=== PATIENT | female | born 1940 | race Caucasian/White ===

== ENCOUNTER 2016-11-02 11:21 | Inpatient (IN) | payer MEDICARE, OTHER ==
[~2016-11-02] VITALS: Ht 152.4 cm; Wt 103.4 kg
[~2016-11-02 11:21] MED LIST: AMLO10TA2 PO; ASPI-482 PO; BENZ0.5T PO; BENZ100C2 PO; BENZ200C39 PO; BIOT1CAP3 PO; BIOT25005 PO; BIOT300T PO; BUDE9TAB PO; BUSP15TA PO; BUTA1CAP57 PO; CA C1TAB42 PO; CA C1TAB58 PO; CALC-67 PO; CARV12.52 PO; CIPR250T30 PO; CODEINE PHOSPHATE PO; COLC0.6T34 PO; COLE1TAB2 PO; CYAN10002 IJ; CYAN10002 IM; CYCL5TAB PO; DIPH1TAB PO; DIPH1TAB5 PO; DOCO2CRE TP; DULO60CA6 PO; ESTR42.53 VG; FERR-26 PO; FLUT16SP NS; FURO20TA3 PO; GABA300C2 PO; GABA600T2 PO; GEMF600T3 PO; GUAIFENESIN PO; HYDR-2762 PO; KETO15CR TP; KRIL1CAP4 PO; KRIL1CAP5 PO; LACT1CAP21 PO; LEVO500T38 PO; LEVO50TA5 PO; MELA5TAB PO; MELO-156 PO; MELO7.5O PO; MESA800T2 PO; METF-620 PO; MIRT30TA3 PO; MULT1TAB52 PO; OMEP20TA PO; ONDA4TAB10 SL; OXYB10TA PO; OXYB10TA7 PO; POTA15TA9 PO; POTA20TA4 PO; POTASSIUM CHLO10 MEQ PO; PRED-220 PO; PREG75CA PO; PSYL1PAC PO; QUET100T PO; SALI44.3 MM; SUVO5TAB PO; TEMA15CA PO; TIZA4TAB PO; VIT1CAPS17 PO; VIT1TABL34 PO; VITA100T5 PO; VITA200C5 PO
--- NOTE | 2016-11-02 12:04 | RAD ---
Indication: Shortness of breath. Time of exam 11:57 AM Comparison is made with prior chest from 04/15/2016. The heart is enlarged but stable. The lungs are clear. No infiltrate or failure is detected. No effusion or pneumothorax is seen. Impression: No acute cardiopulmonary process is detected.
[2016-11-02] MEDS ORDERED: IPRATRPIUM/ALBUTEROL 0.5/2.5MG 3 ML NEBU. NEB ONE ×2 (12:30→14:00)
--- NOTE | 2016-11-02 12:35 | EKG ---
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
[2016-11-02 12:40] LABS: HEMATOCRIT 32.7 % (36.0-47.0); HEMOGLOBIN 10.7 g/dL (12.0-15.5); MEAN CORPUSCULAR VOLUME 92 fL (79-100); RED BLOOD COUNT 3.53 x10^6/uL (3.50-5.40); WHITE BLOOD COUNT 8.4 x10^3/uL (4.0-11.0)
[2016-11-02 12:41] LABS: BASO % 0 % (0-3); EOS % 4 % (0-3); LYMPH # 1.2 x10^3/uL (1.0-4.8); LYMPH % 14 % (24-48); MEAN CORPUSCULAR HEMOGLOBIN 30 pg (25-35); MEAN CORPUSCULAR HGB CONC 33 g/dL (31-37); MONO % 8 % (0-9); NEUT % 74 % (31-73); PLATELET COUNT 208 x10^3/uL (140-400); RED CELL DISTRIBUTION WIDTH 14.6 % (11.5-14.5)
[2016-11-02 12:51] LABS: CALCIUM 8.7 mg/dL (8.5-10.1); CREATININE 1.1 mg/dL (0.6-1.0); GFR 48.7; POTASSIUM 4.5 mmol/L (3.5-5.1)
[2016-11-02 12:57] LABS: ALBUMIN 3.1 g/dL (3.4-5.0); TOTAL BILIRUBIN 0.3 mg/dL (0.2-1.0); TOTAL PROTEIN 6.1 g/dL (6.4-8.2)
[2016-11-02] MEDS ORDERED: BENZONATATE 100 MG CAPSULE. PO ONE (13:15)
[2016-11-02] MEDS ORDERED: MORPHINE SULFATE 2 MG/ML DISP.SYRIN. IV PRN (13:30)
[2016-11-02] MEDS ORDERED: AZITHROMYCIN 500 MG in IV NORMAL SALINE 250ML 250 ML IV ONE (13:30)
[2016-11-02] MEDS ORDERED: ONDANSETRON PF 4 MG/2 ML VIAL. IV PRN (13:30)
[2016-11-02] MEDS ORDERED: AZITHRMYCN 500MG IVPB FOR OMNI 250 ML IV ONE (13:45)
--- NOTE | 2016-11-02 14:02 | RAD ---
Exam performed:3 views right shoulder Indication:Right shoulder pain after pulling on her walker a few days ago Date of service:11/02/16. Comparison:None available Findings : AP radiographs of the shoulder in internal and external rotation as well as a Y-view reveal the osseous structures to be intact and well aligned. Small ossific fragment is seen of the lateral aspect of the humeral head in one view only. Joint space narrowing involving the acromioclavicular joint. The glenohumeral joint space is well-preserved. The articular margins are smooth. Impression: 1. Degenerative arthrosis involving the acromioclavicular joint. 2. Small ossific density along the lateral aspect of the humeral head on one view only. This could be related to calcific tendinosis. Small avulsion not excluded although the donor site is not clear. If symptoms persists, consider evaluation with CT right shoulder.
[2016-11-02 14:30] VITALS: BP 162/58
[2016-11-02 15:00] VITALS: BP 162/58
[2016-11-02] MEDS ORDERED: FERR-26 PO (15:01)
[2016-11-02] MEDS ORDERED: DULO60CA6 PO (15:01)
[2016-11-02] MEDS ORDERED: FURO20TA3 PO (15:02)
--- NOTE | 2016-11-02 15:02 | PHYS DOC ---
Past Medical History Past Medical History: Anemia, Anxiety, Cancer, CHF, Depression, Diabetes-Type II, Hypertension, Hypothyroid, Other Additional Past Medical Histor: cervical ca , sleep apnea Past Surgical History: Cholecystectomy, Hysterectomy Additional Past Surgical Histo: carpal tunnel, back sx, EGD, Colonscopy, bypass that changed to lap band Alcohol Use: None Drug Use: None Adult General Chief Complaint Chief Complaint: SHORTNESS OF BREATH HPI HPI Patient is a 75 year old female who presents with shortness of breath. THe patient reports 5 day history of frequent dry cough associated with shortness of breath at rest. She denies fevers/chills, chest pain, lower extremity pain/ swelling. She was recently admitted to the hospital & treated for pneumonia, no oral antibiotics at time of hospital discharge. She denies asthma, COPD, smoking history. She is wearing a sling on her right upper extremity, states she experienced mechanical fall 4 days ago, had XR at that time negative for fracture, has ongoing right shoulder pain. Reports DM, HTN, CHF, DORA. PCP is Dr. Asif. Review of Systems Review of Systems Constitutional: Denies fever or chills Eyes: Denies change in visual acuity HENT: Denies nasal congestion or sore throat Respiratory: Reports cough & shortness of breath Cardiovascular: Denies chest pain or edema GI: Denies abdominal pain, nausea, vomiting Musculoskeletal: Denies back pain, reports shoulder pain Integument: Denies rash or skin lesions Neurologic: Denies headache, focal weakness or sensory changes Current Medications Current Medications Current Medications Medications (Trade) Dose Ordered Sig/Ulices Start Time Stop Time Status Last Admin Dose Admin Albuterol/ Ipratropium (Duoneb) 3 ml 1X ONCE 11/02/16 12:30 11/02/16 12:31 DC 11/02/16 11:54 3 ML Allergies Allergies Allergies Coded Allergies Type Severity Reaction Last Updated Verified ciprofloxacin Allergy Intermediate 10/18/16 Yes egg Allergy Intermediate Nausea and Vomiting 10/18/16 Yes I S O L A T I O N *CONTACT* Allergy Unknown 10/18/16 Yes cephalexin Adverse Reaction Intermediate Itching 10/18/16 Yes Physical Exam Physical Exam Constitutional: obese, no acute distress, non-toxic appearance. HENT: Normocephalic, atraumatic, bilateral external ears normal, oropharynx moist, no tonsillar enlargement/exudaate, nose normal. Eyes: conjunctiva normal, no discharge. Neck: supple, no stridor. Cardiovascular: RRR, no murmurs, no edema. Lungs & Thorax: diminished, left sided expiratory wheezes, breath sounds present in all lung fonseca, speaking in short sentences, no use of accessory muscles, no distress. frequent coughing. Abdomen: soft, nontender, nondistended. Skin: Warm, dry, no erythema, no rash. Back: No tenderness. Extremities: no calf tenderness or swelling. RUE sling present, generalized tenderness to shoulder without swelling/deformity, no elbow tenderness, limited ROM secondary to pain, axillary nerve sensation intact, radial pulse 2+, radial/ median/ulnar nerve sensory & motor function intact Neurologic: Alert and oriented X 3, no focal deficits noted. Psychologic: Affect normal, judgement normal, mood normal. Current Patient Data Vital Signs Vital Signs Date Time Temp Pulse Resp B/P (MAP) Pulse Ox O2 Delivery O2 Flow Rate FiO2 11/02/16 12:51 60 18 152/67 (95) 94 Room Air 11/02/16 11:38 98.3 98.3 Lab Values Laboratory Tests Test 11/02/16 12:20 White Blood Count 8.4 x10^3/uL (4.0-11.0) Red Blood Count 3.53 x10^6/uL (3.50-5.40) Hemoglobin 10.7 g/dL (12.0-15.5) L Hematocrit 32.7 % (36.0-47.0) L Mean Corpuscular Volume 92 fL (79-100) Mean Corpuscular Hemoglobin 30 pg (25-35) Mean Corpuscular Hemoglobin Concent 33 g/dL (31-37) Red Cell Distribution Width 14.6 % (11.5-14.5) H Platelet Count 208 x10^3/uL (140-400) Neutrophils (%) (Auto) 74 % (31-73) H Lymphocytes (%) (Auto) 14 % (24-48) L Monocytes (%) (Auto) 8 % (0-9) Eosinophils (%) (Auto) 4 % (0-3) H Basophils (%) (Auto) 0 % (0-3) Neutrophils # (Auto) 6.2 x10^3uL (1.8-7.7) Lymphocytes # (Auto) 1.2 x10^3/uL (1.0-4.8) Monocytes # (Auto) 0.6 x10^3/uL (0.0-1.1) Eosinophils # (Auto) 0.3 x10^3/uL (0.0-0.7) Basophils # (Auto) 0.0 x10^3/uL (0.0-0.2) Sodium Level 142 mmol/L (136-145) Potassium Level 4.5 mmol/L (3.5-5.1) Chloride Level 103 mmol/L (98-107) Carbon Dioxide Level 29 mmol/L (21-32) Anion Gap 10 (6-14) Blood Urea Nitrogen 28 mg/dL (7-20) H Creatinine 1.1 mg/dL (0.6-1.0) H Estimated GFR (Cockcroft-Gault) 48.7 BUN/Creatinine Ratio 25 (6-20) H Glucose Level 94 mg/dL (70-99) Calcium Level 8.7 mg/dL (8.5-10.1) Total Bilirubin 0.3 mg/dL (0.2-1.0) Aspartate Amino Transferase (AST) 13 U/L (15-37) L Alanine Aminotransferase (ALT) 19 U/L (14-59) Alkaline Phosphatase 95 U/L (46-116) Troponin I Quantitative < 0.017 ng/mL (0.000-0.055) VB-Sip-A-Type Natriuretic Peptide 358 pg/mL (0-124) H Total Protein 6.1 g/dL (6.4-8.2) L Albumin 3.1 g/dL (3.4-5.0) L Albumin/Globulin Ratio 1.0 (1.0-1.7) Laboratory Tests 11/02/16 12:20 Laboratory Tests 11/02/16 12:20 EKG EKG interpreted by me: NSR rate 63, no acute ST/T wave changes, normal intervals, PACs, low voltage.[] Radiology/Procedures Radiology/Procedures PROCEDURE: CHEST AP ONLY Indication: Shortness of breath. Time of exam 11:57 AM Comparison is made with prior chest from 04/15/2016. The heart is enlarged but stable. The lungs are clear. No infiltrate or failure is detected. No effusion or pneumothorax is seen. Impression: No acute cardiopulmonary process is detected. DICTATED and SIGNED BY: SANDRA GONZALEZ MD DATE: 11/02/16 1201 PROCEDURE: SHOULDER 2+V RIGHT Exam performed:3 views right shoulder Indication:Right shoulder pain after pulling on her walker a few days ago Date of service:11/02/16. Comparison:None available Findings : AP radiographs of the shoulder in internal and external rotation as well as a Y-view reveal the osseous structures to be intact and well aligned. Small ossific fragment is seen of the lateral aspect of the humeral head in one view only. Joint space narrowing involving the acromioclavicular joint. The glenohumeral joint space is well-preserved. The articular margins are smooth. Impression: 1. Degenerative arthrosis involving the acromioclavicular joint. 2. Small ossific density along the lateral aspect of the humeral head on one view only. This could be related to calcific tendinosis. Small avulsion not excluded although the donor site is not clear. If symptoms persists, consider evaluation with CT right shoulder. DICTATED and SIGNED BY: SHERRI GUNN MD DATE: 11/02/16 9092[] Course & Med Decision Making Course & Med Decision Making Pertinent Labs and Imaging studies reviewed. (See chart for details) The patient presents with cough & dyspnea. O2 sats as low as 88-90% on room air while at rest. Frequent paroxysmal coughing fits. Gave tessalon perles & duoneb x2. CXR negative for acute process, labs show mild elevation of BNP. She did not feel better with treatments given here. At this time symptoms appear infectious with cough as predominant feature. Gave azithromycin here. She did have recent car trip to [place], at this time no symptoms or signs of DVT, not tachycardic, no history of DVT/PE, & had recent chest CTA during her previous admission. For now will not pursue further workup for PE but if cough improves & still dyspneic may benefit from further consideration. Discussed with DR. Mcintyre who agrees to admit to inpatient status. Pulmonary consult to Dr. Aguilar as well as Dr. Trevizo for shoulder pain. The patient was admitted in stable condition. [] Dragon Disclaimer Dragon Disclaimer This electronic medical record was generated, in whole or in part, using a voice recognition dictation system. Departure Departure Impression: Primary Impression: Dyspnea Additional Impressions: Bronchitis Hypoxia Shoulder pain Disposition: 09 ADMITTED INPATIENT Admitting Physician: Christina Mcintyre Condition: STABLE Problem Qualifiers SHARAD POZO MD November 02, 2016 15:02
[2016-11-02] MEDS ORDERED: BUDE9TAB PO (15:03)
[2016-11-02] MEDS: ACETAMINOPHEN 325 MG TABLET. PO PRN ×2 (16:30→23:42)
[2016-11-02] MEDS: IPRATRPIUM/ALBUTEROL 0.5/2.5MG 3 ML NEBU. NEB SCH ×2 (16:52→19:57)
[2016-11-02] MEDS: PROMETH/CODEINE 6.25/10MG 5 ML SYRUP. PO PRN ×2 (18:14→21:48)
--- NOTE | 2016-11-02 18:34 | ACF ---
Admission Forms Criteria GENERAL ADMISSION CRITERIA (Place 'X' for any and all applicable criteria): Admission is indicated for ANY ONE of the following: [ ]I. Hemodynamic instability as indicated by ANY ONE of the following(1)(2) (3)(4)(5): [ ]a) Vital sign abnormality not readily corrected by appropriate treatment within 12 to 24 hours indicated by ANY ONE of the following: [ ]i) Hypotension [ ]ii) Symptomatic Tachycardia unresponsive to treatment (eg , analgesia, fluids, sedation as indicated) [ ]iii) Orthostatic vital sign changes unresponsive to treatment (eg, fluids) [ ]b) Vital sign abnormality that is severe indicated by ANY ONE of the following: [ ]i) Inadequate perfusion indicated by ANY ONE of the following: [ ]1) Lactic acidosis (greater than 2 mmol/L) [ ]2) New abnormal capillary refill (greater than 3 seconds) [ ]3) Other metabolic acidosis (arterial pH less than 7.35) not otherwise explained [ ]4) Reduced urine output [ ]5) Altered mental status [ ]6) Myocardial Ischemia [ ]v) Mean arterial pressure[A] less than 60 mm Hg [ ]vi) Mean arterial pressure[A] less than 70 mm Hg after 30 minutes of appropriate treatment (eg, fluid resuscitation) [ ]vii) IV inotropic or vasopressor medication required to maintain adequate blood pressure or perfusion [ ]viii) Sustained heart rate greater than 120 beats per minute in adult or child 6 years or older[B]] [ ]II. Hypertension requiring inpatient treatment as indicated by ANY ONE of the following(6)(7)(8): [ ]a) SBP greater than 220 mm Hg or DBP greater than 120 mm Hg despite treatment [ ]b) SBP greater than 140 mm Hg or DBP greater than 100 mm Hg with evidence of acute end organ damage as indicated by ANY ONE of the following: [ ]i) Encephalopathy [ ]ii) Acute renal failure as indicated by new onset of ANY ONE of the following(9)(10)(11)(12)(13): [ ]1) A 3-fold rise in serum creatinine from baseline [ ]2) Serum creatinine greater than 4 mg/dL ( 354 micromoles/L) with acute rise greater than 0.5 mg/dL (44.2 micromoles/L) [ ]3) Reduction of more than 75% in estimated glomerular filtration rate from baseline [ ]4) Estimated glomerular filtration rate less than 35 mL/min/1.73m2 (0.59 mL/sec/1.73m2) in child up to 18 years of age [ ]5) Cessation of urine output indicated by ALL of the following: [ ]A. Adequate volume status [ ]B. Inadequate urine output as indicated by ANY ONE of the following: [ ]a. Urine output less than 0.3 mL/kg/hr for 24 hours [ ]b. Anuria (urine output less than 0.1 mL/kg/hr) for 12 hours [ ]iii) Aortic dissection [ ]iv) Myocardial ischemia [ ]v) Left ventricular heart failure [ ]vi) Retinal hemorrhage [ ]vii) Other significant finding [ ]c) Hypertension in child requiring inpatient treatment as indicated by ALL of the following(14)(15)(16): [ ]i) Outpatient treatment not effective, not available, or not appropriate [ ]ii) SBP or DBP greater than 95th percentile for age [ ]iii) Evidence of acute end organ damage as indicated by ANY ONE of the following: [ ]1) Altered mental status [ ]2) Acute renal failure as indicated by new onset of ANY ONE of the following(9)(10)(11)(12)(13): [ ]A. A 3-fold rise in serum creatinine from baseline [ ]B. Serum creatinine greater than 4 mg/dL (354 micromoles/L) with acute rise greater than 0.5 mg/dL (44.2 micromoles/L) [ ]C. Reduction of more than 75% in estimated glomerular filtration rate from baseline [ ]D. Estimated glomerular filtration rate less than 35 mL/min/1.73m2 (0.59 mL/sec/1.73m2)in child up to 18 years of age [ ]E. Cessation of urine output indicated by ALL of the following: [ ]a. Adequate volume status [ ]b. Inadequate urine output as indicated by ANY ONE of the following: [ ]1) Urine output less than 0.3 mL/kg/hr for 24 hours [ ]2) Anuria (urine output less than 0.1 mL/kg/hr) for 12 hours [ ]3) Severe headache [ ]4) Visual disturbance [ ]5) Retinal hemorrhage [ ]6) Other significant finding [ ]III. Acute cardiac or peripheral ischemia as indicated by ANY ONE of the following: [ ]a) Acute coronary syndrome(17)(18) [ ]b) Acute peripheral ischemia (eg, pulseless, cool, mottled, or cyanotic extremity)(19) [ ]IV. Cardiac arrhythmias or findings of immediate concern indicated by ANY ONE of the following(20)(21): [ ]a) Heart rhythms that are inherently dangerous or unstable indicated by ANY ONE of the following(22)(23)(24): [ ]i) Resuscitated ventricular fibrillation or cardiac arrest [ ]ii) Ventricular escape rhythm [ ]iii) Sustained ventricular tachycardia (30 seconds or more of ventricular rhythm at greater than 100 beats per minute) [ ]iv) Nonsustained ventricular tachycardia and ANY ONE of the following: [ ]1) Suspected cardiac ischemia as cause or consequence of ventricular tachycardia [ ]2) In setting of acute myocarditis [ ]b) Unstable cardiac conduction defects indicated by ANY ONE of the following(24)(25)(26): [ ]i) Type II second-degree atrioventricular block [ ]ii) Third-degree atrioventricular block [ ]iii) New-onset left bundle branch block with suspected myocardial ischemia [ ]c) Any heart rhythm and ANY ONE of the following(22)(23)(27)(28)( 29): [ ] i) Continuous long-term ECG monitoring needed (eg, initiation of drug requiring monitoring for more than 24 hours) [ ] ii) Patient has automatic implanted cardioverter defibrillator that is repeatedly firing, malfunctioning, or in need of immediate adjustment of settings beyond the scope of ambulatory or observation care. [ ]d) Heart rhythms of concern due to ANY ONE of the following: [ ]i) Hypotension [ ]ii) Respiratory distress [ ]iii) Association with other significant symptoms (eg, bradycardia with syncope or ongoing dizziness, supraventricular tachycardia with chest pain) (27)(28) (30) [ ] V. Severe heart failure as indicated by ANY ONE of the following ( 31)(32): [ ]a) Respiratory distress [ ]b) Hypotension [ ]c) Anasarca (refractory to outpatient therapy) [ ]d) Cardiac arrhythmias of immediate concern [ ]e) Myocardial ischemia [X]. Respiratory abnormalities, including ANY ONE of the following(33)(34) (35)(36): [ ]a) Respiratory rate greater than 30 breaths per minute unresponsive to treatment [A] [ ]b) New saturation of arterial oxygen less than 90% [ ]c) New partial pressure of carbon dioxide greater than 44 mm Hg ( 5.9 kPa) [X]d) Supplemental oxygen or respiratory treatments needed that are new or not performable at other levels of care [ ]e) New-onset cyanosis [ ]f) Inability to protect airway [ ]g) Chronic lung disease with severe deterioration (not responsive to emergency and observation care treatment as appropriate) as indicated by ANY ONE of the following(34)(36 ): [ ]i) SaO2 5% below baseline in patient with chronic hypoxemia [ ]ii) New requirement for supplemental oxygen to keep SaO2 at baseline or acceptable level [ ]iii) Required supplemental oxygen performable only in acute inpatient setting [ ]iv) Severe airflow or ventilation abnormalities [ ]v) Previously mobile patient unable to walk between rooms [ ]vi Inability to eat or sleep due to dyspnea [ ]vii) Rapid rate of exacerbation onset [ ]viii) Altered mental status ]VII. Severe airflow or ventilation abnormalities (not responsive to emergency and observation care treatment as appropriate) as indicated by ANY ONE of the following(33)(34)(35)(37): [ ]a) PCO2 greater than 42 mm Hg (5.6 kPa) and pH less than 7.35 (new ) [ ]b) Documented PCO2 increased more than 5 mm Hg (0.7 kPa) from disease baseline [ ]c) Airflow measurements [B] less than 60% of previous best or predicted (eg, peak expiratory flow rate less than 300 L/minute) despite intensive emergent treatment [C] [ ]d) Required respiratory treatments that are performable only in acute inpatient setting [ ]VIII. Impending or actual respiratory arrest ( Also use Respiratory Failure GRG for severe respiratory disease and long-term mechanical ventilation patients) [ ]IX. Neurologic abnormalities, including ANY ONE of the following: [ ]a) New findings that suggest ANY ONE of the following: [ ]i) DEXTRINE MIXER infection(38) [ ]ii) Cerebral bleeding, ischemia, or vasospasm(39)(40) [ ]iii) Increased intracranial pressure, hydrocephalus, or cerebral edema(41)(42)(43) [ ]iv) Spinal cord injury(44) [ ]b) Uncontrolled seizures(45) [ ]c) New-onset coma (eg, [place] coma scale score less than 9) or unexplained abnormal mental status (eg, [place] coma scale score less than 14) [D](41)(46)(47) [ ]X. New-onset severe neurologic findings requiring inpatient care; examples include(42)(48)(49): [ ]a) Papilledema [ ]b) Cerebral edema [ ]c) Mass effect on CT scan [ ]XI. Suspected acute intra-abdominal process with peritoneal signs, abdominal mass, or similar findings (50)(51)(52) [ ]XII. Severe physiologic disorder remaining after emergency or observation level care (as appropriate) as indicated by ANY ONE of the following (53): [ ]a) Significant dehydration [ ]b) Diabetic ketoacidosis [ ]c) Hyperglycemic hyperosmolar state (eg, osmolality greater than 320 mOsm/kg (mmol/kg) [ ]d) Hypoglycemia [ ]e) Other (new) acid-base disorder with pH less than 7.35 or greater than 7.5(54) [ ]f) Thyroid storm (55) [ ]g) Myxedema coma (55) [ ]XIII. Abdominal abnormalities with ANY ONE of the following(56)(57): [ ]a) Absent bowel sounds with complete ileus [ ]b) Signs of intestinal obstruction or peritonitis [E] [ ]c) Nausea and vomiting that cannot be controlled with outpatient or observation care [ ]XIV. Acute renal failure as indicated by new onset of ANY ONE of the following(9)(10)(11)(12)(13): [ ]a) A 3-fold rise in serum creatinine from baseline [ ]b) Serum creatinine greater than 4 mg/dL (354 micromoles/L) with acute rise greater than 0.5 mg/dL (44.2 micromoles/L) [ ]c) Reduction of more than 75% in estimated glomerular filtration rate from baseline [ ]d) Estimated glomerular filtration rate less than 35 mL/min/ 1.73m2 (0.59 mL/sec/1.73m2) in child up to 18 years of age [ ]e) Cessation of urine output indicated by ALL of the following: [ ]i) Adequate volume status [ ]ii) Inadequate urine output as indicated by ANY ONE of the following: [ ]1) Urine output less than 0.3 mL/kg/hr for 24 hours [ ]2) Anuria (urine output less than 0.1 mL/kg/hr) for 12 hours [ ]XV. Significant uremic complications as indicated by ANY ONE of the following(58)(59)(60): [ ]a) Outpatient therapy is ineffective or not feasible for ANY ONE of the following: [ ]i) Severe heart failure [ ]ii) Severehypertension [ ]iii) Pleural effusion [ ]iv) Pericarditis or pericardial effusion [ ]b) Cardiac arrhythmias of immediate concern [ ]c) Intractable nausea or vomiting [ ]d) Recurrent seizures [ ]e) Encephalopathy [ ]f) Bleeding abnormalities (eg, platelet dysfunction) with active (eg, gastrointestinal) bleeding [ ]g) Dialysis indicated before long-term access or ambulatory arrangements can be made [ ]h) Significant metabolic or electrolyte abnormalities (eg, severe acidosis or hyperkalemia) [ ]XVI. High fever or other high-risk infection situation as indicated by ANY ONE of the following(61)(62)(63)(64): [ ]a) Outpatient and observation care antimicrobial treatment unavailable, not effective, or not appropriate [ ]b) Documented bacteremia [ ]c) Temperature greater than 40.5 degrees C (104.9 degrees F) ( oral) [ ]d) Temperature greater than 39.5 degrees C (103.1 degrees F) ( oral) or less than 36 degrees C (96.8 degrees F) (rectal) that does not respond to e treatment and observation care [ ] XVII. Temperature less than 95 degrees F (35 degrees C)(rectal)(65) [ ] XVIII. Severe nutritional abnormalities as indicated by ALL of the following (66)(67): [ ]a) Inability to tolerate or establish sufficient oral or other enteral nutrition in outpatient setting [ ]b) Parenteral nutrition regimen need that must be implemented on inpatient basis [ ] XIX. Severe electrolyte abnormalities indicated by ALL of the following(68) (69)(70): [ ]a) Electrolytes and associated findings are not as expected for patient baseline or acceptable treatment effects. [ ]b) Severe abnormalities indicated by ANY ONE of the following: [ ]i) Sodium less than 130 mEq/L (mmol/L) (new) [ ]ii)Sodium less than 135 mEq/L (mmol/L) with ANY ONE of the following: [ ]1) Uncorrectable (to near normal or chronic baseline) after trial of outpatient and emergency treatment [ ]2) Altered mental status [ ]3) Seizures [ ]4) Severe medical etiology requiring inpatient management (eg, heart failure, hypovolemia) [ ]iii) Sodium greater than 155 mEq/L (mmol/L) [ ]iv) Sodium greater than 150 mEq/L (mmol/L) with ANY ONE of the following: [ ]1) Uncorrectable (to near normal or chronic baseline) with outpatient and emergency treatment [ ]2) Altered mental status [ ]3) Seizures [ ]4) Severe medical etiology (eg, hypovolemia, diabetes insipidus) [ ]v) Potassium less than 2.5 mEq/L (mmol/L) despite outpatient and emergency treatment [ ]vi) Potassium less than 3 mEq/L (mmol/L) with ANY ONE of the following: [ ]1) Weakness [ ]2) Cardiac abnormality (eg, arrhythmia, conduction disturbance) [ ]3) Cardiac ischemia [ ]4) Ileus [ ]5) Ongoing medical cause requiring inpatient management (eg, acute renal wasting or SIADH) [ ]6) Other severe symptoms [ ]vii) Potassium greater than 6.5 mEq/L (mmol/L) [ ]viii) Potassium greater than 5 mEq/L (mmol/L) with ANY ONE of the following: [ ]1) Uncorrectable (to near normal or chronic baseline) with outpatient and emergency treatment [ ]2) Severe ECG findings [F] [ ]3) Acute worsening of renal failure (creatinine greater than 2.5 mg/dL (221 micromoles/L) or significant elevation for age and size) [ ]4) Severe weakness [ ]5) Severe medical etiology (eg, hemolysis, infection, drug overdose) [ ]ix) Calcium less than 7 mg/dL (1.75 mmol/L) despite outpatient and emergency treatment (72) [ ]x) Calcium less than 8 mg/dL (2 mmol/L) with significant symptoms or findings; examples include(72): [ ]1) Altered mental status [ ]2) Muscle spasms [ ]3) Seizures [ ]4) Breathing difficulty [ ]5) Cardiac abnormality (eg, arrhythmia or conduction disturbance) [ ]xi) Calcium greater than 14 mg/dL (3.5 mmol/L)(72) [ ]xii) Calcium greater than 12 mg/dL (3 mmol/L) with ANY ONE of the following(72): [ ]1) Uncorrectable (to near normal or chronic baseline) with outpatient and emergency treatment [ ]2) Significant dehydration or hypovolemia as indicated by ALL of the following(70)(73)(74): [ ]A. Not resolved with initial treatments [ ]B. Clinically significant dehydration as indicated by ANY ONE of the following: [ ]a. Vomiting refractory to outpatient treatment (ie, precluding oral rehydration) [ ]b. Inability to drink [ ]c. Hypernatremia or other electrolyte abnormality unable to be corrected with outpatient and emergency treatment [ ]d. Failure to remain hydrated with outpatient therapy [ ]e. Reduced urine output [ ]f. Hypotension [ ]g. Serious cause for dehydration requiring acute hospitalization (eg, bowel obstruction, increased intracranial pressure, infectious cause) [ ]h. Child with ANY ONE of the following(75): [ ]1) Severe abdominal tenderness [ ]2) Adequate care not available at home [ ]3) Severe dehydration ( greater than 9% loss of body weight) [ ]4) Significant symptoms or findings; examples include: [ ]A. Altered mental status [ ]B. Cardiac abnormality (eg, arrhythmia, conduction disturbance) [ ]C. Malignant etiology requiring inpatient treatment [ ]xiii) Phosphorus less than 1 mg/dL (0.32 mmol/L) [ ]xiv) Phosphorus less than 1.5 mg/dL (0.48 mmol/L) with ANY ONE of the following: [ ]1) Patient unresponsive to outpatient and emergency treatment [ ]2) Significant symptoms or findings; examples include: [ ]A. Weakness [ ]B. Altered mental status [ ]C. Breathing difficulty [ ]D. Seizures [ ]E. Rhabdomyolysis [ ]xv) Phosphorus greater than 10 mg/dL (3.2 mmol/L) [ ]xvi) Phosphorus greater than 4.5 mg/dL (1.45 mmol/L) (new) with ANY ONE of the following: [ ]1) Severe medical etiology (eg, crush injury, acute renal failure) [ ]2) Associated hypocalcemia with significant findings; examples include: [ ]A. Neurologic symptoms [ ]B. Altered mental status [ ]C. Muscle spasms [ ]D. Seizures [ ]E. Breathing difficulty [ ]F. Cardiac abnormality (eg, arrhythmia, conduction disturbance) [ ]xvii) Magnesium less than 1 mg/dL (0.41 mmol/L) [ ]xviii) Magnesium less than 1.5 mg/dL (0.62 mmol/L) with ANY ONE of the following: [ ]1) Patient unresponsive to outpatient and emergency treatment [ ]2) Associated hypocalcemia with significant findings; examples include: [ ]A. Altered mental status [ ]B. Muscle spasms [ ]C. Seizures [ ]D. Breathing difficulty [ ]E. Cardiac abnormality (eg, arrhythmia , conduction disturbance) [ ]3) Associated hypokalemia (potassium less than 3 mEq/L (mmol/L)) with risk of arrhythmia [ ]xix) Magnesium greater than 4 mEq/L (2 mmol/L) [ ]xx) Magnesium greater than 2.5 mEq/L (1.25 mmol/L) with significant symptoms or findings; examples include: [ ]1) Weakness [ ]2) Altered mental status [ ]3) Cardiac abnormality (eg, arrhythmia, conduction disturbance) [ ]4) Breathing difficulty [ ]5) Severe medical etiology (eg, renal failure, hypovolemia) [ ]xxi) Uric acid greater than 20 mg/dL (1190 micromoles/L)(76) [ ]xxii) Uric acid greater than 8 mg/dL (476 micromoles/L) with significant symptoms or findings of tumor lysis syndrome; examples include(76): [ ]1) Creatinine greater than 1.5 times upper limit of normal [ ]2) Cardiac abnormality (eg, arrhythmia, conduction disturbance) [ ]3) Seizure [ ]XX. Acute blood loss causing significant abnormality as indicated by ANY ONE of the following(77)(78): [ ]a) Hemoglobin less than 10 g/dL (100 g/L) (not baseline) [ ]b) Hematocrit less than 30% (0.30) (not baseline) [ ]c) Repeat hematocrit decreased more than 2% (0.02) [ ]d) Uncontrolled bleeding [ ]XXI. Severe anemia indicated by ANY ONE of the following(78)(79): [ ]a) Altered mental status [ ]b) Chest pain [ ]c) Exertional dyspnea [ ]d) Syncope [ ]e) Other findings suggesting inadequate perfusion [ ]f) Treatment with transfusion or volume replacement is ineffective at resolving ANY ONE of the following [G]: [ ]i) Tachycardia for age [ ]ii) Orthostatic vital sign changes as indicated by ANY ONE of the following(80): [ ]1) Fall in SBP of 20 mm Hg or more 1 to 3 minutes after patient sits or stands from recumbent position [ ]2) Fall in DBP of 10 mm Hg or more 1 to 3 minutes after patient sits or stands from recumbent position [ ]XXII. High-risk low platelet count as indicated by ANY ONE of the following( 81)(82): [ ]a) Severe or life-threatening bleeding (eg, intracranial, major gastrointestinal, or extensive mucosal bleeding), with any reduced platelet count [ ]b) Platelet count less than 20,000/mm3 (20 x109/L) with any active bleeding [ ]c) Platelet count less than 10,000/mm3 (10 x109/L) with minor purpura or petechiae [ ]d) Platelet count less than 5000/mm3 (5 x109/L) [ ]e) Low platelet count with hemolytic anemia [ ]XXIII. Disseminated intravascular coagulation(77)(83) [ ]XXIV. Severe adverse drug or systemic toxin reaction requiring inpatient treatment; examples include(84)(85): [ ]a) Serotonin syndrome(86) [ ]b) Neuroleptic malignant syndrome(86) [ ]c) Cholinergic syndrome with severe symptoms (eg, bronchorrhea, weakness, mental status changes, seizures) [ ]d) Sympathetic syndrome with severe symptoms (eg, seizures, mental status changes, cardiac dysrhythmias) [ ]e) Anticholinergic syndrome [ ]XXV. Severe pain requiring acute inpatient management as indicated by ALL of the following (87)(88)(89): [ ]a) Continuous or frequent (eg, every 2 to 4 hours) parenteral analgesics required [H] [ ]b) Rapid improvement expected from treatment or acute intervention (eg, surgery, anesthesia procedure) [ ]XXVI.Severe behavioral health issues judged unmanageable at a lower level of care (eg, residential) in a patient who is ANY ONE of the following(91) [ ]a) Acutely suicidal [ ]b) A danger to self (eg, self-mutilating or suicidal behavior) [ ]c) A danger to others (eg, assaultive or homicidal behavior) [ ]d) Incapacitated because of grave disability (eg, inability to provide for self at lower level of care) (92) [ ]XXVII. Inpatient monitoring needed; examples include(1)(3)(87)(93)(94)(95)(96 ): [ ]a) Vital signs, neurologic signs, or vascular checks more frequently than every 4 hours [ ]b) Cardiac or respiratory monitoring beyond the scope (eg, over 24 hours) of observation care [ ]c) Pulmonary artery catheter monitoring [ ]d) Suspected compartment syndrome(97) (98) [ ]e) Cerebral bleeding, hydrocephalus, or vasospasm monitoring [ ]f) Increased intracranial pressure or cerebral edema monitoring [ ]g) monitoring [ ]XXVIII. Treatment requiring inpatient care; examples include: [ ]a) IV fluid to replace significant ongoing losses (greater than 3 L/m2 per day)(53) [ ]b) High concentration oxygen (greater than 40%)(33)(99)(100) [ ]c) Frequent respiratory therapy (more frequently than every 4 hours) to maintain airflow rates greater than 60% of baseline(33)(99)(100) [ ]d) Epidural analgesia(87) [ ]e) IV anticoagulation, vasoactive, or antiarrhythmic medication(19 )(23) [ ]f) Acute thrombolytics (generally require 24 hours of observation )(101)(102) [ ]XXIX. Emergency procedures needed; examples include: [ ]a) Emergency inpatient surgery [ ]b) Temporary pacemaker placement(103) [ ]c) Chest tube placement with active evacuation (eg, suction, drainage)(104) [ ]d) Emergent cardioversion(105) [ ]e) Emergent cardiac or vascular procedures (eg, cardiac catheterization, angioplasty) (17)(18) [ ]f) Emergent dialysis access placement and institution(10)(106) [ ]g) Emergent pericardiocentesis(107) [ ]h) Emergent plasmapheresis or leukapheresis(83) [ ]i) Emergent tracheostomy The original [employer] content created by [employer] has been revised. The portions of the content which have been revised are identified through the use of italic text or in bold, and [facility] [employer] has neither reviewed nor approved the modified material. All other unmodified content is copyright [employer]. 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
[2016-11-02 19:00] VITALS: BP 169/78
[2016-11-02 23:50] VITALS: BP 126/59
--- NOTE | 2016-11-03 00:10 | HP ---
ADMIT DATE: 11/02/2016 CHIEF COMPLAINT: Shortness of breath, cough and shoulder pain. HISTORY OF PRESENT ILLNESS: The patient is a pleasant, elderly female well known to our service. She had recent pneumonia, was treated with IV antibiotics and nebulizer treatments, went home on some p.o. antibiotics. Now her symptoms are returning. She does have hypoxia in the ER, although the chest x-ray ____ obvious infiltrates. Clinically, she certainly seems to have pneumonia. I discussed the case with the ER physician. We are going to admit the patient and consult Pulmonary Medicine and Orthopedics, because she has also had a recent shoulder injury. PAST MEDICAL HISTORY: Reviewed, please refer to the computerized H and P. ALLERGIES: None. FAMILY HISTORY: Coronary artery disease. SOCIAL HISTORY: She does not drink, smoke or take drugs. MEDICATIONS: Reviewed, please refer the MRAD. REVIEW OF SYSTEMS: GENERAL: No history of weight change, weakness or fevers. SKIN: No bruising, hair changes or rashes. EYES: No blurred, double or loss of vision. NOSE AND THROAT: No history of nosebleeds, hoarseness or sore throat. HEART: No history of palpitations, chest pain or shortness of breath on exertion. LUNGS: She complains of shortness of breath. GASTROINTESTINAL: Denies changes in appetite, nausea, vomiting, diarrhea or constipation. GENITOURINARY: No history of frequency, urgency, hesitancy or nocturia. NEUROLOGIC: Denies history of numbness, tingling, tremor or weakness. PSYCHIATRIC: No history of panic, anxiety or depression. ENDOCRINE: No history of heat or cold intolerance, polyuria or polydipsia. EXTREMITIES: Denies muscle weakness, joint pain, pain on walking or stiffness. MUSCULOSKELETAL: She complains of shoulder pain. PHYSICAL EXAMINATION: VITAL SIGNS: Temperature afebrile, pulse 67, respirations 18, blood pressure 132/67. GENERAL: She is alert, cooperative. HEART: Normal S1, S2. LUNGS: Slight crackles. ABDOMEN: Soft, positive bowel sounds, a little distended. EXTREMITIES: 1+ edema. SKIN: No rashes. PSYCHIATRIC: She is anxious. VASCULAR: Good capillary refill. ENDOCRINE: No thyromegaly. LYMPHATICS: No cervical nodes. HEMATOPOIETIC: No bruising. ASSESSMENT AND PLAN: Clinical pneumonia. The patient has been admitted. We will treat with IV antibiotics, DuoNeb q. 4 hours, O2 per nasal cannula. Consult Pulmonary Medicine, consult Orthopedics. Resume home medicines. TONYA LEACH DO DR: RAY/hadley JOB#: [id number] / [id number]
[2016-11-03] MEDS: PROMETH/CODEINE 6.25/10MG 5 ML SYRUP. PO PRN ×5 (01:43→23:44)
[2016-11-03 07:00] VITALS: BP 156/97
[2016-11-03] MEDS: IPRATRPIUM/ALBUTEROL 0.5/2.5MG 3 ML NEBU. NEB SCH ×3 (07:15→19:57)
[2016-11-03] MEDS: ACETAMINOPHEN 325 MG TABLET. PO PRN ×3 (08:49→23:44)
--- NOTE | 2016-11-03 09:22 | PDOC ---
Provider Note Provider Note dictated LOIDA NARAYANAN MD November 03, 2016 09:22
--- NOTE | 2016-11-03 10:02 | CONS ---
DATE OF CONSULTATION: ATTENDING PHYSICIAN: Dr. Mcintyre. REASON FOR CONSULTATION: Persistent cough. HISTORY OF PRESENT ILLNESS: The patient is a pleasant 75-year-old female who has never smoked cigarettes. She was in the hospital at [facility] and was treated for pneumonia in the month of September. She said she did well at discharge. However, she drove to her daughter in [place]. She said, 5 days later, she started to have a cough and cough became nonresolving. She was not producing any sputum. No fever, no chills. She started wheezing as well. The patient was seen at the ER and was noted to have hypoxia as well with reportedly low oxygen saturations. She has actually 93% sat, since has been recorded in the [facility]. She states that there is no history of smoking. There is no history of deep vein thrombosis or pulmonary embolism. She has mild chest pain with coughing only. Chest x-ray was reviewed. It does not show any infiltrate. She had a previous CT chest in September. At that time, she had pneumonia involving the left upper lobe. I have been asked to see her for further evaluation. PAST MEDICAL HISTORY: History of anemia, anxiety, history of CHF, depression, type 2 diabetes, hypertension, hypothyroidism, was stable with good compliance to CPAP. PAST SURGICAL HISTORY: Cholecystectomy, hysterectomy, carpal tunnel, back surgery, EGDs, colonoscopy and gastric bypass. REVIEW OF SYSTEMS: Twelve-point system obtained. Pertinent positives discussed in history of present illness, otherwise noncontributory. All systems that were negative were reviewed as well. ALLERGIES: Reviewed. MEDICATIONS: Also reviewed including DuoNeb. SOCIAL HISTORY: Nonsmoker. VITAL SIGNS: Blood pressure 131/61, pulse ox is 96% on room air, afebrile. HEENT: Sclerae nonicteric. NECK: Supple. LUNGS: With bilateral expiratory wheezes. CARDIOVASCULAR: With regular rate and rhythm. ABDOMEN: Soft, obese. EXTREMITIES: With no pitting edema. LABORATORY DATA: Reviewed. White cell count 8.4, hemoglobin 10.7 and platelets 208, BUN 28, creatinine 1.19. IMPRESSION: 1. Highly suspected acute viral bronchitis. 2. Possible underlying reactive airway disease. She has developed bronchospasm , which could also be related to recent lower respiratory tract infection. 3. No significant history of tobacco use. 4. History of obstructive sleep apnea with good compliance to CPAP. 5. History of recent pneumonia involving the left upper lobe. We will obtain followup noncontrast CT chest to make sure there is resolution. RECOMMENDATIONS: 1. We will continue with empiric antibiotic. 2. Continue with DuoNeb. 3. Add steroid nebulizer. 4. Add low dose Solu-Medrol. 5. Cough suppressant. 6. Followup noncontrast CT chest to make sure previously seen pneumonia has resolved. 7. Continue CPAP at bedtime. LOIDA NARAYANAN MD DR: MARINA/hadley JOB#: [id number] / [id number] LAKESHIA
[2016-11-03 10:30] VITALS: BP 132/59
[2016-11-03] MEDS: methylPREDNISolone SOD SUCC PF 40 MG/ML VIAL. IV SCH ×3 (10:51→21:25)
[2016-11-03] MEDS: BUDESONIDE 0.5 MG/2 ML NEBU. NEB SCH ×2 (11:09→19:57)
--- NOTE | 2016-11-03 12:00 | PDOC ---
PROGRESS NOTES Chief Complaint Chief Complaint cc: sob A/P Reactive airway disease Possible Viral bronchitis Acute right shoulder pain. Her exam is consistent with a large rotator cuff tear hx of Sleep apnea Plan periodic nebulizations IV solumedrol pain control CT chest labs reviewed, supportive care. Vitals Vitals Vital Signs Date Time Temp Pulse Resp B/P (MAP) Pulse Ox O2 Delivery O2 Flow Rate FiO2 11/03/16 11:10 Room Air 11/03/16 10:30 98.2 70 18 132/59 (83) 93 98.2 Physical Exam General: Alert, Oriented X3 Heart: Normal S1 Lungs: Clear, Wheezing Labs LABS Laboratory Tests Test 11/02/16 12:20 11/02/16 19:20 11/03/16 01:25 White Blood Count 8.4 x10^3/uL (4.0-11.0) Red Blood Count 3.53 x10^6/uL (3.50-5.40) Hemoglobin 10.7 g/dL (12.0-15.5) Hematocrit 32.7 % (36.0-47.0) Mean Corpuscular Volume 92 fL (79-100) Mean Corpuscular Hemoglobin 30 pg (25-35) Mean Corpuscular Hemoglobin Concent 33 g/dL (31-37) Red Cell Distribution Width 14.6 % (11.5-14.5) Platelet Count 208 x10^3/uL (140-400) Neutrophils (%) (Auto) 74 % (31-73) Lymphocytes (%) (Auto) 14 % (24-48) Monocytes (%) (Auto) 8 % (0-9) Eosinophils (%) (Auto) 4 % (0-3) Basophils (%) (Auto) 0 % (0-3) Neutrophils # (Auto) 6.2 x10^3uL (1.8-7.7) Lymphocytes # (Auto) 1.2 x10^3/uL (1.0-4.8) Monocytes # (Auto) 0.6 x10^3/uL (0.0-1.1) Eosinophils # (Auto) 0.3 x10^3/uL (0.0-0.7) Basophils # (Auto) 0.0 x10^3/uL (0.0-0.2) Sodium Level 142 mmol/L (136-145) Potassium Level 4.5 mmol/L (3.5-5.1) Chloride Level 103 mmol/L (98-107) Carbon Dioxide Level 29 mmol/L (21-32) Anion Gap 10 (6-14) Blood Urea Nitrogen 28 mg/dL (7-20) Creatinine 1.1 mg/dL (0.6-1.0) Estimated GFR (Cockcroft-Gault) 48.7 BUN/Creatinine Ratio 25 (6-20) Glucose Level 94 mg/dL (70-99) Calcium Level 8.7 mg/dL (8.5-10.1) Total Bilirubin 0.3 mg/dL (0.2-1.0) Aspartate Amino Transf (AST/SGOT) 13 U/L (15-37) Alanine Aminotransferase (ALT/SGPT) 19 U/L (14-59) Alkaline Phosphatase 95 U/L (46-116) Troponin I Quantitative < 0.017 ng/mL (0.000-0.055) < 0.017 ng/mL (0.000-0.055) < 0.017 ng/mL (0.000-0.055) BL-Qph-J-Type Natriuretic Peptide 358 pg/mL (0-124) Total Protein 6.1 g/dL (6.4-8.2) Albumin 3.1 g/dL (3.4-5.0) Albumin/Globulin Ratio 1.0 (1.0-1.7) Assessment and Plan Assessmemt and Plan Problems Medical Problems: (1) Bronchitis Status: Acute (2) Dyspnea Status: Acute (3) Hypoxia Status: Acute (4) Shoulder pain Status: Acute Problems: Comment Review of Relevant I have reviewed the following items jassi (where applicable) has been applied. Labs Laboratory Tests Test 11/02/16 12:20 11/02/16 19:20 11/03/16 01:25 White Blood Count 8.4 x10^3/uL (4.0-11.0) Red Blood Count 3.53 x10^6/uL (3.50-5.40) Hemoglobin 10.7 g/dL (12.0-15.5) Hematocrit 32.7 % (36.0-47.0) Mean Corpuscular Volume 92 fL (79-100) Mean Corpuscular Hemoglobin 30 pg (25-35) Mean Corpuscular Hemoglobin Concent 33 g/dL (31-37) Red Cell Distribution Width 14.6 % (11.5-14.5) Platelet Count 208 x10^3/uL (140-400) Neutrophils (%) (Auto) 74 % (31-73) Lymphocytes (%) (Auto) 14 % (24-48) Monocytes (%) (Auto) 8 % (0-9) Eosinophils (%) (Auto) 4 % (0-3) Basophils (%) (Auto) 0 % (0-3) Neutrophils # (Auto) 6.2 x10^3uL (1.8-7.7) Lymphocytes # (Auto) 1.2 x10^3/uL (1.0-4.8) Monocytes # (Auto) 0.6 x10^3/uL (0.0-1.1) Eosinophils # (Auto) 0.3 x10^3/uL (0.0-0.7) Basophils # (Auto) 0.0 x10^3/uL (0.0-0.2) Sodium Level 142 mmol/L (136-145) Potassium Level 4.5 mmol/L (3.5-5.1) Chloride Level 103 mmol/L (98-107) Carbon Dioxide Level 29 mmol/L (21-32) Anion Gap 10 (6-14) Blood Urea Nitrogen 28 mg/dL (7-20) Creatinine 1.1 mg/dL (0.6-1.0) Estimated GFR (Cockcroft-Gault) 48.7 BUN/Creatinine Ratio 25 (6-20) Glucose Level 94 mg/dL (70-99) Calcium Level 8.7 mg/dL (8.5-10.1) Total Bilirubin 0.3 mg/dL (0.2-1.0) Aspartate Amino Transf (AST/SGOT) 13 U/L (15-37) Alanine Aminotransferase (ALT/SGPT) 19 U/L (14-59) Alkaline Phosphatase 95 U/L (46-116) Troponin I Quantitative < 0.017 ng/mL (0.000-0.055) < 0.017 ng/mL (0.000-0.055) < 0.017 ng/mL (0.000-0.055) AB-Ypa-U-Type Natriuretic Peptide 358 pg/mL (0-124) Total Protein 6.1 g/dL (6.4-8.2) Albumin 3.1 g/dL (3.4-5.0) Albumin/Globulin Ratio 1.0 (1.0-1.7) Laboratory Tests Test 11/02/16 12:20 11/02/16 19:20 11/03/16 01:25 White Blood Count 8.4 x10^3/uL (4.0-11.0) Red Blood Count 3.53 x10^6/uL (3.50-5.40) Hemoglobin 10.7 g/dL (12.0-15.5) Hematocrit 32.7 % (36.0-47.0) Mean Corpuscular Volume 92 fL (79-100) Mean Corpuscular Hemoglobin 30 pg (25-35) Mean Corpuscular Hemoglobin Concent 33 g/dL (31-37) Red Cell Distribution Width 14.6 % (11.5-14.5) Platelet Count 208 x10^3/uL (140-400) Neutrophils (%) (Auto) 74 % (31-73) Lymphocytes (%) (Auto) 14 % (24-48) Monocytes (%) (Auto) 8 % (0-9) Eosinophils (%) (Auto) 4 % (0-3) Basophils (%) (Auto) 0 % (0-3) Neutrophils # (Auto) 6.2 x10^3uL (1.8-7.7) Lymphocytes # (Auto) 1.2 x10^3/uL (1.0-4.8) Monocytes # (Auto) 0.6 x10^3/uL (0.0-1.1) Eosinophils # (Auto) 0.3 x10^3/uL (0.0-0.7) Basophils # (Auto) 0.0 x10^3/uL (0.0-0.2) Sodium Level 142 mmol/L (136-145) Potassium Level 4.5 mmol/L (3.5-5.1) Chloride Level 103 mmol/L (98-107) Carbon Dioxide Level 29 mmol/L (21-32) Anion Gap 10 (6-14) Blood Urea Nitrogen 28 mg/dL (7-20) Creatinine 1.1 mg/dL (0.6-1.0) Estimated GFR (Cockcroft-Gault) 48.7 BUN/Creatinine Ratio 25 (6-20) Glucose Level 94 mg/dL (70-99) Calcium Level 8.7 mg/dL (8.5-10.1) Total Bilirubin 0.3 mg/dL (0.2-1.0) Aspartate Amino Transf (AST/SGOT) 13 U/L (15-37) Alanine Aminotransferase (ALT/SGPT) 19 U/L (14-59) Alkaline Phosphatase 95 U/L (46-116) Troponin I Quantitative < 0.017 ng/mL (0.000-0.055) < 0.017 ng/mL (0.000-0.055) < 0.017 ng/mL (0.000-0.055) FA-Ewq-F-Type Natriuretic Peptide 358 pg/mL (0-124) Total Protein 6.1 g/dL (6.4-8.2) Albumin 3.1 g/dL (3.4-5.0) Albumin/Globulin Ratio 1.0 (1.0-1.7) Medications Current Medications Albuterol/ Ipratropium (Duoneb) 3 ml 1X ONCE NEB Last administered on 11:54; Start 11/02/16 at 12:30; Stop 11/02/16 at 12:31; Status DC Benzonatate (Tessalon Perle) 100 mg 1X ONCE PO Last administered on 11/02/16 13:19; Start 11/02/16 at 13:15; Stop 11/02/16 at 13:16; Status DC Azithromycin 500 mg/Sodium Chloride 250 ml @ 250 mls/hr 1X ONCE IV ; Start 11/02/16 at 13:30; Stop 11/02/16 at 14:29; Status UNV Azithromycin 250 ml @ 250 mls/hr 1X ONCE IV Last administered on 11/02/16 14: 05; Start 11/02/16 at 13:45; Stop 11/02/16 at 14:44; Status DC Ondansetron HCl (Zofran) 4 mg PRN Q8HRS PRN IV NAUSEA/VOMITING; Start 11/02/16 at 13:30; Stop 11/03/16 at 13:29 Morphine Sulfate 2 mg PRN Q2HR PRN IV PAIN; Start 11/02/16 at 13:30; Stop at 13:29 Acetaminophen (Tylenol) 650 mg PRN Q4HRS PRN PO FEVER Last administered on 08:49; Start 11/02/16 at 13:30; Stop 11/03/16 at 13:29 Albuterol/ Ipratropium (Duoneb) 3 ml RTQID NEB Last administered on 11/03/16 11 :06; Start 11/02/16 at 16:00; Stop 11/03/16 at 15:59 Albuterol/ Ipratropium (Duoneb) 3 ml 1X ONCE NEB Last administered on 13:54; Start 11/02/16 at 14:00; Stop 11/02/16 at 14:01; Status DC Promethazine HCl/ Codeine (Phenergan With Codeine) 5 ml PRN Q4HRS PRN PO COUGH Last administered on 11/03/16 08:49; Start 11/02/16 at 18:15 Azithromycin 250 mg/Sodium Chloride 250 ml @ 250 mls/hr Q24H IV ; Start at 14:00 Budesonide (Pulmicort) 0.5 mg RTBID NEB Last administered on 11/03/16 11:09; Start 11/03/16 at 10:00 Methylprednisolone Sodium Succinate (Solu-Medrol 40mg Vial) 40 mg Q8HRS IV Last administered on 11/03/16 10:51; Start 11/03/16 at 10:00 Active Scripts Active [Codeine Phosphate/Guaifenesin] 5 ML Liquid 5 Ml PO PRN Q4HRS PRN Benzonatate 100 Mg Capsule 100 Mg PO TID Reported Uceris (Budesonide) 9 Mg Tabdr...er 9 Mg PO QTUTHSA Furosemide 20 Mg Tablet 1 Tab PO DAILY Ferrous Sulfate 325 Mg Tablet 1 Tab PO BID Cymbalta (Duloxetine Hcl) 60 Mg Capsule.dr 1 Cap PO BID Meloxicam 7.5 Mg Tablet 1 Tab PO BID Vitamin E (Vitamin E Acid Succinate) 100 Unit Tablet 100 Unit PO Krill Oil 1,000 Mg Softgel (Krill/Om3/Dha/Epa/Om6/Lip/Astx) 1 Each Capsule 1 Each PO Biotin 1 Mg Capsule 10,000 Mg PO DAILY Aspir 81 (Aspirin) 81 Mg Tablet.dr 1 Tab PO DAILY Potassium Chloride 10 Meq Capsule.er 10 Meq PO DAILY Cyanocobalamin Injection (Cyanocobalamin (Vitamin B-12)) 1,000 Mcg/1 Ml Vial 1 Ml IM QOMONTH Tizanidine Hcl 4 Mg Tablet 4 Mg PO TID PRN Hydrocodone-Apap 7.5-325 (Hydrocodone Bit/Acetaminophen) 1 Each Tablet 1 Tab PO PRN Q6HRS PRN Ditropan Xl (Oxybutynin Chloride) 10 Mg Tab.er.24 1 Tab PO DAILY Melatonin 5 Mg Tablet 5 Mg PO QHS Neurontin (Gabapentin) 300 Mg Capsule 600 Mg PO TID Levothyroxine Sodium 50 Mcg Tablet 1 Tab PO DAILY Preservision Lutein Softgel (Vit C/Narda Ac/Lut/Copper/Znox) 1 Each Capsule 1 Each PO DAILY Metformin Hcl 1,000 Mg Tablet 1 Tab PO DAILY Omeprazole 20 Mg Tablet.dr 1 Tab PO BID Mirtazapine 30 Mg Tablet 1 Tab PO QHS Gemfibrozil 600 Mg Tablet 600 Mg PO BID Carvedilol 12.5 Mg Tablet 12.5 Mg PO BID Buspirone Hcl 15 Mg Tablet 15 Mg PO BID Amlodipine Besylate 10 Mg Tablet 10 Mg PO DAILY Vitals/I & O Vital Sign - Last 24 Hours 11/02/16 11/02/16 11/02/16 11/02/16 12:51 13:30 13:54 14:30 Temp 98.3 98.3 Pulse 60 64 73 Resp 18 30 20 B/P (MAP) 152/67 (95) 131/61 (84) 162/58 (92) Pulse Ox 94 94 96 95 O2 Delivery Room Air Room Air Room Air Room Air 11/02/16 11/02/16 11/02/16 11/02/16 14:35 15:00 15:12 16:52 Temp 98.3 98.3 Pulse 60 73 Resp 30 20 B/P (MAP) 132/60 (84) 162/58 (92) Pulse Ox 96 95 95 O2 Delivery Room Air Room Air Room Air Room Air 11/02/16 11/02/16 11/02/16 11/02/16 19:00 19:58 20:00 23:50 Temp 96.3 98.1 96.3 98.1 Pulse 76 68 Resp 18 18 B/P (MAP) 169/78 (108) 126/59 (81) Pulse Ox 96 95 93 O2 Delivery Room Air Room Air Room Air Room Air 11/03/16 11/03/16 11/03/16 11/03/16 03:00 07:00 07:16 10:30 Temp 97.5 98.2 97.5 98.2 Pulse 84 70 Resp 18 18 B/P (MAP) 156/97 (116) 132/59 (83) Pulse Ox 94 94 93 O2 Delivery BiPAP/CPAP Room Air Room Air Room Air 11/03/16 11:10 O2 Delivery Room Air Intake and Output 11/02/16 11/02/16 11/03/16 15:00 23:00 07:00 Intake Total 50 ml 400 ml Balance 50 ml 400 ml BRENNON NOVA MD November 03, 2016 11:59
--- NOTE | 2016-11-03 12:11 | RAD ---
Indication: Cough and left upper lobe pneumonia. Axial imaging through the chest was performed without contrast. Comparison is made with prior CT chest from 10/18/2016. No definite axillary, hilar or mediastinal lymphadenopathy is detected. No pericardial or pleural fluid is identified. Parenchymal evaluation demonstrates significant improvement in the infiltrate in the left upper lobe when compared with prior exam. Only minimal infiltrate remains. There has been improved aeration to the lingula as well. Minimal residual infiltrate or atelectasis remains. The lower lobes are fairly clear with stable calcified nodules consistent with granulomas in the right lower lobe. The upper abdomen is unremarkable. Impression: Improved aeration and partial clearing of left upper lobe and lingular infiltrates when compared with examination from 10/18/2016. PQRS Compliance Statement: One or more of the following individualized dose reduction techniques were utilized for this examination: 1. Automated exposure control 2. Adjustment of the mA and/or kV according to patient size 3. Use of iterative reconstruction technique
[2016-11-03] MEDS: AZITHROMYCIN 250 MG in IV NORMAL SALINE 250ML 250 ML IV SCH (13:25)
[2016-11-03 14:40] VITALS: BP 143/73
--- NOTE | 2016-11-03 17:31 | PDOC2 ---
CONSULT Date of Consult Date of Consult DATE: 11/03/16 TIME: 17:21 Reason for Consult Reason for Consult: right shoulder pain Identification/Chief Complaint Chief Complaint right shoulder pain Source Source: Chart review, Patient History of Present Illness Reason for Visit: The patient is a 75 year old rhd female who states that prior to last week she did not have any pain or shoulder dysfunction. She was pulling on her walker when she heard a loud pop and had severe pain in her right shoulder. She was unable to lift her arm overhead. She went to the ER in [place] where the injury occured. She reports they took xrays which she says were "negative". They also gave her a sling. She presented to the ED here yesterday for dyspnea and was found to have pneumonia. She is undergoing steroid treatments and antibiotics for this. She says her shoulder is feeling better, but the muscles around it feel worse. She is using her walker as a platform on the right side due to the pain. Past Medical History Cardiovascular: CHF, HTN, Hyperlipidemia Pulmonary: Other GI: GERD, Other Heme/Onc: Cancer Psych: Anxiety, Depression Musculoskeletal: Osteoarthritis Endocrine: Diabetes, Hypothyroidism Past Surgical History Past Surgical History: Cholecystectomy, Cataract Removal, Tonsillectomy, Hysterectomy, Other Family History Family History: Cancer Social History ALCOHOL: none Drugs: None Lives: Alone Current Problem List Problem List Problems Medical Problems: (1) Bronchitis Status: Acute (2) Dyspnea Status: Acute (3) Hypoxia Status: Acute (4) Shoulder pain Status: Acute Current Medications Current Medications Current Medications Albuterol/ Ipratropium (Duoneb) 3 ml 1X ONCE NEB Last administered on 11:54; Start 11/02/16 at 12:30; Stop 11/02/16 at 12:31; Status DC Benzonatate (Tessalon Perle) 100 mg 1X ONCE PO Last administered on 11/02/16 13:19; Start 11/02/16 at 13:15; Stop 11/02/16 at 13:16; Status DC Azithromycin 500 mg/Sodium Chloride 250 ml @ 250 mls/hr 1X ONCE IV ; Start 11/02/16 at 13:30; Stop 11/02/16 at 14:29; Status UNV Azithromycin 250 ml @ 250 mls/hr 1X ONCE IV Last administered on 11/02/16 14: 05; Start 11/02/16 at 13:45; Stop 11/02/16 at 14:44; Status DC Ondansetron HCl (Zofran) 4 mg PRN Q8HRS PRN IV NAUSEA/VOMITING; Start 11/02/16 at 13:30; Stop 11/03/16 at 13:29; Status DC Morphine Sulfate 2 mg PRN Q2HR PRN IV PAIN; Start 11/02/16 at 13:30; Stop at 13:29; Status DC Acetaminophen (Tylenol) 650 mg PRN Q4HRS PRN PO FEVER Last administered on 13:25; Start 11/02/16 at 13:30; Stop 11/03/16 at 13:29; Status DC Albuterol/ Ipratropium (Duoneb) 3 ml RTQID NEB Last administered on 11/03/16 11 :06; Start 11/02/16 at 16:00; Stop 11/03/16 at 15:59; Status DC Albuterol/ Ipratropium (Duoneb) 3 ml 1X ONCE NEB Last administered on 13:54; Start 11/02/16 at 14:00; Stop 11/02/16 at 14:01; Status DC Promethazine HCl/ Codeine (Phenergan With Codeine) 5 ml PRN Q4HRS PRN PO COUGH Last administered on 11/03/16 13:25; Start 11/02/16 at 18:15 Azithromycin 250 mg/Sodium Chloride 250 ml @ 250 mls/hr Q24H IV Last administered on 11/03/16 13:25; Start 11/03/16 at 14:00 Budesonide (Pulmicort) 0.5 mg RTBID NEB Last administered on 11/03/16 11:09; Start 11/03/16 at 10:00 Methylprednisolone Sodium Succinate (Solu-Medrol 40mg Vial) 40 mg Q8HRS IV Last administered on 11/03/16 15:16; Start 11/03/16 at 10:00 Albuterol/ Ipratropium (Duoneb) 3 ml RTQID NEB ; Start 11/03/16 at 20:00 Active Scripts Active [Codeine Phosphate/Guaifenesin] 5 ML Liquid 5 Ml PO PRN Q4HRS PRN Benzonatate 100 Mg Capsule 100 Mg PO TID Reported Uceris (Budesonide) 9 Mg Tabdr...er 9 Mg PO QTUTHSA Furosemide 20 Mg Tablet 1 Tab PO DAILY Ferrous Sulfate 325 Mg Tablet 1 Tab PO BID Cymbalta (Duloxetine Hcl) 60 Mg Capsule. 1 Cap PO BID Meloxicam 7.5 Mg Tablet 1 Tab PO BID Vitamin E (Vitamin E Acid Succinate) 100 Unit Tablet 100 Unit PO Krill Oil 1,000 Mg Softgel (Krill/Om3/Dha/Epa/Om6/Lip/Astx) 1 Each Capsule 1 Each PO Biotin 1 Mg Capsule 10,000 Mg PO DAILY Aspir 81 (Aspirin) 81 Mg Tablet.dr 1 Tab PO DAILY Potassium Chloride 10 Meq Capsule.er 10 Meq PO DAILY Cyanocobalamin Injection (Cyanocobalamin (Vitamin B-12)) 1,000 Mcg/1 Ml Vial 1 Ml IM QOMONTH Tizanidine Hcl 4 Mg Tablet 4 Mg PO TID PRN Hydrocodone-Apap 7.5-325 (Hydrocodone Bit/Acetaminophen) 1 Each Tablet 1 Tab PO PRN Q6HRS PRN Ditropan Xl (Oxybutynin Chloride) 10 Mg Tab.er.24 1 Tab PO DAILY Melatonin 5 Mg Tablet 5 Mg PO QHS Neurontin (Gabapentin) 300 Mg Capsule 600 Mg PO TID Levothyroxine Sodium 50 Mcg Tablet 1 Tab PO DAILY Preservision Lutein Softgel (Vit C/Narda Ac/Lut/Copper/Znox) 1 Each Capsule 1 Each PO DAILY Metformin Hcl 1,000 Mg Tablet 1 Tab PO DAILY Omeprazole 20 Mg Tablet.dr 1 Tab PO BID Mirtazapine 30 Mg Tablet 1 Tab PO QHS Gemfibrozil 600 Mg Tablet 600 Mg PO BID Carvedilol 12.5 Mg Tablet 12.5 Mg PO BID Buspirone Hcl 15 Mg Tablet 15 Mg PO BID Amlodipine Besylate 10 Mg Tablet 10 Mg PO DAILY Allergies Allergies: Coded Allergies: cephalexin (Verified Allergy, Intermediate, Itching, 11/03/16) ciprofloxacin (Verified Allergy, Intermediate, 10/18/16) egg (Verified Allergy, Intermediate, Nausea and Vomiting, 10/18/16) I S O L A T I O N *CONTACT* (Verified Allergy, Unknown, 10/18/16) mrsa screen + ROS Respiratory: YES: Cough, Shortness of breath Musculoskeletal: Yes Joint Pain, Yes Joint Stiffness, Yes Muscle Pain, Yes Muscular Weakness Physical Exam General: Alert, Oriented X3, Cooperative, No acute distress Lungs: Other (coughing frequently has to stop speaking to catch her breath.) MUSCULOSKELETAL: Other (R shoulder no ttp over the bicipital groove. swelling and ttp over the biceps with ecchymosis distally. difficulty raising arm, but FE is preserved to 150, same as the other side. nvi distally. ) Vitals VITALS Vital Signs Date Time Temp Pulse Resp B/P (MAP) Pulse Ox O2 Delivery O2 Flow Rate FiO2 11/03/16 16:08 96 Room Air 11/03/16 14:40 98.8 73 18 143/73 (96) 98.8 Labs Labs Laboratory Tests Test 11/02/16 12:20 11/02/16 19:20 11/03/16 01:25 White Blood Count 8.4 x10^3/uL (4.0-11.0) Red Blood Count 3.53 x10^6/uL (3.50-5.40) Hemoglobin 10.7 g/dL (12.0-15.5) Hematocrit 32.7 % (36.0-47.0) Mean Corpuscular Volume 92 fL (79-100) Mean Corpuscular Hemoglobin 30 pg (25-35) Mean Corpuscular Hemoglobin Concent 33 g/dL (31-37) Red Cell Distribution Width 14.6 % (11.5-14.5) Platelet Count 208 x10^3/uL (140-400) Neutrophils (%) (Auto) 74 % (31-73) Lymphocytes (%) (Auto) 14 % (24-48) Monocytes (%) (Auto) 8 % (0-9) Eosinophils (%) (Auto) 4 % (0-3) Basophils (%) (Auto) 0 % (0-3) Neutrophils # (Auto) 6.2 x10^3uL (1.8-7.7) Lymphocytes # (Auto) 1.2 x10^3/uL (1.0-4.8) Monocytes # (Auto) 0.6 x10^3/uL (0.0-1.1) Eosinophils # (Auto) 0.3 x10^3/uL (0.0-0.7) Basophils # (Auto) 0.0 x10^3/uL (0.0-0.2) Sodium Level 142 mmol/L (136-145) Potassium Level 4.5 mmol/L (3.5-5.1) Chloride Level 103 mmol/L (98-107) Carbon Dioxide Level 29 mmol/L (21-32) Anion Gap 10 (6-14) Blood Urea Nitrogen 28 mg/dL (7-20) Creatinine 1.1 mg/dL (0.6-1.0) Estimated GFR (Cockcroft-Gault) 48.7 BUN/Creatinine Ratio 25 (6-20) Glucose Level 94 mg/dL (70-99) Calcium Level 8.7 mg/dL (8.5-10.1) Total Bilirubin 0.3 mg/dL (0.2-1.0) Aspartate Amino Transf (AST/SGOT) 13 U/L (15-37) Alanine Aminotransferase (ALT/SGPT) 19 U/L (14-59) Alkaline Phosphatase 95 U/L (46-116) Troponin I Quantitative < 0.017 ng/mL (0.000-0.055) < 0.017 ng/mL (0.000-0.055) < 0.017 ng/mL (0.000-0.055) UW-Fiz-C-Type Natriuretic Peptide 358 pg/mL (0-124) Total Protein 6.1 g/dL (6.4-8.2) Albumin 3.1 g/dL (3.4-5.0) Albumin/Globulin Ratio 1.0 (1.0-1.7) Laboratory Tests Test 11/02/16 19:20 11/03/16 01:25 Troponin I Quantitative < 0.017 ng/mL (0.000-0.055) < 0.017 ng/mL (0.000-0.055) Images Images Xrays of the right shoulder reveals osteoarthritis, possibly calcific tendonitis. no acute bony injuries or dislocations. Assessment/Plan Assessment/Plan The patient is a 75 year old rhd female who has acute right shoulder pain. Her exam is consistent with a large rotator cuff tear, and possible biceps tear as well. I told here there was no need to get an MRI unless we were discussing surgery. She says it is starting to feel better already. She is not having active shoulder pain at this time. I am discouraging her from using a sling because I do not want her to develop stiffness. She can follow up in my office after discharge for continued care, likely conservative treatment with injections and physical therapy. The patient is agreeable to this. Thank you for letting me participate in the care of this patient. Please call my office with any questions or concerns: [phone] QUYNH DEE MD November 03, 2016 17:31
[2016-11-03 21:09] VITALS: BP 158/81
[2016-11-03 23:14] VITALS: BP 146/77
[2016-11-04] MEDS: methylPREDNISolone SOD SUCC PF 40 MG/ML VIAL. IV SCH ×3 (06:21→20:34)
[2016-11-04] MEDS: OXYBUTYNIN CHLORIDE 5 MG TABLET PO SCH (06:21)
[2016-11-04] MEDS: PROMETH/CODEINE 6.25/10MG 5 ML SYRUP. PO PRN ×5 (06:22→23:00)
[2016-11-04 07:00] VITALS: BP 145/90
[2016-11-04] MEDS: BUDESONIDE 0.5 MG/2 ML NEBU. NEB SCH ×2 (07:28→20:13)
[2016-11-04] MEDS: IPRATRPIUM/ALBUTEROL 0.5/2.5MG 3 ML NEBU. NEB SCH ×4 (07:28→20:13)
[2016-11-04] MEDS ORDERED: OXYBUTYNIN CHLORIDE 5 MG TABLET PO SCH (09:00)
[2016-11-04] MEDS: ACETAMINOPHEN 325 MG TABLET. PO PRN ×4 (09:58→23:02)
[2016-11-04 11:00] VITALS: BP 152/71
--- NOTE | 2016-11-04 11:17 | PDOC ---
PROGRESS NOTES Chief Complaint Chief Complaint cc: sob History of Present Illness History of Present Illness Pt was lying in bed No acute complaints Vitals Vitals Vital Signs Date Time Temp Pulse Resp B/P (MAP) Pulse Ox O2 Delivery O2 Flow Rate FiO2 11/04/16 07:25 94 Room Air 11/04/16 07:00 97.5 84 18 145/90 (108) 97.5 Physical Exam General: Alert, Oriented X3 Heart: Regular rate, Normal S1, No murmurs Lungs: Clear, Wheezing Abdomen: Normal bowel sounds, Soft, No tenderness Extremities: No clubbing, No cyanosis Skin: No rashes, No significant lesion Labs LABS Check labs in am Review of Systems Review of Systems Denies Chest pain Denies N/V/D Assessment and Plan Assessmemt and Plan Problems Medical Problems: (1) Bronchitis Status: Acute (2) Dyspnea Status: Acute (3) Hypoxia Status: Acute (4) Shoulder pain Status: Acute Assessment: Reactive airway disease Possible Viral bronchitis vs PNA Acute right shoulder pain - Her exam is consistent with a large rotator cuff tear per CXR and CT Hx of Sleep apnea Plan Continue breathing tx per pulm Continue antibiotics Continue CPAP Pain control with promethazine Check labs in am Consult PT/OT Appreciate subspecialist input Problems: Comment Review of Relevant I have reviewed the following items jassi (where applicable) has been applied. Labs Laboratory Tests Test 11/02/16 12:20 11/02/16 19:20 11/03/16 01:25 White Blood Count 8.4 x10^3/uL (4.0-11.0) Red Blood Count 3.53 x10^6/uL (3.50-5.40) Hemoglobin 10.7 g/dL (12.0-15.5) Hematocrit 32.7 % (36.0-47.0) Mean Corpuscular Volume 92 fL (79-100) Mean Corpuscular Hemoglobin 30 pg (25-35) Mean Corpuscular Hemoglobin Concent 33 g/dL (31-37) Red Cell Distribution Width 14.6 % (11.5-14.5) Platelet Count 208 x10^3/uL (140-400) Neutrophils (%) (Auto) 74 % (31-73) Lymphocytes (%) (Auto) 14 % (24-48) Monocytes (%) (Auto) 8 % (0-9) Eosinophils (%) (Auto) 4 % (0-3) Basophils (%) (Auto) 0 % (0-3) Neutrophils # (Auto) 6.2 x10^3uL (1.8-7.7) Lymphocytes # (Auto) 1.2 x10^3/uL (1.0-4.8) Monocytes # (Auto) 0.6 x10^3/uL (0.0-1.1) Eosinophils # (Auto) 0.3 x10^3/uL (0.0-0.7) Basophils # (Auto) 0.0 x10^3/uL (0.0-0.2) Sodium Level 142 mmol/L (136-145) Potassium Level 4.5 mmol/L (3.5-5.1) Chloride Level 103 mmol/L (98-107) Carbon Dioxide Level 29 mmol/L (21-32) Anion Gap 10 (6-14) Blood Urea Nitrogen 28 mg/dL (7-20) Creatinine 1.1 mg/dL (0.6-1.0) Estimated GFR (Cockcroft-Gault) 48.7 BUN/Creatinine Ratio 25 (6-20) Glucose Level 94 mg/dL (70-99) Calcium Level 8.7 mg/dL (8.5-10.1) Total Bilirubin 0.3 mg/dL (0.2-1.0) Aspartate Amino Transf (AST/SGOT) 13 U/L (15-37) Alanine Aminotransferase (ALT/SGPT) 19 U/L (14-59) Alkaline Phosphatase 95 U/L (46-116) Troponin I Quantitative < 0.017 ng/mL (0.000-0.055) < 0.017 ng/mL (0.000-0.055) < 0.017 ng/mL (0.000-0.055) NR-Hgv-K-Type Natriuretic Peptide 358 pg/mL (0-124) Total Protein 6.1 g/dL (6.4-8.2) Albumin 3.1 g/dL (3.4-5.0) Albumin/Globulin Ratio 1.0 (1.0-1.7) Medications Current Medications Albuterol/ Ipratropium (Duoneb) 3 ml 1X ONCE NEB Last administered on t 11:54; Start 11/02/16 at 12:30; Stop 11/02/16 at 12:31; Status DC Benzonatate (Tessalon Perle) 100 mg 1X ONCE PO Last administered on 11/02/16 13:19; Start 11/02/16 at 13:15; Stop 11/02/16 at 13:16; Status DC Azithromycin 500 mg/Sodium Chloride 250 ml @ 250 mls/hr 1X ONCE IV ; Start 11/02/16 at 13:30; Stop 11/02/16 at 14:29; Status UNV Azithromycin 250 ml @ 250 mls/hr 1X ONCE IV Last administered on 11/02/16 14: 05; Start 11/02/16 at 13:45; Stop 11/02/16 at 14:44; Status DC Ondansetron HCl (Zofran) 4 mg PRN Q8HRS PRN IV NAUSEA/VOMITING; Start 11/02/16 at 13:30; Stop 11/03/16 at 13:29; Status DC Morphine Sulfate 2 mg PRN Q2HR PRN IV PAIN; Start 11/02/16 at 13:30; Stop at 13:29; Status DC Acetaminophen (Tylenol) 650 mg PRN Q4HRS PRN PO FEVER Last administered on 13:25; Start 11/02/16 at 13:30; Stop 11/03/16 at 13:29; Status DC Albuterol/ Ipratropium (Duoneb) 3 ml RTQID NEB Last administered on 11/03/16 11 :06; Start 11/02/16 at 16:00; Stop 11/03/16 at 15:59; Status DC Albuterol/ Ipratropium (Duoneb) 3 ml 1X ONCE NEB Last administered on 13:54; Start 11/02/16 at 14:00; Stop 11/02/16 at 14:01; Status DC Promethazine HCl/ Codeine (Phenergan With Codeine) 5 ml PRN Q4HRS PRN PO COUGH Last administered on 11/04/16 09:58; Start 11/02/16 at 18:15 Azithromycin 250 mg/Sodium Chloride 250 ml @ 250 mls/hr Q24H IV Last administered on 11/03/16 13:25; Start 11/03/16 at 14:00 Budesonide (Pulmicort) 0.5 mg RTBID NEB Last administered on 11/04/16 07:28; Start 11/03/16 at 10:00 Methylprednisolone Sodium Succinate (Solu-Medrol 40mg Vial) 40 mg Q8HRS IV Last administered on 11/04/16 06:21; Start 11/03/16 at 10:00 Albuterol/ Ipratropium (Duoneb) 3 ml RTQID NEB Last administered on 11/04/16 07:28; Start 11/03/16 at 20:00 Oxybutynin Chloride (Ditropan) 5 mg [id number] PO ; Start 11/04/16 at 09:00; Stop at 09:00; Status DC Acetaminophen (Tylenol) 650 mg PRN Q4HRS PRN PO PAIN, TEMP Last administered on 11/04/16 09:58; Start 11/03/16 at 23:45 Oxybutynin Chloride (Ditropan) 10 mg [id number] PO Last administered on 11/04/16 06:21; Start 11/04/16 at 06:00 Active Scripts Active [Codeine Phosphate/Guaifenesin] 5 ML Liquid 5 Ml PO PRN Q4HRS PRN Benzonatate 100 Mg Capsule 100 Mg PO TID Reported Uceris (Budesonide) 9 Mg Tabdr...er 9 Mg PO QTUTHSA Furosemide 20 Mg Tablet 1 Tab PO DAILY Ferrous Sulfate 325 Mg Tablet 1 Tab PO BID Cymbalta (Duloxetine Hcl) 60 Mg Capsule.dr 1 Cap PO BID Meloxicam 7.5 Mg Tablet 1 Tab PO BID Vitamin E (Vitamin E Acid Succinate) 100 Unit Tablet 100 Unit PO Krill Oil 1,000 Mg Softgel (Krill/Om3/Dha/Epa/Om6/Lip/Astx) 1 Each Capsule 1 Each PO Biotin 1 Mg Capsule 10,000 Mg PO DAILY Aspir 81 (Aspirin) 81 Mg Tablet.dr 1 Tab PO DAILY Potassium Chloride 10 Meq Capsule.er 10 Meq PO DAILY Cyanocobalamin Injection (Cyanocobalamin (Vitamin B-12)) 1,000 Mcg/1 Ml Vial 1 Ml IM QOMONTH Tizanidine Hcl 4 Mg Tablet 4 Mg PO TID PRN Hydrocodone-Apap 7.5-325 (Hydrocodone Bit/Acetaminophen) 1 Each Tablet 1 Tab PO PRN Q6HRS PRN Ditropan Xl (Oxybutynin Chloride) 10 Mg Tab.er.24 1 Tab PO DAILY Melatonin 5 Mg Tablet 5 Mg PO QHS Neurontin (Gabapentin) 300 Mg Capsule 600 Mg PO TID Levothyroxine Sodium 50 Mcg Tablet 1 Tab PO DAILY Preservision Lutein Softgel (Vit C/Narda Ac/Lut/Copper/Znox) 1 Each Capsule 1 Each PO DAILY Metformin Hcl 1,000 Mg Tablet 1 Tab PO DAILY Omeprazole 20 Mg Tablet.dr 1 Tab PO BID Mirtazapine 30 Mg Tablet 1 Tab PO QHS Gemfibrozil 600 Mg Tablet 600 Mg PO BID Carvedilol 12.5 Mg Tablet 12.5 Mg PO BID Buspirone Hcl 15 Mg Tablet 15 Mg PO BID Amlodipine Besylate 10 Mg Tablet 10 Mg PO DAILY Vitals/I & O Vital Sign - Last 24 Hours 11/03/16 11/03/16 11/03/16 11/03/16 14:40 16:08 19:00 20:00 Temp 98.8 98.8 Pulse 73 Resp 18 B/P (MAP) 143/73 (96) Pulse Ox 92 96 O2 Delivery Room Air Room Air Room Air Room Air 11/03/16 11/03/16 11/03/16 11/03/16 20:01 20:04 21:09 23:14 Temp 98.6 98.1 98.6 98.1 Pulse 77 81 Resp 18 18 B/P (MAP) 158/81 (106) 146/77 (100) Pulse Ox 93 93 93 93 O2 Delivery Room Air Room Air Room Air Room Air 11/04/16 11/04/16 11/04/16 03:13 07:00 07:25 Temp 97.5 97.5 Pulse 84 Resp 18 B/P (MAP) 145/90 (108) Pulse Ox 94 94 O2 Delivery Room Air Room Air Room Air Intake and Output 11/03/16 11/03/16 11/04/16 14:59 22:59 06:59 Intake Total 790 ml 180 ml Output Total 500 ml Balance 790 ml 180 ml -500 ml TONYA LEACH III DO November 04, 2016 11:17
--- NOTE | 2016-11-04 12:37 | PDOC ---
PULMONARY PROGRESS NOTES Subjective still has cough Vitals Vital Signs Date Time Temp Pulse Resp B/P (MAP) Pulse Ox O2 Delivery O2 Flow Rate FiO2 11/04/16 11:00 98.8 74 20 152/71 (98) 90 98.8 11/04/16 08:15 Room Air General: Alert, No acute distress Lungs: Clear, Wheezing (resolved) Cardiovascular: S1, S2 Abdomen: Soft, Non-tender Extremities: No Edema Labs Laboratory Tests Test 11/02/16 19:20 11/03/16 01:25 Troponin I Quantitative < 0.017 ng/mL (0.000-0.055) < 0.017 ng/mL (0.000-0.055) Medications Active Scripts Medications Dose Route/Sig Max Daily Dose Days Date Category Uceris (Budesonide) 9 Mg Tabdr...er 9 Mg PO QTUTHSA 11/02/16 Reported Furosemide 20 Mg Tablet 1 Tab PO DAILY 11/02/16 Reported Ferrous Sulfate 325 Mg Tablet 1 Tab PO BID 11/02/16 Reported Cymbalta (Duloxetine Hcl) 60 Mg Capsule.dr 1 Cap PO BID 11/02/16 Reported [Codeine Phosphate/Guaifenesin] 5 ML Liquid 5 Ml PO PRN Q4HRS PRN 10/23/16 Rx Benzonatate 100 Mg Capsule 100 Mg PO TID 10/23/16 Rx Meloxicam 7.5 Mg Tablet 1 Tab PO BID 10/18/16 Reported Vitamin E (Vitamin E Acid Succinate) 100 Unit Tablet 100 Unit PO 02/04/16 Reported Krill Oil 1,000 Mg Softgel (Krill/Om3/Dha/Epa/Om6/Lip/Astx) 1 Each Capsule 1 Each PO 02/04/16 Reported Biotin 1 Mg Capsule 10,000 Mg PO DAILY 02/04/16 Reported Aspir 81 (Aspirin) 81 Mg Tablet.dr 1 Tab PO DAILY 02/04/16 Reported Potassium Chloride 10 Meq Capsule.er 10 Meq PO DAILY 02/04/16 Reported Cyanocobalamin Injection (Cyanocobalamin (Vitamin B-12)) 1,000 Mcg/1 Ml Vial 1 Ml IM QOMONTH 02/03/16 Reported Tizanidine Hcl 4 Mg Tablet 4 Mg PO TID PRN 02/03/16 Reported Hydrocodone-Apap 7.5-325 (Hydrocodone Bit/Acetaminophen) 1 Each Tablet 1 Tab PO PRN Q6HRS PRN 02/03/16 Reported Ditropan Xl (Oxybutynin Chloride) 10 Mg Tab.er.24 1 Tab PO DAILY 02/03/16 Reported Melatonin 5 Mg Tablet 5 Mg PO QHS 02/03/16 Reported Neurontin (Gabapentin) 300 Mg Capsule 600 Mg PO TID 02/03/16 Reported Levothyroxine Sodium 50 Mcg Tablet 1 Tab PO DAILY 02/03/16 Reported Preservision Lutein Softgel (Vit C/Narda Ac/Lut/Copper/Znox) 1 Each Capsule 1 Each PO DAILY 12/26/15 Reported Metformin Hcl 1,000 Mg Tablet 1 Tab PO DAILY 12/26/15 Reported Omeprazole 20 Mg Tablet.dr 1 Tab PO BID 07/25/14 Reported Mirtazapine 30 Mg Tablet 1 Tab PO QHS 07/25/14 Reported Gemfibrozil 600 Mg Tablet 600 Mg PO BID 08/29/13 Reported Carvedilol 12.5 Mg Tablet 12.5 Mg PO BID 08/29/13 Reported Buspirone Hcl 15 Mg Tablet 15 Mg PO BID 08/29/13 Reported Amlodipine Besylate 10 Mg Tablet 10 Mg PO DAILY 08/29/13 Reported Impression . 1. Highly suspected acute viral bronchitis. 2. Possible underlying reactive airway disease. She has developed bronchospasm , which could also be related to recent lower respiratory tract infection. 3. No significant history of tobacco use. 4. History of obstructive sleep apnea with good compliance to CPAP. 5. History of recent pneumonia involving the left upper lobe. followup noncontrast CT chest with improving pneumonia Plan . 1. We will continue with empiric antibiotic. 2. Continue with DuoNeb. 3. steroid nebulizer. 4. low dose Solu-Medrol. 5. Cough suppressant. 6. Followup noncontrast CT chest reviewed. previously seen pneumonia has improved 7. Continue CPAP at bedtime. LOIDA NARAYANAN MD November 04, 2016 12:37
[2016-11-04 15:00] VITALS: BP 169/84
[2016-11-04 19:00] VITALS: BP 124/86
[2016-11-04] MEDS: AZITHROMYCIN 250 MG in IV NORMAL SALINE 250ML 250 ML IV SCH (19:06)
[2016-11-04 23:05] VITALS: BP 148/91
[2016-11-05 02:50] VITALS: BP 144/76
[2016-11-05] MEDS: PROMETH/CODEINE 6.25/10MG 5 ML SYRUP. PO PRN ×4 (02:59→20:46)
[2016-11-05] MEDS: ACETAMINOPHEN 325 MG TABLET. PO PRN ×3 (02:59→21:36)
[2016-11-05] MEDS: methylPREDNISolone SOD SUCC PF 40 MG/ML VIAL. IV SCH ×3 (06:00→20:47)
[2016-11-05] MEDS: OXYBUTYNIN CHLORIDE 5 MG TABLET PO SCH (06:01)
[2016-11-05 06:34] LABS: BASO % 0 % (0-3); CREATININE 0.9 mg/dL (0.6-1.0); EOS % 0 % (0-3); GFR 61.4; HEMATOCRIT 32.4 % (36.0-47.0); HEMOGLOBIN 10.8 g/dL (12.0-15.5); LYMPH # 1.1 x10^3/uL (1.0-4.8); LYMPH % 12 % (24-48); MEAN CORPUSCULAR HEMOGLOBIN 31 pg (25-35); MEAN CORPUSCULAR HGB CONC 33 g/dL (31-37); MEAN CORPUSCULAR VOLUME 92 fL (79-100); MONO % 5 % (0-9); NEUT % 83 % (31-73); PLATELET COUNT 198 x10^3/uL (140-400); POTASSIUM 3.9 mmol/L (3.5-5.1); RED BLOOD COUNT 3.53 x10^6/uL (3.50-5.40); RED CELL DISTRIBUTION WIDTH 14.7 % (11.5-14.5); WHITE BLOOD COUNT 8.8 x10^3/uL (4.0-11.0)
[2016-11-05 07:00] VITALS: BP 177/82
[2016-11-05] MEDS: IPRATRPIUM/ALBUTEROL 0.5/2.5MG 3 ML NEBU. NEB SCH ×4 (07:28→20:17)
[2016-11-05] MEDS: BUDESONIDE 0.5 MG/2 ML NEBU. NEB SCH ×2 (07:29→20:17)
--- NOTE | 2016-11-05 09:57 | PDOC ---
PULMONARY PROGRESS NOTES Subjective mild improvement in cough Vitals Vital Signs Date Time Temp Pulse Resp B/P (MAP) Pulse Ox O2 Delivery O2 Flow Rate FiO2 11/05/16 08:34 Room Air 11/05/16 07:33 98 11/05/16 07:00 98.1 60 17 177/82 (113) 98.1 General: Alert, No acute distress Lungs: Clear, Wheezing (resolved) Cardiovascular: S1, S2 Abdomen: Soft, Non-tender Extremities: No Edema Labs Laboratory Tests Test 11/05/16 05:35 White Blood Count 8.8 x10^3/uL (4.0-11.0) Red Blood Count 3.53 x10^6/uL (3.50-5.40) Hemoglobin 10.8 g/dL (12.0-15.5) Hematocrit 32.4 % (36.0-47.0) Mean Corpuscular Volume 92 fL (79-100) Mean Corpuscular Hemoglobin 31 pg (25-35) Mean Corpuscular Hemoglobin Concent 33 g/dL (31-37) Red Cell Distribution Width 14.7 % (11.5-14.5) Platelet Count 198 x10^3/uL (140-400) Neutrophils (%) (Auto) 83 % (31-73) Lymphocytes (%) (Auto) 12 % (24-48) Monocytes (%) (Auto) 5 % (0-9) Eosinophils (%) (Auto) 0 % (0-3) Basophils (%) (Auto) 0 % (0-3) Neutrophils # (Auto) 7.3 x10^3uL (1.8-7.7) Lymphocytes # (Auto) 1.1 x10^3/uL (1.0-4.8) Monocytes # (Auto) 0.4 x10^3/uL (0.0-1.1) Eosinophils # (Auto) 0.0 x10^3/uL (0.0-0.7) Basophils # (Auto) 0.0 x10^3/uL (0.0-0.2) Sodium Level 140 mmol/L (136-145) Potassium Level 3.9 mmol/L (3.5-5.1) Chloride Level 103 mmol/L (98-107) Carbon Dioxide Level 29 mmol/L (21-32) Anion Gap 8 (6-14) Blood Urea Nitrogen 21 mg/dL (7-20) Creatinine 0.9 mg/dL (0.6-1.0) Estimated GFR (Cockcroft-Gault) 61.4 Glucose Level 132 mg/dL (70-99) Calcium Level 9.0 mg/dL (8.5-10.1) Laboratory Tests Test 11/05/16 05:35 White Blood Count 8.8 x10^3/uL (4.0-11.0) Red Blood Count 3.53 x10^6/uL (3.50-5.40) Hemoglobin 10.8 g/dL (12.0-15.5) Hematocrit 32.4 % (36.0-47.0) Mean Corpuscular Volume 92 fL (79-100) Mean Corpuscular Hemoglobin 31 pg (25-35) Mean Corpuscular Hemoglobin Concent 33 g/dL (31-37) Red Cell Distribution Width 14.7 % (11.5-14.5) Platelet Count 198 x10^3/uL (140-400) Neutrophils (%) (Auto) 83 % (31-73) Lymphocytes (%) (Auto) 12 % (24-48) Monocytes (%) (Auto) 5 % (0-9) Eosinophils (%) (Auto) 0 % (0-3) Basophils (%) (Auto) 0 % (0-3) Neutrophils # (Auto) 7.3 x10^3uL (1.8-7.7) Lymphocytes # (Auto) 1.1 x10^3/uL (1.0-4.8) Monocytes # (Auto) 0.4 x10^3/uL (0.0-1.1) Eosinophils # (Auto) 0.0 x10^3/uL (0.0-0.7) Basophils # (Auto) 0.0 x10^3/uL (0.0-0.2) Sodium Level 140 mmol/L (136-145) Potassium Level 3.9 mmol/L (3.5-5.1) Chloride Level 103 mmol/L (98-107) Carbon Dioxide Level 29 mmol/L (21-32) Anion Gap 8 (6-14) Blood Urea Nitrogen 21 mg/dL (7-20) Creatinine 0.9 mg/dL (0.6-1.0) Estimated GFR (Cockcroft-Gault) 61.4 Glucose Level 132 mg/dL (70-99) Calcium Level 9.0 mg/dL (8.5-10.1) Medications Active Scripts Medications Dose Route/Sig Max Daily Dose Days Date Category Uceris (Budesonide) 9 Mg Tabdr...er 9 Mg PO QTUTHSA 11/02/16 Reported Furosemide 20 Mg Tablet 1 Tab PO DAILY 11/02/16 Reported Ferrous Sulfate 325 Mg Tablet 1 Tab PO BID 11/02/16 Reported Cymbalta (Duloxetine Hcl) 60 Mg Capsule. 1 Cap PO BID 11/02/16 Reported [Codeine Phosphate/Guaifenesin] 5 ML Liquid 5 Ml PO PRN Q4HRS PRN 10/23/16 Rx Benzonatate 100 Mg Capsule 100 Mg PO TID 10/23/16 Rx Meloxicam 7.5 Mg Tablet 1 Tab PO BID 10/18/16 Reported Vitamin E (Vitamin E Acid Succinate) 100 Unit Tablet 100 Unit PO 02/04/16 Reported Krill Oil 1,000 Mg Softgel (Krill/Om3/Dha/Epa/Om6/Lip/Astx) 1 Each Capsule 1 Each PO 02/04/16 Reported Biotin 1 Mg Capsule 10,000 Mg PO DAILY 02/04/16 Reported Aspir 81 (Aspirin) 81 Mg Tablet.dr Garcia Tab PO DAILY 02/04/16 Reported Potassium Chloride 10 Meq Capsule.er 10 Meq PO DAILY 02/04/16 Reported Cyanocobalamin Injection (Cyanocobalamin (Vitamin B-12)) 1,000 Mcg/1 Ml Vial 1 Ml IM QOMONTH 02/03/16 Reported Tizanidine Hcl 4 Mg Tablet 4 Mg PO TID PRN 02/03/16 Reported Hydrocodone-Apap 7.5-325 (Hydrocodone Bit/Acetaminophen) 1 Each Tablet 1 Tab PO PRN Q6HRS PRN 02/03/16 Reported Ditropan Xl (Oxybutynin Chloride) 10 Mg Tab.er.24 1 Tab PO DAILY 02/03/16 Reported Melatonin 5 Mg Tablet 5 Mg PO QHS 02/03/16 Reported Neurontin (Gabapentin) 300 Mg Capsule 600 Mg PO TID 02/03/16 Reported Levothyroxine Sodium 50 Mcg Tablet 1 Tab PO DAILY 02/03/16 Reported Preservision Lutein Softgel (Vit C/Narda Ac/Lut/Copper/Znox) 1 Each Capsule 1 Each PO DAILY 12/26/15 Reported Metformin Hcl 1,000 Mg Tablet 1 Tab PO DAILY 12/26/15 Reported Omeprazole 20 Mg Tablet.dr 1 Tab PO BID 07/25/14 Reported Mirtazapine 30 Mg Tablet 1 Tab PO QHS 07/25/14 Reported Gemfibrozil 600 Mg Tablet 600 Mg PO BID 08/29/13 Reported Carvedilol 12.5 Mg Tablet 12.5 Mg PO BID 08/29/13 Reported Buspirone Hcl 15 Mg Tablet 15 Mg PO BID 08/29/13 Reported Amlodipine Besylate 10 Mg Tablet 10 Mg PO DAILY 08/29/13 Reported Impression . 1. Highly suspected acute viral bronchitis. 2. Possible underlying reactive airway disease. She has developed bronchospasm , which could also be related to recent lower respiratory tract infection. 3. No significant history of tobacco use. 4. History of obstructive sleep apnea with good compliance to CPAP. 5. History of recent pneumonia involving the left upper lobe. followup noncontrast CT chest with improving pneumonia Plan . 1. We will continue with empiric antibiotic. 2. Continue with DuoNeb. 3. steroid nebulizer. 4. low dose Solu-Medrol. 5. Cough suppressant. 6. Followup noncontrast CT chest reviewed. previously seen pneumonia has improved 7. Continue CPAP at bedtime. 8. speech eval to r/o silent aspiration LOIDA NARAYANAN MD November 05, 2016 09:57
[2016-11-05 10:52] VITALS: BP 178/78
--- NOTE | 2016-11-05 11:36 | PDOC ---
PROGRESS NOTES Chief Complaint Chief Complaint cc: sob History of Present Illness History of Present Illness Pt was lying in bed, still coughing No acute complaints Vitals Vitals Vital Signs Date Time Temp Pulse Resp B/P (MAP) Pulse Ox O2 Delivery O2 Flow Rate FiO2 11/05/16 11:25 Room Air 11/05/16 10:52 98.3 75 18 178/78 (111) 93 98.3 Physical Exam General: Alert, Oriented X3 Heart: Regular rate, Normal S1, No murmurs Lungs: Clear, Wheezing (resolved) Abdomen: Normal bowel sounds, Soft, No tenderness Extremities: No clubbing, No cyanosis Skin: No rashes, No significant lesion Labs LABS Laboratory Tests Test 11/05/16 05:35 White Blood Count 8.8 x10^3/uL (4.0-11.0) Red Blood Count 3.53 x10^6/uL (3.50-5.40) Hemoglobin 10.8 g/dL (12.0-15.5) Hematocrit 32.4 % (36.0-47.0) Mean Corpuscular Volume 92 fL (79-100) Mean Corpuscular Hemoglobin 31 pg (25-35) Mean Corpuscular Hemoglobin Concent 33 g/dL (31-37) Red Cell Distribution Width 14.7 % (11.5-14.5) Platelet Count 198 x10^3/uL (140-400) Neutrophils (%) (Auto) 83 % (31-73) Lymphocytes (%) (Auto) 12 % (24-48) Monocytes (%) (Auto) 5 % (0-9) Eosinophils (%) (Auto) 0 % (0-3) Basophils (%) (Auto) 0 % (0-3) Neutrophils # (Auto) 7.3 x10^3uL (1.8-7.7) Lymphocytes # (Auto) 1.1 x10^3/uL (1.0-4.8) Monocytes # (Auto) 0.4 x10^3/uL (0.0-1.1) Eosinophils # (Auto) 0.0 x10^3/uL (0.0-0.7) Basophils # (Auto) 0.0 x10^3/uL (0.0-0.2) Sodium Level 140 mmol/L (136-145) Potassium Level 3.9 mmol/L (3.5-5.1) Chloride Level 103 mmol/L (98-107) Carbon Dioxide Level 29 mmol/L (21-32) Anion Gap 8 (6-14) Blood Urea Nitrogen 21 mg/dL (7-20) Creatinine 0.9 mg/dL (0.6-1.0) Estimated GFR (Cockcroft-Gault) 61.4 Glucose Level 132 mg/dL (70-99) Calcium Level 9.0 mg/dL (8.5-10.1) Review of Systems Review of Systems Denies chest pain Denies SOA Assessment and Plan Assessmemt and Plan Problems Medical Problems: (1) Bronchitis Status: Acute (2) Dyspnea Status: Acute (3) Hypoxia Status: Acute (4) Shoulder pain Status: Acute Assessment: Reactive airway disease Possible Viral bronchitis vs PNA - CT shows resolution Acute right shoulder pain - Her exam is consistent with a large rotator cuff tear per CXR and CT Hx of Sleep apnea Plan Continue pulm recommendations- breathing tx and speech eval to r/o aspiration Continue antibiotics Continue CPAP Pain and cough control with promethazine/codeine Check labs in am Consult PT/OT Appreciate subspecialist input Disp: possible d/c tomorrow if stable and ok with pulm Problems: Comment Review of Relevant I have reviewed the following items jassi (where applicable) has been applied. Labs Laboratory Tests Test 11/05/16 05:35 White Blood Count 8.8 x10^3/uL (4.0-11.0) Red Blood Count 3.53 x10^6/uL (3.50-5.40) Hemoglobin 10.8 g/dL (12.0-15.5) Hematocrit 32.4 % (36.0-47.0) Mean Corpuscular Volume 92 fL (79-100) Mean Corpuscular Hemoglobin 31 pg (25-35) Mean Corpuscular Hemoglobin Concent 33 g/dL (31-37) Red Cell Distribution Width 14.7 % (11.5-14.5) Platelet Count 198 x10^3/uL (140-400) Neutrophils (%) (Auto) 83 % (31-73) Lymphocytes (%) (Auto) 12 % (24-48) Monocytes (%) (Auto) 5 % (0-9) Eosinophils (%) (Auto) 0 % (0-3) Basophils (%) (Auto) 0 % (0-3) Neutrophils # (Auto) 7.3 x10^3uL (1.8-7.7) Lymphocytes # (Auto) 1.1 x10^3/uL (1.0-4.8) Monocytes # (Auto) 0.4 x10^3/uL (0.0-1.1) Eosinophils # (Auto) 0.0 x10^3/uL (0.0-0.7) Basophils # (Auto) 0.0 x10^3/uL (0.0-0.2) Sodium Level 140 mmol/L (136-145) Potassium Level 3.9 mmol/L (3.5-5.1) Chloride Level 103 mmol/L (98-107) Carbon Dioxide Level 29 mmol/L (21-32) Anion Gap 8 (6-14) Blood Urea Nitrogen 21 mg/dL (7-20) Creatinine 0.9 mg/dL (0.6-1.0) Estimated GFR (Cockcroft-Gault) 61.4 Glucose Level 132 mg/dL (70-99) Calcium Level 9.0 mg/dL (8.5-10.1) Laboratory Tests Test 11/05/16 05:35 White Blood Count 8.8 x10^3/uL (4.0-11.0) Red Blood Count 3.53 x10^6/uL (3.50-5.40) Hemoglobin 10.8 g/dL (12.0-15.5) Hematocrit 32.4 % (36.0-47.0) Mean Corpuscular Volume 92 fL (79-100) Mean Corpuscular Hemoglobin 31 pg (25-35) Mean Corpuscular Hemoglobin Concent 33 g/dL (31-37) Red Cell Distribution Width 14.7 % (11.5-14.5) Platelet Count 198 x10^3/uL (140-400) Neutrophils (%) (Auto) 83 % (31-73) Lymphocytes (%) (Auto) 12 % (24-48) Monocytes (%) (Auto) 5 % (0-9) Eosinophils (%) (Auto) 0 % (0-3) Basophils (%) (Auto) 0 % (0-3) Neutrophils # (Auto) 7.3 x10^3uL (1.8-7.7) Lymphocytes # (Auto) 1.1 x10^3/uL (1.0-4.8) Monocytes # (Auto) 0.4 x10^3/uL (0.0-1.1) Eosinophils # (Auto) 0.0 x10^3/uL (0.0-0.7) Basophils # (Auto) 0.0 x10^3/uL (0.0-0.2) Sodium Level 140 mmol/L (136-145) Potassium Level 3.9 mmol/L (3.5-5.1) Chloride Level 103 mmol/L (98-107) Carbon Dioxide Level 29 mmol/L (21-32) Anion Gap 8 (6-14) Blood Urea Nitrogen 21 mg/dL (7-20) Creatinine 0.9 mg/dL (0.6-1.0) Estimated GFR (Cockcroft-Gault) 61.4 Glucose Level 132 mg/dL (70-99) Calcium Level 9.0 mg/dL (8.5-10.1) Medications Current Medications Albuterol/ Ipratropium (Duoneb) 3 ml 1X ONCE NEB Last administered on 11:54; Start 11/02/16 at 12:30; Stop 11/02/16 at 12:31; Status DC Benzonatate (Tessalon Perle) 100 mg 1X ONCE PO Last administered on 11/02/16 13:19; Start 11/02/16 at 13:15; Stop 11/02/16 at 13:16; Status DC Azithromycin 500 mg/Sodium Chloride 250 ml @ 250 mls/hr 1X ONCE IV ; Start 11/02/16 at 13:30; Stop 11/02/16 at 14:29; Status UNV Azithromycin 250 ml @ 250 mls/hr 1X ONCE IV Last administered on 11/02/16 14: 05; Start 11/02/16 at 13:45; Stop 11/02/16 at 14:44; Status DC Ondansetron HCl (Zofran) 4 mg PRN Q8HRS PRN IV NAUSEA/VOMITING; Start 11/02/16 at 13:30; Stop 11/03/16 at 13:29; Status DC Morphine Sulfate 2 mg PRN Q2HR PRN IV PAIN; Start 11/02/16 at 13:30; Stop at 13:29; Status DC Acetaminophen (Tylenol) 650 mg PRN Q4HRS PRN PO FEVER Last administered on 13:25; Start 11/02/16 at 13:30; Stop 11/03/16 at 13:29; Status DC Albuterol/ Ipratropium (Duoneb) 3 ml RTQID NEB Last administered on 11/03/16 11 :06; Start 11/02/16 at 16:00; Stop 11/03/16 at 15:59; Status DC Albuterol/ Ipratropium (Duoneb) 3 ml 1X ONCE NEB Last administered on 13:54; Start 11/02/16 at 14:00; Stop 11/02/16 at 14:01; Status DC Promethazine HCl/ Codeine (Phenergan With Codeine) 5 ml PRN Q4HRS PRN PO COUGH Last administered on 11/05/16 10:31; Start 11/02/16 at 18:15 Azithromycin 250 mg/Sodium Chloride 250 ml @ 250 mls/hr Q24H IV Last administered on 11/04/16 19:06; Start 11/03/16 at 14:00 Budesonide (Pulmicort) 0.5 mg RTBID NEB Last administered on 11/05/16 07:29; Start 11/03/16 at 10:00 Methylprednisolone Sodium Succinate (Solu-Medrol 40mg Vial) 40 mg Q8HRS IV Last administered on 11/05/16 10:33; Start 11/03/16 at 10:00 Albuterol/ Ipratropium (Duoneb) 3 ml RTQID NEB Last administered on 11/05/16 11:24; Start 11/03/16 at 20:00 Oxybutynin Chloride (Ditropan) 5 mg [id number] PO ; Start 11/04/16 at 09:00; Stop at 09:00; Status DC Acetaminophen (Tylenol) 650 mg PRN Q4HRS PRN PO PAIN, TEMP Last administered on 11/05/16 02:59; Start 11/03/16 at 23:45 Oxybutynin Chloride (Ditropan) 10 mg [id number] PO Last administered on 11/05/16t 06:01; Start 11/04/16 at 06:00 Active Scripts Active [Codeine Phosphate/Guaifenesin] 5 ML Liquid 5 Ml PO PRN Q4HRS PRN Benzonatate 100 Mg Capsule 100 Mg PO TID Reported Uceris (Budesonide) 9 Mg Tabdr...er 9 Mg PO QTUTHSA Furosemide 20 Mg Tablet 1 Tab PO DAILY Ferrous Sulfate 325 Mg Tablet 1 Tab PO BID Cymbalta (Duloxetine Hcl) 60 Mg Capsule. 1 Cap PO BID Meloxicam 7.5 Mg Tablet 1 Tab PO BID Vitamin E (Vitamin E Acid Succinate) 100 Unit Tablet 100 Unit PO Krill Oil 1,000 Mg Softgel (Krill/Om3/Dha/Epa/Om6/Lip/Astx) 1 Each Capsule 1 Each PO Biotin 1 Mg Capsule 10,000 Mg PO DAILY Aspir 81 (Aspirin) 81 Mg Tablet.dr 1 Tab PO DAILY Potassium Chloride 10 Meq Capsule.er 10 Meq PO DAILY Cyanocobalamin Injection (Cyanocobalamin (Vitamin B-12)) 1,000 Mcg/1 Ml Vial 1 Ml IM QOMONTH Tizanidine Hcl 4 Mg Tablet 4 Mg PO TID PRN Hydrocodone-Apap 7.5-325 (Hydrocodone Bit/Acetaminophen) 1 Each Tablet 1 Tab PO PRN Q6HRS PRN Ditropan Xl (Oxybutynin Chloride) 10 Mg Tab.er.24 1 Tab PO DAILY Melatonin 5 Mg Tablet 5 Mg PO QHS Neurontin (Gabapentin) 300 Mg Capsule 600 Mg PO TID Levothyroxine Sodium 50 Mcg Tablet 1 Tab PO DAILY Preservision Lutein Softgel (Vit C/Narda Ac/Lut/Copper/Znox) 1 Each Capsule 1 Each PO DAILY Metformin Hcl 1,000 Mg Tablet 1 Tab PO DAILY Omeprazole 20 Mg Tablet. 1 Tab PO BID Mirtazapine 30 Mg Tablet 1 Tab PO QHS Gemfibrozil 600 Mg Tablet 600 Mg PO BID Carvedilol 12.5 Mg Tablet 12.5 Mg PO BID Buspirone Hcl 15 Mg Tablet 15 Mg PO BID Amlodipine Besylate 10 Mg Tablet 10 Mg PO DAILY Vitals/I & O Vital Sign - Last 24 Hours 11/04/16 11/04/16 11/04/16 11/04/16 13:21 15:00 16:27 19:00 Temp 99.7 98.0 99.7 98.0 Pulse 79 80 Resp 18 19 B/P (MAP) 169/84 (112) 124/86 (99) Pulse Ox 94 91 93 92 O2 Delivery Room Air Room Air Room Air Room Air 11/04/16 11/04/16 11/04/16 11/04/16 20:00 20:15 20:15 23:05 Temp 98.9 98.9 Pulse 81 Resp 20 B/P (MAP) 148/91 (110) Pulse Ox 94 94 93 O2 Delivery Room Air Room Air Room Air Room Air 11/05/16 11/05/16 11/05/16 11/05/16 02:50 07:00 07:33 07:33 Temp 98.1 98.1 98.1 98.1 Pulse 66 60 Resp 17 17 B/P (MAP) 144/76 (98) 177/82 (113) Pulse Ox 95 95 98 98 O2 Delivery Room Air BiPAP/CPAP Room Air Room Air 11/05/16 11/05/16 11/05/16 08:34 10:52 11:25 Temp 98.3 98.3 Pulse 75 Resp 18 B/P (MAP) 178/78 (111) Pulse Ox 93 O2 Delivery Room Air BiPAP/CPAP Room Air Intake and Output 11/04/16 11/04/16 11/05/16 15:00 23:00 07:00 Intake Total 320 ml Output Total 400 ml Balance -80 ml TONYA LEACH III DO November 05, 2016 11:36
[2016-11-05] MEDS ORDERED: BARIUM SULFATE 40% (APPLE) 148 GM PWD. PO ONE (12:30)
--- NOTE | 2016-11-05 14:02 | RAD ---
Exam performed: Video dysphasia exam. Clinical Indication: Difficulty swallowing Date of Exam: 11/05/2016 11:57 AM .Comparison: None available Discussion: The study was performed in conjunction with the speech pathologist. Barium of varying consistencies including thin, pudding and solid consistency barium were administered to the patient and swallowing was recorded on video and reviewed. There is normal anteroposterior transfer of the bolus. Normal pharyngeal contractions and epiglottic inversion is noted. Flash laryngeal penetration seen with thin consistency barium with deep penetration using straw. No evidence of aspiration is present. The total fluoroscopy time of 2.0 minutes was utilized. Impression: 1. [Laryngeal penetration seen with thin consistency barium. No aspiration. For a complete evaluation, please refer to the speech pathologists report
[2016-11-05] MEDS: AZITHROMYCIN 250 MG in IV NORMAL SALINE 250ML 250 ML IV SCH (14:48)
[2016-11-05 15:00] VITALS: BP 162/87
[2016-11-05 19:00] VITALS: BP 154/87
[2016-11-05 23:00] VITALS: BP 154/82
[2016-11-06 03:00] VITALS: BP 170/90
[2016-11-06] MEDS: methylPREDNISolone SOD SUCC PF 40 MG/ML VIAL. IV SCH ×2 (06:02→21:16)
[2016-11-06] MEDS: OXYBUTYNIN CHLORIDE 5 MG TABLET PO SCH (06:02)
[2016-11-06 06:18] LABS: BASO % 0 % (0-3); EOS % 0 % (0-3); HEMATOCRIT 33.2 % (36.0-47.0); HEMOGLOBIN 10.9 g/dL (12.0-15.5); LYMPH # 1.4 x10^3/uL (1.0-4.8); LYMPH % 12 % (24-48); MEAN CORPUSCULAR HEMOGLOBIN 30 pg (25-35); MEAN CORPUSCULAR HGB CONC 33 g/dL (31-37); MEAN CORPUSCULAR VOLUME 92 fL (79-100); MONO % 6 % (0-9); NEUT % 82 % (31-73); PLATELET COUNT 216 x10^3/uL (140-400); RED BLOOD COUNT 3.61 x10^6/uL (3.50-5.40); RED CELL DISTRIBUTION WIDTH 14.7 % (11.5-14.5); WHITE BLOOD COUNT 11.3 x10^3/uL (4.0-11.0)
[2016-11-06 06:30] LABS: CREATININE 0.8 mg/dL (0.6-1.0); GFR 70.3; POTASSIUM 4.2 mmol/L (3.5-5.1)
[2016-11-06 07:00] VITALS: BP 172/84
[2016-11-06] MEDS: IPRATRPIUM/ALBUTEROL 0.5/2.5MG 3 ML NEBU. NEB SCH ×4 (07:33→19:57)
[2016-11-06] MEDS: BUDESONIDE 0.5 MG/2 ML NEBU. NEB SCH ×2 (07:34→19:57)
[2016-11-06 11:00] VITALS: BP 139/68
--- NOTE | 2016-11-06 11:40 | PDOC ---
PROGRESS NOTES Chief Complaint Chief Complaint cc: sob History of Present Illness History of Present Illness Pt was lying in bed and reports continued improvement w/ breathing On CPAP which she states she only uses when sleeping No acute complaints Vitals Vitals Vital Signs Date Time Temp Pulse Resp B/P (MAP) Pulse Ox O2 Delivery O2 Flow Rate FiO2 11/06/16 11:00 98.0 80 16 139/68 (91) 96 Room Air 98.0 Physical Exam General: Alert, Oriented X3 Heart: Regular rate, Normal S1, No murmurs Lungs: Clear, Wheezing (resolved) Abdomen: Normal bowel sounds, Soft, No tenderness Extremities: No clubbing, No cyanosis Skin: No rashes, No significant lesion Labs LABS Laboratory Tests Test 11/06/16 05:50 White Blood Count 11.3 x10^3/uL (4.0-11.0) Red Blood Count 3.61 x10^6/uL (3.50-5.40) Hemoglobin 10.9 g/dL (12.0-15.5) Hematocrit 33.2 % (36.0-47.0) Mean Corpuscular Volume 92 fL (79-100) Mean Corpuscular Hemoglobin 30 pg (25-35) Mean Corpuscular Hemoglobin Concent 33 g/dL (31-37) Red Cell Distribution Width 14.7 % (11.5-14.5) Platelet Count 216 x10^3/uL (140-400) Neutrophils (%) (Auto) 82 % (31-73) Lymphocytes (%) (Auto) 12 % (24-48) Monocytes (%) (Auto) 6 % (0-9) Eosinophils (%) (Auto) 0 % (0-3) Basophils (%) (Auto) 0 % (0-3) Neutrophils # (Auto) 9.3 x10^3uL (1.8-7.7) Lymphocytes # (Auto) 1.4 x10^3/uL (1.0-4.8) Monocytes # (Auto) 0.7 x10^3/uL (0.0-1.1) Eosinophils # (Auto) 0.0 x10^3/uL (0.0-0.7) Basophils # (Auto) 0.0 x10^3/uL (0.0-0.2) Sodium Level 143 mmol/L (136-145) Potassium Level 4.2 mmol/L (3.5-5.1) Chloride Level 105 mmol/L (98-107) Carbon Dioxide Level 29 mmol/L (21-32) Anion Gap 9 (6-14) Blood Urea Nitrogen 23 mg/dL (7-20) Creatinine 0.8 mg/dL (0.6-1.0) Estimated GFR (Cockcroft-Gault) 70.3 Glucose Level 132 mg/dL (70-99) Calcium Level 9.0 mg/dL (8.5-10.1) Review of Systems Review of Systems Denies chest pain Denies N/V/D Assessment and Plan Assessmemt and Plan Problems Medical Problems: (1) Bronchitis Status: Acute (2) Dyspnea Status: Acute (3) Hypoxia Status: Acute (4) Shoulder pain Status: Acute Assessment: HTN Reactive airway disease Possible Viral bronchitis vs PNA - f/u CT showed resolution; Video swallow study r/o aspiration Acute right shoulder pain - Her exam is consistent with a large rotator cuff tear per CXR and CT Hx of Sleep apnea Plan Start Norvasc 10 mg PO daily Continue pulm recommendations Continue antibiotics Continue CPAP Pain and cough control with promethazine/codeine Check labs in am Consult PT/OT Appreciate subspecialist input Disp: possible d/c today if ok w/ pulm Problems: Comment Review of Relevant I have reviewed the following items jassi (where applicable) has been applied. Labs Laboratory Tests Test 11/05/16 05:35 11/06/16 05:50 White Blood Count 8.8 x10^3/uL (4.0-11.0) 11.3 x10^3/uL (4.0-11.0) Red Blood Count 3.53 x10^6/uL (3.50-5.40) 3.61 x10^6/uL (3.50-5.40) Hemoglobin 10.8 g/dL (12.0-15.5) 10.9 g/dL (12.0-15.5) Hematocrit 32.4 % (36.0-47.0) 33.2 % (36.0-47.0) Mean Corpuscular Volume 92 fL (79-100) 92 fL (79-100) Mean Corpuscular Hemoglobin 31 pg (25-35) 30 pg (25-35) Mean Corpuscular Hemoglobin Concent 33 g/dL (31-37) 33 g/dL (31-37) Red Cell Distribution Width 14.7 % (11.5-14.5) 14.7 % (11.5-14.5) Platelet Count 198 x10^3/uL (140-400) 216 x10^3/uL (140-400) Neutrophils (%) (Auto) 83 % (31-73) 82 % (31-73) Lymphocytes (%) (Auto) 12 % (24-48) 12 % (24-48) Monocytes (%) (Auto) 5 % (0-9) 6 % (0-9) Eosinophils (%) (Auto) 0 % (0-3) 0 % (0-3) Basophils (%) (Auto) 0 % (0-3) 0 % (0-3) Neutrophils # (Auto) 7.3 x10^3uL (1.8-7.7) 9.3 x10^3uL (1.8-7.7) Lymphocytes # (Auto) 1.1 x10^3/uL (1.0-4.8) 1.4 x10^3/uL (1.0-4.8) Monocytes # (Auto) 0.4 x10^3/uL (0.0-1.1) 0.7 x10^3/uL (0.0-1.1) Eosinophils # (Auto) 0.0 x10^3/uL (0.0-0.7) 0.0 x10^3/uL (0.0-0.7) Basophils # (Auto) 0.0 x10^3/uL (0.0-0.2) 0.0 x10^3/uL (0.0-0.2) Sodium Level 140 mmol/L (136-145) 143 mmol/L (136-145) Potassium Level 3.9 mmol/L (3.5-5.1) 4.2 mmol/L (3.5-5.1) Chloride Level 103 mmol/L (98-107) 105 mmol/L (98-107) Carbon Dioxide Level 29 mmol/L (21-32) 29 mmol/L (21-32) Anion Gap 8 (6-14) 9 (6-14) Blood Urea Nitrogen 21 mg/dL (7-20) 23 mg/dL (7-20) Creatinine 0.9 mg/dL (0.6-1.0) 0.8 mg/dL (0.6-1.0) Estimated GFR (Cockcroft-Gault) 61.4 70.3 Glucose Level 132 mg/dL (70-99) 132 mg/dL (70-99) Calcium Level 9.0 mg/dL (8.5-10.1) 9.0 mg/dL (8.5-10.1) Laboratory Tests Test 11/06/16 05:50 White Blood Count 11.3 x10^3/uL (4.0-11.0) Red Blood Count 3.61 x10^6/uL (3.50-5.40) Hemoglobin 10.9 g/dL (12.0-15.5) Hematocrit 33.2 % (36.0-47.0) Mean Corpuscular Volume 92 fL (79-100) Mean Corpuscular Hemoglobin 30 pg (25-35) Mean Corpuscular Hemoglobin Concent 33 g/dL (31-37) Red Cell Distribution Width 14.7 % (11.5-14.5) Platelet Count 216 x10^3/uL (140-400) Neutrophils (%) (Auto) 82 % (31-73) Lymphocytes (%) (Auto) 12 % (24-48) Monocytes (%) (Auto) 6 % (0-9) Eosinophils (%) (Auto) 0 % (0-3) Basophils (%) (Auto) 0 % (0-3) Neutrophils # (Auto) 9.3 x10^3uL (1.8-7.7) Lymphocytes # (Auto) 1.4 x10^3/uL (1.0-4.8) Monocytes # (Auto) 0.7 x10^3/uL (0.0-1.1) Eosinophils # (Auto) 0.0 x10^3/uL (0.0-0.7) Basophils # (Auto) 0.0 x10^3/uL (0.0-0.2) Sodium Level 143 mmol/L (136-145) Potassium Level 4.2 mmol/L (3.5-5.1) Chloride Level 105 mmol/L (98-107) Carbon Dioxide Level 29 mmol/L (21-32) Anion Gap 9 (6-14) Blood Urea Nitrogen 23 mg/dL (7-20) Creatinine 0.8 mg/dL (0.6-1.0) Estimated GFR (Cockcroft-Gault) 70.3 Glucose Level 132 mg/dL (70-99) Calcium Level 9.0 mg/dL (8.5-10.1) Medications Current Medications Albuterol/ Ipratropium (Duoneb) 3 ml 1X ONCE NEB Last administered on 11:54; Start 11/02/16 at 12:30; Stop 11/02/16 at 12:31; Status DC Benzonatate (Tessalon Perle) 100 mg 1X ONCE PO Last administered on 11/02/16 13:19; Start 11/02/16 at 13:15; Stop 11/02/16 at 13:16; Status DC Azithromycin 500 mg/Sodium Chloride 250 ml @ 250 mls/hr 1X ONCE IV ; Start 11/02/16 at 13:30; Stop 11/02/16 at 14:29; Status UNV Azithromycin 250 ml @ 250 mls/hr 1X ONCE IV Last administered on 11/02/16 14: 05; Start 11/02/16 at 13:45; Stop 11/02/16 at 14:44; Status DC Ondansetron HCl (Zofran) 4 mg PRN Q8HRS PRN IV NAUSEA/VOMITING; Start 11/02/16 at 13:30; Stop 11/03/16 at 13:29; Status DC Morphine Sulfate 2 mg PRN Q2HR PRN IV PAIN; Start 11/02/16 at 13:30; Stop at 13:29; Status DC Acetaminophen (Tylenol) 650 mg PRN Q4HRS PRN PO FEVER Last administered on 13:25; Start 11/02/16 at 13:30; Stop 11/03/16 at 13:29; Status DC Albuterol/ Ipratropium (Duoneb) 3 ml RTQID NEB Last administered on 11/03/16 11 :06; Start 11/02/16 at 16:00; Stop 11/03/16 at 15:59; Status DC Albuterol/ Ipratropium (Duoneb) 3 ml 1X ONCE NEB Last administered on 13:54; Start 11/02/16 at 14:00; Stop 11/02/16 at 14:01; Status DC Promethazine HCl/ Codeine (Phenergan With Codeine) 5 ml PRN Q4HRS PRN PO COUGH Last administered on 11/05/16 20:46; Start 11/02/16 at 18:15 Azithromycin 250 mg/Sodium Chloride 250 ml @ 250 mls/hr Q24H IV Last administered on 11/05/16 14:48; Start 11/03/16 at 14:00 Budesonide (Pulmicort) 0.5 mg RTBID NEB Last administered on 11/06/16 07:34; Start 11/03/16 at 10:00 Methylprednisolone Sodium Succinate (Solu-Medrol 40mg Vial) 40 mg Q8HRS IV Last administered on 11/06/16 06:02; Start 11/03/16 at 10:00 Albuterol/ Ipratropium (Duoneb) 3 ml RTQID NEB Last administered on 11/06/16 10:48; Start 11/03/16 at 20:00 Oxybutynin Chloride (Ditropan) 5 mg [id number] PO ; Start 11/04/16 at 09:00; Stop at 09:00; Status DC Acetaminophen (Tylenol) 650 mg PRN Q4HRS PRN PO PAIN, TEMP Last administered on 11/05/16 21:36; Start 11/03/16 at 23:45 Oxybutynin Chloride (Ditropan) 10 mg [id number] PO Last administered on 11/06/16 06:02; Start 11/04/16 at 06:00 Barium Sulfate (Varibar Thin Liquid Apple) 148 gm 1X ONCE PO Last administered on 11/05/16 13:36; Start 11/05/16 at 12:30; Stop 11/05/16 at 12:31 ; Status DC Active Scripts Active [Codeine Phosphate/Guaifenesin] 5 ML Liquid 5 Ml PO PRN Q4HRS PRN Benzonatate 100 Mg Capsule 100 Mg PO TID Reported Uceris (Budesonide) 9 Mg Tabdr...er 9 Mg PO QTUTHSA Furosemide 20 Mg Tablet 1 Tab PO DAILY Ferrous Sulfate 325 Mg Tablet 1 Tab PO BID Cymbalta (Duloxetine Hcl) 60 Mg Capsule. 1 Cap PO BID Meloxicam 7.5 Mg Tablet 1 Tab PO BID Vitamin E (Vitamin E Acid Succinate) 100 Unit Tablet 100 Unit PO Krill Oil 1,000 Mg Softgel (Krill/Om3/Dha/Epa/Om6/Lip/Astx) 1 Each Capsule 1 Each PO Biotin 1 Mg Capsule 10,000 Mg PO DAILY Aspir 81 (Aspirin) 81 Mg Tablet.dr 1 Tab PO DAILY Potassium Chloride 10 Meq Capsule.er 10 Meq PO DAILY Cyanocobalamin Injection (Cyanocobalamin (Vitamin B-12)) 1,000 Mcg/1 Ml Vial 1 Ml IM QOMONTH Tizanidine Hcl 4 Mg Tablet 4 Mg PO TID PRN Hydrocodone-Apap 7.5-325 (Hydrocodone Bit/Acetaminophen) 1 Each Tablet 1 Tab PO PRN Q6HRS PRN Ditropan Xl (Oxybutynin Chloride) 10 Mg Tab.er.24 1 Tab PO DAILY Melatonin 5 Mg Tablet 5 Mg PO QHS Neurontin (Gabapentin) 300 Mg Capsule 600 Mg PO TID Levothyroxine Sodium 50 Mcg Tablet 1 Tab PO DAILY Preservision Lutein Softgel (Vit C/Narda Ac/Lut/Copper/Znox) 1 Each Capsule 1 Each PO DAILY Metformin Hcl 1,000 Mg Tablet 1 Tab PO DAILY Omeprazole 20 Mg Tablet. 1 Tab PO BID Mirtazapine 30 Mg Tablet 1 Tab PO QHS Gemfibrozil 600 Mg Tablet 600 Mg PO BID Carvedilol 12.5 Mg Tablet 12.5 Mg PO BID Buspirone Hcl 15 Mg Tablet 15 Mg PO BID Amlodipine Besylate 10 Mg Tablet 10 Mg PO DAILY Vitals/I & O Vital Sign - Last 24 Hours 11/05/16 11/05/16 11/05/16 11/05/16 15:00 15:16 19:00 20:00 Temp 98.6 98.4 98.6 98.4 Pulse 67 79 Resp 17 15 B/P (MAP) 162/87 (112) 154/87 (109) Pulse Ox 96 91 O2 Delivery Room Air Room Air Room Air Room Air 11/05/16 11/05/16 11/05/16 11/06/16 20:19 20:19 23:00 03:00 Temp 97.7 98.0 97.7 98.0 Pulse 86 69 Resp 18 18 B/P (MAP) 154/82 (106) 170/90 (116) Pulse Ox 97 97 92 93 O2 Delivery Room Air Room Air Room Air Room Air 11/06/16 11/06/16 11/06/16 11/06/16 07:00 07:37 07:37 08:00 Temp 98.0 98.0 Pulse 67 Resp 16 B/P (MAP) 172/84 (113) Pulse Ox 93 96 96 O2 Delivery Room Air Room Air Room Air Room Air 11/06/16 11/06/16 10:49 11:00 Temp 98.0 98.0 Pulse 80 Resp 16 B/P (MAP) 139/68 (91) Pulse Ox 96 O2 Delivery Room Air Room Air Intake and Output 11/05/16 11/05/16 11/06/16 15:00 23:00 07:00 Intake Total 360 ml Balance 360 ml TONYA LEACH III DO November 06, 2016 11:40
[2016-11-06] MEDS: amLODIPine BESYLATE 10 MG TABLET PO SCH (12:49)
--- NOTE | 2016-11-06 13:51 | PDOC ---
PULMONARY PROGRESS NOTES Subjective sob is better. has cough, post nasal drip, no pain Vitals Vital Signs Date Time Temp Pulse Resp B/P (MAP) Pulse Ox O2 Delivery O2 Flow Rate FiO2 11/06/16 12:49 80 139/68 11/06/16 11:00 98.0 16 96 Room Air 98.0 ROS: No Nausea, No Chest Pain General: Alert, No acute distress HEENT: Other (nc at perrl. shallow oropharynx) Lungs: Wheezing Cardiovascular: S1, S2 Abdomen: Soft, Non-tender Extremities: No Edema Skin: Warm Labs Laboratory Tests Test 11/05/16 05:35 11/06/16 05:50 White Blood Count 8.8 x10^3/uL (4.0-11.0) 11.3 x10^3/uL (4.0-11.0) Red Blood Count 3.53 x10^6/uL (3.50-5.40) 3.61 x10^6/uL (3.50-5.40) Hemoglobin 10.8 g/dL (12.0-15.5) 10.9 g/dL (12.0-15.5) Hematocrit 32.4 % (36.0-47.0) 33.2 % (36.0-47.0) Mean Corpuscular Volume 92 fL (79-100) 92 fL (79-100) Mean Corpuscular Hemoglobin 31 pg (25-35) 30 pg (25-35) Mean Corpuscular Hemoglobin Concent 33 g/dL (31-37) 33 g/dL (31-37) Red Cell Distribution Width 14.7 % (11.5-14.5) 14.7 % (11.5-14.5) Platelet Count 198 x10^3/uL (140-400) 216 x10^3/uL (140-400) Neutrophils (%) (Auto) 83 % (31-73) 82 % (31-73) Lymphocytes (%) (Auto) 12 % (24-48) 12 % (24-48) Monocytes (%) (Auto) 5 % (0-9) 6 % (0-9) Eosinophils (%) (Auto) 0 % (0-3) 0 % (0-3) Basophils (%) (Auto) 0 % (0-3) 0 % (0-3) Neutrophils # (Auto) 7.3 x10^3uL (1.8-7.7) 9.3 x10^3uL (1.8-7.7) Lymphocytes # (Auto) 1.1 x10^3/uL (1.0-4.8) 1.4 x10^3/uL (1.0-4.8) Monocytes # (Auto) 0.4 x10^3/uL (0.0-1.1) 0.7 x10^3/uL (0.0-1.1) Eosinophils # (Auto) 0.0 x10^3/uL (0.0-0.7) 0.0 x10^3/uL (0.0-0.7) Basophils # (Auto) 0.0 x10^3/uL (0.0-0.2) 0.0 x10^3/uL (0.0-0.2) Sodium Level 140 mmol/L (136-145) 143 mmol/L (136-145) Potassium Level 3.9 mmol/L (3.5-5.1) 4.2 mmol/L (3.5-5.1) Chloride Level 103 mmol/L (98-107) 105 mmol/L (98-107) Carbon Dioxide Level 29 mmol/L (21-32) 29 mmol/L (21-32) Anion Gap 8 (6-14) 9 (6-14) Blood Urea Nitrogen 21 mg/dL (7-20) 23 mg/dL (7-20) Creatinine 0.9 mg/dL (0.6-1.0) 0.8 mg/dL (0.6-1.0) Estimated GFR (Cockcroft-Gault) 61.4 70.3 Glucose Level 132 mg/dL (70-99) 132 mg/dL (70-99) Calcium Level 9.0 mg/dL (8.5-10.1) 9.0 mg/dL (8.5-10.1) Laboratory Tests Test 11/06/16 05:50 White Blood Count 11.3 x10^3/uL (4.0-11.0) Red Blood Count 3.61 x10^6/uL (3.50-5.40) Hemoglobin 10.9 g/dL (12.0-15.5) Hematocrit 33.2 % (36.0-47.0) Mean Corpuscular Volume 92 fL (79-100) Mean Corpuscular Hemoglobin 30 pg (25-35) Mean Corpuscular Hemoglobin Concent 33 g/dL (31-37) Red Cell Distribution Width 14.7 % (11.5-14.5) Platelet Count 216 x10^3/uL (140-400) Neutrophils (%) (Auto) 82 % (31-73) Lymphocytes (%) (Auto) 12 % (24-48) Monocytes (%) (Auto) 6 % (0-9) Eosinophils (%) (Auto) 0 % (0-3) Basophils (%) (Auto) 0 % (0-3) Neutrophils # (Auto) 9.3 x10^3uL (1.8-7.7) Lymphocytes # (Auto) 1.4 x10^3/uL (1.0-4.8) Monocytes # (Auto) 0.7 x10^3/uL (0.0-1.1) Eosinophils # (Auto) 0.0 x10^3/uL (0.0-0.7) Basophils # (Auto) 0.0 x10^3/uL (0.0-0.2) Sodium Level 143 mmol/L (136-145) Potassium Level 4.2 mmol/L (3.5-5.1) Chloride Level 105 mmol/L (98-107) Carbon Dioxide Level 29 mmol/L (21-32) Anion Gap 9 (6-14) Blood Urea Nitrogen 23 mg/dL (7-20) Creatinine 0.8 mg/dL (0.6-1.0) Estimated GFR (Cockcroft-Gault) 70.3 Glucose Level 132 mg/dL (70-99) Calcium Level 9.0 mg/dL (8.5-10.1) Medications Active Scripts Medications Dose Route/Sig Max Daily Dose Days Date Category Uceris (Budesonide) 9 Mg Tabdr...er 9 Mg PO QTUTHSA 11/02/16 Reported Furosemide 20 Mg Tablet 1 Tab PO DAILY 11/02/16 Reported Ferrous Sulfate 325 Mg Tablet 1 Tab PO BID 11/02/16 Reported Cymbalta (Duloxetine Hcl) 60 Mg Capsule.dr 1 Cap PO BID 11/02/16 Reported [Codeine Phosphate/Guaifenesin] 5 ML Liquid 5 Ml PO PRN Q4HRS PRN 10/23/16 Rx Benzonatate 100 Mg Capsule 100 Mg PO TID 10/23/16 Rx Meloxicam 7.5 Mg Tablet 1 Tab PO BID 10/18/16 Reported Vitamin E (Vitamin E Acid Succinate) 100 Unit Tablet 100 Unit PO 02/04/16 Reported Krill Oil 1,000 Mg Softgel (Krill/Om3/Dha/Epa/Om6/Lip/Astx) 1 Each Capsule 1 Each PO 02/04/16 Reported Biotin 1 Mg Capsule 10,000 Mg PO DAILY 02/04/16 Reported Aspir 81 (Aspirin) 81 Mg Tablet.dr 1 Tab PO DAILY 02/04/16 Reported Potassium Chloride 10 Meq Capsule.er 10 Meq PO DAILY 02/04/16 Reported Cyanocobalamin Injection (Cyanocobalamin (Vitamin B-12)) 1,000 Mcg/1 Ml Vial 1 Ml IM QOMONTH 02/03/16 Reported Tizanidine Hcl 4 Mg Tablet 4 Mg PO TID PRN 02/03/16 Reported Hydrocodone-Apap 7.5-325 (Hydrocodone Bit/Acetaminophen) 1 Each Tablet 1 Tab PO PRN Q6HRS PRN 02/03/16 Reported Ditropan Xl (Oxybutynin Chloride) 10 Mg Tab.er.24 1 Tab PO DAILY 02/03/16 Reported Melatonin 5 Mg Tablet 5 Mg PO QHS 02/03/16 Reported Neurontin (Gabapentin) 300 Mg Capsule 600 Mg PO TID 02/03/16 Reported Levothyroxine Sodium 50 Mcg Tablet 1 Tab PO DAILY 02/03/16 Reported Preservision Lutein Softgel (Vit C/Narda Ac/Lut/Copper/Znox) 1 Each Capsule 1 Each PO DAILY 12/26/15 Reported Metformin Hcl 1,000 Mg Tablet 1 Tab PO DAILY 12/26/15 Reported Omeprazole 20 Mg Tablet.dr 1 Tab PO BID 07/25/14 Reported Mirtazapine 30 Mg Tablet 1 Tab PO QHS 07/25/14 Reported Gemfibrozil 600 Mg Tablet 600 Mg PO BID 08/29/13 Reported Carvedilol 12.5 Mg Tablet 12.5 Mg PO BID 08/29/13 Reported Buspirone Hcl 15 Mg Tablet 15 Mg PO BID 3/4/14 Reported Amlodipine Besylate 10 Mg Tablet 10 Mg PO DAILY 08/29/13 Reported Impression . 1. acute viral bronchitis. 2. Possible underlying reactive airway disease. She has developed bronchospasm , which could also be related to recent lower respiratory tract infection. 3. No significant history of tobacco use. 4. History of obstructive sleep apnea with good compliance to CPAP. 5. History of recent pneumonia involving the left upper lobe. followup noncontrast CT chest with improving pneumonia 6. allergic rhinitis Plan . 1. antibiotic for total of 7 days 2. Continue with DuoNeb. 3. steroid nebulizer. 4. change Solu-Medrol to bid 5. add singulair 6. Followup noncontrast CT chest reviewed. previously seen pneumonia has improved 7. Continue CPAP at bedtime. 8. speech eval to r/o silent aspiration 9. lose wt discussed w pt LESLIE LLANOS MD November 06, 2016 13:51
[2016-11-06] MEDS: AZITHROMYCIN 250 MG in IV NORMAL SALINE 250ML 250 ML IV SCH (14:51)
[2016-11-06 15:00] VITALS: BP 133/88
[2016-11-06] MEDS: ACETAMINOPHEN 325 MG TABLET. PO PRN ×2 (15:58→22:11)
[2016-11-06] MEDS: PROMETH/CODEINE 6.25/10MG 5 ML SYRUP. PO PRN ×2 (16:04→22:10)
[2016-11-06 19:52] VITALS: BP 177/70
[2016-11-06] MEDS ORDERED: MONTELUKAST SODIUM 10 MG TABLET. PO SCH (21:00)
[2016-11-06 23:05] VITALS: BP 143/61
[2016-11-07] MEDS: PROMETH/CODEINE 6.25/10MG 5 ML SYRUP. PO PRN ×2 (04:58→09:15)
[2016-11-07] MEDS: OXYBUTYNIN CHLORIDE 5 MG TABLET PO SCH (04:58)
[2016-11-07 06:08] LABS: BASO % 0 % (0-3); EOS % 0 % (0-3); HEMATOCRIT 35.1 % (36.0-47.0); HEMOGLOBIN 11.7 g/dL (12.0-15.5); LYMPH % 9 % (24-48); MEAN CORPUSCULAR HEMOGLOBIN 31 pg (25-35); MEAN CORPUSCULAR HGB CONC 33 g/dL (31-37); MEAN CORPUSCULAR VOLUME 92 fL (79-100); MONO % 5 % (0-9); NEUT % 86 % (31-73); PLATELET COUNT 227 x10^3/uL (140-400); RED BLOOD COUNT 3.84 x10^6/uL (3.50-5.40); WHITE BLOOD COUNT 10.8 x10^3/uL (4.0-11.0)
[2016-11-07 06:24] LABS: CALCIUM 9.2 mg/dL (8.5-10.1); CREATININE 0.8 mg/dL (0.6-1.0); GFR 70.3
[2016-11-07 07:00] VITALS: BP 131/73
[2016-11-07] MEDS: BUDESONIDE 0.5 MG/2 ML NEBU. NEB SCH (07:13)
[2016-11-07] MEDS: IPRATRPIUM/ALBUTEROL 0.5/2.5MG 3 ML NEBU. NEB SCH ×2 (07:14→11:17)
[2016-11-07 09:14] LABS: PLT ESTIMATE ADEQUATE (ADEQUATE)
[2016-11-07] MEDS: methylPREDNISolone SOD SUCC PF 40 MG/ML VIAL. IV SCH (09:15)
[2016-11-07] MEDS: amLODIPine BESYLATE 10 MG TABLET PO SCH (09:16)
--- NOTE | 2016-11-07 10:35 | PDOC ---
PULMONARY PROGRESS NOTES Subjective tolerating cpap, no sob, has cough, post nasal drip, no pain Vitals Vital Signs Date Time Temp Pulse Resp B/P (MAP) Pulse Ox O2 Delivery O2 Flow Rate FiO2 11/07/16 09:16 80 131/73 11/07/16 08:00 Room Air 11/07/16 07:16 96 11/07/16 07:00 98.8 20 98.8 ROS: No Nausea, No Chest Pain General: Alert, No acute distress HEENT: Other (nc at perrl. shallow oropharynx) Lungs: Clear Cardiovascular: S1, S2 Abdomen: Soft, Non-tender Neuro Exam: Alert, Oriented Extremities: No Edema Skin: Warm Labs Laboratory Tests Test 11/06/16 05:50 11/07/16 05:40 White Blood Count 11.3 x10^3/uL (4.0-11.0) 10.8 x10^3/uL (4.0-11.0) Red Blood Count 3.61 x10^6/uL (3.50-5.40) 3.84 x10^6/uL (3.50-5.40) Hemoglobin 10.9 g/dL (12.0-15.5) 11.7 g/dL (12.0-15.5) Hematocrit 33.2 % (36.0-47.0) 35.1 % (36.0-47.0) Mean Corpuscular Volume 92 fL (79-100) 92 fL (79-100) Mean Corpuscular Hemoglobin 30 pg (25-35) 31 pg (25-35) Mean Corpuscular Hemoglobin Concent 33 g/dL (31-37) 33 g/dL (31-37) Red Cell Distribution Width 14.7 % (11.5-14.5) 15.0 % (11.5-14.5) Platelet Count 216 x10^3/uL (140-400) 227 x10^3/uL (140-400) Neutrophils (%) (Auto) 82 % (31-73) 86 % (31-73) Lymphocytes (%) (Auto) 12 % (24-48) 9 % (24-48) Monocytes (%) (Auto) 6 % (0-9) 5 % (0-9) Eosinophils (%) (Auto) 0 % (0-3) 0 % (0-3) Basophils (%) (Auto) 0 % (0-3) 0 % (0-3) Neutrophils # (Auto) 9.3 x10^3uL (1.8-7.7) 9.3 x10^3uL (1.8-7.7) Lymphocytes # (Auto) 1.4 x10^3/uL (1.0-4.8) 1.0 x10^3/uL (1.0-4.8) Monocytes # (Auto) 0.7 x10^3/uL (0.0-1.1) 0.5 x10^3/uL (0.0-1.1) Eosinophils # (Auto) 0.0 x10^3/uL (0.0-0.7) 0.0 x10^3/uL (0.0-0.7) Basophils # (Auto) 0.0 x10^3/uL (0.0-0.2) 0.0 x10^3/uL (0.0-0.2) Sodium Level 143 mmol/L (136-145) 142 mmol/L (136-145) Potassium Level 4.2 mmol/L (3.5-5.1) 4.0 mmol/L (3.5-5.1) Chloride Level 105 mmol/L (98-107) 104 mmol/L (98-107) Carbon Dioxide Level 29 mmol/L (21-32) 28 mmol/L (21-32) Anion Gap 9 (6-14) 10 (6-14) Blood Urea Nitrogen 23 mg/dL (7-20) 22 mg/dL (7-20) Creatinine 0.8 mg/dL (0.6-1.0) 0.8 mg/dL (0.6-1.0) Estimated GFR (Cockcroft-Gault) 70.3 70.3 Glucose Level 132 mg/dL (70-99) 158 mg/dL (70-99) Calcium Level 9.0 mg/dL (8.5-10.1) 9.2 mg/dL (8.5-10.1) Segmented Neutrophils % 88 % (35-66) Band Neutrophils % 2 % (0-9) Lymphocytes % 6 % (24-48) Monocytes % 4 % (0-10) Platelet Estimate Adequate (ADEQUATE) Laboratory Tests Test 11/07/16 05:40 White Blood Count 10.8 x10^3/uL (4.0-11.0) Red Blood Count 3.84 x10^6/uL (3.50-5.40) Hemoglobin 11.7 g/dL (12.0-15.5) Hematocrit 35.1 % (36.0-47.0) Mean Corpuscular Volume 92 fL (79-100) Mean Corpuscular Hemoglobin 31 pg (25-35) Mean Corpuscular Hemoglobin Concent 33 g/dL (31-37) Red Cell Distribution Width 15.0 % (11.5-14.5) Platelet Count 227 x10^3/uL (140-400) Neutrophils (%) (Auto) 86 % (31-73) Lymphocytes (%) (Auto) 9 % (24-48) Monocytes (%) (Auto) 5 % (0-9) Eosinophils (%) (Auto) 0 % (0-3) Basophils (%) (Auto) 0 % (0-3) Neutrophils # (Auto) 9.3 x10^3uL (1.8-7.7) Lymphocytes # (Auto) 1.0 x10^3/uL (1.0-4.8) Monocytes # (Auto) 0.5 x10^3/uL (0.0-1.1) Eosinophils # (Auto) 0.0 x10^3/uL (0.0-0.7) Basophils # (Auto) 0.0 x10^3/uL (0.0-0.2) Segmented Neutrophils % 88 % (35-66) Band Neutrophils % 2 % (0-9) Lymphocytes % 6 % (24-48) Monocytes % 4 % (0-10) Platelet Estimate Adequate (ADEQUATE) Sodium Level 142 mmol/L (136-145) Potassium Level 4.0 mmol/L (3.5-5.1) Chloride Level 104 mmol/L (98-107) Carbon Dioxide Level 28 mmol/L (21-32) Anion Gap 10 (6-14) Blood Urea Nitrogen 22 mg/dL (7-20) Creatinine 0.8 mg/dL (0.6-1.0) Estimated GFR (Cockcroft-Gault) 70.3 Glucose Level 158 mg/dL (70-99) Calcium Level 9.2 mg/dL (8.5-10.1) Medications Active Scripts Medications Dose Route/Sig Max Daily Dose Days Date Category Uceris (Budesonide) 9 Mg Tabdr...er 9 Mg PO QTUTHSA 11/02/16 Reported Furosemide 20 Mg Tablet 1 Tab PO DAILY 11/02/16 Reported Ferrous Sulfate 325 Mg Tablet 1 Tab PO BID 11/02/16 Reported Cymbalta (Duloxetine Hcl) 60 Mg Capsule.dr 1 Cap PO BID 11/02/16 Reported [Codeine Phosphate/Guaifenesin] 5 ML Liquid 5 Ml PO PRN Q4HRS PRN 10/23/16 Rx Benzonatate 100 Mg Capsule 100 Mg PO TID 10/23/16 Rx Meloxicam 7.5 Mg Tablet 1 Tab PO BID 10/18/16 Reported Vitamin E (Vitamin E Acid Succinate) 100 Unit Tablet 100 Unit PO 02/04/16 Reported Krill Oil 1,000 Mg Softgel (Krill/Om3/Dha/Epa/Om6/Lip/Astx) 1 Each Capsule 1 Each PO 02/04/16 Reported Biotin 1 Mg Capsule 10,000 Mg PO DAILY 02/04/16 Reported Aspir 81 (Aspirin) 81 Mg Tablet.dr 1 Tab PO DAILY 02/04/16 Reported Potassium Chloride 10 Meq Capsule.er 10 Meq PO DAILY 02/04/16 Reported Cyanocobalamin Injection (Cyanocobalamin (Vitamin B-12)) 1,000 Mcg/1 Ml Vial 1 Ml IM QOMONTH 02/03/16 Reported Tizanidine Hcl 4 Mg Tablet 4 Mg PO TID PRN 02/03/16 Reported Hydrocodone-Apap 7.5-325 (Hydrocodone Bit/Acetaminophen) 1 Each Tablet 1 Tab PO PRN Q6HRS PRN 02/03/16 Reported Ditropan Xl (Oxybutynin Chloride) 10 Mg Tab.er.24 1 Tab PO DAILY 02/03/16 Reported Melatonin 5 Mg Tablet 5 Mg PO QHS 02/03/16 Reported Neurontin (Gabapentin) 300 Mg Capsule 600 Mg PO TID 02/03/16 Reported Levothyroxine Sodium 50 Mcg Tablet 1 Tab PO DAILY 02/03/16 Reported Preservision Lutein Softgel (Vit C/Narda Ac/Lut/Copper/Znox) 1 Each Capsule 1 Each PO DAILY 12/26/15 Reported Metformin Hcl 1,000 Mg Tablet 1 Tab PO DAILY 12/26/15 Reported Omeprazole 20 Mg Tablet.dr 1 Tab PO BID 07/25/14 Reported Mirtazapine 30 Mg Tablet 1 Tab PO QHS 07/25/14 Reported Gemfibrozil 600 Mg Tablet 600 Mg PO BID 08/29/13 Reported Carvedilol 12.5 Mg Tablet 12.5 Mg PO BID 08/29/13 Reported Buspirone Hcl 15 Mg Tablet 15 Mg PO BID 08/29/13 Reported Amlodipine Besylate 10 Mg Tablet 10 Mg PO DAILY 08/29/13 Reported Impression . 1. acute viral bronchitis. 2. Possible underlying reactive airway disease. She has developed bronchospasm , which could also be related to recent lower respiratory tract infection. 3. No significant history of tobacco use. 4. History of obstructive sleep apnea with good compliance to CPAP. 5. History of recent pneumonia involving the left upper lobe. followup noncontrast CT chest with improving pneumonia 6. allergic rhinitis Plan . 1. antibiotic for total of 7 days 2. Continue with DuoNeb. 3. steroid nebulizer. 4. change Solu-Medrol to prednisone 40 mg w taper by 10 mg q 3d 5. singulair 6. Followup noncontrast CT chest reviewed. previously seen pneumonia has improved 7. Continue CPAP at bedtime. 8. lose wt discussed w pt. ok to go home from pul stand point LESLIE LLANOS MD November 07, 2016 10:35
[2016-11-07 10:51] VITALS: BP 156/71
--- NOTE | 2016-11-07 11:25 | PDOC ---
PROGRESS NOTES Chief Complaint Chief Complaint cc: sob History of Present Illness History of Present Illness Pt was lying in bed NAD Would like to go home today Vitals Vitals Vital Signs Date Time Temp Pulse Resp B/P (MAP) Pulse Ox O2 Delivery O2 Flow Rate FiO2 11/07/16 10:51 97.5 76 20 156/71 (99) 93 BiPAP/CPAP 97.5 Physical Exam General: Alert, Oriented X3 Heart: Regular rate, Normal S1, No murmurs Lungs: Clear, Other (no wheezing) Abdomen: Normal bowel sounds, Soft, No tenderness Extremities: No clubbing, No cyanosis Skin: No rashes, No significant lesion Labs LABS Laboratory Tests Test 11/07/16 05:40 White Blood Count 10.8 x10^3/uL (4.0-11.0) Red Blood Count 3.84 x10^6/uL (3.50-5.40) Hemoglobin 11.7 g/dL (12.0-15.5) Hematocrit 35.1 % (36.0-47.0) Mean Corpuscular Volume 92 fL (79-100) Mean Corpuscular Hemoglobin 31 pg (25-35) Mean Corpuscular Hemoglobin Concent 33 g/dL (31-37) Red Cell Distribution Width 15.0 % (11.5-14.5) Platelet Count 227 x10^3/uL (140-400) Neutrophils (%) (Auto) 86 % (31-73) Lymphocytes (%) (Auto) 9 % (24-48) Monocytes (%) (Auto) 5 % (0-9) Eosinophils (%) (Auto) 0 % (0-3) Basophils (%) (Auto) 0 % (0-3) Neutrophils # (Auto) 9.3 x10^3uL (1.8-7.7) Lymphocytes # (Auto) 1.0 x10^3/uL (1.0-4.8) Monocytes # (Auto) 0.5 x10^3/uL (0.0-1.1) Eosinophils # (Auto) 0.0 x10^3/uL (0.0-0.7) Basophils # (Auto) 0.0 x10^3/uL (0.0-0.2) Segmented Neutrophils % 88 % (35-66) Band Neutrophils % 2 % (0-9) Lymphocytes % 6 % (24-48) Monocytes % 4 % (0-10) Platelet Estimate Adequate (ADEQUATE) Sodium Level 142 mmol/L (136-145) Potassium Level 4.0 mmol/L (3.5-5.1) Chloride Level 104 mmol/L (98-107) Carbon Dioxide Level 28 mmol/L (21-32) Anion Gap 10 (6-14) Blood Urea Nitrogen 22 mg/dL (7-20) Creatinine 0.8 mg/dL (0.6-1.0) Estimated GFR (Cockcroft-Gault) 70.3 Glucose Level 158 mg/dL (70-99) Calcium Level 9.2 mg/dL (8.5-10.1) Review of Systems Review of Systems Denies Chest pain Denies N/V/D Assessment and Plan Assessmemt and Plan Problems Medical Problems: (1) Bronchitis Status: Acute (2) Dyspnea Status: Acute (3) Hypoxia Status: Acute (4) Shoulder pain Status: Acute Assessment: HTN Reactive airway disease Possible Viral bronchitis vs PNA - f/u CT showed resolution; Video swallow study r/o aspiration - negative Acute right shoulder pain - Her exam is consistent with a large rotator cuff tear per CXR and CT Hx of Sleep apnea Plan D/C today to home Continue azithromycin - provided script to nurse Continue Singulair - provided script to nurse Continue home meds Appreciate subspecialist input Activity as tolerated F/U with PCP 1 week Problems: Comment Review of Relevant I have reviewed the following items jassi (where applicable) has been applied. Labs Laboratory Tests Test 11/06/16 05:50 11/07/16 05:40 White Blood Count 11.3 x10^3/uL (4.0-11.0) 10.8 x10^3/uL (4.0-11.0) Red Blood Count 3.61 x10^6/uL (3.50-5.40) 3.84 x10^6/uL (3.50-5.40) Hemoglobin 10.9 g/dL (12.0-15.5) 11.7 g/dL (12.0-15.5) Hematocrit 33.2 % (36.0-47.0) 35.1 % (36.0-47.0) Mean Corpuscular Volume 92 fL (79-100) 92 fL (79-100) Mean Corpuscular Hemoglobin 30 pg (25-35) 31 pg (25-35) Mean Corpuscular Hemoglobin Concent 33 g/dL (31-37) 33 g/dL (31-37) Red Cell Distribution Width 14.7 % (11.5-14.5) 15.0 % (11.5-14.5) Platelet Count 216 x10^3/uL (140-400) 227 x10^3/uL (140-400) Neutrophils (%) (Auto) 82 % (31-73) 86 % (31-73) Lymphocytes (%) (Auto) 12 % (24-48) 9 % (24-48) Monocytes (%) (Auto) 6 % (0-9) 5 % (0-9) Eosinophils (%) (Auto) 0 % (0-3) 0 % (0-3) Basophils (%) (Auto) 0 % (0-3) 0 % (0-3) Neutrophils # (Auto) 9.3 x10^3uL (1.8-7.7) 9.3 x10^3uL (1.8-7.7) Lymphocytes # (Auto) 1.4 x10^3/uL (1.0-4.8) 1.0 x10^3/uL (1.0-4.8) Monocytes # (Auto) 0.7 x10^3/uL (0.0-1.1) 0.5 x10^3/uL (0.0-1.1) Eosinophils # (Auto) 0.0 x10^3/uL (0.0-0.7) 0.0 x10^3/uL (0.0-0.7) Basophils # (Auto) 0.0 x10^3/uL (0.0-0.2) 0.0 x10^3/uL (0.0-0.2) Sodium Level 143 mmol/L (136-145) 142 mmol/L (136-145) Potassium Level 4.2 mmol/L (3.5-5.1) 4.0 mmol/L (3.5-5.1) Chloride Level 105 mmol/L (98-107) 104 mmol/L (98-107) Carbon Dioxide Level 29 mmol/L (21-32) 28 mmol/L (21-32) Anion Gap 9 (6-14) 10 (6-14) Blood Urea Nitrogen 23 mg/dL (7-20) 22 mg/dL (7-20) Creatinine 0.8 mg/dL (0.6-1.0) 0.8 mg/dL (0.6-1.0) Estimated GFR (Cockcroft-Gault) 70.3 70.3 Glucose Level 132 mg/dL (70-99) 158 mg/dL (70-99) Calcium Level 9.0 mg/dL (8.5-10.1) 9.2 mg/dL (8.5-10.1) Segmented Neutrophils % 88 % (35-66) Band Neutrophils % 2 % (0-9) Lymphocytes % 6 % (24-48) Monocytes % 4 % (0-10) Platelet Estimate Adequate (ADEQUATE) Laboratory Tests Test 11/07/16 05:40 White Blood Count 10.8 x10^3/uL (4.0-11.0) Red Blood Count 3.84 x10^6/uL (3.50-5.40) Hemoglobin 11.7 g/dL (12.0-15.5) Hematocrit 35.1 % (36.0-47.0) Mean Corpuscular Volume 92 fL (79-100) Mean Corpuscular Hemoglobin 31 pg (25-35) Mean Corpuscular Hemoglobin Concent 33 g/dL (31-37) Red Cell Distribution Width 15.0 % (11.5-14.5) Platelet Count 227 x10^3/uL (140-400) Neutrophils (%) (Auto) 86 % (31-73) Lymphocytes (%) (Auto) 9 % (24-48) Monocytes (%) (Auto) 5 % (0-9) Eosinophils (%) (Auto) 0 % (0-3) Basophils (%) (Auto) 0 % (0-3) Neutrophils # (Auto) 9.3 x10^3uL (1.8-7.7) Lymphocytes # (Auto) 1.0 x10^3/uL (1.0-4.8) Monocytes # (Auto) 0.5 x10^3/uL (0.0-1.1) Eosinophils # (Auto) 0.0 x10^3/uL (0.0-0.7) Basophils # (Auto) 0.0 x10^3/uL (0.0-0.2) Segmented Neutrophils % 88 % (35-66) Band Neutrophils % 2 % (0-9) Lymphocytes % 6 % (24-48) Monocytes % 4 % (0-10) Platelet Estimate Adequate (ADEQUATE) Sodium Level 142 mmol/L (136-145) Potassium Level 4.0 mmol/L (3.5-5.1) Chloride Level 104 mmol/L (98-107) Carbon Dioxide Level 28 mmol/L (21-32) Anion Gap 10 (6-14) Blood Urea Nitrogen 22 mg/dL (7-20) Creatinine 0.8 mg/dL (0.6-1.0) Estimated GFR (Cockcroft-Gault) 70.3 Glucose Level 158 mg/dL (70-99) Calcium Level 9.2 mg/dL (8.5-10.1) Medications Current Medications Albuterol/ Ipratropium (Duoneb) 3 ml 1X ONCE NEB Last administered on 11:54; Start 11/02/16 at 12:30; Stop 11/02/16 at 12:31; Status DC Benzonatate (Tessalon Perle) 100 mg 1X ONCE PO Last administered on 11/02/16 13:19; Start 11/02/16 at 13:15; Stop 11/02/16 at 13:16; Status DC Azithromycin 500 mg/Sodium Chloride 250 ml @ 250 mls/hr 1X ONCE IV ; Start 11/02/16 at 13:30; Stop 11/02/16 at 14:29; Status UNV Azithromycin 250 ml @ 250 mls/hr 1X ONCE IV Last administered on 11/02/16 14: 05; Start 11/02/16 at 13:45; Stop 11/02/16 at 14:44; Status DC Ondansetron HCl (Zofran) 4 mg PRN Q8HRS PRN IV NAUSEA/VOMITING; Start 11/02/16 at 13:30; Stop 11/03/16 at 13:29; Status DC Morphine Sulfate 2 mg PRN Q2HR PRN IV PAIN; Start 11/02/16 at 13:30; Stop at 13:29; Status DC Acetaminophen (Tylenol) 650 mg PRN Q4HRS PRN PO FEVER Last administered on 13:25; Start 11/02/16 at 13:30; Stop 11/03/16 at 13:29; Status DC Albuterol/ Ipratropium (Duoneb) 3 ml RTQID NEB Last administered on 11/03/16 11 :06; Start 11/02/16 at 16:00; Stop 11/03/16 at 15:59; Status DC Albuterol/ Ipratropium (Duoneb) 3 ml 1X ONCE NEB Last administered on 13:54; Start 11/02/16 at 14:00; Stop 11/02/16 at 14:01; Status DC Promethazine HCl/ Codeine (Phenergan With Codeine) 5 ml PRN Q4HRS PRN PO COUGH Last administered on 11/07/16 09:15; Start 11/02/16 at 18:15 Azithromycin 250 mg/Sodium Chloride 250 ml @ 250 mls/hr Q24H IV Last administered on 11/06/16 14:51; Start 11/03/16 at 14:00 Budesonide (Pulmicort) 0.5 mg RTBID NEB Last administered on 11/07/16 07:13; Start 11/03/16 at 10:00 Methylprednisolone Sodium Succinate (SOLU-Medrol 40MG VIAL) 40 mg Q8HRS IV Last administered on 11/06/16 06:02; Start 11/03/16 at 10:00; Stop 11/06/16 at 13:52; Status DC Albuterol/ Ipratropium (Duoneb) 3 ml RTQID NEB Last administered on 11/07/16 07:14; Start 11/03/16 at 20:00 Oxybutynin Chloride (Ditropan) 5 mg [id number] PO ; Start 11/04/16 at 09:00; Stop at 09:00; Status DC Acetaminophen (Tylenol) 650 mg PRN Q4HRS PRN PO PAIN, TEMP Last administered on 11/06/16 22:11; Start 11/03/16 at 23:45 Oxybutynin Chloride (Ditropan) 10 mg [id number] PO Last administered on 11/07/16 04:58; Start 11/04/16 at 06:00 Barium Sulfate (Varibar Thin Liquid Apple) 148 gm 1X ONCE PO Last administered on 11/05/16 13:36; Start 11/05/16 at 12:30; Stop 11/05/16 at 12:31 ; Status DC Amlodipine Besylate (Norvasc) 10 mg DAILY PO Last administered on 11/07/16 09: 16; Start 11/06/16 at 12:00 Methylprednisolone Sodium Succinate (SOLU-Medrol 40MG VIAL) 40 mg Q12HR IV Last administered on 11/07/16 09:15; Start 11/06/16 at 21:00; Stop 11/07/16 at 10:36; Status DC Montelukast Sodium (Singulair) 10 mg QHS PO Last administered on 11/06/16 21: 15; Start 11/06/16 at 21:00 Prednisone (Prednisone) 40 mg DAILY PO ; Start 11/08/16 at 09:00 Active Scripts Active [Codeine Phosphate/Guaifenesin] 5 ML Liquid 5 Ml PO PRN Q4HRS PRN Benzonatate 100 Mg Capsule 100 Mg PO TID Reported Uceris (Budesonide) 9 Mg Tabdr...er 9 Mg PO QTUTHSA Furosemide 20 Mg Tablet 1 Tab PO DAILY Ferrous Sulfate 325 Mg Tablet 1 Tab PO BID Cymbalta (Duloxetine Hcl) 60 Mg Capsule.dr 1 Cap PO BID Meloxicam 7.5 Mg Tablet 1 Tab PO BID Vitamin E (Vitamin E Acid Succinate) 100 Unit Tablet 100 Unit PO Krill Oil 1,000 Mg Softgel (Krill/Om3/Dha/Epa/Om6/Lip/Astx) 1 Each Capsule 1 Each PO Biotin 1 Mg Capsule 10,000 Mg PO DAILY Aspir 81 (Aspirin) 81 Mg Tablet.dr 1 Tab PO DAILY Potassium Chloride 10 Meq Capsule.er 10 Meq PO DAILY Cyanocobalamin Injection (Cyanocobalamin (Vitamin B-12)) 1,000 Mcg/1 Ml Vial 1 Ml IM QOMONTH Tizanidine Hcl 4 Mg Tablet 4 Mg PO TID PRN Hydrocodone-Apap 7.5-325 (Hydrocodone Bit/Acetaminophen) 1 Each Tablet 1 Tab PO PRN Q6HRS PRN Ditropan Xl (Oxybutynin Chloride) 10 Mg Tab.er.24 1 Tab PO DAILY Melatonin 5 Mg Tablet 5 Mg PO QHS Neurontin (Gabapentin) 300 Mg Capsule 600 Mg PO TID Levothyroxine Sodium 50 Mcg Tablet 1 Tab PO DAILY Preservision Lutein Softgel (Vit C/Narda Ac/Lut/Copper/Znox) 1 Each Capsule 1 Each PO DAILY Metformin Hcl 1,000 Mg Tablet 1 Tab PO DAILY Omeprazole 20 Mg Tablet.dr 1 Tab PO BID Mirtazapine 30 Mg Tablet 1 Tab PO QHS Gemfibrozil 600 Mg Tablet 600 Mg PO BID Carvedilol 12.5 Mg Tablet 12.5 Mg PO BID Buspirone Hcl 15 Mg Tablet 15 Mg PO BID Amlodipine Besylate 10 Mg Tablet 10 Mg PO DAILY Vitals/I & O Vital Sign - Last 24 Hours 11/06/16 11/06/16 11/06/16 11/06/16 12:49 15:00 15:41 19:52 Temp 97.9 97.9 97.9 97.9 Pulse 80 77 87 Resp 18 18 B/P (MAP) 139/68 133/88 (103) 177/70 (105) Pulse Ox 96 91 O2 Delivery Room Air Room Air Room Air 11/06/16 11/06/16 11/06/16 11/07/16 19:59 20:00 23:05 07:00 Temp 98.4 98.8 98.4 98.8 Pulse 80 80 Resp 18 20 B/P (MAP) 143/61 (88) 131/73 (92) Pulse Ox 95 93 93 O2 Delivery Room Air Room Air BiPAP/CPAP BiPAP/CPAP 11/07/16 11/07/16 11/07/16 11/07/16 07:16 08:00 09:16 10:51 Temp 97.5 97.5 Pulse 80 76 Resp 20 B/P (MAP) 131/73 156/71 (99) Pulse Ox 96 93 O2 Delivery Room Air Room Air BiPAP/CPAP Intake and Output 11/06/16 11/06/16 11/07/16 14:59 22:59 06:59 Intake Total 400 ml 200 ml Output Total 350 ml 1 ml Balance 50 ml 199 ml CASTLE,NIAL K III DO November 07, 2016 11:25
[2016-11-08] MEDS ORDERED: predniSONE 20 MG TABLET PO SCH (09:00)
--- NOTE | 2016-11-13 22:19 | DS ---
DATE OF DISCHARGE: 11/07/2016 ADMISSION DIAGNOSES: Shortness of breath, pneumonia. DISCHARGE DIAGNOSIS: Resolving pneumonia. HOSPITAL COURSE: The patient is a pleasant elderly female presented with [id number] pneumonia. Basically, she has been treated as an outpatient, but failed. We started on IV antibiotics. We gave her breathing treatments, oxygen. Consult the Pulmonary Medicine, and Infectious Disease. She is on CPAP at night. She did well with that. Basically, she returned her baseline. We discharged home. DISPOSITION: Home. ACTIVITY: As tolerated. DIET: Low sodium. MEDICATIONS: Please see the MRAD. TOTAL TIME: 34 minutes. TONYA LEACH DO DR: RAY/hadley JOB#: [id number] / [id number]
== END 2016-11-07 14:54 | disposition home or self-care (01) | DRG 194 ==
LOC: ER 11:21 → 5 SOUTH 13:09
PROVIDERS: ADMIT Internal Medicine; ATTEND Internal Medicine
PROC: 5A09357 Assistance with Respiratory Ventilation, Less than 24 Consecutive Hours, Continuous Positive Airway Pressure (ICD-10-PCS; principal; 2016-11-03)
DX: J18.9 Pneumonia, unspecified organism (principal); E44.0 Moderate protein-calorie malnutrition; Z68.41 Body mass index [BMI] 40.0-44.9, adult; J20.8 Acute bronchitis due to other specified organisms; M75.100 Unspecified rotator cuff tear or rupture of unspecified shoulder, not specified as traumatic; M25.511 Pain in right shoulder; R09.02 Hypoxemia; E03.9 Hypothyroidism, unspecified; E11.9 Type 2 diabetes mellitus without complications; E78.5 Hyperlipidemia, unspecified; G47.33 Obstructive sleep apnea (adult) (pediatric); I50.9 Heart failure, unspecified; I11.0 Hypertensive heart disease with heart failure; K21.9 Gastro-esophageal reflux disease without esophagitis; M19.90 Unspecified osteoarthritis, unspecified site; Z82.49 Family history of ischemic heart disease and other diseases of the circulatory system; Z85.41 Personal history of malignant neoplasm of cervix uteri; Z87.01 Personal history of pneumonia (recurrent); Z98.84 Bariatric surgery status; Z90.49 Acquired absence of other specified parts of digestive tract; Z90.710 Acquired absence of both cervix and uterus
CPT/HCPCS: 36415; 71010; 71250; 73030; 74230; 80048; 80053; 83880; 84484; 85007; 85027; 93005; 94250; 94640; 94760; 96374; J0456; J2920; J7050; J7620; 92526; 92611; 97110; 97116; 99285-25; J7030

== ENCOUNTER 2016-11-15 18:41 | Inpatient (IN) | payer MEDICARE, OTHER ==
[~2016-11-15] VITALS: Ht 152.4 cm; Wt 99.9 kg
[2016-11-15] MEDS ORDERED: IV NORMAL SALINE 1000ML BAG 1,000 ML IV SCH (18:50)
--- NOTE | 2016-11-15 18:55 | PHYS DOC ---
Past Medical History Past Medical History: Anemia, Anxiety, Cancer, CHF, Depression, Diabetes-Type II, Hypertension, Hypothyroid, Other Additional Past Medical Histor: cervical ca , sleep apnea Past Surgical History: Cholecystectomy, Hysterectomy Additional Past Surgical Histo: carpal tunnel, back sx, EGD, Colonscopy, bypass that changed to lap band Alcohol Use: None Drug Use: None Adult General Chief Complaint Chief Complaint: COUGH HPI HPI Patient is a 75 year old female who presents with shortness of breath. THe patient reports 5 day history of frequent dry cough associated with shortness of breath at rest. She denies fevers/chills, chest pain, lower extremity pain/ swelling. She was recently admitted to the hospital & treated for pneumonia, no oral antibiotics at time of hospital discharge. She denies asthma, COPD, smoking history. He admits to her last evaluation that there is possible microaspiration occurring with her drinking through a straw and she is being encouraged not to do so. Reports DM, HTN, CHF, DORA. PCP is Dr. Asif. Patient has had no change in medications and is complaining now of chest pain and back pain with cough as got progressively worse. Chest pain and back pain are achy in nature 5-10 worse with deep breaths and movements as well as call. Improved with holding chest wall still. Review of Systems Review of Systems Constitutional: Denies fever or chills [] Eyes: Denies change in visual acuity, redness, or eye pain [] HENT: Denies nasal congestion or sore throat [] Respiratory: Patient does have shortness of breath and productive cough. Cardiovascular: No additional information not addressed in HPI [] GI: Denies abdominal pain, nausea, vomiting, bloody stools or diarrhea [] : Denies dysuria or hematuria [] Musculoskeletal: Denies back pain or joint pain [] Integument: Denies rash or skin lesions [] Neurologic: Denies headache, focal weakness or sensory changes [] Endocrine: Denies polyuria or polydipsia [] Current Medications Current Medications Current Medications Medications (Trade) Dose Ordered Sig/Ulices Start Time Stop Time Status Last Admin Dose Admin Acetaminophen (Tylenol) 650 mg PRN Q4HRS PRN 11/15/16 21:15 11/16/16 21:14 Albuterol Sulfate (Ventolin Neb Soln) 10 mg 1X ONCE 11/15/16 21:15 11/15/16 21:16 DC Albuterol/ Ipratropium (Duoneb) 3 ml RTQID 11/16/16 08:00 11/17/16 07:59 Fentanyl Citrate (Fentanyl 2ml Vial) 50 mcg PRN Q2HR PRN 11/15/16 21:15 11/16/16 21:14 Guaifenesin/ Codeine Phosphate (Robitussin Ac) 10 ml PRN Q6HRS PRN 11/15/16 21:30 UNV Hydromorphone HCl (Dilaudid) 0.5 mg 1X ONCE 11/15/16 21:15 11/15/16 21:16 DC Methylprednisolone Sodium Succinate (SOLU-Medrol 125MG VIAL) 125 mg 1X ONCE 11/15/16 19:00 11/15/16 19:01 DC 11/15/16 19:27 125 MG Ondansetron HCl (Zofran) 4 mg PRN Q8HRS PRN 11/15/16 21:15 11/16/16 21:14 Sodium Chloride 1,000 ml @ 100 mls/hr Q10H 11/15/16 21:15 11/16/16 21:14 Sodium Chloride (Normal Saline Flush) 10 ml 1X ONCE 11/15/16 19:00 11/15/16 19:01 DC Allergies Allergies Allergies Coded Allergies Type Severity Reaction Last Updated Verified cephalexin Allergy Intermediate Itching 11/03/16 Yes ciprofloxacin Allergy Intermediate 10/18/16 Yes egg Allergy Intermediate Nausea and Vomiting 10/18/16 Yes I S O L A T I O N *CONTACT* Allergy Unknown 10/18/16 Yes Physical Exam Physical Exam Noted mild hypoxia respiratory rate 24 saturation on room air is 92%. Constitutional: Well developed, obese female with increased respiratory rate no obvious hypoxia no cyanosis or change in skin color. Patient speaking in 3-5 word sentences no obvious retractions. HENT: Normocephalic, atraumatic, bilateral external ears normal, dry mucous membranes, mild erythema. Eyes: PERRLA, EOMI, conjunctiva normal, no discharge. [] Neck: Normal range of motion, no tenderness, supple, no stridor. [] Cardiovascular:Heart rate regular rhythm, no murmur [] Lungs & Thorax: Patient with wheezes throughout all lung fonseca Abdomen: Bowel sounds normal, soft, no tenderness, no masses, no pulsatile masses. [] Skin: Warm, dry, no erythema, no rash. [] Back: No tenderness, no CVA tenderness. [] Extremities: No tenderness, no cyanosis, no clubbing, ROM intact, no edema. [] Neurologic: Alert and oriented X 3, normal motor function, normal sensory function, no focal deficits noted. [] Psychologic: Affect normal, judgement normal, mood normal. [] Current Patient Data Vital Signs Vital Signs Date Time Temp Pulse Resp B/P (MAP) Pulse Ox O2 Delivery O2 Flow Rate FiO2 11/15/16 19:31 24 97 Nasal Cannula 2.0 11/15/16 18:47 98.7 83 144/66 (92) 98.7 Lab Values Laboratory Tests Test 11/15/16 19:10 11/15/16 19:21 Influenza Type A Antigen Negative (NEGATIVE) Influenza Type B Antigen Negative (NEGATIVE) White Blood Count 8.6 x10^3/uL (4.0-11.0) Red Blood Count 3.74 x10^6/uL (3.50-5.40) Hemoglobin 11.2 g/dL (12.0-15.5) L Hematocrit 35.0 % (36.0-47.0) L Mean Corpuscular Volume 94 fL (79-100) Mean Corpuscular Hemoglobin 30 pg (25-35) Mean Corpuscular Hemoglobin Concent 32 g/dL (31-37) Red Cell Distribution Width 15.7 % (11.5-14.5) H Platelet Count 224 x10^3/uL (140-400) Neutrophils (%) (Auto) 76 % (31-73) H Lymphocytes (%) (Auto) 13 % (24-48) L Monocytes (%) (Auto) 6 % (0-9) Eosinophils (%) (Auto) 5 % (0-3) H Basophils (%) (Auto) 1 % (0-3) Neutrophils # (Auto) 6.5 x10^3uL (1.8-7.7) Lymphocytes # (Auto) 1.1 x10^3/uL (1.0-4.8) Monocytes # (Auto) 0.5 x10^3/uL (0.0-1.1) Eosinophils # (Auto) 0.4 x10^3/uL (0.0-0.7) Basophils # (Auto) 0.0 x10^3/uL (0.0-0.2) Sodium Level 143 mmol/L (136-145) Potassium Level 4.0 mmol/L (3.5-5.1) Chloride Level 106 mmol/L (98-107) Carbon Dioxide Level 31 mmol/L (21-32) Anion Gap 6 (6-14) Blood Urea Nitrogen 36 mg/dL (7-20) H Creatinine 1.7 mg/dL (0.6-1.0) H Estimated GFR (Cockcroft-Gault) 29.5 BUN/Creatinine Ratio 21 (6-20) H Glucose Level 164 mg/dL (70-99) H Lactic Acid Level 1.6 mmol/L (0.4-2.0) Calcium Level 8.4 mg/dL (8.5-10.1) L Total Bilirubin 0.3 mg/dL (0.2-1.0) Aspartate Amino Transferase (AST) 13 U/L (15-37) L Alanine Aminotransferase (ALT) 20 U/L (14-59) Alkaline Phosphatase 112 U/L (46-116) Creatine Kinase 26 U/L (26-192) Creatine Kinase MB (Mass) 0.5 ng/mL (0.0-3.6) Creatine Kinase MB Relative Index % (0-4) Troponin I Quantitative < 0.017 ng/mL (0.000-0.055) IK-Aiu-V-Type Natriuretic Peptide 201 pg/mL (0-124) H Total Protein 6.5 g/dL (6.4-8.2) Albumin 2.9 g/dL (3.4-5.0) L Albumin/Globulin Ratio 0.8 (1.0-1.7) L Laboratory Tests 11/15/16 19:21 Laboratory Tests 11/15/16 19:21 EKG EKG EKG timed at 1900 hrs. 11/15/2016 demonstrates heart rate of 79 IN interval of 156 within normal limits QT 418 within normal limits patient has normal QRS well low voltage overall with Q wave inferiorly leads 3 and aVF likely old. Read by Dr. Mosher. [] Radiology/Procedures Radiology/Procedures [] Course & Med Decision Making Course & Med Decision Making Pertinent Labs and Imaging studies reviewed. (See chart for details) The course of her evaluation patient persistently had wheezing and decreased breath sounds in all lung fonseca with no fevers but had a productive cough. With her history of respiratory insufficiency prior bronchoscopic scopes with possible aspiration patient blood cultures completed as well as lactic acid not show any clear signs of perfusion abnormalities. Chest x-ray is relatively unchanged done at 11/02/2016 was the one done today there is no interval changes no infiltrates mild cardiomegaly but no evidence of cephalization. She is ever had a history of asthma or COPD get her symptoms are very reminiscent of reactive airway disease. At this point her troponin is negative BNP is mildly elevated at 200+ but there is no obvious signs of congestive heart failure on physical exam or peripheral exam or chest x-ray. Repeat serial cardiac enzymes on her as well as continue to aggressively treat respiratory difficulty. She was admitted to internal medicine doctor FATOU, with corresponding consultation with pulmonology. Impression: Respiratory distress unclear etiology reactive airway disease Disposition admission to the hospital with evaluation by pulmonary and internal medicine. Although blood cultures are pending lactic acid is within normal limits I discussed a course of antibiotics to ensure early treated bacterial infection with close monitoring and follow-up. [] Dragon Disclaimer Dragon Disclaimer This electronic medical record was generated, in whole or in part, using a voice recognition dictation system. Departure Departure Referrals: LEXIS ASIF MD (PCP) SEVERIANO MOSHER MD November 15, 2016 18:55
[2016-11-15] MEDS ORDERED: fentaNYL PF VIAL 100 MCG/2 ML VIAL IV ONE (19:00)
[2016-11-15] MEDS ORDERED: IPRATRPIUM/ALBUTEROL 0.5/2.5MG 3 ML NEBU. NEB ONE ×2 (19:00→21:15)
[2016-11-15] MEDS ORDERED: 0.9 % SODIUM CHLORIDE 10 ML DISP.SYRIN. IV ONE (19:00)
[2016-11-15] MEDS ORDERED: methylPREDNISolone SOD SUCC PF 125 MG/2 ML VIAL. IV ONE (19:00)
[2016-11-15 19:31] LABS: BASO % 1 % (0-3); EOS % 5 % (0-3); HEMOGLOBIN 11.2 g/dL (12.0-15.5); LYMPH # 1.1 x10^3/uL (1.0-4.8); LYMPH % 13 % (24-48); MEAN CORPUSCULAR HEMOGLOBIN 30 pg (25-35); MEAN CORPUSCULAR HGB CONC 32 g/dL (31-37); MEAN CORPUSCULAR VOLUME 94 fL (79-100); MONO % 6 % (0-9); NEUT % 76 % (31-73); PLATELET COUNT 224 x10^3/uL (140-400); RED BLOOD COUNT 3.74 x10^6/uL (3.50-5.40); RED CELL DISTRIBUTION WIDTH 15.7 % (11.5-14.5); WHITE BLOOD COUNT 8.6 x10^3/uL (4.0-11.0)
[2016-11-15 19:50] LABS: CALCIUM 8.4 mg/dL (8.5-10.1); CREATININE 1.7 mg/dL (0.6-1.0); GFR 29.5
[2016-11-15 19:56] LABS: ALBUMIN 2.9 g/dL (3.4-5.0); ALBUMIN/GLOBULIN RATIO 0.8 (1.0-1.7); TOTAL BILIRUBIN 0.3 mg/dL (0.2-1.0); TOTAL PROTEIN 6.5 g/dL (6.4-8.2)
[2016-11-15 19:59] LABS: CKMB MASS 0.5 ng/mL (0.0-3.6); CREATINE KINASE 26 U/L (26-192)
[2016-11-15 20:05] LABS: OBC FLU VALID
[2016-11-15] MEDS ORDERED: ALBUTEROL SULFATE 2.5 MG/3 ML NEBU. CONT NEB ONE (21:15)
[2016-11-15] MEDS: IV NORMAL SALINE 1000ML BAG 1,000 ML IV SCH (21:15)
[2016-11-15] MEDS ORDERED: HYDROmorphone 2 MG/ML VIAL IV ONE (21:15)
[2016-11-15] MEDS ORDERED: ONDANSETRON PF 4 MG/2 ML VIAL. IV PRN (21:15)
[2016-11-15] MEDS ORDERED: fentaNYL PF VIAL 100 MCG/2 ML VIAL IV PRN (21:15)
--- NOTE | 2016-11-15 21:26 | PDOC1 ---
History and Physical Date of Admission Date of Admission DATE: 11/15/16 TIME: 21:24 Identification/Chief Complaint Chief Complaint cough, dyspnea Problems: Source Source: Chart review, Patient History of Present Illness History of Present Illness Ms. Chamorro is a 75 year old female who presents with shortness of breath. She has been hospitalized here 2 other times past 6 weeks, one for PNA and one for poss aspiration, videoswallow thought related to straws Now 5 day history of frequent dry cough associated with shortness of breath at rest. no prior known COPD or asthma she has been compliant with prior Speech therapy recs. She denies fevers/chills, chest pain, lower extremity pain/swelling. PCP is Dr. Asif. Past Medical History Past Medical History DM2, HTN, CHF, DORA. Cardiovascular: CHF, HTN, Hyperlipidemia Pulmonary: Other GI: GERD, Other Heme/Onc: Cancer Psych: Anxiety, Depression Musculoskeletal: Osteoarthritis Endocrine: Diabetes, Hypothyroidism Past Surgical History Past Surgical History: Cholecystectomy, Cataract Removal, Tonsillectomy, Hysterectomy, Other Family History Family History: Cancer Social History Smoke: No ALCOHOL: none Drugs: None Current Problem List Problem List Problems Medical Problems: (1) Chest pain Status: Acute (2) Hypoxia Status: Acute (3) SOB (shortness of breath) Status: Acute Problems: Current Medications Current Medications Current Medications Sodium Chloride (Normal Saline Flush) 10 ml 1X ONCE IV ; Start 11/15/16 at 19: 00; Stop 11/15/16 at 19:01; Status DC Sodium Chloride 1,000 ml @ 1,000 mls/hr Q1H IV Last administered on 11/15/16 19:27; Start 11/15/16 at 18:50; Stop 11/15/16 at 19:49; Status DC Albuterol/ Ipratropium (Duoneb) 3 ml 1X ONCE NEB Last administered on 19:15; Start 11/15/16 at 19:00; Stop 11/15/16 at 19:01; Status DC Methylprednisolone Sodium Succinate (SOLU-Medrol 125MG VIAL) 125 mg 1X ONCE IV Last administered on 11/15/16 19:27; Start 11/15/16 at 19:00; Stop 11/15/16 at 19:01; Status DC Fentanyl Citrate (Fentanyl 2ml Vial) 50 mcg 1X ONCE IV Last administered on 5/ 21/17at 19:31; Start 11/15/16 at 19:00; Stop 11/15/16 at 19:01; Status DC Hydromorphone HCl (Dilaudid) 0.5 mg 1X ONCE IV ; Start 11/15/16 at 21:15; Stop 11/15/16 at 21:16; Status DC Albuterol/ Ipratropium (Duoneb) 3 ml 1X ONCE NEB ; Start 11/15/16 at 21:15; Stop 11/15/16 at 21:16; Status DC Albuterol Sulfate (Ventolin Neb Soln) 10 mg 1X ONCE CONT NEB ; Start 11/15/16 at 21:15; Stop 11/15/16 at 21:16; Status DC Ondansetron HCl (Zofran) 4 mg PRN Q8HRS PRN IV NAUSEA/VOMITING; Start 11/15/16 at 21:15; Stop 11/16/16 at 21:14 Fentanyl Citrate (Fentanyl 2ml Vial) 50 mcg PRN Q2HR PRN IV PAIN; Start at 21:15; Stop 11/16/16 at 21:14 Sodium Chloride 1,000 ml @ 100 mls/hr Q10H IV ; Start 11/15/16 at 21:15; Stop 11/16/16 at 21:14 Acetaminophen (Tylenol) 650 mg PRN Q4HRS PRN PO FEVER; Start 11/15/16 at 21:15 ; Stop 11/16/16 at 21:14 Albuterol/ Ipratropium (Duoneb) 3 ml RTQID NEB ; Start 11/16/16 at 08:00; Stop 11/17/16 at 07:59 Active Scripts Active [Codeine Phosphate/Guaifenesin] 5 ML Liquid 5 Ml PO PRN Q4HRS PRN Benzonatate 100 Mg Capsule 100 Mg PO TID Reported Uceris (Budesonide) 9 Mg Tabdr...er 9 Mg PO QTUTHSA Furosemide 20 Mg Tablet 1 Tab PO DAILY Ferrous Sulfate 325 Mg Tablet 1 Tab PO BID Cymbalta (Duloxetine Hcl) 60 Mg Capsule.dr 1 Cap PO BID Meloxicam 7.5 Mg Tablet 1 Tab PO BID Vitamin E (Vitamin E Acid Succinate) 100 Unit Tablet 100 Unit PO Krill Oil 1,000 Mg Softgel (Krill/Om3/Dha/Epa/Om6/Lip/Astx) 1 Each Capsule 1 Each PO Biotin 1 Mg Capsule 10,000 Mg PO DAILY Aspir 81 (Aspirin) 81 Mg Tablet.dr 1 Tab PO DAILY Potassium Chloride 10 Meq Capsule.er 10 Meq PO DAILY Cyanocobalamin Injection (Cyanocobalamin (Vitamin B-12)) 1,000 Mcg/1 Ml Vial 1 Ml IM QOMONTH Tizanidine Hcl 4 Mg Tablet 4 Mg PO TID PRN Hydrocodone-Apap 7.5-325 (Hydrocodone Bit/Acetaminophen) 1 Each Tablet 1 Tab PO PRN Q6HRS PRN Ditropan Xl (Oxybutynin Chloride) 10 Mg Tab.er.24 1 Tab PO DAILY Melatonin 5 Mg Tablet 5 Mg PO QHS Neurontin (Gabapentin) 300 Mg Capsule 600 Mg PO TID Levothyroxine Sodium 50 Mcg Tablet 1 Tab PO DAILY Preservision Lutein Softgel (Vit C/Narda Ac/Lut/Copper/Znox) 1 Each Capsule 1 Each PO DAILY Metformin Hcl 1,000 Mg Tablet 1 Tab PO DAILY Omeprazole 20 Mg Tablet.dr 1 Tab PO BID Mirtazapine 30 Mg Tablet 1 Tab PO QHS Gemfibrozil 600 Mg Tablet 600 Mg PO BID Carvedilol 12.5 Mg Tablet 12.5 Mg PO BID Buspirone Hcl 15 Mg Tablet 15 Mg PO BID Amlodipine Besylate 10 Mg Tablet 10 Mg PO DAILY Allergies Allergies: Coded Allergies: cephalexin (Verified Allergy, Intermediate, Itching, 11/03/16) ciprofloxacin (Verified Allergy, Intermediate, 10/18/16) egg (Verified Allergy, Intermediate, Nausea and Vomiting, 10/18/16) I S O L A T I O N *CONTACT* (Verified Allergy, Unknown, 10/18/16) mrsa screen + ROS General: YES: Fatigue, No: Chills, Night Sweats, Malaise, Appetite, Other PSYCHOLOGICAL ROS: No: Anxiety, Behavioral Disorder, Concentration difficultie , Decreased libido, Depression, Disorientation, Hallucinations, Hostility, Irritablity, Memory difficulties, Mood Swings, Obsessive thoughts, Physical abuse, Sexual abuse, Sleep disturbances, Suicidal ideation, Other Eyes: No Blurry vision, No Decreased vision, No Double vision, No Dry eyes, No Excessive tearing, No Eye Pain, No Itchy Eyes, No Loss of vision, No Photophobia , No Scotomata, No Uses contacts, No Uses glasses, No Other HEENT: YES: Heacaches, No: Visual Changes, Hearing change, Nasal congestion, Nasal discharge, Oral lesions, Sinus pain, Sore Throat, Epistaxis, Sneezing, Snoring, Tinnitus, Vertigo, Vocal changes, Other Respiratory: No: Cough, Hemoptysis, Orthopnea, Pleuritic Pain, Shortness of breath, SOB with excertion, Sputum Changes, Stridor, Tachypnea, Wheezing, Other Cardiovascular: No Chest Pain, No Palpitations, No Orthopnea, No Paroxysmal Noc. Dyspnea, No Edema, No Lt Headedness, No Other Gastrointestinal: Yes Diarrhea, No Nausea, No Vomiting, No Abdominal Pain, No Constipation, No Melena, No Hematochezia, No Other Genitourinary: No Dysuria, No Frequency, No Incontinence, No Hematuria, No Retention, No Discharge, No Urgency, No Pain, No Flank Pain, No Other, No , No , No , No , No , No , No Musculoskeletal: No Gait Disturbance, No Joint Pain, No Joint Stiffness, No Joint Swelling, No Muscle Pain, No Muscular Weakness, No Pain In:, No Swelling In:, No Other Neurological: No Behavorial Changes, No Bowel/Bladder ControlChng, No Confusion , No Dizziness, No Gait Disturbance, No Headaches, No Impaired Coord/balance, No Memory Loss, No Numbness/Tingling, No Seizures, No Speech Problems, No Tremors, No Visual Changes, No Weakness, No Other Skin: Yes Dry Skin, No Eczema, No Hair Changes, No Lumps, No Mole Changes, No Mottling, No Nail Changes, No Pruritus, No Rash, No Skin Lesion Changes, No Other, No Acne Physical Exam General: Alert, Oriented X3, Cooperative HEENT: Atraumatic, PERRLA, EOMI Lungs: Other (rales and wheeze, ) Heart: S1S2, no murmurs Abdomen: Normal bowel sounds, Soft Rectal Exam: not examined Extremities: No clubbing, No edema Skin: No rashes, No significant lesion Neuro: Normal speech, Sensation intact Psych/Mental Status: Mental status NL, Mood NL Vitals Vitals Vital Signs Date Time Temp Pulse Resp B/P (MAP) Pulse Ox O2 Delivery O2 Flow Rate FiO2 11/15/16 19:31 24 97 Nasal Cannula 2.0 11/15/16 18:47 98.7 83 144/66 (92) 98.7 Labs Labs Laboratory Tests Test 11/15/16 19:10 11/15/16 19:21 Influenza Type A Antigen Negative (NEGATIVE) Influenza Type B Antigen Negative (NEGATIVE) White Blood Count 8.6 x10^3/uL (4.0-11.0) Red Blood Count 3.74 x10^6/uL (3.50-5.40) Hemoglobin 11.2 g/dL (12.0-15.5) Hematocrit 35.0 % (36.0-47.0) Mean Corpuscular Volume 94 fL (79-100) Mean Corpuscular Hemoglobin 30 pg (25-35) Mean Corpuscular Hemoglobin Concent 32 g/dL (31-37) Red Cell Distribution Width 15.7 % (11.5-14.5) Platelet Count 224 x10^3/uL (140-400) Neutrophils (%) (Auto) 76 % (31-73) Lymphocytes (%) (Auto) 13 % (24-48) Monocytes (%) (Auto) 6 % (0-9) Eosinophils (%) (Auto) 5 % (0-3) Basophils (%) (Auto) 1 % (0-3) Neutrophils # (Auto) 6.5 x10^3uL (1.8-7.7) Lymphocytes # (Auto) 1.1 x10^3/uL (1.0-4.8) Monocytes # (Auto) 0.5 x10^3/uL (0.0-1.1) Eosinophils # (Auto) 0.4 x10^3/uL (0.0-0.7) Basophils # (Auto) 0.0 x10^3/uL (0.0-0.2) Sodium Level 143 mmol/L (136-145) Potassium Level 4.0 mmol/L (3.5-5.1) Chloride Level 106 mmol/L (98-107) Carbon Dioxide Level 31 mmol/L (21-32) Anion Gap 6 (6-14) Blood Urea Nitrogen 36 mg/dL (7-20) Creatinine 1.7 mg/dL (0.6-1.0) Estimated GFR (Cockcroft-Gault) 29.5 BUN/Creatinine Ratio 21 (6-20) Glucose Level 164 mg/dL (70-99) Lactic Acid Level 1.6 mmol/L (0.4-2.0) Calcium Level 8.4 mg/dL (8.5-10.1) Total Bilirubin 0.3 mg/dL (0.2-1.0) Aspartate Amino Transf (AST/SGOT) 13 U/L (15-37) Alanine Aminotransferase (ALT/SGPT) 20 U/L (14-59) Alkaline Phosphatase 112 U/L (46-116) Creatine Kinase 26 U/L (26-192) Creatine Kinase MB (Mass) 0.5 ng/mL (0.0-3.6) Creatine Kinase MB Relative Index % (0-4) Troponin I Quantitative < 0.017 ng/mL (0.000-0.055) JD-Zcw-D-Type Natriuretic Peptide 201 pg/mL (0-124) Total Protein 6.5 g/dL (6.4-8.2) Albumin 2.9 g/dL (3.4-5.0) Albumin/Globulin Ratio 0.8 (1.0-1.7) Laboratory Tests Test 11/15/16 19:10 11/15/16 19:21 Influenza Type A Antigen Negative (NEGATIVE) Influenza Type B Antigen Negative (NEGATIVE) White Blood Count 8.6 x10^3/uL (4.0-11.0) Red Blood Count 3.74 x10^6/uL (3.50-5.40) Hemoglobin 11.2 g/dL (12.0-15.5) Hematocrit 35.0 % (36.0-47.0) Mean Corpuscular Volume 94 fL (79-100) Mean Corpuscular Hemoglobin 30 pg (25-35) Mean Corpuscular Hemoglobin Concent 32 g/dL (31-37) Red Cell Distribution Width 15.7 % (11.5-14.5) Platelet Count 224 x10^3/uL (140-400) Neutrophils (%) (Auto) 76 % (31-73) Lymphocytes (%) (Auto) 13 % (24-48) Monocytes (%) (Auto) 6 % (0-9) Eosinophils (%) (Auto) 5 % (0-3) Basophils (%) (Auto) 1 % (0-3) Neutrophils # (Auto) 6.5 x10^3uL (1.8-7.7) Lymphocytes # (Auto) 1.1 x10^3/uL (1.0-4.8) Monocytes # (Auto) 0.5 x10^3/uL (0.0-1.1) Eosinophils # (Auto) 0.4 x10^3/uL (0.0-0.7) Basophils # (Auto) 0.0 x10^3/uL (0.0-0.2) Sodium Level 143 mmol/L (136-145) Potassium Level 4.0 mmol/L (3.5-5.1) Chloride Level 106 mmol/L (98-107) Carbon Dioxide Level 31 mmol/L (21-32) Anion Gap 6 (6-14) Blood Urea Nitrogen 36 mg/dL (7-20) Creatinine 1.7 mg/dL (0.6-1.0) Estimated GFR (Cockcroft-Gault) 29.5 BUN/Creatinine Ratio 21 (6-20) Glucose Level 164 mg/dL (70-99) Lactic Acid Level 1.6 mmol/L (0.4-2.0) Calcium Level 8.4 mg/dL (8.5-10.1) Total Bilirubin 0.3 mg/dL (0.2-1.0) Aspartate Amino Transf (AST/SGOT) 13 U/L (15-37) Alanine Aminotransferase (ALT/SGPT) 20 U/L (14-59) Alkaline Phosphatase 112 U/L (46-116) Creatine Kinase 26 U/L (26-192) Creatine Kinase MB (Mass) 0.5 ng/mL (0.0-3.6) Creatine Kinase MB Relative Index % (0-4) Troponin I Quantitative < 0.017 ng/mL (0.000-0.055) MO-Rza-M-Type Natriuretic Peptide 201 pg/mL (0-124) Total Protein 6.5 g/dL (6.4-8.2) Albumin 2.9 g/dL (3.4-5.0) Albumin/Globulin Ratio 0.8 (1.0-1.7) VTE Prophylaxis Ordered VTE Prophylaxis Devices: No VTE Pharmacological Prophylaxi: Yes Assessment/Plan Assessment/Plan 1. dyspnea and wheeze, treat as asthma exacerbation, recent prior PNA 2. Acute bronchitis: steroids, nebs, tessalon perles and Robitussin, . consult PULM 3. acute renal failure, possible vasomotor, on CKD 3, prior fluctuations of serum creatinine from 0.9 to 1.7 and back 4. CHF: chronic diastolic 5. DM2: 6 CKD3: 7. morbid obesity, BMI 43 admit BAUDILIO LAINEZ MD November 15, 2016 21:26
[2016-11-15] MEDS ORDERED: guaiFENesin/CODEINE 100mg/10mg 5 ML LIQUID PO ONE (21:45)
[2016-11-15] MEDS: IPRATRPIUM/ALBUTEROL 0.5/2.5MG 3 ML NEBU. NEB SCH (22:00)
[2016-11-15] MEDS ORDERED: BUDESONIDE 0.5 MG/2 ML NEBU. NEB ONE (22:00)
[2016-11-15 23:45] VITALS: BP 135/77
[2016-11-16] VITALS (7 sets, daily range): BP systolic 124–182; BP diastolic 60–91
[2016-11-16] MEDS: guaiFENesin DM 200MG/20MG 10 ML SYRUP PO PRN ×2 (02:00→08:52)
[2016-11-16] MEDS: ACETAMINOPHEN 325 MG TABLET. PO PRN ×2 (03:58→10:01)
[2016-11-16] MEDS: IPRATRPIUM/ALBUTEROL 0.5/2.5MG 3 ML NEBU. NEB SCH ×4 (06:00→19:36)
[2016-11-16 07:53] LABS: NEGATIVE OBC STREP NEG; POSITIVE OBC STREP POS
[2016-11-16] MEDS ORDERED: IPRATRPIUM/ALBUTEROL 0.5/2.5MG 3 ML NEBU. NEB SCH (08:00)
--- NOTE | 2016-11-16 08:12 | RAD ---
Portable chest, 11/15/2016: History: Cough Comparison is made to a study from 11/02/2016. The heart is mildly enlarged. There is calcific plaquing of the aorta. The pulmonary vascularity is at the upper limits of normal. There is mild linear atelectasis in the left upper lobe. The lungs are otherwise clear. There is no evidence of pleural fluid. Surgical clips are evident in the left upper quadrant of the abdomen. IMPRESSION: 1. Mild cardiomegaly. 2. Mild linear atelectasis in the left upper lobe.
--- NOTE | 2016-11-16 08:42 | EKG ---
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
[2016-11-16] MEDS: IV NORMAL SALINE 1000ML BAG 1,000 ML IV SCH ×2 (08:56→17:15)
[2016-11-16] MEDS ORDERED: ENOXAPARIN 30 MG/0.3 ML SYRINGE. SQ SCH (09:00)
[2016-11-16] MEDS: BUDESONIDE 0.5 MG/2 ML NEBU. NEB SCH ×2 (10:49→19:36)
--- NOTE | 2016-11-16 10:55 | PDOC2 ---
CONSULT Date of Consult Date of Consult DATE: 11/16/16 TIME: 10:50 Reason for Consult Reason for Consult: ENRIQUE Referring Physician Referring Physician: FATOU Identification/Chief Complaint Chief Complaint SOB Source Source: Chart review, Patient History of Present Illness Reason for Visit: THIS IS A 75 YR OLD ADMITTED WITH SOB. CXRAY WAS POS FOR SOME CARDIOMEGALY. CR IS 1.7. NO CKD HX. NO HX OF ANY KIDNEY OR BLADDER SURGERIES HEMATURIA DYSURIA OR FREQUENCY NOTED. BNP LEVEL IS NOT VERY ELEVATED AND NO OVERT SIGNS OF VOLUME OVERLOAD. NO NSAID ABUSE HX Past Medical History Cardiovascular: CHF, HTN, Hyperlipidemia Pulmonary: Other GI: GERD, Other Heme/Onc: Cancer Psych: Anxiety, Depression Musculoskeletal: Osteoarthritis Endocrine: Diabetes, Hypothyroidism Past Surgical History Past Surgical History: Cholecystectomy, Cataract Removal, Tonsillectomy, Hysterectomy, Other Family History Family History: Cancer Social History No ALCOHOL: none Drugs: None Lives: Alone Current Problem List Problem List Problems Medical Problems: (1) Chest pain Status: Acute (2) Hypoxia Status: Acute (3) SOB (shortness of breath) Status: Acute Current Medications Current Medications Current Medications Sodium Chloride (Normal Saline Flush) 10 ml 1X ONCE IV ; Start 11/15/16 at 19: 00; Stop 11/15/16 at 19:01; Status DC Sodium Chloride 1,000 ml @ 1,000 mls/hr Q1H IV Last administered on 11/15/16 19:27; Start 11/15/16 at 18:50; Stop 11/15/16 at 19:49; Status DC Albuterol/ Ipratropium (Duoneb) 3 ml 1X ONCE NEB Last administered on 19:15; Start 11/15/16 at 19:00; Stop 11/15/16 at 19:01; Status DC Methylprednisolone Sodium Succinate (SOLU-Medrol 125MG VIAL) 125 mg 1X ONCE IV Last administered on 11/15/16 19:27; Start 11/15/16 at 19:00; Stop 11/15/16 at 19:01; Status DC Fentanyl Citrate (Fentanyl 2ml Vial) 50 mcg 1X ONCE IV Last administered on 19:31; Start 11/15/16 at 19:00; Stop 11/15/16 at 19:01; Status DC Hydromorphone HCl (Dilaudid) 0.5 mg 1X ONCE IV Last administered on 11/15/16 21:48; Start 11/15/16 at 21:15; Stop 11/15/16 at 21:16; Status DC Albuterol/ Ipratropium (Duoneb) 3 ml 1X ONCE NEB Last administered on 21:36; Start 11/15/16 at 21:15; Stop 11/15/16 at 21:16; Status DC Albuterol Sulfate (Ventolin Neb Soln) 10 mg 1X ONCE CONT NEB Last administered on 11/15/16 21:35; Start 11/15/16 at 21:15; Stop 11/15/16 at 21:16 ; Status DC Ondansetron HCl (Zofran) 4 mg PRN Q8HRS PRN IV NAUSEA/VOMITING; Start 11/15/16 at 21:15; Stop 11/16/16 at 21:14 Fentanyl Citrate (Fentanyl 2ml Vial) 50 mcg PRN Q2HR PRN IV PAIN; Start at 21:15; Stop 11/16/16 at 21:14 Sodium Chloride 1,000 ml @ 100 mls/hr Q10H IV Last administered on 11/16/16 08:56; Start 11/15/16 at 21:15; Stop 11/16/16 at 21:14 Acetaminophen (Tylenol) 650 mg PRN Q4HRS PRN PO FEVER Last administered on 11/16 10:01; Start 11/15/16 at 21:15; Stop 11/16/16 at 21:14 Albuterol/ Ipratropium (Duoneb) 3 ml RTQID NEB ; Start 11/16/16 at 08:00; Stop 11/16/16 at 08:00; Status DC Guaifenesin/ Codeine Phosphate (Robitussin Ac) 10 ml ONCE ONCE PO Last administered on 11/15/16 21:49; Start 11/15/16 at 21:45; Stop 11/15/16 at 21:46 ; Status DC Albuterol/ Ipratropium (Duoneb) 3 ml Q4HRS W/A NEB Last administered on 10:49; Start 11/15/16 at 22:00; Stop 11/16/16 at 21:59 Budesonide (Pulmicort) 0.5 mg 1X ONCE NEB ; Start 11/15/16 at 22:00; Stop 11/15 at 22:01; Status DC Budesonide (Pulmicort) 0.5 mg RTBID NEB Last administered on 11/16/16 10:49; Start 11/16/16 at 08:00 Enoxaparin Sodium (Lovenox Per Pharmacy Prophylaxis Dosing) 1 each PRN DAILY PRN MC SEE COMMENTS; Start 11/15/16 at 22:15 Enoxaparin Sodium (Lovenox 30mg Syringe) 30 mg DAILY SQ Last administered on 08:53; Start 11/16/16 at 09:00 Guaifenesin (Robitussin Dm) 10 ml PRN Q6HRS PRN PO COUGH Last administered on 08:52; Start 11/16/16 at 01:45 Active Scripts Active [Codeine Phosphate/Guaifenesin] 5 ML Liquid 5 Ml PO PRN Q4HRS PRN Benzonatate 100 Mg Capsule 100 Mg PO TID Reported Uceris (Budesonide) 9 Mg Tabdr...er 9 Mg PO QTUTHSA Furosemide 20 Mg Tablet 1 Tab PO DAILY Ferrous Sulfate 325 Mg Tablet 1 Tab PO BID Cymbalta (Duloxetine Hcl) 60 Mg Capsule.dr 1 Cap PO BID Meloxicam 7.5 Mg Tablet 1 Tab PO BID Vitamin E (Vitamin E Acid Succinate) 100 Unit Tablet 100 Unit PO Krill Oil 1,000 Mg Softgel (Krill/Om3/Dha/Epa/Om6/Lip/Astx) 1 Each Capsule 1 Each PO Biotin 1 Mg Capsule 10,000 Mg PO DAILY Aspir 81 (Aspirin) 81 Mg Tablet.dr 1 Tab PO DAILY Potassium Chloride 10 Meq Capsule.er 10 Meq PO DAILY Cyanocobalamin Injection (Cyanocobalamin (Vitamin B-12)) 1,000 Mcg/1 Ml Vial 1 Ml IM QOMONTH Tizanidine Hcl 4 Mg Tablet 4 Mg PO TID PRN Hydrocodone-Apap 7.5-325 (Hydrocodone Bit/Acetaminophen) 1 Each Tablet 1 Tab PO PRN Q6HRS PRN Ditropan Xl (Oxybutynin Chloride) 10 Mg Tab.er.24 1 Tab PO DAILY Melatonin 5 Mg Tablet 5 Mg PO QHS Neurontin (Gabapentin) 300 Mg Capsule 600 Mg PO TID Levothyroxine Sodium 50 Mcg Tablet 1 Tab PO DAILY Preservision Lutein Softgel (Vit C/Narda Ac/Lut/Copper/Znox) 1 Each Capsule 1 Each PO DAILY Metformin Hcl 1,000 Mg Tablet 1 Tab PO DAILY Omeprazole 20 Mg Tablet.dr 1 Tab PO BID Mirtazapine 30 Mg Tablet 1 Tab PO QHS Gemfibrozil 600 Mg Tablet 600 Mg PO BID Carvedilol 12.5 Mg Tablet 12.5 Mg PO BID Buspirone Hcl 15 Mg Tablet 15 Mg PO BID Amlodipine Besylate 10 Mg Tablet 10 Mg PO DAILY Allergies Allergies: Coded Allergies: cephalexin (Verified Allergy, Intermediate, Itching, 11/03/16) ciprofloxacin (Verified Allergy, Intermediate, 10/18/16) egg (Verified Allergy, Intermediate, Nausea and Vomiting, 10/18/16) I S O L A T I O N *CONTACT* (Verified Allergy, Unknown, 10/18/16) mrsa screen + ROS General: YES: Fatigue, Malaise PSYCHOLOGICAL ROS: YES: Anxiety Eyes: Yes Decreased vision HEENT: YES: Heacaches Respiratory: YES: Cough, Shortness of breath Gastrointestinal: Yes Constipation Genitourinary: YES Other (NOCTURIA) Musculoskeletal: Yes Muscular Weakness Neurological: Yes Weakness Skin: Yes Dry Skin Vitals VITALS Vital Signs Date Time Temp Pulse Resp B/P (MAP) Pulse Ox O2 Delivery O2 Flow Rate FiO2 11/16/16 07:00 98.0 86 22 135/91 (106) 91 BiPAP/CPAP 98.0 11/16/16 00:05 2.0 Labs Labs Laboratory Tests Test 11/15/16 19:10 11/15/16 19:21 11/16/16 03:15 11/16/16 09:05 Influenza Type A Antigen Negative (NEGATIVE) Influenza Type B Antigen Negative (NEGATIVE) Group A Streptococcus Rapid Negative (NEGATIVE) White Blood Count 8.6 x10^3/uL (4.0-11.0) Red Blood Count 3.74 x10^6/uL (3.50-5.40) Hemoglobin 11.2 g/dL (12.0-15.5) Hematocrit 35.0 % (36.0-47.0) Mean Corpuscular Volume 94 fL (79-100) Mean Corpuscular Hemoglobin 30 pg (25-35) Mean Corpuscular Hemoglobin Concent 32 g/dL (31-37) Red Cell Distribution Width 15.7 % (11.5-14.5) Platelet Count 224 x10^3/uL (140-400) Neutrophils (%) (Auto) 76 % (31-73) Lymphocytes (%) (Auto) 13 % (24-48) Monocytes (%) (Auto) 6 % (0-9) Eosinophils (%) (Auto) 5 % (0-3) Basophils (%) (Auto) 1 % (0-3) Neutrophils # (Auto) 6.5 x10^3uL (1.8-7.7) Lymphocytes # (Auto) 1.1 x10^3/uL (1.0-4.8) Monocytes # (Auto) 0.5 x10^3/uL (0.0-1.1) Eosinophils # (Auto) 0.4 x10^3/uL (0.0-0.7) Basophils # (Auto) 0.0 x10^3/uL (0.0-0.2) Sodium Level 143 mmol/L (136-145) Potassium Level 4.0 mmol/L (3.5-5.1) Chloride Level 106 mmol/L (98-107) Carbon Dioxide Level 31 mmol/L (21-32) Anion Gap 6 (6-14) Blood Urea Nitrogen 36 mg/dL (7-20) Creatinine 1.7 mg/dL (0.6-1.0) Estimated GFR (Cockcroft-Gault) 29.5 BUN/Creatinine Ratio 21 (6-20) Glucose Level 164 mg/dL (70-99) Lactic Acid Level 1.6 mmol/L (0.4-2.0) Calcium Level 8.4 mg/dL (8.5-10.1) Total Bilirubin 0.3 mg/dL (0.2-1.0) Aspartate Amino Transf (AST/SGOT) 13 U/L (15-37) Alanine Aminotransferase (ALT/SGPT) 20 U/L (14-59) Alkaline Phosphatase 112 U/L (46-116) Creatine Kinase 26 U/L (26-192) Creatine Kinase MB (Mass) 0.5 ng/mL (0.0-3.6) Creatine Kinase MB Relative Index % (0-4) Troponin I Quantitative < 0.017 ng/mL (0.000-0.055) < 0.017 ng/mL (0.000-0.055) < 0.017 ng/mL (0.000-0.055) NK-Olr-A-Type Natriuretic Peptide 201 pg/mL (0-124) Total Protein 6.5 g/dL (6.4-8.2) Albumin 2.9 g/dL (3.4-5.0) Albumin/Globulin Ratio 0.8 (1.0-1.7) Laboratory Tests Test 11/15/16 19:10 11/15/16 19:21 11/16/16 03:15 11/16/16 09:05 Influenza Type A Antigen Negative (NEGATIVE) Influenza Type B Antigen Negative (NEGATIVE) Group A Streptococcus Rapid Negative (NEGATIVE) White Blood Count 8.6 x10^3/uL (4.0-11.0) Red Blood Count 3.74 x10^6/uL (3.50-5.40) Hemoglobin 11.2 g/dL (12.0-15.5) Hematocrit 35.0 % (36.0-47.0) Mean Corpuscular Volume 94 fL (79-100) Mean Corpuscular Hemoglobin 30 pg (25-35) Mean Corpuscular Hemoglobin Concent 32 g/dL (31-37) Red Cell Distribution Width 15.7 % (11.5-14.5) Platelet Count 224 x10^3/uL (140-400) Neutrophils (%) (Auto) 76 % (31-73) Lymphocytes (%) (Auto) 13 % (24-48) Monocytes (%) (Auto) 6 % (0-9) Eosinophils (%) (Auto) 5 % (0-3) Basophils (%) (Auto) 1 % (0-3) Neutrophils # (Auto) 6.5 x10^3uL (1.8-7.7) Lymphocytes # (Auto) 1.1 x10^3/uL (1.0-4.8) Monocytes # (Auto) 0.5 x10^3/uL (0.0-1.1) Eosinophils # (Auto) 0.4 x10^3/uL (0.0-0.7) Basophils # (Auto) 0.0 x10^3/uL (0.0-0.2) Sodium Level 143 mmol/L (136-145) Potassium Level 4.0 mmol/L (3.5-5.1) Chloride Level 106 mmol/L (98-107) Carbon Dioxide Level 31 mmol/L (21-32) Anion Gap 6 (6-14) Blood Urea Nitrogen 36 mg/dL (7-20) Creatinine 1.7 mg/dL (0.6-1.0) Estimated GFR (Cockcroft-Gault) 29.5 BUN/Creatinine Ratio 21 (6-20) Glucose Level 164 mg/dL (70-99) Lactic Acid Level 1.6 mmol/L (0.4-2.0) Calcium Level 8.4 mg/dL (8.5-10.1) Total Bilirubin 0.3 mg/dL (0.2-1.0) Aspartate Amino Transf (AST/SGOT) 13 U/L (15-37) Alanine Aminotransferase (ALT/SGPT) 20 U/L (14-59) Alkaline Phosphatase 112 U/L (46-116) Creatine Kinase 26 U/L (26-192) Creatine Kinase MB (Mass) 0.5 ng/mL (0.0-3.6) Creatine Kinase MB Relative Index % (0-4) Troponin I Quantitative < 0.017 ng/mL (0.000-0.055) < 0.017 ng/mL (0.000-0.055) < 0.017 ng/mL (0.000-0.055) GM-Jrv-Y-Type Natriuretic Peptide 201 pg/mL (0-124) Total Protein 6.5 g/dL (6.4-8.2) Albumin 2.9 g/dL (3.4-5.0) Albumin/Globulin Ratio 0.8 (1.0-1.7) Assessment/Plan Assessment/Plan IMP ENRIQUE WITH CR OF 1.7 NO CKD DM II HTN DYSPNEA-? COPD/BRONCHITIS PLAN RENAL SONOGRAM UA IVF'S LABS IN AM STOP HER LASIX, KCL, MOBIC AND METFORMIN FOR NOW CLEMENTE REYNOLDS MD November 16, 2016 10:55
--- NOTE | 2016-11-16 12:02 | RAD ---
Indication renal insufficiency. Grayscale imaging targeted to the kidneys was performed. The right kidney measures 10.6 x 4.4 x 4.8 cm. No hydronephrosis or mass is seen. Urinary bladder appeared grossly unremarkable. The left kidney measures approximately 10.6 x 5.5 x 5.7 cm and also appears unremarkable showing no evidence of hydronephrosis or mass. IMPRESSION: Unremarkable morphologic appearance of the kidneys
[2016-11-16] MEDS ORDERED: guaiFENesin/CODEINE 100mg/10mg 5 ML LIQUID PO PRN ×2 (12:45→13:00)
--- NOTE | 2016-11-16 12:47 | PDOC ---
PROGRESS NOTES Chief Complaint Chief Complaint cc: cough A/P ENRIQUE POA DUE TO [facility] Intractable cough, possible viral bronchitis, old records reviewed, no aspiration in [facility] CHF, diastolic stable Sleep Apnea, on CPAP DM HTN Plan symptoms most likely viral bronchitis, consult Dr Aguilar home medications reviewed, and started continue current care see orders med/ surg iv hydration Cr in AM Stable for transfer. History of Present Illness History of Present Illness Cough no fever no chills no weight loss. Vitals Vitals Vital Signs Date Time Temp Pulse Resp B/P (MAP) Pulse Ox O2 Delivery O2 Flow Rate FiO2 11/16/16 11:29 98.1 88 18 148/71 (96) 90 Room Air 98.1 11/16/16 00:05 2.0 Physical Exam General: Alert, Oriented X3, Cooperative Heart: Normal S1, Normal S2 Lungs: Clear Abdomen: Normal bowel sounds, Soft Extremities: No clubbing, No edema Skin: No rashes, No significant lesion Labs LABS Laboratory Tests Test 11/15/16 19:10 11/15/16 19:21 11/16/16 03:15 11/16/16 09:05 Influenza Type A Antigen Negative (NEGATIVE) Influenza Type B Antigen Negative (NEGATIVE) Group A Streptococcus Rapid Negative (NEGATIVE) White Blood Count 8.6 x10^3/uL (4.0-11.0) Red Blood Count 3.74 x10^6/uL (3.50-5.40) Hemoglobin 11.2 g/dL (12.0-15.5) Hematocrit 35.0 % (36.0-47.0) Mean Corpuscular Volume 94 fL (79-100) Mean Corpuscular Hemoglobin 30 pg (25-35) Mean Corpuscular Hemoglobin Concent 32 g/dL (31-37) Red Cell Distribution Width 15.7 % (11.5-14.5) Platelet Count 224 x10^3/uL (140-400) Neutrophils (%) (Auto) 76 % (31-73) Lymphocytes (%) (Auto) 13 % (24-48) Monocytes (%) (Auto) 6 % (0-9) Eosinophils (%) (Auto) 5 % (0-3) Basophils (%) (Auto) 1 % (0-3) Neutrophils # (Auto) 6.5 x10^3uL (1.8-7.7) Lymphocytes # (Auto) 1.1 x10^3/uL (1.0-4.8) Monocytes # (Auto) 0.5 x10^3/uL (0.0-1.1) Eosinophils # (Auto) 0.4 x10^3/uL (0.0-0.7) Basophils # (Auto) 0.0 x10^3/uL (0.0-0.2) Sodium Level 143 mmol/L (136-145) Potassium Level 4.0 mmol/L (3.5-5.1) Chloride Level 106 mmol/L (98-107) Carbon Dioxide Level 31 mmol/L (21-32) Anion Gap 6 (6-14) Blood Urea Nitrogen 36 mg/dL (7-20) Creatinine 1.7 mg/dL (0.6-1.0) Estimated GFR (Cockcroft-Gault) 29.5 BUN/Creatinine Ratio 21 (6-20) Glucose Level 164 mg/dL (70-99) Lactic Acid Level 1.6 mmol/L (0.4-2.0) Calcium Level 8.4 mg/dL (8.5-10.1) Total Bilirubin 0.3 mg/dL (0.2-1.0) Aspartate Amino Transf (AST/SGOT) 13 U/L (15-37) Alanine Aminotransferase (ALT/SGPT) 20 U/L (14-59) Alkaline Phosphatase 112 U/L (46-116) Creatine Kinase 26 U/L (26-192) Creatine Kinase MB (Mass) 0.5 ng/mL (0.0-3.6) Creatine Kinase MB Relative Index % (0-4) Troponin I Quantitative < 0.017 ng/mL (0.000-0.055) < 0.017 ng/mL (0.000-0.055) < 0.017 ng/mL (0.000-0.055) BF-Jrv-N-Type Natriuretic Peptide 201 pg/mL (0-124) Total Protein 6.5 g/dL (6.4-8.2) Albumin 2.9 g/dL (3.4-5.0) Albumin/Globulin Ratio 0.8 (1.0-1.7) Assessment and Plan Assessmemt and Plan Problems Medical Problems: (1) Chest pain Status: Acute (2) Hypoxia Status: Acute (3) SOB (shortness of breath) Status: Acute Problems: Comment Review of Relevant I have reviewed the following items jassi (where applicable) has been applied. Labs Laboratory Tests Test 11/15/16 19:10 11/15/16 19:21 11/16/16 03:15 11/16/16 09:05 Influenza Type A Antigen Negative (NEGATIVE) Influenza Type B Antigen Negative (NEGATIVE) Group A Streptococcus Rapid Negative (NEGATIVE) White Blood Count 8.6 x10^3/uL (4.0-11.0) Red Blood Count 3.74 x10^6/uL (3.50-5.40) Hemoglobin 11.2 g/dL (12.0-15.5) Hematocrit 35.0 % (36.0-47.0) Mean Corpuscular Volume 94 fL (79-100) Mean Corpuscular Hemoglobin 30 pg (25-35) Mean Corpuscular Hemoglobin Concent 32 g/dL (31-37) Red Cell Distribution Width 15.7 % (11.5-14.5) Platelet Count 224 x10^3/uL (140-400) Neutrophils (%) (Auto) 76 % (31-73) Lymphocytes (%) (Auto) 13 % (24-48) Monocytes (%) (Auto) 6 % (0-9) Eosinophils (%) (Auto) 5 % (0-3) Basophils (%) (Auto) 1 % (0-3) Neutrophils # (Auto) 6.5 x10^3uL (1.8-7.7) Lymphocytes # (Auto) 1.1 x10^3/uL (1.0-4.8) Monocytes # (Auto) 0.5 x10^3/uL (0.0-1.1) Eosinophils # (Auto) 0.4 x10^3/uL (0.0-0.7) Basophils # (Auto) 0.0 x10^3/uL (0.0-0.2) Sodium Level 143 mmol/L (136-145) Potassium Level 4.0 mmol/L (3.5-5.1) Chloride Level 106 mmol/L (98-107) Carbon Dioxide Level 31 mmol/L (21-32) Anion Gap 6 (6-14) Blood Urea Nitrogen 36 mg/dL (7-20) Creatinine 1.7 mg/dL (0.6-1.0) Estimated GFR (Cockcroft-Gault) 29.5 BUN/Creatinine Ratio 21 (6-20) Glucose Level 164 mg/dL (70-99) Lactic Acid Level 1.6 mmol/L (0.4-2.0) Calcium Level 8.4 mg/dL (8.5-10.1) Total Bilirubin 0.3 mg/dL (0.2-1.0) Aspartate Amino Transf (AST/SGOT) 13 U/L (15-37) Alanine Aminotransferase (ALT/SGPT) 20 U/L (14-59) Alkaline Phosphatase 112 U/L (46-116) Creatine Kinase 26 U/L (26-192) Creatine Kinase MB (Mass) 0.5 ng/mL (0.0-3.6) Creatine Kinase MB Relative Index % (0-4) Troponin I Quantitative < 0.017 ng/mL (0.000-0.055) < 0.017 ng/mL (0.000-0.055) < 0.017 ng/mL (0.000-0.055) OG-Bzj-W-Type Natriuretic Peptide 201 pg/mL (0-124) Total Protein 6.5 g/dL (6.4-8.2) Albumin 2.9 g/dL (3.4-5.0) Albumin/Globulin Ratio 0.8 (1.0-1.7) Laboratory Tests Test 11/15/16 19:10 11/15/16 19:21 11/16/16 03:15 11/16/16 09:05 Influenza Type A Antigen Negative (NEGATIVE) Influenza Type B Antigen Negative (NEGATIVE) Group A Streptococcus Rapid Negative (NEGATIVE) White Blood Count 8.6 x10^3/uL (4.0-11.0) Red Blood Count 3.74 x10^6/uL (3.50-5.40) Hemoglobin 11.2 g/dL (12.0-15.5) Hematocrit 35.0 % (36.0-47.0) Mean Corpuscular Volume 94 fL (79-100) Mean Corpuscular Hemoglobin 30 pg (25-35) Mean Corpuscular Hemoglobin Concent 32 g/dL (31-37) Red Cell Distribution Width 15.7 % (11.5-14.5) Platelet Count 224 x10^3/uL (140-400) Neutrophils (%) (Auto) 76 % (31-73) Lymphocytes (%) (Auto) 13 % (24-48) Monocytes (%) (Auto) 6 % (0-9) Eosinophils (%) (Auto) 5 % (0-3) Basophils (%) (Auto) 1 % (0-3) Neutrophils # (Auto) 6.5 x10^3uL (1.8-7.7) Lymphocytes # (Auto) 1.1 x10^3/uL (1.0-4.8) Monocytes # (Auto) 0.5 x10^3/uL (0.0-1.1) Eosinophils # (Auto) 0.4 x10^3/uL (0.0-0.7) Basophils # (Auto) 0.0 x10^3/uL (0.0-0.2) Sodium Level 143 mmol/L (136-145) Potassium Level 4.0 mmol/L (3.5-5.1) Chloride Level 106 mmol/L (98-107) Carbon Dioxide Level 31 mmol/L (21-32) Anion Gap 6 (6-14) Blood Urea Nitrogen 36 mg/dL (7-20) Creatinine 1.7 mg/dL (0.6-1.0) Estimated GFR (Cockcroft-Gault) 29.5 BUN/Creatinine Ratio 21 (6-20) Glucose Level 164 mg/dL (70-99) Lactic Acid Level 1.6 mmol/L (0.4-2.0) Calcium Level 8.4 mg/dL (8.5-10.1) Total Bilirubin 0.3 mg/dL (0.2-1.0) Aspartate Amino Transf (AST/SGOT) 13 U/L (15-37) Alanine Aminotransferase (ALT/SGPT) 20 U/L (14-59) Alkaline Phosphatase 112 U/L (46-116) Creatine Kinase 26 U/L (26-192) Creatine Kinase MB (Mass) 0.5 ng/mL (0.0-3.6) Creatine Kinase MB Relative Index % (0-4) Troponin I Quantitative < 0.017 ng/mL (0.000-0.055) < 0.017 ng/mL (0.000-0.055) < 0.017 ng/mL (0.000-0.055) UB-Xpj-G-Type Natriuretic Peptide 201 pg/mL (0-124) Total Protein 6.5 g/dL (6.4-8.2) Albumin 2.9 g/dL (3.4-5.0) Albumin/Globulin Ratio 0.8 (1.0-1.7) Medications Current Medications Sodium Chloride (Normal Saline Flush) 10 ml 1X ONCE IV ; Start 11/15/16 at 19: 00; Stop 11/15/16 at 19:01; Status DC Sodium Chloride 1,000 ml @ 1,000 mls/hr Q1H IV Last administered on 11/15/16 19:27; Start 11/15/16 at 18:50; Stop 11/15/16 at 19:49; Status DC Albuterol/ Ipratropium (Duoneb) 3 ml 1X ONCE NEB Last administered on 19:15; Start 11/15/16 at 19:00; Stop 11/15/16 at 19:01; Status DC Methylprednisolone Sodium Succinate (SOLU-Medrol 125MG VIAL) 125 mg 1X ONCE IV Last administered on 11/15/16 19:27; Start 11/15/16 at 19:00; Stop 11/15/16 at 19:01; Status DC Fentanyl Citrate (Fentanyl 2ml Vial) 50 mcg 1X ONCE IV Last administered on 19:31; Start 11/15/16 at 19:00; Stop 11/15/16 at 19:01; Status DC Hydromorphone HCl (Dilaudid) 0.5 mg 1X ONCE IV Last administered on 11/15/16 21:48; Start 11/15/16 at 21:15; Stop 11/15/16 at 21:16; Status DC Albuterol/ Ipratropium (Duoneb) 3 ml 1X ONCE NEB Last administered on 21:36; Start 11/15/16 at 21:15; Stop 11/15/16 at 21:16; Status DC Albuterol Sulfate (Ventolin Neb Soln) 10 mg 1X ONCE CONT NEB Last administered on 11/15/16 21:35; Start 11/15/16 at 21:15; Stop 11/15/16 at 21:16 ; Status DC Ondansetron HCl (Zofran) 4 mg PRN Q8HRS PRN IV NAUSEA/VOMITING; Start 11/15/16 at 21:15; Stop 11/16/16 at 21:14 Fentanyl Citrate (Fentanyl 2ml Vial) 50 mcg PRN Q2HR PRN IV PAIN; Start at 21:15; Stop 11/16/16 at 21:14 Sodium Chloride 1,000 ml @ 100 mls/hr Q10H IV Last administered on 11/16/16 08:56; Start 11/15/16 at 21:15; Stop 11/16/16 at 21:14 Acetaminophen (Tylenol) 650 mg PRN Q4HRS PRN PO FEVER Last administered on 11/16 10:01; Start 11/15/16 at 21:15; Stop 11/16/16 at 21:14 Albuterol/ Ipratropium (Duoneb) 3 ml RTQID NEB ; Start 11/16/16 at 08:00; Stop 11/16/16 at 08:00; Status DC Guaifenesin/ Codeine Phosphate (Robitussin Ac) 10 ml ONCE ONCE PO Last administered on 11/15/16 21:49; Start 11/15/16 at 21:45; Stop 11/15/16 at 21:46 ; Status DC Albuterol/ Ipratropium (Duoneb) 3 ml Q4HRS W/A NEB Last administered on 10:49; Start 11/15/16 at 22:00; Stop 11/16/16 at 21:59 Budesonide (Pulmicort) 0.5 mg 1X ONCE NEB ; Start 11/15/16 at 22:00; Stop 11/15 at 22:01; Status DC Budesonide (Pulmicort) 0.5 mg RTBID NEB Last administered on 11/16/16 10:49; Start 11/16/16 at 08:00 Enoxaparin Sodium (Lovenox Per Pharmacy Prophylaxis Dosing) 1 each PRN DAILY PRN MC SEE COMMENTS; Start 11/15/16 at 22:15 Enoxaparin Sodium (Lovenox 30mg Syringe) 30 mg DAILY SQ Last administered on 08:53; Start 11/16/16 at 09:00 Guaifenesin (Robitussin Dm) 10 ml PRN Q6HRS PRN PO COUGH Last administered on t 08:52; Start 11/16/16 at 01:45 Active Scripts Active [Codeine Phosphate/Guaifenesin] 5 ML Liquid 5 Ml PO PRN Q4HRS PRN Benzonatate 100 Mg Capsule 100 Mg PO TID Reported Uceris (Budesonide) 9 Mg Tabdr...er 9 Mg PO QTUTHSA Furosemide 20 Mg Tablet 1 Tab PO DAILY Ferrous Sulfate 325 Mg Tablet 1 Tab PO BID Cymbalta (Duloxetine Hcl) 60 Mg Capsule.dr 1 Cap PO BID Meloxicam 7.5 Mg Tablet 1 Tab PO BID Vitamin E (Vitamin E Acid Succinate) 100 Unit Tablet 100 Unit PO Krill Oil 1,000 Mg Softgel (Krill/Om3/Dha/Epa/Om6/Lip/Astx) 1 Each Capsule 1 Each PO Biotin 1 Mg Capsule 10,000 Mg PO DAILY Aspir 81 (Aspirin) 81 Mg Tablet.dr 1 Tab PO DAILY Potassium Chloride 10 Meq Capsule.er 10 Meq PO DAILY Cyanocobalamin Injection (Cyanocobalamin (Vitamin B-12)) 1,000 Mcg/1 Ml Vial 1 Ml IM QOMONTH Tizanidine Hcl 4 Mg Tablet 4 Mg PO TID PRN Hydrocodone-Apap 7.5-325 (Hydrocodone Bit/Acetaminophen) 1 Each Tablet 1 Tab PO PRN Q6HRS PRN Ditropan Xl (Oxybutynin Chloride) 10 Mg Tab.er.24 1 Tab PO DAILY Melatonin 5 Mg Tablet 5 Mg PO QHS Neurontin (Gabapentin) 300 Mg Capsule 600 Mg PO TID Levothyroxine Sodium 50 Mcg Tablet 1 Tab PO DAILY Preservision Lutein Softgel (Vit C/Narda Ac/Lut/Copper/Znox) 1 Each Capsule 1 Each PO DAILY Metformin Hcl 1,000 Mg Tablet 1 Tab PO DAILY Omeprazole 20 Mg Tablet.dr 1 Tab PO BID Mirtazapine 30 Mg Tablet 1 Tab PO QHS Gemfibrozil 600 Mg Tablet 600 Mg PO BID Carvedilol 12.5 Mg Tablet 12.5 Mg PO BID Buspirone Hcl 15 Mg Tablet 15 Mg PO BID Amlodipine Besylate 10 Mg Tablet 10 Mg PO DAILY Vitals/I & O Vital Sign - Last 24 Hours 11/15/16 11/15/16 11/15/16 11/15/16 18:47 19:16 19:30 19:31 Temp 98.7 98.7 Pulse 83 74 Resp 24 23 24 B/P (MAP) 144/66 (92) 144/57 (86) Pulse Ox 92 94 91 97 O2 Delivery Room Air Room Air Room Air Nasal Cannula O2 Flow Rate 2.0 11/15/16 11/15/16 11/15/16 11/15/16 20:30 21:30 21:39 21:48 Pulse 70 76 Resp 22 30 B/P (MAP) 151/67 (95) 134/65 (88) Pulse Ox 98 98 94 100 O2 Delivery Nasal Cannula Nasal Cannula Room Air Aerosol Mask O2 Flow Rate 2.0 2.0 8.0 11/15/16 11/15/16 11/15/16 11/15/16 22:00 22:30 23:45 23:45 Temp 97.9 97.9 97.9 97.9 Pulse 72 78 82 82 Resp 22 23 2 22 B/P (MAP) 124/58 (80) 132/65 (87) 135/77 (96) 135/77 (96) Pulse Ox 100 100 96 96 O2 Delivery Nasal Cannula Nasal Cannula Nasal Cannula Nasal Cannula O2 Flow Rate 2.0 2.0 2.0 2.0 11/16/16 11/16/16 11/16/16 11/16/16 00:05 03:45 07:00 08:00 Temp 98.0 98.0 98.0 98.0 Pulse 78 86 Resp B/P (MAP) 128/62 (84) 135/91 (106) Pulse Ox 92 91 O2 Delivery Nasal Cannula BiPAP/CPAP BiPAP/CPAP Room Air O2 Flow Rate 2.0 11/16/16 11/16/16 10:45 11:29 Temp 98.1 98.1 Pulse 88 Resp 18 B/P (MAP) 148/71 (96) Pulse Ox 90 O2 Delivery Room Air Room Air Intake and Output 11/15/16 11/15/16 11/16/16 14:59 22:59 06:59 Intake Total 300 ml Output Total 200 ml Balance 100 ml BRENNON NOVA MD November 16, 2016 12:47
[2016-11-16] MEDS: CARVEDILOL 12.5 MG TABLET. PO SCH ×2 (14:41→17:49)
[2016-11-16] MEDS: FERROUS SULFATE 325 MG TABLET. PO SCH ×2 (14:43→17:48)
[2016-11-16] MEDS: POTASSIUM CHLORIDE 10 MEQ TABLET.ER. PO SCH (14:43)
[2016-11-16] MEDS: LEVOTHYROXINE 50 MCG TABLET PO SCH (14:44)
[2016-11-16] MEDS: amLODIPine BESYLATE 10 MG TABLET PO SCH (14:44)
[2016-11-16] MEDS: GEMFIBROZIL 600 MG TABLET. PO SCH ×2 (14:44→20:01)
[2016-11-16] MEDS: FUROSEMIDE 20 MG TABLET PO SCH (14:45)
[2016-11-16] MEDS: GABAPENTIN 300 MG CAPSULE. PO SCH ×2 (14:45→20:02)
[2016-11-16] MEDS: busPIRone 10 MG TABLET. PO SCH ×2 (14:45→20:02)
[2016-11-16] MEDS: OXYBUTYNIN CHLORIDE 5 MG TABLET PO SCH ×2 (14:46→20:01)
[2016-11-16] MEDS: ASPIRIN ENTERIC COATED 81 MG TABLET.DR. PO SCH (14:46)
--- NOTE | 2016-11-16 15:04 | PDOC ---
PULMONARY PROGRESS NOTES Vitals Vital Signs Date Time Temp Pulse Resp B/P (MAP) Pulse Ox O2 Delivery O2 Flow Rate FiO2 11/16/16 14:44 88 148/71 11/16/16 14:18 94 Room Air 11/16/16 11:29 98.1 18 98.1 11/16/16 00:05 2.0 General: Alert, No acute distress HEENT: Other Lungs: Clear Cardiovascular: S1, S2 Abdomen: Soft, Non-tender Extremities: No Edema Labs Laboratory Tests Test 11/15/16 19:10 11/15/16 19:21 11/16/16 03:15 11/16/16 09:05 Influenza Type A Antigen Negative (NEGATIVE) Influenza Type B Antigen Negative (NEGATIVE) Group A Streptococcus Rapid Negative (NEGATIVE) White Blood Count 8.6 x10^3/uL (4.0-11.0) Red Blood Count 3.74 x10^6/uL (3.50-5.40) Hemoglobin 11.2 g/dL (12.0-15.5) Hematocrit 35.0 % (36.0-47.0) Mean Corpuscular Volume 94 fL (79-100) Mean Corpuscular Hemoglobin 30 pg (25-35) Mean Corpuscular Hemoglobin Concent 32 g/dL (31-37) Red Cell Distribution Width 15.7 % (11.5-14.5) Platelet Count 224 x10^3/uL (140-400) Neutrophils (%) (Auto) 76 % (31-73) Lymphocytes (%) (Auto) 13 % (24-48) Monocytes (%) (Auto) 6 % (0-9) Eosinophils (%) (Auto) 5 % (0-3) Basophils (%) (Auto) 1 % (0-3) Neutrophils # (Auto) 6.5 x10^3uL (1.8-7.7) Lymphocytes # (Auto) 1.1 x10^3/uL (1.0-4.8) Monocytes # (Auto) 0.5 x10^3/uL (0.0-1.1) Eosinophils # (Auto) 0.4 x10^3/uL (0.0-0.7) Basophils # (Auto) 0.0 x10^3/uL (0.0-0.2) Sodium Level 143 mmol/L (136-145) Potassium Level 4.0 mmol/L (3.5-5.1) Chloride Level 106 mmol/L (98-107) Carbon Dioxide Level 31 mmol/L (21-32) Anion Gap 6 (6-14) Blood Urea Nitrogen 36 mg/dL (7-20) Creatinine 1.7 mg/dL (0.6-1.0) Estimated GFR (Cockcroft-Gault) 29.5 BUN/Creatinine Ratio 21 (6-20) Glucose Level 164 mg/dL (70-99) Lactic Acid Level 1.6 mmol/L (0.4-2.0) Calcium Level 8.4 mg/dL (8.5-10.1) Total Bilirubin 0.3 mg/dL (0.2-1.0) Aspartate Amino Transf (AST/SGOT) 13 U/L (15-37) Alanine Aminotransferase (ALT/SGPT) 20 U/L (14-59) Alkaline Phosphatase 112 U/L (46-116) Creatine Kinase 26 U/L (26-192) Creatine Kinase MB (Mass) 0.5 ng/mL (0.0-3.6) Creatine Kinase MB Relative Index % (0-4) Troponin I Quantitative < 0.017 ng/mL (0.000-0.055) < 0.017 ng/mL (0.000-0.055) < 0.017 ng/mL (0.000-0.055) OP-Wmr-[id number]-Type Natriuretic Peptide 201 pg/mL (0-124) Total Protein 6.5 g/dL (6.4-8.2) Albumin 2.9 g/dL (3.4-5.0) Albumin/Globulin Ratio 0.8 (1.0-1.7) Laboratory Tests Test 11/15/16 19:10 11/15/16 19:21 11/16/16 03:15 11/16/16 09:05 Influenza Type A Antigen Negative (NEGATIVE) Influenza Type B Antigen Negative (NEGATIVE) Group A Streptococcus Rapid Negative (NEGATIVE) White Blood Count 8.6 x10^3/uL (4.0-11.0) Red Blood Count 3.74 x10^6/uL (3.50-5.40) Hemoglobin 11.2 g/dL (12.0-15.5) Hematocrit 35.0 % (36.0-47.0) Mean Corpuscular Volume 94 fL (79-100) Mean Corpuscular Hemoglobin 30 pg (25-35) Mean Corpuscular Hemoglobin Concent 32 g/dL (31-37) Red Cell Distribution Width 15.7 % (11.5-14.5) Platelet Count 224 x10^3/uL (140-400) Neutrophils (%) (Auto) 76 % (31-73) Lymphocytes (%) (Auto) 13 % (24-48) Monocytes (%) (Auto) 6 % (0-9) Eosinophils (%) (Auto) 5 % (0-3) Basophils (%) (Auto) 1 % (0-3) Neutrophils # (Auto) 6.5 x10^3uL (1.8-7.7) Lymphocytes # (Auto) 1.1 x10^3/uL (1.0-4.8) Monocytes # (Auto) 0.5 x10^3/uL (0.0-1.1) Eosinophils # (Auto) 0.4 x10^3/uL (0.0-0.7) Basophils # (Auto) 0.0 x10^3/uL (0.0-0.2) Sodium Level 143 mmol/L (136-145) Potassium Level 4.0 mmol/L (3.5-5.1) Chloride Level 106 mmol/L (98-107) Carbon Dioxide Level 31 mmol/L (21-32) Anion Gap 6 (6-14) Blood Urea Nitrogen 36 mg/dL (7-20) Creatinine 1.7 mg/dL (0.6-1.0) Estimated GFR (Cockcroft-Gault) 29.5 BUN/Creatinine Ratio 21 (6-20) Glucose Level 164 mg/dL (70-99) Lactic Acid Level 1.6 mmol/L (0.4-2.0) Calcium Level 8.4 mg/dL (8.5-10.1) Total Bilirubin 0.3 mg/dL (0.2-1.0) Aspartate Amino Transf (AST/SGOT) 13 U/L (15-37) Alanine Aminotransferase (ALT/SGPT) 20 U/L (14-59) Alkaline Phosphatase 112 U/L (46-116) Creatine Kinase 26 U/L (26-192) Creatine Kinase MB (Mass) 0.5 ng/mL (0.0-3.6) Creatine Kinase MB Relative Index % (0-4) Troponin I Quantitative < 0.017 ng/mL (0.000-0.055) < 0.017 ng/mL (0.000-0.055) < 0.017 ng/mL (0.000-0.055) QP-Xwz-F-Type Natriuretic Peptide 201 pg/mL (0-124) Total Protein 6.5 g/dL (6.4-8.2) Albumin 2.9 g/dL (3.4-5.0) Albumin/Globulin Ratio 0.8 (1.0-1.7) Medications Active Scripts Medications Dose Route/Sig Max Daily Dose Days Date Category Uceris (Budesonide) 9 Mg Tabdr...er 9 Mg PO QTUTHSA 11/02/16 Reported Furosemide 20 Mg Tablet 1 Tab PO DAILY 11/02/16 Reported Ferrous Sulfate 325 Mg Tablet 1 Tab PO BID 11/02/16 Reported Cymbalta (Duloxetine Hcl) 60 Mg Capsule.dr 1 Cap PO BID 11/02/16 Reported [Codeine Phosphate/Guaifenesin] 5 ML Liquid 5 Ml PO PRN Q4HRS PRN 10/23/16 Rx Benzonatate 100 Mg Capsule 100 Mg PO TID 10/23/16 Rx Meloxicam 7.5 Mg Tablet 1 Tab PO BID 10/18/16 Reported Vitamin E (Vitamin E Acid Succinate) 100 Unit Tablet 100 Unit PO 02/04/16 Reported Krill Oil 1,000 Mg Softgel (Krill/Om3/Dha/Epa/Om6/Lip/Astx) 1 Each Capsule 1 Each PO 02/04/16 Reported Biotin 1 Mg Capsule 10,000 Mg PO DAILY 02/04/16 Reported Aspir 81 (Aspirin) 81 Mg Tablet.dr 1 Tab PO DAILY 02/04/16 Reported Potassium Chloride 10 Meq Capsule.er 10 Meq PO DAILY 02/04/16 Reported Cyanocobalamin Injection (Cyanocobalamin (Vitamin B-12)) 1,000 Mcg/1 Ml Vial 1 Ml IM QOMONTH 02/03/16 Reported Tizanidine Hcl 4 Mg Tablet 4 Mg PO TID PRN 02/03/16 Reported Hydrocodone-Apap 7.5-325 (Hydrocodone Bit/Acetaminophen) 1 Each Tablet 1 Tab PO PRN Q6HRS PRN 02/03/16 Reported Ditropan Xl (Oxybutynin Chloride) 10 Mg Tab.er.24 1 Tab PO DAILY 02/03/16 Reported Melatonin 5 Mg Tablet 5 Mg PO QHS 02/03/16 Reported Neurontin (Gabapentin) 300 Mg Capsule 600 Mg PO TID 02/03/16 Reported Levothyroxine Sodium 50 Mcg Tablet 1 Tab PO DAILY 02/03/16 Reported Preservision Lutein Softgel (Vit C/Narda Ac/Lut/Copper/Znox) 1 Each Capsule 1 Each PO DAILY 12/26/15 Reported Metformin Hcl 1,000 Mg Tablet 1 Tab PO DAILY 12/26/15 Reported Omeprazole 20 Mg Tablet.dr 1 Tab PO BID 07/25/14 Reported Mirtazapine 30 Mg Tablet 1 Tab PO QHS 07/25/14 Reported Gemfibrozil 600 Mg Tablet 600 Mg PO BID 08/29/13 Reported Carvedilol 12.5 Mg Tablet 12.5 Mg PO BID 08/29/13 Reported Buspirone Hcl 15 Mg Tablet 15 Mg PO BID 08/29/13 Reported Amlodipine Besylate 10 Mg Tablet 10 Mg PO DAILY 08/29/13 Reported Impression . CONSULT DICTATED WILL RULE OUT SINUSITIS CONTINUE THE SAME SUSPECT COUGH IS MULTIFACTORIAL THANKS ESTER TOLENTINO MD November 16, 2016 15:04
--- NOTE | 2016-11-16 16:58 | RAD ---
Indication cough, sinusitis. Axial images through the paranasal sinuses were obtained and reformatted in the coronal and sagittal planes. The visualized brain is grossly normal. Frontal sinuses are normally aerated. There is complete opacification of the left maxillary sinus and partial opacification of the left sphenoid sinus. There appears to be a left antral window. Correlation with surgical history advised. IMPRESSION: Complete opacification of the left maxillary sinus and slight opacification of the left sphenoid sinus compatible with sinusitis. PQRS Compliance Statement: One or more of the following individualized dose reduction techniques were utilized for this examination: 1. Automated exposure control 2. Adjustment of the mA and/or kV according to patient size 3. Use of iterative reconstruction technique
[2016-11-16] MEDS: guaiFENesin/CODEINE 100mg/10mg 5 ML LIQUID PO PRN (20:01)
[2016-11-16] MEDS: MIRTAZAPINE 15 MG TABLET PO SCH (20:01)
[2016-11-16] MEDS: ENOXAPARIN 40 MG/0.4 ML SYRINGE. SQ SCH (20:03)
[2016-11-16] MEDS: BENZONATATE 100 MG CAPSULE. PO SCH (20:03)
[2016-11-16] MEDS ORDERED: NON FORMULARY ITEM (Melatonin 5 MG) PO SCH (21:00)
--- NOTE | 2016-11-16 23:58 | CONS ---
DATE OF CONSULTATION: 11/16/2016 ATTENDING PHYSICIAN: Dr. Starr Mayberry. REASON FOR CONSULTATION: The patient is seen in pulmonary consultation at the request of Dr. Mayberry for progressive cough and shortness of air. HISTORY OF PRESENT ILLNESS: The patient is a 75-year-old female well known to me from previous hospitalization. She was hospitalized back in September and October of this year with pneumonia. Her CAT scan of the chest actually was improved in October. The CT of the chest, which was previously abnormal was improved on repeat CT dated 11/03/2016. The patient presents with increasing shortness of air and cough for the past 5 days. No fever, chills or night sweats. She apparently has had some difficulty with dysphagia and aspiration in the past. There may be some difficulty with microaspiration. She was admitted. I was asked to see her in consultation. She denies nausea, vomiting or diarrhea. PAST MEDICAL HISTORY: 1. Previous pneumonia, left upper lobe. Followup CT of the chest revealed improvement of the infiltrate. 2. Possible microaspiration. 3. Reactive airway disease. 4. History of nasal polyps. 5. Anxiety. 6. Depression. 7. Type 2 diabetes. 8. Hypertension. 9. Hypothyroidism. 10. Sleep apnea. PAST SURGICAL HISTORY: Status post cholecystectomy, hysterectomy, carpal tunnel release, back surgery, EGD, colonoscopy. She has also had some nasal polyps removed. ALLERGIES: CEPHALEXIN, CIPROFLOXACIN AND EGGS. REVIEW OF SYSTEMS: As indicated above, otherwise, a 10-point system was reviewed and negative. SOCIAL HISTORY: She denies any tobacco or alcohol. She does drink some caffeinated beverages. MEDICATIONS: List was reviewed. OBJECTIVE: GENERAL: She is currently not on an SANJ[place] inhibitor. VITAL SIGNS: Stable. O2 saturation was greater than 92%, currently on room air. HEENT: Eyes, the sclerae were nonicteric. NECK: Jugular venous distention was not elevated. No lymphadenopathy. CHEST: Full expansion. LUNGS: Adequate airway flow with coarse breath sounds and expiratory wheeze. CARDIOVASCULAR: Regular rate and rhythm with S1, S2, no S3. ABDOMEN: Soft, nontender, nondistended. EXTREMITIES: No clubbing, cyanosis or edema. NEUROLOGIC: The patient was awake, alert, following commands. A detailed neuro exam was not performed. LABORATORY DATA: Reviewed. Influenza screen was negative. Group A strep was negative. Electrolytes were noted. BUN is elevated. Creatinine was elevated. White count was normal. Hemoglobin and hematocrit were noted. IMPRESSION: 1. Progressive dyspnea secondary to acute exacerbation of asthma. 2. Possible microaspiration. 3. Acute nonspecific bronchitis. 4. Acute renal failure. 5. Chronic diastolic heart failure. 6. Type 2 diabetes. 7. Chronic kidney disease. 8. History of nasal polyps. 9. Gastroesophageal reflux. PLAN: 1. Suspect most of the patient's symptoms are related to reflux and postnasal drainage along with the possibility micro aspiration. 2. We will proceed with limited CT of the chest and of the sinuses. 3. Avoid caffeinated beverages, mints and chocolates. 4. Continue nebulized treatments. 5. ____ with codeine. 6. We will make further recommendation depending on the patient's limited CT of the sinuses results. I do appreciate the privilege in sharing in the patient's care. ESTER TOLENTINO MD DR: VICTOR HUGO/hadley JOB#: [id number] / [id number]
[2016-11-17 03:08] VITALS: BP 149/58
[2016-11-17] MEDS: guaiFENesin/CODEINE 100mg/10mg 5 ML LIQUID PO PRN ×4 (04:03→17:50)
[2016-11-17] MEDS: HYDROcodone/APAP 7.5/325MG 1 TAB TABLET PO PRN ×2 (04:07→17:50)
[2016-11-17 04:41] VITALS: BP 103/68
[2016-11-17 06:00] LABS: BILIRUBIN,URINE NEGATIVE (NEG); GLUCOSE,URINE NEGATIVE (NEG); NITRITE,URINE NEGATIVE (NEG); PROTEIN,URINE NEGATIVE (NEG-TRACE); UROBILINOGEN,URINE 0.2 mg/dL (0.2 mg/dL)
[2016-11-17] MEDS: LEVOTHYROXINE 50 MCG TABLET PO SCH (06:13)
[2016-11-17 06:18] LABS: BACTERIA,URINE 0 /HPF (0-FEW); RBC,URINE 0 /HPF (0-2); SQUAMOUS EPITHELIAL CELL,UR FEW /LPF; WBC,URINE OCC /HPF (0-4)
[2016-11-17 06:53] LABS: CALCIUM 8.8 mg/dL (8.5-10.1); GFR 54.3; POTASSIUM 4.1 mmol/L (3.5-5.1)
[2016-11-17 07:54] VITALS: BP 135/77
[2016-11-17] MEDS: BUDESONIDE 0.5 MG/2 ML NEBU. NEB SCH ×2 (08:04→19:28)
[2016-11-17] MEDS: GEMFIBROZIL 600 MG TABLET. PO SCH ×2 (08:44→19:57)
[2016-11-17] MEDS: ENOXAPARIN 40 MG/0.4 ML SYRINGE. SQ SCH ×2 (08:44→19:58)
[2016-11-17] MEDS: GABAPENTIN 300 MG CAPSULE. PO SCH ×3 (08:44→19:57)
[2016-11-17] MEDS: busPIRone 10 MG TABLET. PO SCH ×2 (08:45→19:58)
[2016-11-17] MEDS: ASPIRIN ENTERIC COATED 81 MG TABLET.DR. PO SCH (08:45)
[2016-11-17] MEDS: FUROSEMIDE 20 MG TABLET PO SCH (08:45)
[2016-11-17] MEDS: BENZONATATE 100 MG CAPSULE. PO SCH ×3 (08:45→19:57)
[2016-11-17] MEDS: amLODIPine BESYLATE 10 MG TABLET PO SCH (08:45)
[2016-11-17] MEDS: FERROUS SULFATE 325 MG TABLET. PO SCH ×2 (08:46→17:50)
[2016-11-17] MEDS: OXYBUTYNIN CHLORIDE 5 MG TABLET PO SCH ×2 (08:46→19:57)
[2016-11-17] MEDS: POTASSIUM CHLORIDE 10 MEQ TABLET.ER. PO SCH (08:46)
[2016-11-17] MEDS: CARVEDILOL 12.5 MG TABLET. PO SCH ×2 (08:52→17:51)
[2016-11-17 11:09] VITALS: BP 137/63
--- NOTE | 2016-11-17 11:37 | PDOC ---
Renal-Progress Notes Subjective Notes Notes BETTER History of Present Illness Hx of present illness STABLE Vitals Vitals Vital Signs Date Time Temp Pulse Resp B/P (MAP) Pulse Ox O2 Delivery O2 Flow Rate FiO2 11/17/16 11:09 99.1 89 18 137/63 (87) 93 Nasal Cannula 3.0 99.1 Weight Weight [ ] I.O. Intake and Output Intake and Output 11/17/16 07:00 Intake Total 920 ml Output Total 1680 ml Balance -760 ml Intake Oral 920 ml Output Urine Total 1680 ml # Voids 1 Labs Labs Laboratory Tests Test 11/16/16 21:11 11/17/16 05:11 11/17/16 06:20 11/17/16 07:40 Glucose (Fingerstick) 130 mg/dL (70-99) 109 mg/dL (70-99) Urine Collection Type Unknown Urine Color Yellow Urine Clarity Clear Urine pH 6.0 Urine Specific [place] 1.010 Urine Protein Negative mg/dL (NEG-TRACE) Urine Glucose (UA) Negative mg/dL (NEG) Urine Ketones (Stick) Negative mg/dL (NEG) Urine Blood Negative (NEG) Urine Nitrite Negative (NEG) Urine Bilirubin Negative (NEG) Urine Urobilinogen Dipstick 0.2 mg/dL (0.2 mg/dL) Urine Leukocyte Esterase Negative (NEG) Urine RBC 0 /HPF (0-2) Urine WBC Occ /HPF (0-4) Urine Squamous Epithelial Cells Few /LPF Urine Bacteria 0 /HPF (0-FEW) Sodium Level 146 mmol/L (136-145) Potassium Level 4.1 mmol/L (3.5-5.1) Chloride Level 105 mmol/L (98-107) Carbon Dioxide Level 30 mmol/L (21-32) Anion Gap 11 (6-14) Blood Urea Nitrogen 23 mg/dL (7-20) Creatinine 1.0 mg/dL (0.6-1.0) Estimated GFR (Cockcroft-Gault) 54.3 Glucose Level 113 mg/dL (70-99) Calcium Level 8.8 mg/dL (8.5-10.1) Test 11/17/16 11:25 Glucose (Fingerstick) 111 mg/dL (70-99) Micro Micro Microbiology 11/15/16 Blood Culture - Preliminary, Resulted NO GROWTH AFTER 1 DAY Review of Systems Constitutional: yes: alert, oriented Pulmonary: Yes no symptom reported Genitourinary: Yes: no symptom reported Psychiatric/Neurological: Yes: no symptom reported Endocrine: Yes: no symptom reported Physical Exam General Appearance: no apparent distress Skin: warm Respiratory: bilateral CTA Heart: S1S2 Abdomen: soft Genitourinary: bladder flat Neurology: alert, oriented Musculoskeletal: Osteoarthritis Assessment Assessment IMP ENRIQUE-RESOLVED CHEST PAIN AND TACHYCARDIA MILD HYPERNATREMIA PLAN CARDIOLOGY TO EVAL AND TX CONT IVF'S-HYPOTONIC SALINE CONT TO HOLD MOBIC AND KCL CLEMENTE REYNOLDS MD November 17, 2016 11:37
[2016-11-17] MEDS ORDERED: ONDANSETRON PF 4 MG/2 ML VIAL. IV PRN (12:00)
[2016-11-17] MEDS ORDERED: ALBUTEROL SULFATE 2.5 MG/3 ML NEBU. NEB PRN (12:00)
[2016-11-17] MEDS: IV 1/2 NORMAL SALINE 1,000 ML IV SCH (12:42)
[2016-11-17] MEDS: BUDESONIDE 3 MG CAP.ER.24H. PO SCH (12:42)
[2016-11-17] MEDS: IPRATRPIUM/ALBUTEROL 0.5/2.5MG 3 ML NEBU. NEB SCH ×3 (12:57→19:28)
--- NOTE | 2016-11-17 13:36 | PDOC ---
PROGRESS NOTES Chief Complaint Chief Complaint cc: cough A/P ENRIQUE POA DUE TO VMN Intractable cough, possible viral bronchitis, old records reviewed, no aspiration [facility] CHF, diastolic stable Sleep Apnea, on CPAP DM HTN intermittent palpitation Plan symptoms most likely viral bronchitis, consult Dr Aguilar home medications reviewed, and started add duoneb, albuterol prn see orders med/ surg iv hydration card consult, echo pending History of Present Illness History of Present Illness Cough no fever no chills no weight loss. palpitation last night with HR 150s, with chest pain, pressure like. no EKG or CE done at that time. now chest pain free pt feels palpitation today too but HR only 80s at that time cr 1.0 from 1.7 Vitals Vitals Vital Signs Date Time Temp Pulse Resp B/P (MAP) Pulse Ox O2 Delivery O2 Flow Rate FiO2 11/17/16 12:57 Room Air 11/17/16 11:09 99.1 89 18 137/63 (87) 93 3.0 99.1 Physical Exam General: Alert, Oriented X3, Cooperative Heart: Normal S1, Normal S2 Lungs: Clear Abdomen: Normal bowel sounds, Soft Extremities: No clubbing, No edema Skin: No rashes, No significant lesion Labs LABS Laboratory Tests Test 11/16/16 21:11 11/17/16 05:11 11/17/16 06:20 11/17/16 07:40 Glucose (Fingerstick) 130 mg/dL (70-99) 109 mg/dL (70-99) Urine Collection Type Unknown Urine Color Yellow Urine Clarity Clear Urine pH 6.0 Urine Specific [place] 1.010 Urine Protein Negative mg/dL (NEG-TRACE) Urine Glucose (UA) Negative mg/dL (NEG) Urine Ketones (Stick) Negative mg/dL (NEG) Urine Blood Negative (NEG) Urine Nitrite Negative (NEG) Urine Bilirubin Negative (NEG) Urine Urobilinogen Dipstick 0.2 mg/dL (0.2 mg/dL) Urine Leukocyte Esterase Negative (NEG) Urine RBC 0 /HPF (0-2) Urine WBC Occ /HPF (0-4) Urine Squamous Epithelial Cells Few /LPF Urine Bacteria 0 /HPF (0-FEW) Sodium Level 146 mmol/L (136-145) Potassium Level 4.1 mmol/L (3.5-5.1) Chloride Level 105 mmol/L (98-107) Carbon Dioxide Level 30 mmol/L (21-32) Anion Gap 11 (6-14) Blood Urea Nitrogen 23 mg/dL (7-20) Creatinine 1.0 mg/dL (0.6-1.0) Estimated GFR (Cockcroft-Gault) 54.3 Glucose Level 113 mg/dL (70-99) Calcium Level 8.8 mg/dL (8.5-10.1) Test 11/17/16 11:25 Glucose (Fingerstick) 111 mg/dL (70-99) Review of Systems Review of Systems no fever, chills, sob or chest pain Assessment and Plan Assessmemt and Plan Problems Medical Problems: (1) Chest pain Status: Acute (2) Hypoxia Status: Acute (3) SOB (shortness of breath) Status: Acute Problems: Comment Review of Relevant I have reviewed the following items jassi (where applicable) has been applied. Labs Laboratory Tests Test 11/15/16 19:10 11/15/16 19:21 11/16/16 03:15 11/16/16 09:05 Influenza Type A Antigen Negative (NEGATIVE) Influenza Type B Antigen Negative (NEGATIVE) Group A Streptococcus Rapid Negative (NEGATIVE) White Blood Count 8.6 x10^3/uL (4.0-11.0) Red Blood Count 3.74 x10^6/uL (3.50-5.40) Hemoglobin 11.2 g/dL (12.0-15.5) Hematocrit 35.0 % (36.0-47.0) Mean Corpuscular Volume 94 fL (79-100) Mean Corpuscular Hemoglobin 30 pg (25-35) Mean Corpuscular Hemoglobin Concent 32 g/dL (31-37) Red Cell Distribution Width 15.7 % (11.5-14.5) Platelet Count 224 x10^3/uL (140-400) Neutrophils (%) (Auto) 76 % (31-73) Lymphocytes (%) (Auto) 13 % (24-48) Monocytes (%) (Auto) 6 % (0-9) Eosinophils (%) (Auto) 5 % (0-3) Basophils (%) (Auto) 1 % (0-3) Neutrophils # (Auto) 6.5 x10^3uL (1.8-7.7) Lymphocytes # (Auto) 1.1 x10^3/uL (1.0-4.8) Monocytes # (Auto) 0.5 x10^3/uL (0.0-1.1) Eosinophils # (Auto) 0.4 x10^3/uL (0.0-0.7) Basophils # (Auto) 0.0 x10^3/uL (0.0-0.2) Sodium Level 143 mmol/L (136-145) Potassium Level 4.0 mmol/L (3.5-5.1) Chloride Level 106 mmol/L (98-107) Carbon Dioxide Level 31 mmol/L (21-32) Anion Gap 6 (6-14) Blood Urea Nitrogen 36 mg/dL (7-20) Creatinine 1.7 mg/dL (0.6-1.0) Estimated GFR (Cockcroft-Gault) 29.5 BUN/Creatinine Ratio 21 (6-20) Glucose Level 164 mg/dL (70-99) Lactic Acid Level 1.6 mmol/L (0.4-2.0) Calcium Level 8.4 mg/dL (8.5-10.1) Total Bilirubin 0.3 mg/dL (0.2-1.0) Aspartate Amino Transf (AST/SGOT) 13 U/L (15-37) Alanine Aminotransferase (ALT/SGPT) 20 U/L (14-59) Alkaline Phosphatase 112 U/L (46-116) Creatine Kinase 26 U/L (26-192) Creatine Kinase MB (Mass) 0.5 ng/mL (0.0-3.6) Creatine Kinase MB Relative Index % (0-4) Troponin I Quantitative < 0.017 ng/mL (0.000-0.055) < 0.017 ng/mL (0.000-0.055) < 0.017 ng/mL (0.000-0.055) SX-Hlm-Q-Type Natriuretic Peptide 201 pg/mL (0-124) Total Protein 6.5 g/dL (6.4-8.2) Albumin 2.9 g/dL (3.4-5.0) Albumin/Globulin Ratio 0.8 (1.0-1.7) Test 11/16/16 21:11 11/17/16 05:11 5/23/17 06:20 11/17/16 07:40 Glucose (Fingerstick) 130 mg/dL (70-99) 109 mg/dL (70-99) Urine Collection Type Unknown Urine Color Yellow Urine Clarity Clear Urine pH 6.0 Urine Specific [place] 1.010 Urine Protein Negative mg/dL (NEG-TRACE) Urine Glucose (UA) Negative mg/dL (NEG) Urine Ketones (Stick) Negative mg/dL (NEG) Urine Blood Negative (NEG) Urine Nitrite Negative (NEG) Urine Bilirubin Negative (NEG) Urine Urobilinogen Dipstick 0.2 mg/dL (0.2 mg/dL) Urine Leukocyte Esterase Negative (NEG) Urine RBC 0 /HPF (0-2) Urine WBC Occ /HPF (0-4) Urine Squamous Epithelial Cells Few /LPF Urine Bacteria 0 /HPF (0-FEW) Sodium Level 146 mmol/L (136-145) Potassium Level 4.1 mmol/L (3.5-5.1) Chloride Level 105 mmol/L (98-107) Carbon Dioxide Level 30 mmol/L (21-32) Anion Gap 11 (6-14) Blood Urea Nitrogen 23 mg/dL (7-20) Creatinine 1.0 mg/dL (0.6-1.0) Estimated GFR (Cockcroft-Gault) 54.3 Glucose Level 113 mg/dL (70-99) Calcium Level 8.8 mg/dL (8.5-10.1) Test 11/17/16 11:25 Glucose (Fingerstick) 111 mg/dL (70-99) Laboratory Tests Test 11/16/16 21:11 11/17/16 05:11 11/17/16 06:20 11/17/16 07:40 Glucose (Fingerstick) 130 mg/dL (70-99) 109 mg/dL (70-99) Urine Collection Type Unknown Urine Color Yellow Urine Clarity Clear Urine pH 6.0 Urine Specific [place] 1.010 Urine Protein Negative mg/dL (NEG-TRACE) Urine Glucose (UA) Negative mg/dL (NEG) Urine Ketones (Stick) Negative mg/dL (NEG) Urine Blood Negative (NEG) Urine Nitrite Negative (NEG) Urine Bilirubin Negative (NEG) Urine Urobilinogen Dipstick 0.2 mg/dL (0.2 mg/dL) Urine Leukocyte Esterase Negative (NEG) Urine RBC 0 /HPF (0-2) Urine WBC Occ /HPF (0-4) Urine Squamous Epithelial Cells Few /LPF Urine Bacteria 0 /HPF (0-FEW) Sodium Level 146 mmol/L (136-145) Potassium Level 4.1 mmol/L (3.5-5.1) Chloride Level 105 mmol/L (98-107) Carbon Dioxide Level 30 mmol/L (21-32) Anion Gap 11 (6-14) Blood Urea Nitrogen 23 mg/dL (7-20) Creatinine 1.0 mg/dL (0.6-1.0) Estimated GFR (Cockcroft-Gault) 54.3 Glucose Level 113 mg/dL (70-99) Calcium Level 8.8 mg/dL (8.5-10.1) Test 11/17/16 11:25 Glucose (Fingerstick) 111 mg/dL (70-99) Microbiology 11/15/16 Blood Culture - Preliminary, Resulted NO GROWTH AFTER 1 DAY Medications Current Medications Sodium Chloride (Normal Saline Flush) 10 ml 1X ONCE IV ; Start 11/15/16 at 19: 00; Stop 11/15/16 at 19:01; Status DC Sodium Chloride 1,000 ml @ 1,000 mls/hr Q1H IV Last administered on 11/15/16 19:27; Start 11/15/16 at 18:50; Stop 11/15/16 at 19:49; Status DC Albuterol/ Ipratropium (Duoneb) 3 ml 1X ONCE NEB Last administered on 19:15; Start 11/15/16 at 19:00; Stop 11/15/16 at 19:01; Status DC Methylprednisolone Sodium Succinate (SOLU-Medrol 125MG VIAL) 125 mg 1X ONCE IV Last administered on 11/15/16 19:27; Start 11/15/16 at 19:00; Stop 11/15/16 at 19:01; Status DC Fentanyl Citrate (Fentanyl 2ml Vial) 50 mcg 1X ONCE IV Last administered on 19:31; Start 11/15/16 at 19:00; Stop 11/15/16 at 19:01; Status DC Hydromorphone HCl (Dilaudid) 0.5 mg 1X ONCE IV Last administered on 11/15/16 21:48; Start 11/15/16 at 21:15; Stop 11/15/16 at 21:16; Status DC Albuterol/ Ipratropium (Duoneb) 3 ml 1X ONCE NEB Last administered on 21:36; Start 11/15/16 at 21:15; Stop 11/15/16 at 21:16; Status DC Albuterol Sulfate (Ventolin Neb Soln) 10 mg 1X ONCE CONT NEB Last administered on 11/15/16 21:35; Start 11/15/16 at 21:15; Stop 11/15/16 at 21:16 ; Status DC Ondansetron HCl (Zofran) 4 mg PRN Q8HRS PRN IV NAUSEA/VOMITING; Start 11/15/16 at 21:15; Stop 11/16/16 at 21:14; Status DC Fentanyl Citrate (Fentanyl 2ml Vial) 50 mcg PRN Q2HR PRN IV PAIN; Start at 21:15; Stop 11/16/16 at 21:14; Status DC Sodium Chloride 1,000 ml @ 100 mls/hr Q10H IV Last administered on 11/16/16 08:56; Start 11/15/16 at 21:15; Stop 11/16/16 at 18:12; Status DC Acetaminophen (Tylenol) 650 mg PRN Q4HRS PRN PO FEVER Last administered on 11/16 10:01; Start 11/15/16 at 21:15; Stop 11/16/16 at 21:14; Status DC Albuterol/ Ipratropium (Duoneb) 3 ml RTQID NEB ; Start 11/16/16 at 08:00; Stop 11/16/16 at 08:00; Status DC Guaifenesin/ Codeine Phosphate (Robitussin Ac) 10 ml ONCE ONCE PO Last administered on 11/15/16 21:49; Start 11/15/16 at 21:45; Stop 11/15/16 at 21:46 ; Status DC Albuterol/ Ipratropium (Duoneb) 3 ml Q4HRS W/A NEB Last administered on 19:36; Start 11/15/16 at 22:00; Stop 11/16/16 at 21:59; Status DC Budesonide (Pulmicort) 0.5 mg 1X ONCE NEB ; Start 11/15/16 at 22:00; Stop 11/15 at 22:01; Status DC Budesonide (Pulmicort) 0.5 mg RTBID NEB Last administered on 11/17/16 08:04; Start 11/16/16 at 08:00 Enoxaparin Sodium (Lovenox Per Pharmacy Prophylaxis Dosing) 1 each PRN DAILY PRN MC SEE COMMENTS; Start 11/15/16 at 22:15 Enoxaparin Sodium (Lovenox 30mg Syringe) 30 mg DAILY SQ Last administered on 08:53; Start 11/16/16 at 09:00; Stop 11/16/16 at 13:05; Status DC Guaifenesin (Robitussin Dm) 10 ml PRN Q6HRS PRN PO COUGH Last administered on 08:52; Start 11/16/16 at 01:45; Stop 11/16/16 at 19:04; Status DC Guaifenesin/ Codeine Phosphate (Robitussin Ac) 5 ml PRN Q6HRS PRN PO COUGH Last administered on 11/16/16 14:47; Start 11/16/16 at 12:45; Stop 11/16/16 at 19:41; Status DC Amlodipine Besylate (Norvasc) 10 mg DAILY PO Last administered on 11/17/16 08: 45; Start 11/16/16 at 13:00 Aspirin (Ecotrin) 81 mg DAILYWBKFT PO Last administered on 11/17/16 08:45; Start 11/16/16 at 13:00 Carvedilol (Coreg) 12.5 mg BIDWMEALS PO Last administered on 11/17/16 08:52; Start 11/16/16 at 13:00 Ferrous Sulfate (Feosol) 325 mg BIDWMEALS PO Last administered on 11/17/16 08: 46; Start 11/16/16 at 13:00 Furosemide (Lasix) 20 mg DAILY PO Last administered on 11/17/16 08:45; Start 11/16/16 at 13:00 Gabapentin (Neurontin) 600 mg TID PO Last administered on 11/17/16 12:43; Start 11/16/16 at 14:00 Gemfibrozil (Lopid) 600 mg BID PO Last administered on 11/17/16 08:44; Start 11/16/16 at 13:00 Acetaminophen/ Hydrocodone Bitart (Lortab 7.5/325) 1 tab PRN Q6HRS PRN PO PAIN Last administered on 11/17/16 04:07; Start 11/16/16 at 12:45 Levothyroxine Sodium (Synthroid) 50 mcg DAILY07 PO Last administered on 06:13; Start 11/16/16 at 13:00 Metformin HCl (Glucophage) 1,000 mg DAILYWBKFT PO Last administered on 08:51; Start 11/16/16 at 13:00 Budesonide (Entocort) 9 mg QTUTHSA@0900 PO Last administered on 11/17/16 12:42 ; Start 11/17/16 at 09:00 Buspirone HCl (Buspar) 15 mg BID PO Last administered on 11/17/16 08:45; Start 11/16/16 at 13:00 Non-Formulary Medication 5 mg QHS PO ; Start 11/16/16 at 21:00; Status UNV Mirtazapine (Remeron) 30 mg QHS PO Last administered on 11/16/16 20:01; Start 11/16/16 at 21:00 Oxybutynin Chloride (Ditropan) 5 mg BID PO Last administered on 11/17/16 08:46 ; Start 11/16/16 at 14:00 Potassium Chloride (Klor-Con) 10 meq DAILYWBKFT PO Last administered on 08:46; Start 11/16/16 at 13:00 Guaifenesin/ Codeine Phosphate (Robitussin Ac) 5 ml PRN Q6HRS PRN PO COUGH; Start 11/16/16 at 13:00; Stop 11/16/16 at 18:34; Status DC Enoxaparin Sodium (Lovenox 40mg Syringe) 40 mg Q12H SQ Last administered on 08:44; Start 11/16/16 at 21:00 Guaifenesin (Robitussin Dm) 10 ml PRN Q6HRS PRN PO COUGH; Start 11/16/16 at 19: 15 Guaifenesin/ Codeine Phosphate (Robitussin Ac) 5 ml PRN Q4HRS PRN PO COUGH Last administered on 11/17/16 12:42; Start 11/16/16 at 19:45 Benzonatate (Tessalon Perle) 100 mg TID PO Last administered on 11/17/16 12:43 ; Start 11/16/16 at 21:00 Sodium Chloride 1,000 ml @ 75 mls/hr [id number] IV Last administered on 12:42; Start 11/17/16 at 11:45 Acetaminophen (Tylenol) 650 mg PRN Q6HRS PRN PO FEVER; Start 11/17/16 at 12:00 Ondansetron HCl (Zofran) 4 mg PRN Q6HRS PRN IV NAUSEA/VOMITING; Start 11/17/16 at 12:00 Albuterol/ Ipratropium (Duoneb) 3 ml RTQID NEB Last administered on 11/17/16 12:57; Start 11/17/16 at 12:00 Albuterol Sulfate (Ventolin Neb Soln) 2.5 mg PRN Q4HRS PRN NEB SHORTNESS OF BREATH; Start 11/17/16 at 12:00 Active Scripts Active [Codeine Phosphate/Guaifenesin] 5 ML Liquid 5 Ml PO PRN Q4HRS PRN Benzonatate 100 Mg Capsule 100 Mg PO TID Reported Uceris (Budesonide) 9 Mg Tabdr...er 9 Mg PO QTUTHSA Furosemide 20 Mg Tablet 1 Tab PO DAILY Ferrous Sulfate 325 Mg Tablet 1 Tab PO BID Cymbalta (Duloxetine Hcl) 60 Mg Capsule.dr 1 Cap PO BID Meloxicam 7.5 Mg Tablet 1 Tab PO BID Vitamin E (Vitamin E Acid Succinate) 100 Unit Tablet 100 Unit PO Krill Oil 1,000 Mg Softgel (Krill/Om3/Dha/Epa/Om6/Lip/Astx) 1 Each Capsule 1 Each PO Biotin 1 Mg Capsule 10,000 Mg PO DAILY Aspir 81 (Aspirin) 81 Mg Tablet.dr 1 Tab PO DAILY Potassium Chloride 10 Meq Capsule.er 10 Meq PO DAILY Cyanocobalamin Injection (Cyanocobalamin (Vitamin B-12)) 1,000 Mcg/1 Ml Vial 1 Ml IM QOMONTH Tizanidine Hcl 4 Mg Tablet 4 Mg PO TID PRN Hydrocodone-Apap 7.5-325 (Hydrocodone Bit/Acetaminophen) 1 Each Tablet 1 Tab PO PRN Q6HRS PRN Ditropan Xl (Oxybutynin Chloride) 10 Mg Tab.er.24 1 Tab PO DAILY Melatonin 5 Mg Tablet 5 Mg PO QHS Neurontin (Gabapentin) 300 Mg Capsule 600 Mg PO TID Levothyroxine Sodium 50 Mcg Tablet 1 Tab PO DAILY Preservision Lutein Softgel (Vit C/Narda Ac/Lut/Copper/Znox) 1 Each Capsule 1 Each PO DAILY Metformin Hcl 1,000 Mg Tablet 1 Tab PO DAILY Omeprazole 20 Mg Tablet.dr 1 Tab PO BID Mirtazapine 30 Mg Tablet 1 Tab PO QHS Gemfibrozil 600 Mg Tablet 600 Mg PO BID Carvedilol 12.5 Mg Tablet 12.5 Mg PO BID Buspirone Hcl 15 Mg Tablet 15 Mg PO BID Amlodipine Besylate 10 Mg Tablet 10 Mg PO DAILY Vitals/I & O Vital Sign - Last 24 Hours 11/16/16 11/16/16 11/16/16 11/16/16 14:18 14:41 14:44 15:00 Temp 98.2 98.2 Pulse 88 88 89 Resp 20 B/P (MAP) 148/71 148/71 182/87 (118) Pulse Ox 94 95 O2 Delivery Room Air Room Air 11/16/16 11/16/16 11/16/16 11/16/16 17:00 17:00 17:49 19:37 Temp 98.0 98.0 98.0 98.0 Pulse 63 63 63 Resp 20 20 B/P (MAP) 149/76 (100) 149/76 (100) 149/76 Pulse Ox 95 95 94 O2 Delivery Room Air Room Air Room Air 11/16/16 11/16/16 11/16/16 11/16/16 19:40 19:46 20:05 23:39 Temp 98.3 98.9 98.3 98.9 Pulse 80 80 Resp 20 20 B/P (MAP) 151/60 (90) 124/68 (86) Pulse Ox 94 97 93 O2 Delivery Room Air Room Air Room Air Nasal Cannula O2 Flow Rate 3.0 11/17/16 11/17/16 11/17/16 11/17/16 03:08 04:41 07:54 08:00 Temp 98.2 99.5 98.2 99.5 Pulse 78 118 84 Resp 18 18 B/P (MAP) 149/58 (88) 103/68 (80) 135/77 (96) Pulse Ox 92 93 O2 Delivery Nasal Cannula Nasal Cannula Room Air O2 Flow Rate 3.0 3.0 3.0 11/17/16 11/17/16 11/17/16 11/17/16 08:04 08:45 08:52 11:09 Temp 99.1 99.1 Pulse 84 84 89 Resp 18 B/P (MAP) 135/77 135/77 137/63 (87) Pulse Ox 93 O2 Delivery Room Air Nasal Cannula O2 Flow Rate 3.0 11/17/16 12:57 O2 Delivery Room Air Intake and Output 11/16/16 11/16/16 11/17/16 15:00 23:00 07:00 Intake Total 920 ml Output Total 880 ml 800 ml Balance 40 ml -800 ml PALMER DIXON MD November 17, 2016 13:36
--- NOTE | 2016-11-17 15:17 | PDOC ---
PULMONARY PROGRESS NOTES Subjective Pt with continued cough Vitals Vital Signs Date Time Temp Pulse Resp B/P (MAP) Pulse Ox O2 Delivery O2 Flow Rate FiO2 11/17/16 12:57 Room Air 11/17/16 11:09 99.1 89 18 137/63 (87) 93 3.0 99.1 General: Alert, No acute distress HEENT: Other Lungs: Clear Cardiovascular: S1, S2 Abdomen: Soft, Non-tender Extremities: No Edema Labs Laboratory Tests Test 11/15/16 19:10 11/15/16 19:21 11/16/16 03:15 11/16/16 09:05 Influenza Type A Antigen Negative (NEGATIVE) Influenza Type B Antigen Negative (NEGATIVE) Group A Streptococcus Rapid Negative (NEGATIVE) White Blood Count 8.6 x10^3/uL (4.0-11.0) Red Blood Count 3.74 x10^6/uL (3.50-5.40) Hemoglobin 11.2 g/dL (12.0-15.5) Hematocrit 35.0 % (36.0-47.0) Mean Corpuscular Volume 94 fL (79-100) Mean Corpuscular Hemoglobin 30 pg (25-35) Mean Corpuscular Hemoglobin Concent 32 g/dL (31-37) Red Cell Distribution Width 15.7 % (11.5-14.5) Platelet Count 224 x10^3/uL (140-400) Neutrophils (%) (Auto) 76 % (31-73) Lymphocytes (%) (Auto) 13 % (24-48) Monocytes (%) (Auto) 6 % (0-9) Eosinophils (%) (Auto) 5 % (0-3) Basophils (%) (Auto) 1 % (0-3) Neutrophils # (Auto) 6.5 x10^3uL (1.8-7.7) Lymphocytes # (Auto) 1.1 x10^3/uL (1.0-4.8) Monocytes # (Auto) 0.5 x10^3/uL (0.0-1.1) Eosinophils # (Auto) 0.4 x10^3/uL (0.0-0.7) Basophils # (Auto) 0.0 x10^3/uL (0.0-0.2) Sodium Level 143 mmol/L (136-145) Potassium Level 4.0 mmol/L (3.5-5.1) Chloride Level 106 mmol/L (98-107) Carbon Dioxide Level 31 mmol/L (21-32) Anion Gap 6 (6-14) Blood Urea Nitrogen 36 mg/dL (7-20) Creatinine 1.7 mg/dL (0.6-1.0) Estimated GFR (Cockcroft-Gault) 29.5 BUN/Creatinine Ratio 21 (6-20) Glucose Level 164 mg/dL (70-99) Lactic Acid Level 1.6 mmol/L (0.4-2.0) Calcium Level 8.4 mg/dL (8.5-10.1) Total Bilirubin 0.3 mg/dL (0.2-1.0) Aspartate Amino Transf (AST/SGOT) 13 U/L (15-37) Alanine Aminotransferase (ALT/SGPT) 20 U/L (14-59) Alkaline Phosphatase 112 U/L (46-116) Creatine Kinase 26 U/L (26-192) Creatine Kinase MB (Mass) 0.5 ng/mL (0.0-3.6) Creatine Kinase MB Relative Index % (0-4) Troponin I Quantitative < 0.017 ng/mL (0.000-0.055) < 0.017 ng/mL (0.000-0.055) < 0.017 ng/mL (0.000-0.055) OB-Xpi-M-Type Natriuretic Peptide 201 pg/mL (0-124) Total Protein 6.5 g/dL (6.4-8.2) Albumin 2.9 g/dL (3.4-5.0) Albumin/Globulin Ratio 0.8 (1.0-1.7) Test 11/16/16 21:11 11/17/16 05:11 11/17/16 06:20 11/17/16 07:40 Glucose (Fingerstick) 130 mg/dL (70-99) 109 mg/dL (70-99) Urine Collection Type Unknown Urine Color Yellow Urine Clarity Clear Urine pH 6.0 Urine Specific [place] 1.010 Urine Protein Negative mg/dL (NEG-TRACE) Urine Glucose (UA) Negative mg/dL (NEG) Urine Ketones (Stick) Negative mg/dL (NEG) Urine Blood Negative (NEG) Urine Nitrite Negative (NEG) Urine Bilirubin Negative (NEG) Urine Urobilinogen Dipstick 0.2 mg/dL (0.2 mg/dL) Urine Leukocyte Esterase Negative (NEG) Urine RBC 0 /HPF (0-2) Urine WBC Occ /HPF (0-4) Urine Squamous Epithelial Cells Few /LPF Urine Bacteria 0 /HPF (0-FEW) Sodium Level 146 mmol/L (136-145) Potassium Level 4.1 mmol/L (3.5-5.1) Chloride Level 105 mmol/L (98-107) Carbon Dioxide Level 30 mmol/L (21-32) Anion Gap 11 (6-14) Blood Urea Nitrogen 23 mg/dL (7-20) Creatinine 1.0 mg/dL (0.6-1.0) Estimated GFR (Cockcroft-Gault) 54.3 Glucose Level 113 mg/dL (70-99) Calcium Level 8.8 mg/dL (8.5-10.1) Test 11/17/16 11:25 Glucose (Fingerstick) 111 mg/dL (70-99) Laboratory Tests Test 11/16/16 21:11 11/17/16 05:11 11/17/16 06:20 11/17/16 07:40 Glucose (Fingerstick) 130 mg/dL (70-99) 109 mg/dL (70-99) Urine Collection Type Unknown Urine Color Yellow Urine Clarity Clear Urine pH 6.0 Urine Specific [place] 1.010 Urine Protein Negative mg/dL (NEG-TRACE) Urine Glucose (UA) Negative mg/dL (NEG) Urine Ketones (Stick) Negative mg/dL (NEG) Urine Blood Negative (NEG) Urine Nitrite Negative (NEG) Urine Bilirubin Negative (NEG) Urine Urobilinogen Dipstick 0.2 mg/dL (0.2 mg/dL) Urine Leukocyte Esterase Negative (NEG) Urine RBC 0 /HPF (0-2) Urine WBC Occ /HPF (0-4) Urine Squamous Epithelial Cells Few /LPF Urine Bacteria 0 /HPF (0-FEW) Sodium Level 146 mmol/L (136-145) Potassium Level 4.1 mmol/L (3.5-5.1) Chloride Level 105 mmol/L (98-107) Carbon Dioxide Level 30 mmol/L (21-32) Anion Gap 11 (6-14) Blood Urea Nitrogen 23 mg/dL (7-20) Creatinine 1.0 mg/dL (0.6-1.0) Estimated GFR (Cockcroft-Gault) 54.3 Glucose Level 113 mg/dL (70-99) Calcium Level 8.8 mg/dL (8.5-10.1) Test 11/17/16 11:25 Glucose (Fingerstick) 111 mg/dL (70-99) Medications Active Scripts Medications Dose Route/Sig Max Daily Dose Days Date Category Uceris (Budesonide) 9 Mg Tabdr...er 9 Mg PO QTUTHSA 11/02/16 Reported Furosemide 20 Mg Tablet 1 Tab PO DAILY 11/02/16 Reported Ferrous Sulfate 325 Mg Tablet 1 Tab PO BID 11/02/16 Reported Cymbalta (Duloxetine Hcl) 60 Mg Capsule.dr Garcia Cap PO BID 11/02/16 Reported [Codeine Phosphate/Guaifenesin] 5 ML Liquid 5 Ml PO PRN Q4HRS PRN 10/23/16 Rx Benzonatate 100 Mg Capsule 100 Mg PO TID 10/23/16 Rx Meloxicam 7.5 Mg Tablet 1 Tab PO BID 10/18/16 Reported Vitamin E (Vitamin E Acid Succinate) 100 Unit Tablet 100 Unit PO 02/04/16 Reported Krill Oil 1,000 Mg Softgel (Krill/Om3/Dha/Epa/Om6/Lip/Astx) 1 Each Capsule 1 Each PO 02/04/16 Reported Biotin 1 Mg Capsule 10,000 Mg PO DAILY 02/04/16 Reported Aspir 81 (Aspirin) 81 Mg Tablet.dr Garcia Tab PO DAILY 02/04/16 Reported Potassium Chloride 10 Meq Capsule.er 10 Meq PO DAILY 02/04/16 Reported Cyanocobalamin Injection (Cyanocobalamin (Vitamin B-12)) 1,000 Mcg/1 Ml Vial 1 Ml IM QOMONTH 02/03/16 Reported Tizanidine Hcl 4 Mg Tablet 4 Mg PO TID PRN 02/03/16 Reported Hydrocodone-Apap 7.5-325 (Hydrocodone Bit/Acetaminophen) 1 Each Tablet 1 Tab PO PRN Q6HRS PRN 02/03/16 Reported Ditropan Xl (Oxybutynin Chloride) 10 Mg Tab.er.24 1 Tab PO DAILY 02/03/16 Reported Melatonin 5 Mg Tablet 5 Mg PO QHS 02/03/16 Reported Neurontin (Gabapentin) 300 Mg Capsule 600 Mg PO TID 02/03/16 Reported Levothyroxine Sodium 50 Mcg Tablet 1 Tab PO DAILY 02/03/16 Reported Preservision Lutein Softgel (Vit C/Narda Ac/Lut/Copper/Znox) 1 Each Capsule 1 Each PO DAILY 12/26/15 Reported Metformin Hcl 1,000 Mg Tablet 1 Tab PO DAILY 12/26/15 Reported Omeprazole 20 Mg Tablet.dr 1 Tab PO BID 07/25/14 Reported Mirtazapine 30 Mg Tablet 1 Tab PO QHS 07/25/14 Reported Gemfibrozil 600 Mg Tablet 600 Mg PO BID 08/29/13 Reported Carvedilol 12.5 Mg Tablet 12.5 Mg PO BID 08/29/13 Reported Buspirone Hcl 15 Mg Tablet 15 Mg PO BID 08/29/13 Reported Amlodipine Besylate 10 Mg Tablet 10 Mg PO DAILY 08/29/13 Reported Impression . 1. Progressive dyspnea secondary to acute exacerbation of asthma. 2. Possible microaspiration. 3. Acute nonspecific bronchitis. 4. Acute renal failure. 5. Chronic diastolic heart failure. 6. Type 2 diabetes. 7. Chronic kidney disease. 8. History of nasal polyps. 9. Gastroesophageal reflux. 10. Complete opacification of the left maxillary sinus and slight opacification of the left sphenoid sinus compatible with sinusitis. Plan . 1. Suspect most of the patient's symptoms are related to reflux and postnasal drainage along with the possibility micro aspiration. 2. treat sinuitis with doxy an steroids add Flonase 3. Avoid caffeinated beverages, mints and chocolates. 4. Continue nebulized treatments. 5. Phenergan with codeine. ESTER TOLENTINO MD November 17, 2016 15:17
--- NOTE | 2016-11-17 16:39 | CARD ---
APPROVED REPORT EXAM: Two-dimensional and M-mode echocardiogram with Doppler and color Doppler. Other Information Quality : FairHR: 80bpm Rhythm : Irregular INDICATION Chest Pain Tachycardia RISK FACTORS Obesity 2D DIMENSIONS RVDd3.1 (2.9-3.5cm)Left Atrium(2D)3.7 (1.6-4.0cm) IVSd1.2 (0.7-1.1cm)Aortic Root(2D)3.0 (2.0-3.7cm) LVDd4.9 (3.9-5.9cm)LVOT Diameter2.4 (1.8-2.4cm) PWd1.2 (0.7-1.1cm)LVDs3.3 (2.5-4.0cm) FS (%) 33.2 %SV69.8 ml LVEF(%)61.6 (>50%) Aortic Valve AoV Peak Joel.128.4cm/sAoV VTI25.8cm AO Peak GR.6.6mmHgLVOT Peak Joel.96.7cm/s AO Mean GR.4mmHgAVA (VMAX)3.45cm2 Mitral Valve MV E Ykfqoxgu12.1cm/sMV E Peak Gr.2mmHg MV DECEL [id number] A Vaxdqych68.4cm/s MV E Mean Gr.1mmHgE/A Ratio0.9 MV A [id number] Pulmonary Valve PV Peak Wjuitggo47.4cm/s Tricuspid Valve TR P. [id number]/sTR Peak Gr.23mmHg Pulmonary Vein S1 Tjolqqub64.6cm/sD2 Zfblvyny00.7cm/s PVa [id number] LEFT VENTRICLE The left ventricle is normal size. There is mild concentric left ventricular hypertrophy. The left ve ntricular systolic function is normal and the ejection fraction is within normal range. The Ejection Fraction is 60-65%. There is normal LV segmental wall motion. Transmitral Doppler flow pattern is Gra de I-abnormal relaxation pattern. RIGHT VENTRICLE The right ventricle is normal size. There is normal right ventricular wall thickness. The right ventr icular systolic function is normal. ATRIA The left atrium size is normal. The right atrium size is normal. The interatrial septum is intact wit h no evidence for an atrial septal defect or patent foramen ovale as noted on 2-D or Doppler imaging. AORTIC VALVE The aortic valve is mildly The aortic valve is trileaflet. Doppler and Color Flow revealed no signifi cant aortic regurgitation. There is no significant aortic valvular stenosis. MITRAL VALVE Mitral annular calcification is mild. The mitral valve leaflets are thickened. There is no evidence o f mitral valve prolapse. There is no mitral valve stenosis. Doppler and Color Flow revealed no mitral valve regurgitation noted. TRICUSPID VALVE Doppler and Color Flow revealed trace tricuspid regurgitation. The pulmonary artery systolic pressure is estimated at 26 mmHg. There is no pulmonary hypertension. PULMONIC VALVE Doppler and Color Flow revealed mild pulmonic valvular regurgitation. There is no pulmonic valvular s tenosis. GREAT VESSELS The aortic root is normal in size. The ascending aorta is mildly dilated. The IVC is normal in size a nd collapses >50% with inspiration. PERICARDIAL EFFUSION There is no evidence of significant pericardial effusion. Critical Notification Critical Value: No <Conclusion> The left ventricular systolic function is normal and the ejection fraction is within normal range. Th e Ejection Fraction is 60-65%. There is normal LV segmental wall motion.
[2016-11-17] MEDS: DOXYCYCLINE HYCLATE 100 MG TABLET PO SCH (18:00)
--- NOTE | 2016-11-17 18:21 | PDOC2 ---
CONSULT Date of Consult Date of Consult DATE: 11/17/16 TIME: 18:13 Reason for Consult Reason for Consult: Cough and dyspnea Referring Physician Referring Physician: Dr Mayberry Identification/Chief Complaint Chief Complaint Cough and dyspnea History of Present Illness Reason for Visit: Patient is a very pleasant 75-year-old lady that is above her ideal body weight for many years and has a known history of cardiac problems with previous episodes of CHF secondary to diastolic dysfunction. The patient also has known hypertension and diabetes. She has had 2 recent admissions to this institution due to cough and dyspnea. This time the patient comes in with the cough and difficulty breathing which heart started again. Chronic aspiration has been considered with her and she has been seen by the speech pathologist and the e business manager in the past for this. Presently she is being followed by the e business manager. The patient has not been having any significant cardiac complaints. No increasing edema, no palpitations, no chest pains, no loss of consciousness. I have known her for years however she has not been in the office to see me for some time. At the time of this examination the patient denies having any chest discomforts. No dyspnea at rest at this time. Past Medical History Cardiovascular: CHF, HTN, Hyperlipidemia Pulmonary: Other GI: GERD, Other Heme/Onc: Cancer Psych: Anxiety, Depression Musculoskeletal: Osteoarthritis Endocrine: Diabetes, Hypothyroidism Past Surgical History Past Surgical History: Cholecystectomy, Cataract Removal, Tonsillectomy, Hysterectomy, Other Family History Family History: Cancer Social History No ALCOHOL: none Drugs: None Lives: Alone Current Problem List Problem List Problems Medical Problems: (1) Chest pain Status: Acute (2) Hypoxia Status: Acute (3) SOB (shortness of breath) Status: Acute Current Medications Current Medications Current Medications Sodium Chloride (Normal Saline Flush) 10 ml 1X ONCE IV ; Start 11/15/16 at 19: 00; Stop 11/15/16 at 19:01; Status DC Sodium Chloride 1,000 ml @ 1,000 mls/hr Q1H IV Last administered on 11/15/16 19:27; Start 11/15/16 at 18:50; Stop 11/15/16 at 19:49; Status DC Albuterol/ Ipratropium (Duoneb) 3 ml 1X ONCE NEB Last administered on 19:15; Start 11/15/16 at 19:00; Stop 11/15/16 at 19:01; Status DC Methylprednisolone Sodium Succinate (SOLU-Medrol 125MG VIAL) 125 mg 1X ONCE IV Last administered on 11/15/16 19:27; Start 11/15/16 at 19:00; Stop 11/15/16 at 19:01; Status DC Fentanyl Citrate (Fentanyl 2ml Vial) 50 mcg 1X ONCE IV Last administered on 19:31; Start 11/15/16 at 19:00; Stop 11/15/16 at 19:01; Status DC Hydromorphone HCl (Dilaudid) 0.5 mg 1X ONCE IV Last administered on 11/15/16 21:48; Start 11/15/16 at 21:15; Stop 11/15/16 at 21:16; Status DC Albuterol/ Ipratropium (Duoneb) 3 ml 1X ONCE NEB Last administered on 21:36; Start 11/15/16 at 21:15; Stop 11/15/16 at 21:16; Status DC Albuterol Sulfate (Ventolin Neb Soln) 10 mg 1X ONCE CONT NEB Last administered on 11/15/16 21:35; Start 11/15/16 at 21:15; Stop 11/15/16 at 21:16 ; Status DC Ondansetron HCl (Zofran) 4 mg PRN Q8HRS PRN IV NAUSEA/VOMITING; Start 11/15/16 at 21:15; Stop 11/16/16 at 21:14; Status DC Fentanyl Citrate (Fentanyl 2ml Vial) 50 mcg PRN Q2HR PRN IV PAIN; Start at 21:15; Stop 11/16/16 at 21:14; Status DC Sodium Chloride 1,000 ml @ 100 mls/hr Q10H IV Last administered on 11/16/16 08:56; Start 11/15/16 at 21:15; Stop 11/16/16 at 18:12; Status DC Acetaminophen (Tylenol) 650 mg PRN Q4HRS PRN PO FEVER Last administered on 11/16 10:01; Start 11/15/16 at 21:15; Stop 11/16/16 at 21:14; Status DC Albuterol/ Ipratropium (Duoneb) 3 ml RTQID NEB ; Start 11/16/16 at 08:00; Stop 11/16/16 at 08:00; Status DC Guaifenesin/ Codeine Phosphate (Robitussin Ac) 10 ml ONCE ONCE PO Last administered on 11/15/16 21:49; Start 11/15/16 at 21:45; Stop 11/15/16 at 21:46 ; Status DC Albuterol/ Ipratropium (Duoneb) 3 ml Q4HRS W/A NEB Last administered on 19:36; Start 11/15/16 at 22:00; Stop 11/16/16 at 21:59; Status DC Budesonide (Pulmicort) 0.5 mg 1X ONCE NEB ; Start 11/15/16 at 22:00; Stop 11/15 at 22:01; Status DC Budesonide (Pulmicort) 0.5 mg RTBID NEB Last administered on 11/17/16 08:04; Start 11/16/16 at 08:00 Enoxaparin Sodium (Lovenox Per Pharmacy Prophylaxis Dosing) 1 each PRN DAILY PRN MC SEE COMMENTS; Start 11/15/16 at 22:15 Enoxaparin Sodium (Lovenox 30mg Syringe) 30 mg DAILY SQ Last administered on 08:53; Start 11/16/16 at 09:00; Stop 11/16/16 at 13:05; Status DC Guaifenesin (Robitussin Dm) 10 ml PRN Q6HRS PRN PO COUGH Last administered on 08:52; Start 11/16/16 at 01:45; Stop 11/16/16 at 19:04; Status DC Guaifenesin/ Codeine Phosphate (Robitussin Ac) 5 ml PRN Q6HRS PRN PO COUGH Last administered on 11/16/16 14:47; Start 11/16/16 at 12:45; Stop 11/16/16 at 19:41; Status DC Amlodipine Besylate (Norvasc) 10 mg DAILY PO Last administered on 11/17/16 08: 45; Start 11/16/16 at 13:00 Aspirin (Ecotrin) 81 mg DAILYWBKFT PO Last administered on 11/17/16 08:45; Start 11/16/16 at 13:00 Carvedilol (Coreg) 12.5 mg BIDWMEALS PO Last administered on 11/17/16 17:51; Start 11/16/16 at 13:00 Ferrous Sulfate (Feosol) 325 mg BIDWMEALS PO Last administered on 11/17/16 17: 50; Start 11/16/16 at 13:00 Furosemide (Lasix) 20 mg DAILY PO Last administered on 11/17/16 08:45; Start 11/16/16 at 13:00 Gabapentin (Neurontin) 600 mg TID PO Last administered on 11/17/16 12:43; Start 11/16/16 at 14:00 Gemfibrozil (Lopid) 600 mg BID PO Last administered on 11/17/16 08:44; Start 11/16/16 at 13:00 Acetaminophen/ Hydrocodone Bitart (Lortab 7.5/325) 1 tab PRN Q6HRS PRN PO PAIN Last administered on 11/17/16 17:50; Start 11/16/16 at 12:45 Levothyroxine Sodium (Synthroid) 50 mcg DAILY07 PO Last administered on 06:13; Start 11/16/16 at 13:00 Metformin HCl (Glucophage) 1,000 mg DAILYWBKFT PO Last administered on 08:51; Start 11/16/16 at 13:00 Budesonide (Entocort) 9 mg QTUTHSA@0900 PO Last administered on 11/17/16 12:42 ; Start 11/17/16 at 09:00 Buspirone HCl (Buspar) 15 mg BID PO Last administered on 11/17/16 08:45; Start 11/16/16 at 13:00 Non-Formulary Medication 5 mg QHS PO ; Start 11/16/16 at 21:00; Status UNV Mirtazapine (Remeron) 30 mg QHS PO Last administered on 11/16/16 20:01; Start 11/16/16 at 21:00 Oxybutynin Chloride (Ditropan) 5 mg BID PO Last administered on 11/17/16 08:46 ; Start 11/16/16 at 14:00 Potassium Chloride (Klor-Con) 10 meq DAILYWBKFT PO Last administered on 08:46; Start 11/16/16 at 13:00 Guaifenesin/ Codeine Phosphate (Robitussin Ac) 5 ml PRN Q6HRS PRN PO COUGH; Start 11/16/16 at 13:00; Stop 11/16/16 at 18:34; Status DC Enoxaparin Sodium (Lovenox 40mg Syringe) 40 mg Q12H SQ Last administered on 08:44; Start 11/16/16 at 21:00 Guaifenesin (Robitussin Dm) 10 ml PRN Q6HRS PRN PO COUGH; Start 11/16/16 at 19: 15 Guaifenesin/ Codeine Phosphate (Robitussin Ac) 5 ml PRN Q4HRS PRN PO COUGH Last administered on 11/17/16 17:50; Start 11/16/16 at 19:45 Benzonatate (Tessalon Perle) 100 mg TID PO Last administered on 11/17/16 12:43 ; Start 11/16/16 at 21:00 Sodium Chloride 1,000 ml @ 75 mls/hr [id number] IV Last administered on 12:42; Start 11/17/16 at 11:45 Acetaminophen (Tylenol) 650 mg PRN Q6HRS PRN PO FEVER; Start 11/17/16 at 12:00 Ondansetron HCl (Zofran) 4 mg PRN Q6HRS PRN IV NAUSEA/VOMITING; Start 11/17/16 at 12:00 Albuterol/ Ipratropium (Duoneb) 3 ml RTQID NEB Last administered on 11/17/16 15:33; Start 11/17/16 at 12:00 Albuterol Sulfate (Ventolin Neb Soln) 2.5 mg PRN Q4HRS PRN NEB SHORTNESS OF BREATH; Start 11/17/16 at 12:00 Doxycycline Hyclate (Vibra-Tab) 100 mg BID PO ; Start 11/17/16 at 18:00 Fluticasone Propionate (Flonase) 2 spray DAILY NS ; Start 11/18/16 at 09:00 Active Scripts Active [Codeine Phosphate/Guaifenesin] 5 ML Liquid 5 Ml PO PRN Q4HRS PRN Benzonatate 100 Mg Capsule 100 Mg PO TID Reported Uceris (Budesonide) 9 Mg Tabdr...er 9 Mg PO QTUTHSA Furosemide 20 Mg Tablet 1 Tab PO DAILY Ferrous Sulfate 325 Mg Tablet 1 Tab PO BID Cymbalta (Duloxetine Hcl) 60 Mg Capsule.dr 1 Cap PO BID Meloxicam 7.5 Mg Tablet 1 Tab PO BID Vitamin E (Vitamin E Acid Succinate) 100 Unit Tablet 100 Unit PO Krill Oil 1,000 Mg Softgel (Krill/Om3/Dha/Epa/Om6/Lip/Astx) 1 Each Capsule 1 Each PO Biotin 1 Mg Capsule 10,000 Mg PO DAILY Aspir 81 (Aspirin) 81 Mg Tablet.dr 1 Tab PO DAILY Potassium Chloride 10 Meq Capsule.er 10 Meq PO DAILY Cyanocobalamin Injection (Cyanocobalamin (Vitamin B-12)) 1,000 Mcg/1 Ml Vial 1 Ml IM QOMONTH Tizanidine Hcl 4 Mg Tablet 4 Mg PO TID PRN Hydrocodone-Apap 7.5-325 (Hydrocodone Bit/Acetaminophen) 1 Each Tablet 1 Tab PO PRN Q6HRS PRN Ditropan Xl (Oxybutynin Chloride) 10 Mg Tab.er.24 1 Tab PO DAILY Melatonin 5 Mg Tablet 5 Mg PO QHS Neurontin (Gabapentin) 300 Mg Capsule 600 Mg PO TID Levothyroxine Sodium 50 Mcg Tablet 1 Tab PO DAILY Preservision Lutein Softgel (Vit C/Narda Ac/Lut/Copper/Znox) 1 Each Capsule 1 Each PO DAILY Metformin Hcl 1,000 Mg Tablet 1 Tab PO DAILY Omeprazole 20 Mg Tablet.dr 1 Tab PO BID Mirtazapine 30 Mg Tablet 1 Tab PO QHS Gemfibrozil 600 Mg Tablet 600 Mg PO BID Carvedilol 12.5 Mg Tablet 12.5 Mg PO BID Buspirone Hcl 15 Mg Tablet 15 Mg PO BID Amlodipine Besylate 10 Mg Tablet 10 Mg PO DAILY Allergies Allergies: Coded Allergies: cephalexin (Verified Allergy, Intermediate, Itching, 11/03/16) ciprofloxacin (Verified Allergy, Intermediate, 10/18/16) egg (Verified Allergy, Intermediate, Nausea and Vomiting, 10/18/16) I S O L A T I O N *CONTACT* (Verified Allergy, Unknown, 10/18/16) mrsa screen + Physical Exam Physical Exam H EENT pupils are reactive, oral mucosa well-hydrated. Neck is supple no JVD. Lungs few crackles no wheezing. Heart regular rate and rhythm S1-S2 no S3 no S4. Abdomen is soft, protuberant, bowel sounds present. Extremities no significant edema. Vitals VITALS Vital Signs Date Time Temp Pulse Resp B/P (MAP) Pulse Ox O2 Delivery O2 Flow Rate FiO2 11/17/16 17:51 89 137/63 11/17/16 17:50 18 93 Room Air 3.0 11/17/16 11:09 99.1 99.1 Labs Labs Laboratory Tests Test 11/15/16 19:10 11/15/16 19:21 11/16/16 03:15 11/16/16 09:05 Influenza Type A Antigen Negative (NEGATIVE) Influenza Type B Antigen Negative (NEGATIVE) Group A Streptococcus Rapid Negative (NEGATIVE) White Blood Count 8.6 x10^3/uL (4.0-11.0) Red Blood Count 3.74 x10^6/uL (3.50-5.40) Hemoglobin 11.2 g/dL (12.0-15.5) Hematocrit 35.0 % (36.0-47.0) Mean Corpuscular Volume 94 fL (79-100) Mean Corpuscular Hemoglobin 30 pg (25-35) Mean Corpuscular Hemoglobin Concent 32 g/dL (31-37) Red Cell Distribution Width 15.7 % (11.5-14.5) Platelet Count 224 x10^3/uL (140-400) Neutrophils (%) (Auto) 76 % (31-73) Lymphocytes (%) (Auto) 13 % (24-48) Monocytes (%) (Auto) 6 % (0-9) Eosinophils (%) (Auto) 5 % (0-3) Basophils (%) (Auto) 1 % (0-3) Neutrophils # (Auto) 6.5 x10^3uL (1.8-7.7) Lymphocytes # (Auto) 1.1 x10^3/uL (1.0-4.8) Monocytes # (Auto) 0.5 x10^3/uL (0.0-1.1) Eosinophils # (Auto) 0.4 x10^3/uL (0.0-0.7) Basophils # (Auto) 0.0 x10^3/uL (0.0-0.2) Sodium Level 143 mmol/L (136-145) Potassium Level 4.0 mmol/L (3.5-5.1) Chloride Level 106 mmol/L (98-107) Carbon Dioxide Level 31 mmol/L (21-32) Anion Gap 6 (6-14) Blood Urea Nitrogen 36 mg/dL (7-20) Creatinine 1.7 mg/dL (0.6-1.0) Estimated GFR (Cockcroft-Gault) 29.5 BUN/Creatinine Ratio 21 (6-20) Glucose Level 164 mg/dL (70-99) Lactic Acid Level 1.6 mmol/L (0.4-2.0) Calcium Level 8.4 mg/dL (8.5-10.1) Total Bilirubin 0.3 mg/dL (0.2-1.0) Aspartate Amino Transf (AST/SGOT) 13 U/L (15-37) Alanine Aminotransferase (ALT/SGPT) 20 U/L (14-59) Alkaline Phosphatase 112 U/L (46-116) Creatine Kinase 26 U/L (26-192) Creatine Kinase MB (Mass) 0.5 ng/mL (0.0-3.6) Creatine Kinase MB Relative Index % (0-4) Troponin I Quantitative < 0.017 ng/mL (0.000-0.055) < 0.017 ng/mL (0.000-0.055) < 0.017 ng/mL (0.000-0.055) US-Ole-X-Type Natriuretic Peptide 201 pg/mL (0-124) Total Protein 6.5 g/dL (6.4-8.2) Albumin 2.9 g/dL (3.4-5.0) Albumin/Globulin Ratio 0.8 (1.0-1.7) Test 11/16/16 21:11 11/17/16 05:11 11/17/16 06:20 11/17/16 07:40 Glucose (Fingerstick) 130 mg/dL (70-99) 109 mg/dL (70-99) Urine Collection Type Unknown Urine Color Yellow Urine Clarity Clear Urine pH 6.0 Urine Specific [place] 1.010 Urine Protein Negative mg/dL (NEG-TRACE) Urine Glucose (UA) Negative mg/dL (NEG) Urine Ketones (Stick) Negative mg/dL (NEG) Urine Blood Negative (NEG) Urine Nitrite Negative (NEG) Urine Bilirubin Negative (NEG) Urine Urobilinogen Dipstick 0.2 mg/dL (0.2 mg/dL) Urine Leukocyte Esterase Negative (NEG) Urine RBC 0 /HPF (0-2) Urine WBC Occ /HPF (0-4) Urine Squamous Epithelial Cells Few /LPF Urine Bacteria 0 /HPF (0-FEW) Sodium Level 146 mmol/L (136-145) Potassium Level 4.1 mmol/L (3.5-5.1) Chloride Level 105 mmol/L (98-107) Carbon Dioxide Level 30 mmol/L (21-32) Anion Gap 11 (6-14) Blood Urea Nitrogen 23 mg/dL (7-20) Creatinine 1.0 mg/dL (0.6-1.0) Estimated GFR (Cockcroft-Gault) 54.3 Glucose Level 113 mg/dL (70-99) Calcium Level 8.8 mg/dL (8.5-10.1) Test 11/17/16 11:25 11/17/16 17:00 Glucose (Fingerstick) 111 mg/dL (70-99) 106 mg/dL (70-99) Laboratory Tests Test 11/16/16 21:11 11/17/16 05:11 11/17/16 06:20 11/17/16 07:40 Glucose (Fingerstick) 130 mg/dL (70-99) 109 mg/dL (70-99) Urine Collection Type Unknown Urine Color Yellow Urine Clarity Clear Urine pH 6.0 Urine Specific [place] 1.010 Urine Protein Negative mg/dL (NEG-TRACE) Urine Glucose (UA) Negative mg/dL (NEG) Urine Ketones (Stick) Negative mg/dL (NEG) Urine Blood Negative (NEG) Urine Nitrite Negative (NEG) Urine Bilirubin Negative (NEG) Urine Urobilinogen Dipstick 0.2 mg/dL (0.2 mg/dL) Urine Leukocyte Esterase Negative (NEG) Urine RBC 0 /HPF (0-2) Urine WBC Occ /HPF (0-4) Urine Squamous Epithelial Cells Few /LPF Urine Bacteria 0 /HPF (0-FEW) Sodium Level 146 mmol/L (136-145) Potassium Level 4.1 mmol/L (3.5-5.1) Chloride Level 105 mmol/L (98-107) Carbon Dioxide Level 30 mmol/L (21-32) Anion Gap 11 (6-14) Blood Urea Nitrogen 23 mg/dL (7-20) Creatinine 1.0 mg/dL (0.6-1.0) Estimated GFR (Cockcroft-Gault) 54.3 Glucose Level 113 mg/dL (70-99) Calcium Level 8.8 mg/dL (8.5-10.1) Test 11/17/16 11:25 11/17/16 17:00 Glucose (Fingerstick) 111 mg/dL (70-99) 106 mg/dL (70-99) Assessment/Plan Assessment/Plan This patient comes in with a recurrent cough and dyspnea that may be related to aspiration. From a cardiac standpoint at this time this does not appear to be CHF although she does have a known history of diastolic dysfunction. I will order an echocardiogram to evaluate the current left ventricular function. Thank you very much for asking me to participate in the care of this patient QUENTIN RHODES MD November 17, 2016 18:21
[2016-11-17 19:00] VITALS: BP 145/64
[2016-11-17] MEDS: MIRTAZAPINE 15 MG TABLET PO SCH (19:57)
[2016-11-17] MEDS: ACETAMINOPHEN 325 MG TABLET. PO PRN (20:05)
[2016-11-17 23:00] VITALS: BP 107/63
[2016-11-17] MEDS ORDERED: dilTIAZem IV PUSH 25 MG/5 ML VIAL IVP ONE (23:15)
[2016-11-18] MEDS ORDERED: dilTIAZem IV PUSH 25 MG/5 ML VIAL IVP ONE (00:45)
[2016-11-18] MEDS: IV 1/2 NORMAL SALINE 1,000 ML IV SCH ×2 (01:05→14:25)
[2016-11-18] MEDS: HYDROcodone/APAP 7.5/325MG 1 TAB TABLET PO PRN ×2 (01:53→12:58)
[2016-11-18 02:13] VITALS: BP 146/71
[2016-11-18] MEDS: guaiFENesin/CODEINE 100mg/10mg 5 ML LIQUID PO PRN ×4 (02:28→20:45)
[2016-11-18] MEDS: BENZONATATE 100 MG CAPSULE. PO SCH ×4 (02:30→23:49)
[2016-11-18 05:16] LABS: CALCIUM 8.6 mg/dL (8.5-10.1); CREATININE 1.2 mg/dL (0.6-1.0); POTASSIUM 3.4 mmol/L (3.5-5.1)
[2016-11-18] MEDS: LEVOTHYROXINE 50 MCG TABLET PO SCH (06:41)
[2016-11-18 07:00] VITALS: BP 180/87
[2016-11-18] MEDS: BUDESONIDE 0.5 MG/2 ML NEBU. NEB SCH ×2 (07:55→19:42)
[2016-11-18] MEDS: IPRATRPIUM/ALBUTEROL 0.5/2.5MG 3 ML NEBU. NEB SCH ×4 (07:55→19:42)
[2016-11-18] MEDS: GABAPENTIN 300 MG CAPSULE. PO SCH ×3 (08:59→20:44)
[2016-11-18] MEDS: amLODIPine BESYLATE 10 MG TABLET PO SCH (09:00)
[2016-11-18] MEDS: FUROSEMIDE 20 MG TABLET PO SCH (09:00)
[2016-11-18] MEDS: GEMFIBROZIL 600 MG TABLET. PO SCH ×2 (09:00→20:45)
[2016-11-18] MEDS: FLUTICASONE 50MCG/NASAL SPRAY 16GM BOTTLE. NS SCH (09:00)
[2016-11-18] MEDS: POTASSIUM CHLORIDE 10 MEQ TABLET.ER. PO SCH (09:00)
[2016-11-18] MEDS: FERROUS SULFATE 325 MG TABLET. PO SCH ×2 (09:01→17:47)
[2016-11-18] MEDS: busPIRone 10 MG TABLET. PO SCH ×2 (09:01→20:45)
[2016-11-18] MEDS: CARVEDILOL 12.5 MG TABLET. PO SCH ×2 (09:01→17:48)
[2016-11-18] MEDS: ENOXAPARIN 40 MG/0.4 ML SYRINGE. SQ SCH ×2 (09:02→20:45)
[2016-11-18] MEDS: ASPIRIN ENTERIC COATED 81 MG TABLET.DR. PO SCH (09:02)
[2016-11-18] MEDS: DOXYCYCLINE HYCLATE 100 MG TABLET PO SCH ×2 (09:02→20:44)
[2016-11-18] MEDS: OXYBUTYNIN CHLORIDE 5 MG TABLET PO SCH ×2 (09:02→20:45)
[2016-11-18] MEDS: ACETAMINOPHEN 325 MG TABLET. PO PRN (09:45)
--- NOTE | 2016-11-18 10:04 | PDOC ---
Renal-Progress Notes Subjective Notes Notes NONE History of Present Illness Hx of present illness STABLE Vitals Vitals Vital Signs Date Time Temp Pulse Resp B/P (MAP) Pulse Ox O2 Delivery O2 Flow Rate FiO2 11/18/16 09:01 70 180/87 11/18/16 08:15 Room Air 2.0 11/18/16 07:00 97.7 18 94 97.7 Weight Weight [ ] I.O. Intake and Output Intake and Output 11/18/16 07:00 Intake Total 2406 ml Output Total 1400 ml Balance 1006 ml Intake Oral 1460 ml IV Total 946 ml Output Urine Total 1400 ml # Voids 2 # Bowel Movements 1 Labs Labs Laboratory Tests Test 11/17/16 11:25 11/17/16 17:00 11/17/16 21:37 11/18/16 03:45 Glucose (Fingerstick) 111 mg/dL (70-99) 106 mg/dL (70-99) 116 mg/dL (70-99) Sodium Level 145 mmol/L (136-145) Potassium Level 3.4 mmol/L (3.5-5.1) Chloride Level 103 mmol/L (98-107) Carbon Dioxide Level 32 mmol/L (21-32) Anion Gap 10 (6-14) Blood Urea Nitrogen 29 mg/dL (7-20) Creatinine 1.2 mg/dL (0.6-1.0) Estimated GFR (Cockcroft-Gault) 44.0 Glucose Level 116 mg/dL (70-99) Calcium Level 8.6 mg/dL (8.5-10.1) Test 11/18/16 07:22 Glucose (Fingerstick) 101 mg/dL (70-99) Micro Micro Microbiology 11/15/16 Blood Culture - Preliminary, Resulted NO GROWTH AFTER 2 DAYS 11/15/16 Throat Culture - Preliminary, Resulted 11/15/16 - Preliminary, Resulted Review of Systems Constitutional: yes: alert, oriented Pulmonary: Yes no symptom reported Genitourinary: Yes: no symptom reported Psychiatric/Neurological: Yes: no symptom reported Endocrine: Yes: no symptom reported Physical Exam General Appearance: no apparent distress Skin: warm Respiratory: bilateral CTA Heart: S1S2 Abdomen: soft Genitourinary: bladder flat Neurology: alert, oriented Musculoskeletal: Osteoarthritis Assessment Assessment IMP ENRIQUE-RESOLVED CHEST PAIN AND TACHYCARDIA MILD HYPERNATREMIA-BETTER LOW K AFIB RVR PLAN CARDIOLOGY TO EVAL AND TX CONT IVF'S-HYPOTONIC SALINE CONT TO HOLD MOBIC K REPLACEMENT CLEMENTE REYNOLDS MD November 18, 2016 10:04
[2016-11-18 11:00] VITALS: BP 130/58
--- NOTE | 2016-11-18 12:22 | PDOC ---
PULMONARY PROGRESS NOTES Subjective Pt with continued cough Vitals Vital Signs Date Time Temp Pulse Resp B/P (MAP) Pulse Ox O2 Delivery O2 Flow Rate FiO2 11/18/16 11:40 Room Air 11/18/16 11:02 70 180/87 11/18/16 11:00 98.2 18 92 98.2 11/18/16 08:15 2.0 General: Alert, No acute distress HEENT: Other Lungs: Clear Cardiovascular: S1, S2 Abdomen: Soft, Non-tender Extremities: No Edema Labs Laboratory Tests Test 11/16/16 21:11 11/17/16 05:11 11/17/16 06:20 11/17/16 07:40 Glucose (Fingerstick) 130 mg/dL (70-99) 109 mg/dL (70-99) Urine Collection Type Unknown Urine Color Yellow Urine Clarity Clear Urine pH 6.0 Urine Specific [place] 1.010 Urine Protein Negative mg/dL (NEG-TRACE) Urine Glucose (UA) Negative mg/dL (NEG) Urine Ketones (Stick) Negative mg/dL (NEG) Urine Blood Negative (NEG) Urine Nitrite Negative (NEG) Urine Bilirubin Negative (NEG) Urine Urobilinogen Dipstick 0.2 mg/dL (0.2 mg/dL) Urine Leukocyte Esterase Negative (NEG) Urine RBC 0 /HPF (0-2) Urine WBC Occ /HPF (0-4) Urine Squamous Epithelial Cells Few /LPF Urine Bacteria 0 /HPF (0-FEW) Sodium Level 146 mmol/L (136-145) Potassium Level 4.1 mmol/L (3.5-5.1) Chloride Level 105 mmol/L (98-107) Carbon Dioxide Level 30 mmol/L (21-32) Anion Gap 11 (6-14) Blood Urea Nitrogen 23 mg/dL (7-20) Creatinine 1.0 mg/dL (0.6-1.0) Estimated GFR (Cockcroft-Gault) 54.3 Glucose Level 113 mg/dL (70-99) Calcium Level 8.8 mg/dL (8.5-10.1) Test 11/17/16 11:25 11/17/16 17:00 11/17/16 21:37 11/18/16 03:45 Glucose (Fingerstick) 111 mg/dL (70-99) 106 mg/dL (70-99) 116 mg/dL (70-99) Sodium Level 145 mmol/L (136-145) Potassium Level 3.4 mmol/L (3.5-5.1) Chloride Level 103 mmol/L (98-107) Carbon Dioxide Level 32 mmol/L (21-32) Anion Gap 10 (6-14) Blood Urea Nitrogen 29 mg/dL (7-20) Creatinine 1.2 mg/dL (0.6-1.0) Estimated GFR (Cockcroft-Gault) 44.0 Glucose Level 116 mg/dL (70-99) Calcium Level 8.6 mg/dL (8.5-10.1) Test 11/18/16 07:22 11/18/16 11:48 Glucose (Fingerstick) 101 mg/dL (70-99) 140 mg/dL (70-99) Laboratory Tests Test 11/17/16 17:00 11/17/16 21:37 11/18/16 03:45 11/18/16 07:22 Glucose (Fingerstick) 106 mg/dL (70-99) 116 mg/dL (70-99) 101 mg/dL (70-99) Sodium Level 145 mmol/L (136-145) Potassium Level 3.4 mmol/L (3.5-5.1) Chloride Level 103 mmol/L (98-107) Carbon Dioxide Level 32 mmol/L (21-32) Anion Gap 10 (6-14) Blood Urea Nitrogen 29 mg/dL (7-20) Creatinine 1.2 mg/dL (0.6-1.0) Estimated GFR (Cockcroft-Gault) 44.0 Glucose Level 116 mg/dL (70-99) Calcium Level 8.6 mg/dL (8.5-10.1) Test 11/18/16 11:48 Glucose (Fingerstick) 140 mg/dL (70-99) Medications Active Scripts Medications Dose Route/Sig Max Daily Dose Days Date Category Uceris (Budesonide) 9 Mg Tabdr...er 9 Mg PO QTUTHSA 11/02/16 Reported Furosemide 20 Mg Tablet 1 Tab PO DAILY 11/02/16 Reported Ferrous Sulfate 325 Mg Tablet 1 Tab PO BID 11/02/16 Reported Cymbalta (Duloxetine Hcl) 60 Mg Capsule.dr 1 Cap PO BID 11/02/16 Reported [Codeine Phosphate/Guaifenesin] 5 ML Liquid 5 Ml PO PRN Q4HRS PRN 10/23/16 Rx Benzonatate 100 Mg Capsule 100 Mg PO TID 10/23/16 Rx Meloxicam 7.5 Mg Tablet 1 Tab PO BID 10/18/16 Reported Vitamin E (Vitamin E Acid Succinate) 100 Unit Tablet 100 Unit PO 02/04/16 Reported Krill Oil 1,000 Mg Softgel (Krill/Om3/Dha/Epa/Om6/Lip/Astx) 1 Each Capsule 1 Each PO 02/04/16 Reported Biotin 1 Mg Capsule 10,000 Mg PO DAILY 02/04/16 Reported Aspir 81 (Aspirin) 81 Mg Tablet.dr 1 Tab PO DAILY 02/04/16 Reported Potassium Chloride 10 Meq Capsule.er 10 Meq PO DAILY 02/04/16 Reported Cyanocobalamin Injection (Cyanocobalamin (Vitamin B-12)) 1,000 Mcg/1 Ml Vial 1 Ml IM QOMONTH 02/03/16 Reported Tizanidine Hcl 4 Mg Tablet 4 Mg PO TID PRN 02/03/16 Reported Hydrocodone-Apap 7.5-325 (Hydrocodone Bit/Acetaminophen) 1 Each Tablet 1 Tab PO PRN Q6HRS PRN 02/03/16 Reported Ditropan Xl (Oxybutynin Chloride) 10 Mg Tab.er.24 1 Tab PO DAILY 02/03/16 Reported Melatonin 5 Mg Tablet 5 Mg PO QHS 02/03/16 Reported Neurontin (Gabapentin) 300 Mg Capsule 600 Mg PO TID 02/03/16 Reported Levothyroxine Sodium 50 Mcg Tablet 1 Tab PO DAILY 02/03/16 Reported Preservision Lutein Softgel (Vit C/Narda Ac/Lut/Copper/Znox) 1 Each Capsule 1 Each PO DAILY 12/26/15 Reported Metformin Hcl 1,000 Mg Tablet 1 Tab PO DAILY 12/26/15 Reported Omeprazole 20 Mg Tablet.dr 1 Tab PO BID 07/25/14 Reported Mirtazapine 30 Mg Tablet 1 Tab PO QHS 07/25/14 Reported Gemfibrozil 600 Mg Tablet 600 Mg PO BID 08/29/13 Reported Carvedilol 12.5 Mg Tablet 12.5 Mg PO BID 08/29/13 Reported Buspirone Hcl 15 Mg Tablet 15 Mg PO BID 08/29/13 Reported Amlodipine Besylate 10 Mg Tablet 10 Mg PO DAILY 08/29/13 Reported Impression . 1. Progressive dyspnea secondary to acute exacerbation of asthma. 2. Possible microaspiration. 3. Acute nonspecific bronchitis. 4. Acute renal failure. 5. Chronic diastolic heart failure. 6. Type 2 diabetes. 7. Chronic kidney disease. 8. History of nasal polyps. 9. Gastroesophageal reflux. 10. Complete opacification of the left maxillary sinus and slight opacification of the left sphenoid sinus compatible with sinusitis. Plan . 1. Suspect most of the patient's symptoms are related to reflux and postnasal drainage along with the possibility micro aspiration. 2. treat sinuitis with doxy an steroids add Flonase 3. Avoid caffeinated beverages, mints and chocolates. 4. Continue nebulized treatments. 5. Phenergan with codeine. ESTER TOLENTINO MD November 18, 2016 12:22
[2016-11-18] MEDS ORDERED: POTASSIUM CHLORIDE 20 MEQ TABLET.ER. PO ONE (14:30)
--- NOTE | 2016-11-18 14:30 | PDOC ---
PROGRESS NOTES Chief Complaint Chief Complaint cc: cough A/P ENRIQUE POA DUE TO VMN Intractable cough, possible viral bronchitis, old records reviewed, no aspiration in vedioswallow CHF, diastolic stable Sleep Apnea, on CPAP DM HTN intermittent palpitation ? ? AFIB Plan Cardizem on doxycycline periodic nebulization cardiology and pulmonology followoing labs reviewed, OAC per cardiology, Vitals Vitals Vital Signs Date Time Temp Pulse Resp B/P (MAP) Pulse Ox O2 Delivery O2 Flow Rate FiO2 11/18/16 14:04 92 Room Air 2.0 11/18/16 12:58 20 11/18/16 11:02 70 180/87 11/18/16 11:00 98.2 98.2 Physical Exam General: Alert, Oriented X3, Cooperative Heart: Normal S1, Normal S2 Lungs: Clear Abdomen: Normal bowel sounds, Soft Extremities: No clubbing, No edema Skin: No rashes, No significant lesion Labs LABS Laboratory Tests Test 11/17/16 17:00 11/17/16 21:37 11/18/16 03:45 11/18/16 07:22 Glucose (Fingerstick) 106 mg/dL (70-99) 116 mg/dL (70-99) 101 mg/dL (70-99) Sodium Level 145 mmol/L (136-145) Potassium Level 3.4 mmol/L (3.5-5.1) Chloride Level 103 mmol/L (98-107) Carbon Dioxide Level 32 mmol/L (21-32) Anion Gap 10 (6-14) Blood Urea Nitrogen 29 mg/dL (7-20) Creatinine 1.2 mg/dL (0.6-1.0) Estimated GFR (Cockcroft-Gault) 44.0 Glucose Level 116 mg/dL (70-99) Calcium Level 8.6 mg/dL (8.5-10.1) Test 11/18/16 11:48 Glucose (Fingerstick) 140 mg/dL (70-99) Assessment and Plan Assessmemt and Plan Problems Medical Problems: (1) Chest pain Status: Acute (2) Hypoxia Status: Acute (3) SOB (shortness of breath) Status: Acute Problems: Comment Review of Relevant I have reviewed the following items jassi (where applicable) has been applied. Labs Laboratory Tests Test 11/16/16 21:11 11/17/16 05:11 11/17/16 06:20 11/17/16 07:40 Glucose (Fingerstick) 130 mg/dL (70-99) 109 mg/dL (70-99) Urine Collection Type Unknown Urine Color Yellow Urine Clarity Clear Urine pH 6.0 Urine Specific [place] 1.010 Urine Protein Negative mg/dL (NEG-TRACE) Urine Glucose (UA) Negative mg/dL (NEG) Urine Ketones (Stick) Negative mg/dL (NEG) Urine Blood Negative (NEG) Urine Nitrite Negative (NEG) Urine Bilirubin Negative (NEG) Urine Urobilinogen Dipstick 0.2 mg/dL (0.2 mg/dL) Urine Leukocyte Esterase Negative (NEG) Urine RBC 0 /HPF (0-2) Urine WBC Occ /HPF (0-4) Urine Squamous Epithelial Cells Few /LPF Urine Bacteria 0 /HPF (0-FEW) Sodium Level 146 mmol/L (136-145) Potassium Level 4.1 mmol/L (3.5-5.1) Chloride Level 105 mmol/L (98-107) Carbon Dioxide Level 30 mmol/L (21-32) Anion Gap 11 (6-14) Blood Urea Nitrogen 23 mg/dL (7-20) Creatinine 1.0 mg/dL (0.6-1.0) Estimated GFR (Cockcroft-Gault) 54.3 Glucose Level 113 mg/dL (70-99) Calcium Level 8.8 mg/dL (8.5-10.1) Test 11/17/16 11:25 11/17/16 17:00 11/17/16 21:37 11/18/16 03:45 Glucose (Fingerstick) 111 mg/dL (70-99) 106 mg/dL (70-99) 116 mg/dL (70-99) Sodium Level 145 mmol/L (136-145) Potassium Level 3.4 mmol/L (3.5-5.1) Chloride Level 103 mmol/L (98-107) Carbon Dioxide Level 32 mmol/L (21-32) Anion Gap 10 (6-14) Blood Urea Nitrogen 29 mg/dL (7-20) Creatinine 1.2 mg/dL (0.6-1.0) Estimated GFR (Cockcroft-Gault) 44.0 Glucose Level 116 mg/dL (70-99) Calcium Level 8.6 mg/dL (8.5-10.1) Test 11/18/16 07:22 11/18/16 11:48 Glucose (Fingerstick) 101 mg/dL (70-99) 140 mg/dL (70-99) Laboratory Tests Test 11/17/16 17:00 11/17/16 21:37 11/18/16 03:45 11/18/16 07:22 Glucose (Fingerstick) 106 mg/dL (70-99) 116 mg/dL (70-99) 101 mg/dL (70-99) Sodium Level 145 mmol/L (136-145) Potassium Level 3.4 mmol/L (3.5-5.1) Chloride Level 103 mmol/L (98-107) Carbon Dioxide Level 32 mmol/L (21-32) Anion Gap 10 (6-14) Blood Urea Nitrogen 29 mg/dL (7-20) Creatinine 1.2 mg/dL (0.6-1.0) Estimated GFR (Cockcroft-Gault) 44.0 Glucose Level 116 mg/dL (70-99) Calcium Level 8.6 mg/dL (8.5-10.1) Test 11/18/16 11:48 Glucose (Fingerstick) 140 mg/dL (70-99) Microbiology 11/15/16 Blood Culture - Preliminary, Resulted NO GROWTH AFTER 2 DAYS 11/15/16 Throat Culture - Preliminary, Resulted 11/15/16 - Preliminary, Resulted Medications Current Medications Sodium Chloride (Normal Saline Flush) 10 ml 1X ONCE IV ; Start 11/15/16 at 19: 00; Stop 11/15/16 at 19:01; Status DC Sodium Chloride 1,000 ml @ 1,000 mls/hr Q1H IV Last administered on 11/15/16 19:27; Start 11/15/16 at 18:50; Stop 11/15/16 at 19:49; Status DC Albuterol/ Ipratropium (Duoneb) 3 ml 1X ONCE NEB Last administered on 19:15; Start 11/15/16 at 19:00; Stop 11/15/16 at 19:01; Status DC Methylprednisolone Sodium Succinate (SOLU-Medrol 125MG VIAL) 125 mg 1X ONCE IV Last administered on 11/15/16 19:27; Start 11/15/16 at 19:00; Stop 11/15/16 at 19:01; Status DC Fentanyl Citrate (Fentanyl 2ml Vial) 50 mcg 1X ONCE IV Last administered on 19:31; Start 11/15/16 at 19:00; Stop 11/15/16 at 19:01; Status DC Hydromorphone HCl (Dilaudid) 0.5 mg 1X ONCE IV Last administered on 11/15/16 21:48; Start 11/15/16 at 21:15; Stop 11/15/16 at 21:16; Status DC Albuterol/ Ipratropium (Duoneb) 3 ml 1X ONCE NEB Last administered on 21:36; Start 11/15/16 at 21:15; Stop 11/15/16 at 21:16; Status DC Albuterol Sulfate (Ventolin Neb Soln) 10 mg 1X ONCE CONT NEB Last administered on 11/15/16 21:35; Start 11/15/16 at 21:15; Stop 11/15/16 at 21:16 ; Status DC Ondansetron HCl (Zofran) 4 mg PRN Q8HRS PRN IV NAUSEA/VOMITING; Start 11/15/16 at 21:15; Stop 11/16/16 at 21:14; Status DC Fentanyl Citrate (Fentanyl 2ml Vial) 50 mcg PRN Q2HR PRN IV PAIN; Start at 21:15; Stop 11/16/16 at 21:14; Status DC Sodium Chloride 1,000 ml @ 100 mls/hr Q10H IV Last administered on 11/16/16 08:56; Start 11/15/16 at 21:15; Stop 11/16/16 at 18:12; Status DC Acetaminophen (Tylenol) 650 mg PRN Q4HRS PRN PO FEVER Last administered on 11/16 10:01; Start 11/15/16 at 21:15; Stop 11/16/16 at 21:14; Status DC Albuterol/ Ipratropium (Duoneb) 3 ml RTQID NEB ; Start 11/16/16 at 08:00; Stop 11/16/16 at 08:00; Status DC Guaifenesin/ Codeine Phosphate (Robitussin Ac) 10 ml ONCE ONCE PO Last administered on 11/15/16 21:49; Start 11/15/16 at 21:45; Stop 11/15/16 at 21:46 ; Status DC Albuterol/ Ipratropium (Duoneb) 3 ml Q4HRS W/A NEB Last administered on 19:36; Start 11/15/16 at 22:00; Stop 11/16/16 at 21:59; Status DC Budesonide (Pulmicort) 0.5 mg 1X ONCE NEB ; Start 11/15/16 at 22:00; Stop 11/15 at 22:01; Status DC Budesonide (Pulmicort) 0.5 mg RTBID NEB Last administered on 11/18/16 07:55; Start 11/16/16 at 08:00 Enoxaparin Sodium (Lovenox Per Pharmacy Prophylaxis Dosing) 1 each PRN DAILY PRN MC SEE COMMENTS; Start 11/15/16 at 22:15 Enoxaparin Sodium (Lovenox 30mg Syringe) 30 mg DAILY SQ Last administered on 08:53; Start 11/16/16 at 09:00; Stop 11/16/16 at 13:05; Status DC Guaifenesin (Robitussin Dm) 10 ml PRN Q6HRS PRN PO COUGH Last administered on 08:52; Start 11/16/16 at 01:45; Stop 11/16/16 at 19:04; Status DC Guaifenesin/ Codeine Phosphate (Robitussin Ac) 5 ml PRN Q6HRS PRN PO COUGH Last administered on 11/16/16 14:47; Start 11/16/16 at 12:45; Stop 11/16/16 at 19:41; Status DC Amlodipine Besylate (Norvasc) 10 mg DAILY PO Last administered on 11/18/16 09: 00; Start 11/16/16 at 13:00 Aspirin (Ecotrin) 81 mg DAILYWBKFT PO Last administered on 11/18/16 09:02; Start 11/16/16 at 13:00 Carvedilol (Coreg) 12.5 mg BIDWMEALS PO Last administered on 11/18/16 09:01; Start 11/16/16 at 13:00 Ferrous Sulfate (Feosol) 325 mg BIDWMEALS PO Last administered on 11/18/16 09: 01; Start 11/16/16 at 13:00 Furosemide (Lasix) 20 mg DAILY PO Last administered on 11/18/16 09:00; Start 11/16/16 at 13:00 Gabapentin (Neurontin) 600 mg TID PO Last administered on 11/18/16 12:54; Start 11/16/16 at 14:00 Gemfibrozil (Lopid) 600 mg BID PO Last administered on 11/18/16 09:00; Start 11/16/16 at 13:00 Acetaminophen/ Hydrocodone Bitart (Lortab 7.5/325) 1 tab PRN Q6HRS PRN PO PAIN Last administered on 11/18/16 12:58; Start 11/16/16 at 12:45 Levothyroxine Sodium (Synthroid) 50 mcg DAILY07 PO Last administered on 06:41; Start 11/16/16 at 13:00 Metformin HCl (Glucophage) 1,000 mg DAILYWBKFT PO Last administered on 09:01; Start 11/16/16 at 13:00 Budesonide (Entocort) 9 mg QTUTHSA@0900 PO Last administered on 11/17/16 12:42 ; Start 11/17/16 at 09:00 Buspirone HCl (Buspar) 15 mg BID PO Last administered on 11/18/16 09:01; Start 11/16/16 at 13:00 Non-Formulary Medication 5 mg QHS PO ; Start 11/16/16 at 21:00; Status UNV Mirtazapine (Remeron) 30 mg QHS PO Last administered on 11/17/16 19:57; Start 11/16/16 at 21:00 Oxybutynin Chloride (Ditropan) 5 mg BID PO Last administered on 11/18/16 09:02 ; Start 11/16/16 at 14:00 Potassium Chloride (Klor-Con) 10 meq DAILYWBKFT PO Last administered on 09:00; Start 11/16/16 at 13:00 Guaifenesin/ Codeine Phosphate (Robitussin Ac) 5 ml PRN Q6HRS PRN PO COUGH; Start 11/16/16 at 13:00; Stop 11/16/16 at 18:34; Status DC Enoxaparin Sodium (Lovenox 40mg Syringe) 40 mg Q12H SQ Last administered on 09:02; Start 11/16/16 at 21:00 Guaifenesin (Robitussin Dm) 10 ml PRN Q6HRS PRN PO COUGH, 1ST CHOICE; Start at 19:15 Guaifenesin/ Codeine Phosphate (Robitussin Ac) 5 ml PRN Q4HRS PRN PO COUGH, 2ND CHOICE Last administered on 11/18/16 12:53; Start 11/16/16 at 19:45 Benzonatate (Tessalon Perle) 100 mg TID PO Last administered on 11/18/16 12:54 ; Start 11/16/16 at 21:00 Sodium Chloride 1,000 ml @ 75 mls/hr [id number] IV Last administered on 01:05; Start 11/17/16 at 11:45 Acetaminophen (Tylenol) 650 mg PRN Q6HRS PRN PO FEVER Last administered on 11/18 09:45; Start 11/17/16 at 12:00 Ondansetron HCl (Zofran) 4 mg PRN Q6HRS PRN IV NAUSEA/VOMITING; Start 11/17/16 at 12:00 Albuterol/ Ipratropium (Duoneb) 3 ml RTQID NEB Last administered on 11/18/16 11:39; Start 11/17/16 at 12:00 Albuterol Sulfate (Ventolin Neb Soln) 2.5 mg PRN Q4HRS PRN NEB SHORTNESS OF BREATH; Start 11/17/16 at 12:00 Doxycycline Hyclate (Vibra-Tab) 100 mg BID PO Last administered on 11/18/16 09 :02; Start 11/17/16 at 18:00 Fluticasone Propionate (Flonase) 2 spray DAILY NS ; Start 11/18/16 at 09:00 Diltiazem HCl 125 mg/Dextrose 125 ml @ 0 mls/hr CONT PRN IV SEE I/O RECORD; Start 11/17/16 at 23:15 Diltiazem HCl (Cardizem) 10 mg 1X ONCE IVP ; Start 11/17/16 at 23:15; Stop at 23:16; Status DC Diltiazem HCl (Cardizem) 5 mg 1X ONCE IVP Last administered on 11/18/16 01:54 ; Start 11/18/16 at 00:45; Stop 11/18/16 at 00:46; Status DC Diltiazem HCl (Cardizem 24hr Cd) 180 mg DAILY PO Last administered on 11:02; Start 11/18/16 at 11:00 Active Scripts Active [Codeine Phosphate/Guaifenesin] 5 ML Liquid 5 Ml PO PRN Q4HRS PRN Benzonatate 100 Mg Capsule 100 Mg PO TID Reported Uceris (Budesonide) 9 Mg Tabdr...er 9 Mg PO QTUTHSA Furosemide 20 Mg Tablet 1 Tab PO DAILY Ferrous Sulfate 325 Mg Tablet 1 Tab PO BID Cymbalta (Duloxetine Hcl) 60 Mg Capsule. 1 Cap PO BID Meloxicam 7.5 Mg Tablet 1 Tab PO BID Vitamin E (Vitamin E Acid Succinate) 100 Unit Tablet 100 Unit PO Krill Oil 1,000 Mg Softgel (Krill/Om3/Dha/Epa/Om6/Lip/Astx) 1 Each Capsule 1 Each PO Biotin 1 Mg Capsule 10,000 Mg PO DAILY Aspir 81 (Aspirin) 81 Mg Tablet. 1 Tab PO DAILY Potassium Chloride 10 Meq Capsule.er 10 Meq PO DAILY Cyanocobalamin Injection (Cyanocobalamin (Vitamin B-12)) 1,000 Mcg/1 Ml Vial 1 Ml IM QOMONTH Tizanidine Hcl 4 Mg Tablet 4 Mg PO TID PRN Hydrocodone-Apap 7.5-325 (Hydrocodone Bit/Acetaminophen) 1 Each Tablet 1 Tab PO PRN Q6HRS PRN Ditropan Xl (Oxybutynin Chloride) 10 Mg Tab.er.24 1 Tab PO DAILY Melatonin 5 Mg Tablet 5 Mg PO QHS Neurontin (Gabapentin) 300 Mg Capsule 600 Mg PO TID Levothyroxine Sodium 50 Mcg Tablet 1 Tab PO DAILY Preservision Lutein Softgel (Vit C/Narda Ac/Lut/Copper/Znox) 1 Each Capsule 1 Each PO DAILY Metformin Hcl 1,000 Mg Tablet 1 Tab PO DAILY Omeprazole 20 Mg Tablet.dr 1 Tab PO BID Mirtazapine 30 Mg Tablet 1 Tab PO QHS Gemfibrozil 600 Mg Tablet 600 Mg PO BID Carvedilol 12.5 Mg Tablet 12.5 Mg PO BID Buspirone Hcl 15 Mg Tablet 15 Mg PO BID Amlodipine Besylate 10 Mg Tablet 10 Mg PO DAILY Vitals/I & O Vital Sign - Last 24 Hours 11/17/16 11/17/16 11/17/16 11/17/16 15:33 17:50 17:51 18:50 Pulse 89 Resp 18 19 B/P (MAP) 137/63 Pulse Ox 93 O2 Delivery Room Air Room Air O2 Flow Rate 3.0 11/17/16 11/17/16 11/17/16 11/17/16 19:00 19:28 19:30 20:00 Temp 96.3 96.3 Pulse 86 Resp 18 B/P (MAP) 145/64 (91) Pulse Ox 92 93 93 O2 Delivery Nasal Cannula Room Air Room Air Room Air O2 Flow Rate 3.0 11/17/16 11/17/16 11/18/16 11/18/16 23:00 23:15 01:53 01:54 Temp 98.3 98.3 Pulse 89 89 76 Resp 18 B/P (MAP) 107/63 (78) 107/63 147/71 Pulse Ox 93 93 O2 Delivery Nasal Cannula BiPAP/CPAP O2 Flow Rate 3.0 2.0 11/18/16 11/18/16 11/18/16 11/18/16 02:13 03:08 07:00 07:55 Temp 98.0 97.7 98.0 97.7 Pulse 68 70 Resp 18 18 B/P (MAP) 146/71 (96) 180/87 (118) Pulse Ox 93 94 O2 Delivery Nasal Cannula Room Air Nasal Cannula Room Air O2 Flow Rate 3.0 2.0 3.0 11/18/16 11/18/16 11/18/16 11/18/16 08:15 09:00 09:01 11:00 Temp 98.2 98.2 Pulse 70 70 78 Resp 18 B/P (MAP) 180/87 180/87 130/58 (82) Pulse Ox 92 O2 Delivery Room Air Room Air O2 Flow Rate 2.0 11/18/16 11/18/16 11/18/16 11/18/16 11:02 11:40 12:58 14:04 Pulse 70 Resp 20 B/P (MAP) 180/87 Pulse Ox 92 O2 Delivery Room Air Room Air Room Air O2 Flow Rate 2.0 Intake and Output 11/17/16 11/17/16 11/18/16 15:00 23:00 07:00 Intake Total 860 ml 1546 ml Output Total 1100 ml 300 ml Balance -240 ml 1246 ml BRENNON NOVA MD November 18, 2016 14:29
[2016-11-18 15:00] VITALS: BP 146/85
[2016-11-18] MEDS: guaiFENesin DM 200MG/20MG 10 ML SYRUP PO PRN (17:48)
[2016-11-18] MEDS ORDERED: HYDROcodone/APAP 7.5/325MG 1 TAB TABLET PO ONE (18:15)
--- NOTE | 2016-11-18 19:02 | PDOC ---
PROGRESS NOTES Subjective Subjective The patient had several episodes of severe coughing and she went into atrial fibrillation with a rapid ventricular response, the rate was over 150. The patient was also having chest pains with the coughing. Without the coughing she does not have chest pains. She was given a bolus of IV Cardizem and she converted to sinus rhythm. She has been in sinus rhythm since last night. Patient is in sinus rhythm today Objective Objective Vital Signs Date Time Temp Pulse Resp B/P (MAP) Pulse Ox O2 Delivery O2 Flow Rate FiO2 11/18/16 18:27 92 Room Air 2.0 11/18/16 17:48 75 146/85 11/18/16 15:00 98.4 18 98.4 Intake and Output 11/18/16 07:00 Intake Total 2406 ml Output Total 1400 ml Balance 1006 ml Intake Oral 1460 ml IV Total 946 ml Output Urine Total 1400 ml # Voids 2 # Bowel Movements 1 Physical Exam Physical Exam No significant changes in cardiac exam Assessment Assessment The patient was pulled and appears to be stable. I will start her on by mouth Cardizem and see how she does. Her chest pain does not seem to be cardiac. Comment Review of Relevant I have reviewed the following items jassi (where applicable) has been applied. Labs Laboratory Tests Test 11/16/16 21:11 11/17/16 05:11 11/17/16 06:20 11/17/16 07:40 Glucose (Fingerstick) 130 mg/dL (70-99) 109 mg/dL (70-99) Urine Collection Type Unknown Urine Color Yellow Urine Clarity Clear Urine pH 6.0 Urine Specific [place] 1.010 Urine Protein Negative mg/dL (NEG-TRACE) Urine Glucose (UA) Negative mg/dL (NEG) Urine Ketones (Stick) Negative mg/dL (NEG) Urine Blood Negative (NEG) Urine Nitrite Negative (NEG) Urine Bilirubin Negative (NEG) Urine Urobilinogen Dipstick 0.2 mg/dL (0.2 mg/dL) Urine Leukocyte Esterase Negative (NEG) Urine RBC 0 /HPF (0-2) Urine WBC Occ /HPF (0-4) Urine Squamous Epithelial Cells Few /LPF Urine Bacteria 0 /HPF (0-FEW) Sodium Level 146 mmol/L (136-145) Potassium Level 4.1 mmol/L (3.5-5.1) Chloride Level 105 mmol/L (98-107) Carbon Dioxide Level 30 mmol/L (21-32) Anion Gap 11 (6-14) Blood Urea Nitrogen 23 mg/dL (7-20) Creatinine 1.0 mg/dL (0.6-1.0) Estimated GFR (Cockcroft-Gault) 54.3 Glucose Level 113 mg/dL (70-99) Calcium Level 8.8 mg/dL (8.5-10.1) Test 11/17/16 11:25 11/17/16 17:00 11/17/16 20:06 11/17/16 21:37 Glucose (Fingerstick) 111 mg/dL (70-99) 106 mg/dL (70-99) 116 mg/dL (70-99) Nasal Screen MRSA (PCR) Positive (Negative) Test 11/18/16 03:45 11/18/16 07:22 11/18/16 11:48 11/18/16 16:53 Sodium Level 145 mmol/L (136-145) Potassium Level 3.4 mmol/L (3.5-5.1) Chloride Level 103 mmol/L (98-107) Carbon Dioxide Level 32 mmol/L (21-32) Anion Gap 10 (6-14) Blood Urea Nitrogen 29 mg/dL (7-20) Creatinine 1.2 mg/dL (0.6-1.0) Estimated GFR (Cockcroft-Gault) 44.0 Glucose Level 116 mg/dL (70-99) Calcium Level 8.6 mg/dL (8.5-10.1) Thyroid Stimulating Hormone (TSH) 0.708 uIU/mL (0.358-3.74) Glucose (Fingerstick) 101 mg/dL (70-99) 140 mg/dL (70-99) 126 mg/dL (70-99) Laboratory Tests Test 11/17/16 20:06 11/17/16 21:37 11/18/16 03:45 11/18/16 07:22 Nasal Screen MRSA (PCR) Positive (Negative) Glucose (Fingerstick) 116 mg/dL (70-99) 101 mg/dL (70-99) Sodium Level 145 mmol/L (136-145) Potassium Level 3.4 mmol/L (3.5-5.1) Chloride Level 103 mmol/L (98-107) Carbon Dioxide Level 32 mmol/L (21-32) Anion Gap 10 (6-14) Blood Urea Nitrogen 29 mg/dL (7-20) Creatinine 1.2 mg/dL (0.6-1.0) Estimated GFR (Cockcroft-Gault) 44.0 Glucose Level 116 mg/dL (70-99) Calcium Level 8.6 mg/dL (8.5-10.1) Thyroid Stimulating Hormone (TSH) 0.708 uIU/mL (0.358-3.74) Test 11/18/16 11:48 11/18/16 16:53 Glucose (Fingerstick) 140 mg/dL (70-99) 126 mg/dL (70-99) Microbiology 11/15/16 Blood Culture - Preliminary, Resulted NO GROWTH AFTER 2 DAYS 11/15/16 Throat Culture - Final, Complete 11/15/16 - Final, Complete Medications Current Medications Sodium Chloride (Normal Saline Flush) 10 ml 1X ONCE IV ; Start 11/15/16 at 19: 00; Stop 11/15/16 at 19:01; Status DC Sodium Chloride 1,000 ml @ 1,000 mls/hr Q1H IV Last administered on 11/15/16 19:27; Start 11/15/16 at 18:50; Stop 11/15/16 at 19:49; Status DC Albuterol/ Ipratropium (Duoneb) 3 ml 1X ONCE NEB Last administered on 19:15; Start 11/15/16 at 19:00; Stop 11/15/16 at 19:01; Status DC Methylprednisolone Sodium Succinate (SOLU-Medrol 125MG VIAL) 125 mg 1X ONCE IV Last administered on 11/15/16 19:27; Start 11/15/16 at 19:00; Stop 11/15/16 at 19:01; Status DC Fentanyl Citrate (Fentanyl 2ml Vial) 50 mcg 1X ONCE IV Last administered on 19:31; Start 11/15/16 at 19:00; Stop 11/15/16 at 19:01; Status DC Hydromorphone HCl (Dilaudid) 0.5 mg 1X ONCE IV Last administered on 11/15/16 21:48; Start 11/15/16 at 21:15; Stop 11/15/16 at 21:16; Status DC Albuterol/ Ipratropium (Duoneb) 3 ml 1X ONCE NEB Last administered on 21:36; Start 11/15/16 at 21:15; Stop 11/15/16 at 21:16; Status DC Albuterol Sulfate (Ventolin Neb Soln) 10 mg 1X ONCE CONT NEB Last administered on 11/15/16 21:35; Start 11/15/16 at 21:15; Stop 11/15/16 at 21:16 ; Status DC Ondansetron HCl (Zofran) 4 mg PRN Q8HRS PRN IV NAUSEA/VOMITING; Start 11/15/16 at 21:15; Stop 11/16/16 at 21:14; Status DC Fentanyl Citrate (Fentanyl 2ml Vial) 50 mcg PRN Q2HR PRN IV PAIN; Start at 21:15; Stop 11/16/16 at 21:14; Status DC Sodium Chloride 1,000 ml @ 100 mls/hr Q10H IV Last administered on 11/16/16 08:56; Start 11/15/16 at 21:15; Stop 11/16/16 at 18:12; Status DC Acetaminophen (Tylenol) 650 mg PRN Q4HRS PRN PO FEVER Last administered on 11/16 10:01; Start 11/15/16 at 21:15; Stop 11/16/16 at 21:14; Status DC Albuterol/ Ipratropium (Duoneb) 3 ml RTQID NEB ; Start 11/16/16 at 08:00; Stop 11/16/16 at 08:00; Status DC Guaifenesin/ Codeine Phosphate (Robitussin Ac) 10 ml ONCE ONCE PO Last administered on 11/15/16 21:49; Start 11/15/16 at 21:45; Stop 11/15/16 at 21:46 ; Status DC Albuterol/ Ipratropium (Duoneb) 3 ml Q4HRS W/A NEB Last administered on 19:36; Start 11/15/16 at 22:00; Stop 11/16/16 at 21:59; Status DC Budesonide (Pulmicort) 0.5 mg 1X ONCE NEB ; Start 11/15/16 at 22:00; Stop 11/15 at 22:01; Status DC Budesonide (Pulmicort) 0.5 mg RTBID NEB Last administered on 11/18/16 07:55; Start 11/16/16 at 08:00 Enoxaparin Sodium (Lovenox Per Pharmacy Prophylaxis Dosing) 1 each PRN DAILY PRN MC SEE COMMENTS; Start 11/15/16 at 22:15 Enoxaparin Sodium (Lovenox 30mg Syringe) 30 mg DAILY SQ Last administered on 08:53; Start 11/16/16 at 09:00; Stop 11/16/16 at 13:05; Status DC Guaifenesin (Robitussin Dm) 10 ml PRN Q6HRS PRN PO COUGH Last administered on 08:52; Start 11/16/16 at 01:45; Stop 11/16/16 at 19:04; Status DC Guaifenesin/ Codeine Phosphate (Robitussin Ac) 5 ml PRN Q6HRS PRN PO COUGH Last administered on 11/16/16 14:47; Start 11/16/16 at 12:45; Stop 11/16/16 at 19:41; Status DC Amlodipine Besylate (Norvasc) 10 mg DAILY PO Last administered on 11/18/16 09: 00; Start 11/16/16 at 13:00 Aspirin (Ecotrin) 81 mg DAILYWBKFT PO Last administered on 11/18/16 09:02; Start 11/16/16 at 13:00 Carvedilol (Coreg) 12.5 mg BIDWMEALS PO Last administered on 11/18/16 17:48; Start 11/16/16 at 13:00 Ferrous Sulfate (Feosol) 325 mg BIDWMEALS PO Last administered on 11/18/16 17: 47; Start 11/16/16 at 13:00 Furosemide (Lasix) 20 mg DAILY PO Last administered on 11/18/16 09:00; Start 11/16/16 at 13:00 Gabapentin (Neurontin) 600 mg TID PO Last administered on 11/18/16 12:54; Start 11/16/16 at 14:00 Gemfibrozil (Lopid) 600 mg BID PO Last administered on 11/18/16 09:00; Start 11/16/16 at 13:00 Acetaminophen/ Hydrocodone Bitart (Lortab 7.5/325) 1 tab PRN Q6HRS PRN PO PAIN Last administered on 11/18/16 12:58; Start 11/16/16 at 12:45 Levothyroxine Sodium (Synthroid) 50 mcg DAILY07 PO Last administered on 06:41; Start 11/16/16 at 13:00 Metformin HCl (Glucophage) 1,000 mg DAILYWBKFT PO Last administered on 09:01; Start 11/16/16 at 13:00 Budesonide (Entocort) 9 mg QTUTHSA@0900 PO Last administered on 11/17/16 12:42 ; Start 11/17/16 at 09:00 Buspirone HCl (Buspar) 15 mg BID PO Last administered on 11/18/16 09:01; Start 11/16/16 at 13:00 Non-Formulary Medication 5 mg QHS PO ; Start 11/16/16 at 21:00; Status UNV Mirtazapine (Remeron) 30 mg QHS PO Last administered on 11/17/16 19:57; Start 11/16/16 at 21:00 Oxybutynin Chloride (Ditropan) 5 mg BID PO Last administered on 11/18/16 09:02 ; Start 11/16/16 at 14:00 Potassium Chloride (Klor-Con) 10 meq DAILYWBKFT PO Last administered on 09:00; Start 11/16/16 at 13:00 Guaifenesin/ Codeine Phosphate (Robitussin Ac) 5 ml PRN Q6HRS PRN PO COUGH; Start 11/16/16 at 13:00; Stop 11/16/16 at 18:34; Status DC Enoxaparin Sodium (Lovenox 40mg Syringe) 40 mg Q12H SQ Last administered on 09:02; Start 11/16/16 at 21:00 Guaifenesin (Robitussin Dm) 10 ml PRN Q6HRS PRN PO COUGH, 1ST CHOICE Last administered on 11/18/16 17:48; Start 11/16/16 at 19:15 Guaifenesin/ Codeine Phosphate (Robitussin Ac) 5 ml PRN Q4HRS PRN PO COUGH, 2ND CHOICE Last administered on 11/18/16 12:53; Start 11/16/16 at 19:45 Benzonatate (Tessalon Perle) 100 mg TID PO Last administered on 11/18/16 12:54 ; Start 11/16/16 at 21:00; Stop 11/18/16 at 18:06; Status DC Sodium Chloride 1,000 ml @ 75 mls/hr [id number] IV Last administered on 01:05; Start 11/17/16 at 11:45; Stop 11/18/16 at 14:39; Status DC Acetaminophen (Tylenol) 650 mg PRN Q6HRS PRN PO FEVER Last administered on 11/18 09:45; Start 11/17/16 at 12:00 Ondansetron HCl (Zofran) 4 mg PRN Q6HRS PRN IV NAUSEA/VOMITING; Start 11/17/16 at 12:00 Albuterol/ Ipratropium (Duoneb) 3 ml RTQID NEB Last administered on 11/18/16 16:03; Start 11/17/16 at 12:00 Albuterol Sulfate (Ventolin Neb Soln) 2.5 mg PRN Q4HRS PRN NEB SHORTNESS OF BREATH; Start 11/17/16 at 12:00 Doxycycline Hyclate (Vibra-Tab) 100 mg BID PO Last administered on 11/18/16 09 :02; Start 11/17/16 at 18:00 Fluticasone Propionate (Flonase) 2 spray DAILY NS ; Start 11/18/16 at 09:00 Diltiazem HCl 125 mg/Dextrose 125 ml @ 0 mls/hr CONT PRN IV SEE I/O RECORD; Start 11/17/16 at 23:15 Diltiazem HCl (Cardizem) 10 mg 1X ONCE IVP ; Start 11/17/16 at 23:15; Stop at 23:16; Status DC Diltiazem HCl (Cardizem) 5 mg 1X ONCE IVP Last administered on 11/18/16 01:54 ; Start 11/18/16 at 00:45; Stop 11/18/16 at 00:46; Status DC Diltiazem HCl (Cardizem 24hr Cd) 180 mg DAILY PO Last administered on 11:02; Start 11/18/16 at 11:00 Potassium Chloride (Klor-Con) 40 meq 1X ONCE PO Last administered on 16:05; Start 11/18/16 at 14:30; Stop 11/18/16 at 14:31; Status DC Benzonatate (Tessalon Perle) 200 mg Q6HRS PO Last administered on 11/18/16 18: 26; Start 11/18/16 at 18:06 Acetaminophen/ Hydrocodone Bitart (Lortab 7.5/325) 1 tab 1X ONCE PO Last administered on 11/18/16 18:27; Start 11/18/16 at 18:15; Stop 11/18/16 at 18:16 ; Status DC Active Scripts Active [Codeine Phosphate/Guaifenesin] 5 ML Liquid 5 Ml PO PRN Q4HRS PRN Benzonatate 100 Mg Capsule 100 Mg PO TID Reported Uceris (Budesonide) 9 Mg Tabdr...er 9 Mg PO QTUTHSA Furosemide 20 Mg Tablet 1 Tab PO DAILY Ferrous Sulfate 325 Mg Tablet 1 Tab PO BID Cymbalta (Duloxetine Hcl) 60 Mg Capsule.dr 1 Cap PO BID Meloxicam 7.5 Mg Tablet 1 Tab PO BID Vitamin E (Vitamin E Acid Succinate) 100 Unit Tablet 100 Unit PO Krill Oil 1,000 Mg Softgel (Krill/Om3/Dha/Epa/Om6/Lip/Astx) 1 Each Capsule 1 Each PO Biotin 1 Mg Capsule 10,000 Mg PO DAILY Aspir 81 (Aspirin) 81 Mg Tablet.dr 1 Tab PO DAILY Potassium Chloride 10 Meq Capsule.er 10 Meq PO DAILY Cyanocobalamin Injection (Cyanocobalamin (Vitamin B-12)) 1,000 Mcg/1 Ml Vial 1 Ml IM QOMONTH Tizanidine Hcl 4 Mg Tablet 4 Mg PO TID PRN Hydrocodone-Apap 7.5-325 (Hydrocodone Bit/Acetaminophen) 1 Each Tablet 1 Tab PO PRN Q6HRS PRN Ditropan Xl (Oxybutynin Chloride) 10 Mg Tab.er.24 1 Tab PO DAILY Melatonin 5 Mg Tablet 5 Mg PO QHS Neurontin (Gabapentin) 300 Mg Capsule 600 Mg PO TID Levothyroxine Sodium 50 Mcg Tablet 1 Tab PO DAILY Preservision Lutein Softgel (Vit C/Narda Ac/Lut/Copper/Znox) 1 Each Capsule 1 Each PO DAILY Metformin Hcl 1,000 Mg Tablet 1 Tab PO DAILY Omeprazole 20 Mg Tablet.dr 1 Tab PO BID Mirtazapine 30 Mg Tablet 1 Tab PO QHS Gemfibrozil 600 Mg Tablet 600 Mg PO BID Carvedilol 12.5 Mg Tablet 12.5 Mg PO BID Buspirone Hcl 15 Mg Tablet 15 Mg PO BID Amlodipine Besylate 10 Mg Tablet 10 Mg PO DAILY Vitals/I & O Vital Sign - Last 24 Hours 11/17/16 11/17/16 11/17/16 11/17/16 19:28 19:30 20:00 23:00 Temp 98.3 98.3 Pulse 89 Resp 18 B/P (MAP) 107/63 (78) Pulse Ox 93 93 93 O2 Delivery Room Air Room Air Room Air Nasal Cannula O2 Flow Rate 3.0 11/17/16 11/18/16 11/18/16 11/18/16 23:15 01:53 01:54 02:13 Temp 98.0 98.0 Pulse 89 76 68 Resp 18 B/P (MAP) 107/63 147/71 146/71 (96) Pulse Ox 93 93 O2 Delivery BiPAP/CPAP Nasal Cannula O2 Flow Rate 2.0 3.0 11/18/16 11/18/16 11/18/16 11/18/16 03:08 07:00 07:55 08:15 Temp 97.7 97.7 Pulse 70 Resp 18 B/P (MAP) 180/87 (118) Pulse Ox 94 O2 Delivery Room Air Nasal Cannula Room Air Room Air O2 Flow Rate 2.0 3.0 2.0 11/18/16 11/18/16 11/18/16 11/18/16 09:00 09:01 11:00 11:02 Temp 98.2 98.2 Pulse 70 70 78 70 Resp 18 B/P (MAP) 180/87 180/87 130/58 (82) 180/87 Pulse Ox 92 O2 Delivery Room Air 11/18/16 11/18/16 11/18/16 11/18/16 11:40 12:58 14:04 15:00 Temp 98.4 98.4 Pulse 75 Resp 20 18 B/P (MAP) 146/85 (105) Pulse Ox 92 92 O2 Delivery Room Air Room Air Room Air BiPAP/CPAP O2 Flow Rate 2.0 11/18/16 11/18/16 11/18/16 16:03 17:48 18:27 Pulse 75 B/P (MAP) 146/85 Pulse Ox 92 O2 Delivery Room Air Room Air O2 Flow Rate 2.0 Intake and Output 11/17/16 11/17/16 11/18/16 15:00 23:00 07:00 Intake Total 860 ml 1546 ml Output Total 1100 ml 300 ml Balance -240 ml 1246 ml QUENTIN RHODES MD November 18, 2016 19:02
[2016-11-18 19:25] VITALS: BP 96/63
[2016-11-18] MEDS: MIRTAZAPINE 15 MG TABLET PO SCH (20:45)
[2016-11-18 23:25] VITALS: BP 154/76
[2016-11-19 03:25] VITALS: BP 159/90
[2016-11-19] MEDS: guaiFENesin/CODEINE 100mg/10mg 5 ML LIQUID PO PRN ×3 (03:53→16:38)
[2016-11-19 04:40] LABS: CALCIUM 8.9 mg/dL (8.5-10.1); GFR 54.3; MAGNESIUM 1.5 mg/dL (1.8-2.4); POTASSIUM 3.7 mmol/L (3.5-5.1)
[2016-11-19] MEDS: BENZONATATE 100 MG CAPSULE. PO SCH ×3 (06:31→16:38)
[2016-11-19] MEDS: guaiFENesin DM 200MG/20MG 10 ML SYRUP PO PRN ×2 (06:33→13:18)
[2016-11-19] MEDS: LEVOTHYROXINE 50 MCG TABLET PO SCH (06:48)
[2016-11-19 07:00] VITALS: BP 151/72
[2016-11-19] MEDS: IPRATRPIUM/ALBUTEROL 0.5/2.5MG 3 ML NEBU. NEB SCH ×3 (08:09→16:00)
[2016-11-19] MEDS: BUDESONIDE 0.5 MG/2 ML NEBU. NEB SCH (08:09)
[2016-11-19] MEDS: FLUTICASONE 50MCG/NASAL SPRAY 16GM BOTTLE. NS SCH (09:00)
[2016-11-19] MEDS: GABAPENTIN 300 MG CAPSULE. PO SCH ×2 (09:19→13:18)
[2016-11-19] MEDS: FERROUS SULFATE 325 MG TABLET. PO SCH ×2 (09:19→16:37)
[2016-11-19] MEDS: amLODIPine BESYLATE 10 MG TABLET PO SCH (09:20)
[2016-11-19] MEDS: FUROSEMIDE 20 MG TABLET PO SCH (09:20)
[2016-11-19] MEDS: OXYBUTYNIN CHLORIDE 5 MG TABLET PO SCH (09:20)
[2016-11-19] MEDS: busPIRone 10 MG TABLET. PO SCH (09:20)
[2016-11-19] MEDS: POTASSIUM CHLORIDE 10 MEQ TABLET.ER. PO SCH (09:21)
[2016-11-19] MEDS: BUDESONIDE 3 MG CAP.ER.24H. PO SCH (09:21)
[2016-11-19] MEDS: CARVEDILOL 12.5 MG TABLET. PO SCH ×2 (09:21→16:37)
[2016-11-19] MEDS: DOXYCYCLINE HYCLATE 100 MG TABLET PO SCH (09:21)
[2016-11-19] MEDS: GEMFIBROZIL 600 MG TABLET. PO SCH (09:22)
[2016-11-19] MEDS: ASPIRIN ENTERIC COATED 81 MG TABLET.DR. PO SCH (09:22)
[2016-11-19] MEDS: ENOXAPARIN 40 MG/0.4 ML SYRINGE. SQ SCH (09:22)
[2016-11-19] MEDS: HYDROcodone/APAP 7.5/325MG 1 TAB TABLET PO PRN (10:52)
[2016-11-19 11:00] VITALS: BP 98/51
--- NOTE | 2016-11-19 11:49 | PDOC ---
Renal-Progress Notes Vitals Vitals Vital Signs Date Time Temp Pulse Resp B/P (MAP) Pulse Ox O2 Delivery O2 Flow Rate FiO2 11/19/16 10:52 92 Room Air 2.0 11/19/16 09:21 70 151/72 11/19/16 07:00 97.7 20 97.7 Weight Weight [ ] I.O. Intake and Output Intake and Output 11/19/16 07:00 Intake Total 680 ml Balance 680 ml Intake Oral 680 ml # Voids 7 # Bowel Movements 1 Labs Labs Laboratory Tests Test 11/18/16 16:53 11/18/16 21:05 11/19/16 03:25 11/19/16 08:14 Glucose (Fingerstick) 126 mg/dL (70-99) 126 mg/dL (70-99) 104 mg/dL (70-99) Sodium Level 143 mmol/L (136-145) Potassium Level 3.7 mmol/L (3.5-5.1) Chloride Level 103 mmol/L (98-107) Carbon Dioxide Level 32 mmol/L (21-32) Anion Gap 8 (6-14) Blood Urea Nitrogen 26 mg/dL (7-20) Creatinine 1.0 mg/dL (0.6-1.0) Estimated GFR (Cockcroft-Gault) 54.3 Glucose Level 118 mg/dL (70-99) Calcium Level 8.9 mg/dL (8.5-10.1) Magnesium Level 1.5 mg/dL (1.8-2.4) Test 11/19/16 11:39 Glucose (Fingerstick) 99 mg/dL (70-99) Micro Micro Microbiology 11/15/16 Blood Culture - Preliminary, Resulted NO GROWTH AFTER 3 DAYS 11/15/16 Throat Culture - Final, Complete 11/15/16 - Final, Complete Review of Systems Constitutional: yes: alert, oriented Pulmonary: Yes no symptom reported Genitourinary: Yes: no symptom reported Psychiatric/Neurological: Yes: no symptom reported Endocrine: Yes: no symptom reported Physical Exam General Appearance: no apparent distress Skin: warm Respiratory: bilateral CTA Heart: S1S2 Abdomen: soft Genitourinary: bladder flat Neurology: alert, oriented Musculoskeletal: Osteoarthritis Assessment Assessment IMP ENRIQUE-RESOLVED CHEST PAIN AND TACHYCARDIA MILD HYPERNATREMIA-RESOLVED LOW K-CORRECTED AFIB RVR PLAN I WILL SIGN OFF PLEASE CALL IF NEEDED CLEMENTE REYNOLDS MD November 19, 2016 11:49
[2016-11-19] MEDS: ACETAMINOPHEN 325 MG TABLET. PO PRN (13:17)
--- NOTE | 2016-11-19 14:02 | PDOC ---
PROGRESS NOTES Chief Complaint Chief Complaint Chest pain Cough Shortness of breath Hypoxia ENRIQUE CHF Sleep Apnea, on CPAP DM HTN AFIB History of Present Illness History of Present Illness Patient was lying in bed this am when seen No acute distress Discussed care with nurse Vitals Vitals Vital Signs Date Time Temp Pulse Resp B/P (MAP) Pulse Ox O2 Delivery O2 Flow Rate FiO2 11/19/16 12:06 91 Room Air 2.0 11/19/16 11:00 98.0 78 20 98/51 (67) 98.0 Physical Exam General: Alert, Oriented X3, Cooperative Heart: Normal S1, Normal S2 Lungs: Clear, Other (no wheezing) Abdomen: Normal bowel sounds, Soft Extremities: No clubbing, No edema Skin: No rashes, No significant lesion Labs LABS Laboratory Tests Test 11/18/16 16:53 11/18/16 21:05 11/19/16 03:25 11/19/16 08:14 Glucose (Fingerstick) 126 mg/dL (70-99) 126 mg/dL (70-99) 104 mg/dL (70-99) Sodium Level 143 mmol/L (136-145) Potassium Level 3.7 mmol/L (3.5-5.1) Chloride Level 103 mmol/L (98-107) Carbon Dioxide Level 32 mmol/L (21-32) Anion Gap 8 (6-14) Blood Urea Nitrogen 26 mg/dL (7-20) Creatinine 1.0 mg/dL (0.6-1.0) Estimated GFR (Cockcroft-Gault) 54.3 Glucose Level 118 mg/dL (70-99) Calcium Level 8.9 mg/dL (8.5-10.1) Magnesium Level 1.5 mg/dL (1.8-2.4) Test 11/19/16 11:39 Glucose (Fingerstick) 99 mg/dL (70-99) Review of Systems Review of Systems General: denies weakness GI: denies N/V/D/C Assessment and Plan Assessmemt and Plan Problems Medical Problems: (1) Chest pain Status: Acute (2) Hypoxia Status: Acute (3) SOB (shortness of breath) Status: Acute Chest pain Cough Shortness of breath Hypoxia ENRIQUE CHF Sleep Apnea, on CPAP DM HTN AFIB Plan: -Discharge ok today -Cardio ok to d/c- CP not cardiac, A.Fib converted to SR -Renal- ENRIQUE resolved- renal has signed off -Pulm- continue antibiotics, steroids, and flonase and cough medicine -Follow up with PCP in 1 week -Subspecialty input appreciated Problems: Comment Review of Relevant I have reviewed the following items jassi (where applicable) has been applied. Labs Laboratory Tests Test 11/17/16 17:00 11/17/16 20:06 11/17/16 21:37 11/18/16 03:45 Glucose (Fingerstick) 106 mg/dL (70-99) 116 mg/dL (70-99) Nasal Screen MRSA (PCR) Positive (Negative) Sodium Level 145 mmol/L (136-145) Potassium Level 3.4 mmol/L (3.5-5.1) Chloride Level 103 mmol/L (98-107) Carbon Dioxide Level 32 mmol/L (21-32) Anion Gap 10 (6-14) Blood Urea Nitrogen 29 mg/dL (7-20) Creatinine 1.2 mg/dL (0.6-1.0) Estimated GFR (Cockcroft-Gault) 44.0 Glucose Level 116 mg/dL (70-99) Calcium Level 8.6 mg/dL (8.5-10.1) Thyroid Stimulating Hormone (TSH) 0.708 uIU/mL (0.358-3.74) Test 11/18/16 07:22 11/18/16 11:48 11/18/16 16:53 11/18/16 21:05 Glucose (Fingerstick) 101 mg/dL (70-99) 140 mg/dL (70-99) 126 mg/dL (70-99) 126 mg/dL (70-99) Test 11/19/16 03:25 11/19/16 08:14 11/19/16 11:39 Sodium Level 143 mmol/L (136-145) Potassium Level 3.7 mmol/L (3.5-5.1) Chloride Level 103 mmol/L (98-107) Carbon Dioxide Level 32 mmol/L (21-32) Anion Gap 8 (6-14) Blood Urea Nitrogen 26 mg/dL (7-20) Creatinine 1.0 mg/dL (0.6-1.0) Estimated GFR (Cockcroft-Gault) 54.3 Glucose Level 118 mg/dL (70-99) Calcium Level 8.9 mg/dL (8.5-10.1) Magnesium Level 1.5 mg/dL (1.8-2.4) Glucose (Fingerstick) 104 mg/dL (70-99) 99 mg/dL (70-99) Laboratory Tests Test 11/18/16 16:53 11/18/16 21:05 11/19/16 03:25 11/19/16 08:14 Glucose (Fingerstick) 126 mg/dL (70-99) 126 mg/dL (70-99) 104 mg/dL (70-99) Sodium Level 143 mmol/L (136-145) Potassium Level 3.7 mmol/L (3.5-5.1) Chloride Level 103 mmol/L (98-107) Carbon Dioxide Level 32 mmol/L (21-32) Anion Gap 8 (6-14) Blood Urea Nitrogen 26 mg/dL (7-20) Creatinine 1.0 mg/dL (0.6-1.0) Estimated GFR (Cockcroft-Gault) 54.3 Glucose Level 118 mg/dL (70-99) Calcium Level 8.9 mg/dL (8.5-10.1) Magnesium Level 1.5 mg/dL (1.8-2.4) Test 11/19/16 11:39 Glucose (Fingerstick) 99 mg/dL (70-99) Microbiology 11/15/16 Blood Culture - Preliminary, Resulted NO GROWTH AFTER 3 DAYS 11/15/16 Throat Culture - Final, Complete 11/15/16 - Final, Complete Medications Current Medications Sodium Chloride (Normal Saline Flush) 10 ml 1X ONCE IV ; Start 11/15/16 at 19: 00; Stop 11/15/16 at 19:01; Status DC Sodium Chloride 1,000 ml @ 1,000 mls/hr Q1H IV Last administered on 11/15/16t 19:27; Start 11/15/16 at 18:50; Stop 11/15/16 at 19:49; Status DC Albuterol/ Ipratropium (Duoneb) 3 ml 1X ONCE NEB Last administered on t 19:15; Start 11/15/16 at 19:00; Stop 11/15/16 at 19:01; Status DC Methylprednisolone Sodium Succinate (SOLU-Medrol 125MG VIAL) 125 mg 1X ONCE IV Last administered on 11/15/16 19:27; Start 11/15/16 at 19:00; Stop 11/15/16 at 19:01; Status DC Fentanyl Citrate (Fentanyl 2ml Vial) 50 mcg 1X ONCE IV Last administered on 19:31; Start 11/15/16 at 19:00; Stop 11/15/16 at 19:01; Status DC Hydromorphone HCl (Dilaudid) 0.5 mg 1X ONCE IV Last administered on 11/15/16 21:48; Start 11/15/16 at 21:15; Stop 11/15/16 at 21:16; Status DC Albuterol/ Ipratropium (Duoneb) 3 ml 1X ONCE NEB Last administered on 21:36; Start 11/15/16 at 21:15; Stop 11/15/16 at 21:16; Status DC Albuterol Sulfate (Ventolin Neb Soln) 10 mg 1X ONCE CONT NEB Last administered on 11/15/16 21:35; Start 11/15/16 at 21:15; Stop 11/15/16 at 21:16 ; Status DC Ondansetron HCl (Zofran) 4 mg PRN Q8HRS PRN IV NAUSEA/VOMITING; Start 11/15/16 at 21:15; Stop 11/16/16 at 21:14; Status DC Fentanyl Citrate (Fentanyl 2ml Vial) 50 mcg PRN Q2HR PRN IV PAIN; Start at 21:15; Stop 11/16/16 at 21:14; Status DC Sodium Chloride 1,000 ml @ 100 mls/hr Q10H IV Last administered on 11/16/16 08:56; Start 11/15/16 at 21:15; Stop 11/16/16 at 18:12; Status DC Acetaminophen (Tylenol) 650 mg PRN Q4HRS PRN PO FEVER Last administered on 11/16 10:01; Start 11/15/16 at 21:15; Stop 11/16/16 at 21:14; Status DC Albuterol/ Ipratropium (Duoneb) 3 ml RTQID NEB ; Start 11/16/16 at 08:00; Stop 11/16/16 at 08:00; Status DC Guaifenesin/ Codeine Phosphate (Robitussin Ac) 10 ml ONCE ONCE PO Last administered on 11/15/16 21:49; Start 11/15/16 at 21:45; Stop 11/15/16 at 21:46 ; Status DC Albuterol/ Ipratropium (Duoneb) 3 ml Q4HRS W/A NEB Last administered on 19:36; Start 11/15/16 at 22:00; Stop 11/16/16 at 21:59; Status DC Budesonide (Pulmicort) 0.5 mg 1X ONCE NEB ; Start 11/15/16 at 22:00; Stop 11/15 at 22:01; Status DC Budesonide (Pulmicort) 0.5 mg RTBID NEB Last administered on 11/19/16 08:09; Start 11/16/16 at 08:00 Enoxaparin Sodium (Lovenox Per Pharmacy Prophylaxis Dosing) 1 each PRN DAILY PRN MC SEE COMMENTS; Start 11/15/16 at 22:15 Enoxaparin Sodium (Lovenox 30mg Syringe) 30 mg DAILY SQ Last administered on 08:53; Start 11/16/16 at 09:00; Stop 11/16/16 at 13:05; Status DC Guaifenesin (Robitussin Dm) 10 ml PRN Q6HRS PRN PO COUGH Last administered on 08:52; Start 11/16/16 at 01:45; Stop 11/16/16 at 19:04; Status DC Guaifenesin/ Codeine Phosphate (Robitussin Ac) 5 ml PRN Q6HRS PRN PO COUGH Last administered on 11/16/16 14:47; Start 11/16/16 at 12:45; Stop 11/16/16 at 19:41; Status DC Amlodipine Besylate (Norvasc) 10 mg DAILY PO Last administered on 11/19/16 09: 20; Start 11/16/16 at 13:00 Aspirin (Ecotrin) 81 mg DAILYWBKFT PO Last administered on 11/19/16 09:22; Start 11/16/16 at 13:00 Carvedilol (Coreg) 12.5 mg BIDWMEALS PO Last administered on 11/19/16 09:21; Start 11/16/16 at 13:00 Ferrous Sulfate (Feosol) 325 mg BIDWMEALS PO Last administered on 11/19/16 09: 19; Start 11/16/16 at 13:00 Furosemide (Lasix) 20 mg DAILY PO Last administered on 11/19/16 09:20; Start 11/16/16 at 13:00 Gabapentin (Neurontin) 600 mg TID PO Last administered on 11/19/16 13:18; Start 11/16/16 at 14:00 Gemfibrozil (Lopid) 600 mg BID PO Last administered on 11/19/16 09:22; Start 11/16/16 at 13:00 Acetaminophen/ Hydrocodone Bitart (Lortab 7.5/325) 1 tab PRN Q6HRS PRN PO PAIN Last administered on 11/19/16 10:52; Start 11/16/16 at 12:45 Levothyroxine Sodium (Synthroid) 50 mcg DAILY07 PO Last administered on 06:48; Start 11/16/16 at 13:00 Metformin HCl (Glucophage) 1,000 mg DAILYWBKFT PO Last administered on 09:20; Start 11/16/16 at 13:00 Budesonide (Entocort) 9 mg QTUTHSA@0900 PO Last administered on 11/19/16 09:21 ; Start 11/17/16 at 09:00 Buspirone HCl (Buspar) 15 mg BID PO Last administered on 11/19/16 09:20; Start 11/16/16 at 13:00 Non-Formulary Medication 5 mg QHS PO ; Start 11/16/16 at 21:00; Status UNV Mirtazapine (Remeron) 30 mg QHS PO Last administered on 11/18/16 20:45; Start 11/16/16 at 21:00 Oxybutynin Chloride (Ditropan) 5 mg BID PO Last administered on 11/19/16 09:20 ; Start 11/16/16 at 14:00 Potassium Chloride (Klor-Con) 10 meq DAILYWBKFT PO Last administered on 09:21; Start 11/16/16 at 13:00 Guaifenesin/ Codeine Phosphate (Robitussin Ac) 5 ml PRN Q6HRS PRN PO COUGH; Start 11/16/16 at 13:00; Stop 11/16/16 at 18:34; Status DC Enoxaparin Sodium (Lovenox 40mg Syringe) 40 mg Q12H SQ Last administered on 09:22; Start 11/16/16 at 21:00 Guaifenesin (Robitussin Dm) 10 ml PRN Q6HRS PRN PO COUGH, 1ST CHOICE Last administered on 11/19/16 13:18; Start 11/16/16 at 19:15 Guaifenesin/ Codeine Phosphate (Robitussin Ac) 5 ml PRN Q4HRS PRN PO COUGH, 2ND CHOICE Last administered on 11/19/16 09:22; Start 11/16/16 at 19:45 Benzonatate (Tessalon Perle) 100 mg TID PO Last administered on 11/18/16 12:54 ; Start 11/16/16 at 21:00; Stop 11/18/16 at 18:06; Status DC Sodium Chloride 1,000 ml @ 75 mls/hr [id number] IV Last administered on 01:05; Start 11/17/16 at 11:45; Stop 11/18/16 at 14:39; Status DC Acetaminophen (Tylenol) 650 mg PRN Q6HRS PRN PO FEVER Last administered on 11/19 13:17; Start 11/17/16 at 12:00 Ondansetron HCl (Zofran) 4 mg PRN Q6HRS PRN IV NAUSEA/VOMITING; Start 11/17/16 at 12:00 Albuterol/ Ipratropium (Duoneb) 3 ml RTQID NEB Last administered on 11/19/16 11:55; Start 11/17/16 at 12:00 Albuterol Sulfate (Ventolin Neb Soln) 2.5 mg PRN Q4HRS PRN NEB SHORTNESS OF BREATH; Start 11/17/16 at 12:00 Doxycycline Hyclate (Vibra-Tab) 100 mg BID PO Last administered on 11/19/16 09 :21; Start 11/17/16 at 18:00 Fluticasone Propionate (Flonase) 2 spray DAILY NS ; Start 11/18/16 at 09:00 Diltiazem HCl 125 mg/Dextrose 125 ml @ 0 mls/hr CONT PRN IV SEE I/O RECORD; Start 11/17/16 at 23:15 Diltiazem HCl (Cardizem) 10 mg 1X ONCE IVP ; Start 11/17/16 at 23:15; Stop at 23:16; Status DC Diltiazem HCl (Cardizem) 5 mg 1X ONCE IVP Last administered on 11/18/16 01:54 ; Start 11/18/16 at 00:45; Stop 11/18/16 at 00:46; Status DC Diltiazem HCl (Cardizem 24hr Cd) 180 mg DAILY PO Last administered on 09:19; Start 11/18/16 at 11:00 Potassium Chloride (Klor-Con) 40 meq 1X ONCE PO Last administered on 16:05; Start 11/18/16 at 14:30; Stop 11/18/16 at 14:31; Status DC Benzonatate (Tessalon Perle) 200 mg Q6HRS PO Last administered on 11/19/16 10: 51; Start 11/18/16 at 18:06 Acetaminophen/ Hydrocodone Bitart (Lortab 7.5/325) 1 tab 1X ONCE PO Last administered on 11/18/16 18:27; Start 11/18/16 at 18:15; Stop 11/18/16 at 18:16 ; Status DC Active Scripts Active [Codeine Phosphate/Guaifenesin] 5 ML Liquid 5 Ml PO PRN Q4HRS PRN Benzonatate 100 Mg Capsule 100 Mg PO TID Reported Uceris (Budesonide) 9 Mg Tabdr...er 9 Mg PO QTUTHSA Furosemide 20 Mg Tablet 1 Tab PO DAILY Ferrous Sulfate 325 Mg Tablet 1 Tab PO BID Cymbalta (Duloxetine Hcl) 60 Mg Capsule. 1 Cap PO BID Meloxicam 7.5 Mg Tablet 1 Tab PO BID Vitamin E (Vitamin E Acid Succinate) 100 Unit Tablet 100 Unit PO Krill Oil 1,000 Mg Softgel (Krill/Om3/Dha/Epa/Om6/Lip/Astx) 1 Each Capsule 1 Each PO Biotin 1 Mg Capsule 10,000 Mg PO DAILY Aspir 81 (Aspirin) 81 Mg Tablet.dr 1 Tab PO DAILY Potassium Chloride 10 Meq Capsule.er 10 Meq PO DAILY Cyanocobalamin Injection (Cyanocobalamin (Vitamin B-12)) 1,000 Mcg/1 Ml Vial 1 Ml IM QOMONTH Tizanidine Hcl 4 Mg Tablet 4 Mg PO TID PRN Hydrocodone-Apap 7.5-325 (Hydrocodone Bit/Acetaminophen) 1 Each Tablet 1 Tab PO PRN Q6HRS PRN Ditropan Xl (Oxybutynin Chloride) 10 Mg Tab.er.24 1 Tab PO DAILY Melatonin 5 Mg Tablet 5 Mg PO QHS Neurontin (Gabapentin) 300 Mg Capsule 600 Mg PO TID Levothyroxine Sodium 50 Mcg Tablet 1 Tab PO DAILY Preservision Lutein Softgel (Vit C/Narda Ac/Lut/Copper/Znox) 1 Each Capsule 1 Each PO DAILY Metformin Hcl 1,000 Mg Tablet 1 Tab PO DAILY Omeprazole 20 Mg Tablet.dr 1 Tab PO BID Mirtazapine 30 Mg Tablet 1 Tab PO QHS Gemfibrozil 600 Mg Tablet 600 Mg PO BID Carvedilol 12.5 Mg Tablet 12.5 Mg PO BID Buspirone Hcl 15 Mg Tablet 15 Mg PO BID Amlodipine Besylate 10 Mg Tablet 10 Mg PO DAILY Vitals/I & O Vital Sign - Last 24 Hours 11/18/16 11/18/16 11/18/16 11/18/16 15:00 16:03 17:48 18:27 Temp 98.4 98.4 Pulse 75 75 Resp 18 B/P (MAP) 146/85 (105) 146/85 Pulse Ox 92 92 O2 Delivery BiPAP/CPAP Room Air Room Air O2 Flow Rate 2.0 11/18/16 11/18/16 11/18/16 11/18/16 19:25 19:27 19:41 19:45 Temp 98.4 98.4 Pulse 87 Resp 22 B/P (MAP) 96/63 (74) Pulse Ox 95 92 92 O2 Delivery Room Air Room Air Room Air Room Air 11/18/16 11/18/16 11/19/16 11/19/16 20:00 23:25 03:25 07:00 Temp 98.2 98.1 97.7 98.2 98.1 97.7 Pulse 73 92 70 Resp 18 20 20 B/P (MAP) 154/76 (102) 159/90 (113) 151/72 (98) Pulse Ox 96 95 94 O2 Delivery Room Air Room Air Room Air Room Air 11/19/16 11/19/16 11/19/16 11/19/16 08:06 08:11 09:19 09:20 Pulse 70 70 B/P (MAP) 151/72 151/72 Pulse Ox 92 O2 Delivery Room Air BiPAP/CPAP 11/19/16 11/19/16 11/19/16 11/19/16 09:21 10:52 11:00 11:56 Temp 98.0 98.0 Pulse 70 78 Resp 20 B/P (MAP) 151/72 98/51 (67) Pulse Ox 92 93 91 O2 Delivery Room Air Room Air Room Air O2 Flow Rate 2.0 11/19/16 12:06 Pulse Ox 91 O2 Delivery Room Air O2 Flow Rate 2.0 Intake and Output 11/18/16 11/18/16 11/19/16 15:00 23:00 07:00 Intake Total 480 ml 200 ml Balance 480 ml 200 ml TONYA LEACH III DO November 19, 2016 14:02
[2016-11-19 15:00] VITALS: BP 125/62
[2016-11-19 16:37] VITALS: BP 125/62
[2016-11-19] MEDS ORDERED: DILT180C2 PO (16:53)
--- NOTE | 2016-11-19 17:46 | PDOC ---
PROGRESS NOTES Subjective Subjective Patient is doing better. Objective Objective Vital Signs Date Time Temp Pulse Resp B/P (MAP) Pulse Ox O2 Delivery O2 Flow Rate FiO2 11/19/16 16:37 80 125/62 11/19/16 15:00 98.2 20 86 Room Air 98.2 11/19/16 12:06 2.0 Intake and Output 11/19/16 07:00 Intake Total 680 ml Balance 680 ml Intake Oral 680 ml # Voids 7 # Bowel Movements 1 Assessment Assessment Patient is in sinus rhythm. May go home when okay with the other services. I would recommend for her to go home on Cardizem CD 180 mg by mouth daily. Comment Review of Relevant I have reviewed the following items jassi (where applicable) has been applied. Labs Laboratory Tests Test 11/17/16 20:06 11/17/16 21:37 11/18/16 03:45 11/18/16 07:22 Nasal Screen MRSA (PCR) Positive (Negative) Glucose (Fingerstick) 116 mg/dL (70-99) 101 mg/dL (70-99) Sodium Level 145 mmol/L (136-145) Potassium Level 3.4 mmol/L (3.5-5.1) Chloride Level 103 mmol/L (98-107) Carbon Dioxide Level 32 mmol/L (21-32) Anion Gap 10 (6-14) Blood Urea Nitrogen 29 mg/dL (7-20) Creatinine 1.2 mg/dL (0.6-1.0) Estimated GFR (Cockcroft-Gault) 44.0 Glucose Level 116 mg/dL (70-99) Calcium Level 8.6 mg/dL (8.5-10.1) Thyroid Stimulating Hormone (TSH) 0.708 uIU/mL (0.358-3.74) Test 11/18/16 11:48 11/18/16 16:53 11/18/16 21:05 11/19/16 03:25 Glucose (Fingerstick) 140 mg/dL (70-99) 126 mg/dL (70-99) 126 mg/dL (70-99) Sodium Level 143 mmol/L (136-145) Potassium Level 3.7 mmol/L (3.5-5.1) Chloride Level 103 mmol/L (98-107) Carbon Dioxide Level 32 mmol/L (21-32) Anion Gap 8 (6-14) Blood Urea Nitrogen 26 mg/dL (7-20) Creatinine 1.0 mg/dL (0.6-1.0) Estimated GFR (Cockcroft-Gault) 54.3 Glucose Level 118 mg/dL (70-99) Calcium Level 8.9 mg/dL (8.5-10.1) Magnesium Level 1.5 mg/dL (1.8-2.4) Test 11/19/16 08:14 11/19/16 11:39 Glucose (Fingerstick) 104 mg/dL (70-99) 99 mg/dL (70-99) Laboratory Tests Test 11/18/16 21:05 11/19/16 03:25 11/19/16 08:14 11/19/16 11:39 Glucose (Fingerstick) 126 mg/dL (70-99) 104 mg/dL (70-99) 99 mg/dL (70-99) Sodium Level 143 mmol/L (136-145) Potassium Level 3.7 mmol/L (3.5-5.1) Chloride Level 103 mmol/L (98-107) Carbon Dioxide Level 32 mmol/L (21-32) Anion Gap 8 (6-14) Blood Urea Nitrogen 26 mg/dL (7-20) Creatinine 1.0 mg/dL (0.6-1.0) Estimated GFR (Cockcroft-Gault) 54.3 Glucose Level 118 mg/dL (70-99) Calcium Level 8.9 mg/dL (8.5-10.1) Magnesium Level 1.5 mg/dL (1.8-2.4) Microbiology 11/15/16 Blood Culture - Preliminary, Resulted NO GROWTH AFTER 3 DAYS 11/15/16 Throat Culture - Final, Complete 11/15/16 - Final, Complete Medications Current Medications Sodium Chloride (Normal Saline Flush) 10 ml 1X ONCE IV ; Start 11/15/16 at 19: 00; Stop 11/15/16 at 19:01; Status DC Sodium Chloride 1,000 ml @ 1,000 mls/hr Q1H IV Last administered on 11/15/16 19:27; Start 11/15/16 at 18:50; Stop 11/15/16 at 19:49; Status DC Albuterol/ Ipratropium (Duoneb) 3 ml 1X ONCE NEB Last administered on 19:15; Start 11/15/16 at 19:00; Stop 11/15/16 at 19:01; Status DC Methylprednisolone Sodium Succinate (SOLU-Medrol 125MG VIAL) 125 mg 1X ONCE IV Last administered on 11/15/16 19:27; Start 11/15/16 at 19:00; Stop 11/15/16 at 19:01; Status DC Fentanyl Citrate (Fentanyl 2ml Vial) 50 mcg 1X ONCE IV Last administered on 19:31; Start 11/15/16 at 19:00; Stop 11/15/16 at 19:01; Status DC Hydromorphone HCl (Dilaudid) 0.5 mg 1X ONCE IV Last administered on 11/15/16 21:48; Start 11/15/16 at 21:15; Stop 11/15/16 at 21:16; Status DC Albuterol/ Ipratropium (Duoneb) 3 ml 1X ONCE NEB Last administered on 21:36; Start 11/15/16 at 21:15; Stop 11/15/16 at 21:16; Status DC Albuterol Sulfate (Ventolin Neb Soln) 10 mg 1X ONCE CONT NEB Last administered on 11/15/16 21:35; Start 11/15/16 at 21:15; Stop 11/15/16 at 21:16 ; Status DC Ondansetron HCl (Zofran) 4 mg PRN Q8HRS PRN IV NAUSEA/VOMITING; Start 11/15/16 at 21:15; Stop 11/16/16 at 21:14; Status DC Fentanyl Citrate (Fentanyl 2ml Vial) 50 mcg PRN Q2HR PRN IV PAIN; Start at 21:15; Stop 11/16/16 at 21:14; Status DC Sodium Chloride 1,000 ml @ 100 mls/hr Q10H IV Last administered on 11/16/16 08:56; Start 11/15/16 at 21:15; Stop 11/16/16 at 18:12; Status DC Acetaminophen (Tylenol) 650 mg PRN Q4HRS PRN PO FEVER Last administered on 11/16 10:01; Start 11/15/16 at 21:15; Stop 11/16/16 at 21:14; Status DC Albuterol/ Ipratropium (Duoneb) 3 ml RTQID NEB ; Start 11/16/16 at 08:00; Stop 11/16/16 at 08:00; Status DC Guaifenesin/ Codeine Phosphate (Robitussin Ac) 10 ml ONCE ONCE PO Last administered on 11/15/16 21:49; Start 11/15/16 at 21:45; Stop 11/15/16 at 21:46 ; Status DC Albuterol/ Ipratropium (Duoneb) 3 ml Q4HRS W/A NEB Last administered on 19:36; Start 11/15/16 at 22:00; Stop 11/16/16 at 21:59; Status DC Budesonide (Pulmicort) 0.5 mg 1X ONCE NEB ; Start 11/15/16 at 22:00; Stop 11/15 at 22:01; Status DC Budesonide (Pulmicort) 0.5 mg RTBID NEB Last administered on 11/19/16 08:09; Start 11/16/16 at 08:00 Enoxaparin Sodium (Lovenox Per Pharmacy Prophylaxis Dosing) 1 each PRN DAILY PRN MC SEE COMMENTS; Start 11/15/16 at 22:15 Enoxaparin Sodium (Lovenox 30mg Syringe) 30 mg DAILY SQ Last administered on 08:53; Start 11/16/16 at 09:00; Stop 11/16/16 at 13:05; Status DC Guaifenesin (Robitussin Dm) 10 ml PRN Q6HRS PRN PO COUGH Last administered on 08:52; Start 11/16/16 at 01:45; Stop 11/16/16 at 19:04; Status DC Guaifenesin/ Codeine Phosphate (Robitussin Ac) 5 ml PRN Q6HRS PRN PO COUGH Last administered on 11/16/16 14:47; Start 11/16/16 at 12:45; Stop 11/16/16 at 19:41; Status DC Amlodipine Besylate (Norvasc) 10 mg DAILY PO Last administered on 11/19/16 09: 20; Start 11/16/16 at 13:00 Aspirin (Ecotrin) 81 mg DAILYWBKFT PO Last administered on 11/19/16 09:22; Start 11/16/16 at 13:00 Carvedilol (Coreg) 12.5 mg BIDWMEALS PO Last administered on 11/19/16 16:37; Start 11/16/16 at 13:00 Ferrous Sulfate (Feosol) 325 mg BIDWMEALS PO Last administered on 11/19/16 16: 37; Start 11/16/16 at 13:00 Furosemide (Lasix) 20 mg DAILY PO Last administered on 11/19/16 09:20; Start 11/16/16 at 13:00 Gabapentin (Neurontin) 600 mg TID PO Last administered on 11/19/16 13:18; Start 11/16/16 at 14:00 Gemfibrozil (Lopid) 600 mg BID PO Last administered on 11/19/16 09:22; Start 11/16/16 at 13:00 Acetaminophen/ Hydrocodone Bitart (Lortab 7.5/325) 1 tab PRN Q6HRS PRN PO PAIN Last administered on 11/19/16 10:52; Start 11/16/16 at 12:45 Levothyroxine Sodium (Synthroid) 50 mcg DAILY07 PO Last administered on 06:48; Start 11/16/16 at 13:00 Metformin HCl (Glucophage) 1,000 mg DAILYWBKFT PO Last administered on 09:20; Start 11/16/16 at 13:00 Budesonide (Entocort) 9 mg QTUTHSA@0900 PO Last administered on 11/19/16 09:21 ; Start 11/17/16 at 09:00 Buspirone HCl (Buspar) 15 mg BID PO Last administered on 11/19/16 09:20; Start 11/16/16 at 13:00 Non-Formulary Medication 5 mg QHS PO ; Start 11/16/16 at 21:00; Status UNV Mirtazapine (Remeron) 30 mg QHS PO Last administered on 11/18/16 20:45; Start 11/16/16 at 21:00 Oxybutynin Chloride (Ditropan) 5 mg BID PO Last administered on 11/19/16 09:20 ; Start 11/16/16 at 14:00 Potassium Chloride (Klor-Con) 10 meq DAILYWBKFT PO Last administered on 09:21; Start 11/16/16 at 13:00 Guaifenesin/ Codeine Phosphate (Robitussin Ac) 5 ml PRN Q6HRS PRN PO COUGH; Start 11/16/16 at 13:00; Stop 11/16/16 at 18:34; Status DC Enoxaparin Sodium (Lovenox 40mg Syringe) 40 mg Q12H SQ Last administered on 09:22; Start 11/16/16 at 21:00 Guaifenesin (Robitussin Dm) 10 ml PRN Q6HRS PRN PO COUGH, 1ST CHOICE Last administered on 11/19/16 13:18; Start 11/16/16 at 19:15 Guaifenesin/ Codeine Phosphate (Robitussin Ac) 5 ml PRN Q4HRS PRN PO COUGH, 2ND CHOICE Last administered on 11/19/16 16:38; Start 11/16/16 at 19:45 Benzonatate (Tessalon Perle) 100 mg TID PO Last administered on 11/18/16 12:54 ; Start 11/16/16 at 21:00; Stop 11/18/16 at 18:06; Status DC Sodium Chloride 1,000 ml @ 75 mls/hr [id number] IV Last administered on 01:05; Start 11/17/16 at 11:45; Stop 11/18/16 at 14:39; Status DC Acetaminophen (Tylenol) 650 mg PRN Q6HRS PRN PO FEVER Last administered on 11/19 13:17; Start 11/17/16 at 12:00 Ondansetron HCl (Zofran) 4 mg PRN Q6HRS PRN IV NAUSEA/VOMITING; Start 11/17/16 at 12:00 Albuterol/ Ipratropium (Duoneb) 3 ml RTQID NEB Last administered on 11/19/16 11:55; Start 11/17/16 at 12:00 Albuterol Sulfate (Ventolin Neb Soln) 2.5 mg PRN Q4HRS PRN NEB SHORTNESS OF BREATH; Start 11/17/16 at 12:00 Doxycycline Hyclate (Vibra-Tab) 100 mg BID PO Last administered on 11/19/16 09 :21; Start 11/17/16 at 18:00 Fluticasone Propionate (Flonase) 2 spray DAILY NS ; Start 11/18/16 at 09:00 Diltiazem HCl 125 mg/Dextrose 125 ml @ 0 mls/hr CONT PRN IV SEE I/O RECORD; Start 11/17/16 at 23:15 Diltiazem HCl (Cardizem) 10 mg 1X ONCE IVP ; Start 11/17/16 at 23:15; Stop at 23:16; Status DC Diltiazem HCl (Cardizem) 5 mg 1X ONCE IVP Last administered on 11/18/16 01:54 ; Start 11/18/16 at 00:45; Stop 11/18/16 at 00:46; Status DC Diltiazem HCl (Cardizem 24hr Cd) 180 mg DAILY PO Last administered on 09:19; Start 11/18/16 at 11:00 Potassium Chloride (Klor-Con) 40 meq 1X ONCE PO Last administered on 16:05; Start 11/18/16 at 14:30; Stop 11/18/16 at 14:31; Status DC Benzonatate (Tessalon Perle) 200 mg Q6HRS PO Last administered on 11/19/16 16: 38; Start 11/18/16 at 18:06 Acetaminophen/ Hydrocodone Bitart (Lortab 7.5/325) 1 tab 1X ONCE PO Last administered on 11/18/16 18:27; Start 11/18/16 at 18:15; Stop 11/18/16 at 18:16 ; Status DC Active Scripts Active [Codeine Phosphate/Guaifenesin] 5 ML Liquid 5 Ml PO PRN Q4HRS PRN Benzonatate 100 Mg Capsule 100 Mg PO TID Reported Cardizem Cd (Diltiazem Hcl) 180 Mg Cap.er.24h 1 Cap PO DAILY Uceris (Budesonide) 9 Mg Tabdr...er 9 Mg PO QTUTHSA Furosemide 20 Mg Tablet 1 Tab PO DAILY Ferrous Sulfate 325 Mg Tablet 1 Tab PO BID Cymbalta (Duloxetine Hcl) 60 Mg Capsule.dr 1 Cap PO BID Meloxicam 7.5 Mg Tablet 1 Tab PO BID Vitamin E (Vitamin E Acid Succinate) 100 Unit Tablet 100 Unit PO Krill Oil 1,000 Mg Softgel (Krill/Om3/Dha/Epa/Om6/Lip/Astx) 1 Each Capsule 1 Each PO Biotin 1 Mg Capsule 10,000 Mg PO DAILY Aspir 81 (Aspirin) 81 Mg Tablet. 1 Tab PO DAILY Potassium Chloride 10 Meq Capsule.er 10 Meq PO DAILY Cyanocobalamin Injection (Cyanocobalamin (Vitamin B-12)) 1,000 Mcg/1 Ml Vial 1 Ml IM QOMONTH Tizanidine Hcl 4 Mg Tablet 4 Mg PO TID PRN Hydrocodone-Apap 7.5-325 (Hydrocodone Bit/Acetaminophen) 1 Each Tablet 1 Tab PO PRN Q6HRS PRN Ditropan Xl (Oxybutynin Chloride) 10 Mg Tab.er.24 1 Tab PO DAILY Melatonin 5 Mg Tablet 5 Mg PO QHS Neurontin (Gabapentin) 300 Mg Capsule 600 Mg PO TID Levothyroxine Sodium 50 Mcg Tablet 1 Tab PO DAILY Preservision Lutein Softgel (Vit C/Narda Ac/Lut/Copper/Znox) 1 Each Capsule 1 Each PO DAILY Metformin Hcl 1,000 Mg Tablet 1 Tab PO DAILY Omeprazole 20 Mg Tablet. 1 Tab PO BID Mirtazapine 30 Mg Tablet 1 Tab PO QHS Gemfibrozil 600 Mg Tablet 600 Mg PO BID Carvedilol 12.5 Mg Tablet 12.5 Mg PO BID Buspirone Hcl 15 Mg Tablet 15 Mg PO BID Amlodipine Besylate 10 Mg Tablet 10 Mg PO DAILY Vitals/I & O Vital Sign - Last 24 Hours 11/18/16 11/18/16 11/18/16 11/18/16 17:48 18:27 19:25 19:27 Temp 98.4 98.4 Pulse 75 87 Resp 22 B/P (MAP) 146/85 96/63 (74) Pulse Ox 92 95 92 O2 Delivery Room Air Room Air Room Air O2 Flow Rate 2.0 11/18/16 11/18/16 11/18/16 11/18/16 19:41 19:45 20:00 23:25 Temp 98.2 98.2 Pulse 73 Resp 18 B/P (MAP) 154/76 (102) Pulse Ox 92 96 O2 Delivery Room Air Room Air Room Air Room Air 11/19/16 11/19/16 11/19/16 11/19/16 03:25 07:00 08:06 08:11 Temp 98.1 97.7 98.1 97.7 Pulse 92 70 Resp 20 20 B/P (MAP) 159/90 (113) 151/72 (98) Pulse Ox 95 94 92 O2 Delivery Room Air Room Air Room Air BiPAP/CPAP 11/19/16 11/19/16 11/19/16 11/19/16 09:19 09:20 09:21 10:52 Pulse 70 70 70 B/P (MAP) 151/72 151/72 151/72 Pulse Ox 92 O2 Delivery Room Air O2 Flow Rate 2.0 11/19/16 11/19/16 11/19/16 11/19/16 11:00 11:56 12:06 15:00 Temp 98.0 98.2 98.0 98.2 Pulse 78 80 Resp 20 20 B/P (MAP) 98/51 (67) 125/62 (83) Pulse Ox 93 91 91 86 O2 Delivery Room Air Room Air Room Air Room Air O2 Flow Rate 2.0 11/19/16 16:37 Pulse 80 B/P (MAP) 125/62 Intake and Output 11/18/16 11/18/16 11/19/16 15:00 23:00 07:00 Intake Total 480 ml 200 ml Balance 480 ml 200 ml QUENTIN RHODES MD November 19, 2016 17:46
--- NOTE | 2016-11-19 18:03 | PDOC ---
PULMONARY PROGRESS NOTES Subjective COUGH IS BETTER Vitals Vital Signs Date Time Temp Pulse Resp B/P (MAP) Pulse Ox O2 Delivery O2 Flow Rate FiO2 11/19/16 16:37 80 125/62 11/19/16 15:00 98.2 20 86 Room Air 98.2 11/19/16 12:06 2.0 General: Alert, No acute distress HEENT: Other Lungs: Clear, Other (no wheezing) Cardiovascular: S1, S2 Abdomen: Soft, Non-tender Extremities: No Edema Labs Laboratory Tests Test 11/17/16 20:06 11/17/16 21:37 11/18/16 03:45 11/18/16 07:22 Nasal Screen MRSA (PCR) Positive (Negative) Glucose (Fingerstick) 116 mg/dL (70-99) 101 mg/dL (70-99) Sodium Level 145 mmol/L (136-145) Potassium Level 3.4 mmol/L (3.5-5.1) Chloride Level 103 mmol/L (98-107) Carbon Dioxide Level 32 mmol/L (21-32) Anion Gap 10 (6-14) Blood Urea Nitrogen 29 mg/dL (7-20) Creatinine 1.2 mg/dL (0.6-1.0) Estimated GFR (Cockcroft-Gault) 44.0 Glucose Level 116 mg/dL (70-99) Calcium Level 8.6 mg/dL (8.5-10.1) Thyroid Stimulating Hormone (TSH) 0.708 uIU/mL (0.358-3.74) Test 11/18/16 11:48 11/18/16 16:53 11/18/16 21:05 11/19/16 03:25 Glucose (Fingerstick) 140 mg/dL (70-99) 126 mg/dL (70-99) 126 mg/dL (70-99) Sodium Level 143 mmol/L (136-145) Potassium Level 3.7 mmol/L (3.5-5.1) Chloride Level 103 mmol/L (98-107) Carbon Dioxide Level 32 mmol/L (21-32) Anion Gap 8 (6-14) Blood Urea Nitrogen 26 mg/dL (7-20) Creatinine 1.0 mg/dL (0.6-1.0) Estimated GFR (Cockcroft-Gault) 54.3 Glucose Level 118 mg/dL (70-99) Calcium Level 8.9 mg/dL (8.5-10.1) Magnesium Level 1.5 mg/dL (1.8-2.4) Test 11/19/16 08:14 11/19/16 11:39 Glucose (Fingerstick) 104 mg/dL (70-99) 99 mg/dL (70-99) Laboratory Tests Test 11/18/16 21:05 11/19/16 03:25 11/19/16 08:14 11/19/16 11:39 Glucose (Fingerstick) 126 mg/dL (70-99) 104 mg/dL (70-99) 99 mg/dL (70-99) Sodium Level 143 mmol/L (136-145) Potassium Level 3.7 mmol/L (3.5-5.1) Chloride Level 103 mmol/L (98-107) Carbon Dioxide Level 32 mmol/L (21-32) Anion Gap 8 (6-14) Blood Urea Nitrogen 26 mg/dL (7-20) Creatinine 1.0 mg/dL (0.6-1.0) Estimated GFR (Cockcroft-Gault) 54.3 Glucose Level 118 mg/dL (70-99) Calcium Level 8.9 mg/dL (8.5-10.1) Magnesium Level 1.5 mg/dL (1.8-2.4) Medications Active Scripts Medications Dose Route/Sig Max Daily Dose Days Date Category Uceris (Budesonide) 9 Mg Tabdr...er 9 Mg PO QTUTHSA 11/02/16 Reported Furosemide 20 Mg Tablet 1 Tab PO DAILY 11/02/16 Reported Ferrous Sulfate 325 Mg Tablet 1 Tab PO BID 11/02/16 Reported Cymbalta (Duloxetine Hcl) 60 Mg Capsule. 1 Cap PO BID 11/02/16 Reported [Codeine Phosphate/Guaifenesin] 5 ML Liquid 5 Ml PO PRN Q4HRS PRN 10/23/16 Rx Benzonatate 100 Mg Capsule 100 Mg PO TID 10/23/16 Rx Meloxicam 7.5 Mg Tablet 1 Tab PO BID 10/18/16 Reported Vitamin E (Vitamin E Acid Succinate) 100 Unit Tablet 100 Unit PO 02/04/16 Reported Krill Oil 1,000 Mg Softgel (Krill/Om3/Dha/Epa/Om6/Lip/Astx) 1 Each Capsule 1 Each PO 02/04/16 Reported Biotin 1 Mg Capsule 10,000 Mg PO DAILY 02/04/16 Reported Aspir 81 (Aspirin) 81 Mg Tablet.dr 1 Tab PO DAILY 02/04/16 Reported Potassium Chloride 10 Meq Capsule.er 10 Meq PO DAILY 02/04/16 Reported Cyanocobalamin Injection (Cyanocobalamin (Vitamin B-12)) 1,000 Mcg/1 Ml Vial 1 Ml IM QOMONTH 02/03/16 Reported Tizanidine Hcl 4 Mg Tablet 4 Mg PO TID PRN 02/03/16 Reported Hydrocodone-Apap 7.5-325 (Hydrocodone Bit/Acetaminophen) 1 Each Tablet 1 Tab PO PRN Q6HRS PRN 02/03/16 Reported Ditropan Xl (Oxybutynin Chloride) 10 Mg Tab.er.24 1 Tab PO DAILY 02/03/16 Reported Melatonin 5 Mg Tablet 5 Mg PO QHS 02/03/16 Reported Neurontin (Gabapentin) 300 Mg Capsule 600 Mg PO TID 02/03/16 Reported Levothyroxine Sodium 50 Mcg Tablet 1 Tab PO DAILY 02/03/16 Reported Preservision Lutein Softgel (Vit C/Narda Ac/Lut/Copper/Znox) 1 Each Capsule 1 Each PO DAILY 12/26/15 Reported Metformin Hcl 1,000 Mg Tablet 1 Tab PO DAILY 12/26/15 Reported Omeprazole 20 Mg Tablet.dr 1 Tab PO BID 07/25/14 Reported Mirtazapine 30 Mg Tablet 1 Tab PO QHS 07/25/14 Reported Gemfibrozil 600 Mg Tablet 600 Mg PO BID 08/29/13 Reported Carvedilol 12.5 Mg Tablet 12.5 Mg PO BID 08/29/13 Reported Buspirone Hcl 15 Mg Tablet 15 Mg PO BID 08/29/13 Reported Amlodipine Besylate 10 Mg Tablet 10 Mg PO DAILY 08/29/13 Reported Impression . 1. Progressive dyspnea secondary to acute exacerbation of asthma. 2. Possible microaspiration. 3. Acute nonspecific bronchitis. 4. Acute renal failure. 5. Chronic diastolic heart failure. 6. Type 2 diabetes. 7. Chronic kidney disease. 8. History of nasal polyps. 9. Gastroesophageal reflux. 10. Complete opacification of the left maxillary sinus and slight opacification of the left sphenoid sinus compatible with sinusitis. 11. ARRHYTHMIA Plan . HOME WITH DOXY AND PRED FLONASE CARDIZEM FOLLOW UP IN OFFICE IN 6-8 WEEKS AVOID ALL CAFFEINE INCLUDING CAFFEINE FREE ESTER TOLENTINO MD November 19, 2016 18:03
== END 2016-11-19 17:51 | disposition home or self-care (01) | DRG 190 ==
LOC: ER 18:41 → 2 NORTH 22:05 → 6 SOUTH 11-16 16:45 → 2 SOUTH 11-18 01:47
PROVIDERS: ADMIT Internal Medicine; ATTEND Internal Medicine
DX: J44.0 Chronic obstructive pulmonary disease with (acute) lower respiratory infection (principal); N17.0 Acute kidney failure with tubular necrosis; J45.901 Unspecified asthma with (acute) exacerbation; I50.32 Chronic diastolic (congestive) heart failure; E87.0 Hyperosmolality and hypernatremia; I13.0 Hypertensive heart and chronic kidney disease with heart failure and stage 1 through stage 4 chronic kidney disease, or unspecified chronic kidney disease; Z68.41 Body mass index [BMI] 40.0-44.9, adult; J20.9 Acute bronchitis, unspecified; E03.9 Hypothyroidism, unspecified; E11.22 Type 2 diabetes mellitus with diabetic chronic kidney disease; E66.01 Morbid (severe) obesity due to excess calories; E78.5 Hyperlipidemia, unspecified; I48.91 Unspecified atrial fibrillation; G47.33 Obstructive sleep apnea (adult) (pediatric); F41.9 Anxiety disorder, unspecified; D64.9 Anemia, unspecified; K21.9 Gastro-esophageal reflux disease without esophagitis; M19.90 Unspecified osteoarthritis, unspecified site; F32.9 Major depressive disorder, single episode, unspecified; N18.3 Chronic kidney disease, stage 3 (moderate); R09.02 Hypoxemia; Z90.49 Acquired absence of other specified parts of digestive tract; Z90.710 Acquired absence of both cervix and uterus; Z88.1 Allergy status to other antibiotic agents; Z88.8 Allergy status to other drugs, medicaments and biological substances; Z85.41 Personal history of malignant neoplasm of cervix uteri; Z87.01 Personal history of pneumonia (recurrent)
CPT/HCPCS: 36415; 70486; 71010; 76770; 80048; 80053; 81001; 82553; 82947; 83605; 83735; 83880; 84443; 84484; 85027; 87040; 87070; 87641; 87804; 87880; 93005; 93306; 94250; 94640; 94644; 94760; 96361; 96374; 96375; J1170; J1650; J2930; J3010; J3490; J7030; J7620; 92610; 99285-25

== ENCOUNTER 2017-02-12 21:21 | Emergency (ER) | payer MEDICARE, OTHER ==
[~2017-02-12] VITALS: Ht 152.4 cm; Wt 102.1 kg
[~2017-02-12 21:21] MED LIST changes: +BENZ100C15 PO; -BENZ100C2 PO; -BENZ200C39 PO; +BENZ200C47 PO; -BIOT25005 PO; +BIOT25006 PO; +CALC-31 PO; -CALC-67 PO; +DILT180C2 PO; -KETO15CR TP; +KETO15CR2 TP; -LEVO500T38 PO; +LEVO500T59 PO; -MELO-156 PO; +MELO7.5T29 PO; -OMEP20TA PO; +OMEP20TA8 PO; +VITA200C28 PO; -VITA200C5 PO
[2017-02-12 21:52] LABS: BILIRUBIN,URINE NEGATIVE (NEG); GLUCOSE,URINE NEGATIVE (NEG); NITRITE,URINE POSITIVE (NEG); PROTEIN,URINE NEGATIVE (NEG-TRACE); UROBILINOGEN,URINE 0.2 mg/dL (0.2 mg/dL)
[2017-02-12 21:56] LABS: BACTERIA,URINE MANY /HPF (0-FEW); RBC,URINE OCC /HPF (0-2); SQUAMOUS EPITHELIAL CELL,UR FEW /LPF; WBC,URINE >40 /HPF (0-4)
[2017-02-12] MEDS ORDERED: hydrALAZINE 20 MG/ML VIAL. IVP ONE (22:00)
--- NOTE | 2017-02-12 22:39 | RAD ---
CT HEAD WO CONTRAST History: Dizziness, hypertension, headache today Comparison: December 25, 2015 Technique: Noncontrast [address] images were acquired from the skull base to the vertex. Exposure: One or more of the following individualized dose reduction techniques were utilized for this examination: 1. Automated exposure control 2. Adjustment of the mA and/or kV according to patient size 3. Use of iterative reconstruction technique. Findings: No acute extra-axial or parenchymal hemorrhage is identified. There is no significant intra-axial mass effect, midline shift, or extra-axial fluid collection. The liriano-white differentiation of the major vascular territories is preserved. Ventricular size is stable, within normal limits. There is mild supratentorial involutional change as seen previously. The mastoid air cells and the visualized paranasal sinuses are mostly aerated, mild left maxillary sinus mucosal thickening and also mucosal thickening of small left sphenoid sinus. No acute calvarial abnormality is identified. There is atherosclerotic calcification carotid siphons bilaterally. Impression: 1. No acute intracranial abnormality is identified. If there is concern for evolving or acute ischemia, followup CT or MRI could be beneficial. Electronically signed by: Chema Bustillos MD (02/12/2017 10:36 PM) [facility]
[2017-02-12] MEDS: fentaNYL PF VIAL 100 MCG/2 ML VIAL IV PRN ×3 (22:40→23:45)
[2017-02-12 22:59] LABS: BASO # 0.1 x10^3/uL (0.0-0.2); BASO % 1 % (0-3); EOS % 6 % (0-3); HEMATOCRIT 40.1 % (36.0-47.0); LYMPH # 2.2 x10^3/uL (1.0-4.8); LYMPH % 22 % (24-48); MEAN CORPUSCULAR HEMOGLOBIN 30 pg (25-35); MEAN CORPUSCULAR HGB CONC 32 g/dL (31-37); MEAN CORPUSCULAR VOLUME 93 fL (79-100); MONO % 8 % (0-9); NEUT % 63 % (31-73); PLATELET COUNT 322 x10^3/uL (140-400); RED BLOOD COUNT 4.29 x10^6/uL (3.50-5.40); RED CELL DISTRIBUTION WIDTH 14.1 % (11.5-14.5); WHITE BLOOD COUNT 10.1 x10^3/uL (4.0-11.0)
[2017-02-12 23:09] LABS: PROTHROMBIN TIME PATIENT 12.7 SEC (11.7-14.0)
[2017-02-12 23:11] LABS: CALCIUM 9.3 mg/dL (8.5-10.1); CREATININE 1.3 mg/dL (0.6-1.0)
[2017-02-12 23:17] LABS: ALBUMIN 4.2 g/dL (3.4-5.0); ALBUMIN/GLOBULIN RATIO 1.2 (1.0-1.7); TOTAL BILIRUBIN 0.3 mg/dL (0.2-1.0); TOTAL PROTEIN 7.7 g/dL (6.4-8.2)
[2017-02-12] MEDS ORDERED: NITR100C62 PO (23:37)
--- NOTE | 2017-02-12 23:37 | PHYS DOC ---
Past Medical History Past Medical History: Anemia, Anxiety, Cancer, CHF, Depression, Diabetes-Type II, Hypertension, Hypothyroid, Other Additional Past Medical Histor: cervical ca , sleep apnea, ULCERATIVE COLLITIS Past Surgical History: Cholecystectomy, Hysterectomy Additional Past Surgical Histo: carpal tunnel, back sx, EGD, Colonscopy, bypass that changed to lap band Alcohol Use: None Drug Use: None Adult General Chief Complaint Chief Complaint: HEADACHE HPI HPI Patient is a 76 year old female who presents with headache & hypertension. The patient reports gradual onset of throbbing frontal headache today. She reports elevated blood pressure despite compliance with medication regimen. She denies fevers/chills, vision changes, slurred speech, extremity numbness/ weakness, chest pain, shortness of breath, lower extremity edema. PCP is Dr. Asif. Review of Systems Review of Systems Constitutional: Denies fever or chills Eyes: Denies change in visual acuity HENT: Denies nasal congestion or sore throat Respiratory: Denies cough or shortness of breath Cardiovascular: Denies chest pain or edema GI: Denies abdominal pain, nausea, vomiting, or diarrhea : Denies dysuria or hematuria Musculoskeletal: Denies back pain or joint pain Integument: Denies rash or skin lesions Neurologic: Reports headache, denies focal weakness or sensory changes Current Medications Current Medications Current Medications Medications (Trade) Dose Ordered Sig/Ulices Start Time Stop Time Status Last Admin Dose Admin Fentanyl Citrate (Fentanyl 2ml Vial) 25 mcg PRN Q15MIN PRN 02/12/17 21:45 02/13/17 05:45 DC 02/12/17 23:45 25 MCG Hydralazine HCl (Apresoline) 10 mg 1X ONCE 02/12/17 22:00 02/12/17 22:01 DC 02/12/17 22:55 10 MG Allergies Allergies Allergies Coded Allergies Type Severity Reaction Last Updated Verified cephalexin Allergy Intermediate Itching 11/03/16 Yes ciprofloxacin Allergy Intermediate 10/18/16 Yes egg Allergy Intermediate Nausea and Vomiting 10/18/16 Yes I S O L A T I O N *CONTACT* Allergy Unknown 10/18/16 Yes Physical Exam Physical Exam Constitutional: obese, no acute distress, non-toxic appearance. HENT: Normocephalic, atraumatic, bilateral external ears normal, oropharynx moist, nose normal. Eyes: PERRLA, EOMI, conjunctiva normal, no discharge. Neck: supple, no stridor. no meningismus Cardiovascular: RRR, no murmurs, no edema. Lungs & Thorax: LCTAB, no wheezing, no respiratory distress. Abdomen: soft, nontender, nondistended. Skin: Warm, dry, no erythema, no rash. Back: No tenderness. Extremities: No tenderness, no edema. Neurologic: Alert and oriented X 3, CN2-12 grossly intact, symmetric strength/ sensation to UE & LE, no focal deficits noted. Psychologic: Affect normal, judgement normal, mood normal. Current Patient Data Vital Signs Vital Signs Date Time Temp Pulse Resp B/P (MAP) Pulse Ox O2 Delivery O2 Flow Rate FiO2 02/13/17 00:00 80 23 172/75 (107) 94 Nasal Cannula 2.0 02/12/17 21:41 98.0 98.0 Lab Values Laboratory Tests Test 02/12/17 21:40 02/12/17 22:50 Urine Collection Type Unknown Urine Color Yellow Urine Clarity Clear Urine pH 6.0 Urine Specific [place] 1.010 Urine Protein Negative mg/dL (NEG-TRACE) Urine Glucose (UA) Negative mg/dL (NEG) Urine Ketones (Stick) Negative mg/dL (NEG) Urine Blood Negative (NEG) Urine Nitrite Positive (NEG) Urine Bilirubin Negative (NEG) Urine Urobilinogen Dipstick 0.2 mg/dL (0.2 mg/dL) Urine Leukocyte Esterase Large (NEG) Urine RBC Occ /HPF (0-2) Urine WBC >40 /HPF (0-4) Urine Squamous Epithelial Cells Few /LPF Urine Bacteria Many /HPF (0-FEW) Urine Hyaline Casts Occasional /HPF Urine Mucus Slight /LPF White Blood Count 10.1 x10^3/uL (4.0-11.0) Red Blood Count 4.29 x10^6/uL (3.50-5.40) Hemoglobin 13.0 g/dL (12.0-15.5) Hematocrit 40.1 % (36.0-47.0) Mean Corpuscular Volume 93 fL (79-100) Mean Corpuscular Hemoglobin 30 pg (25-35) Mean Corpuscular Hemoglobin Concent 32 g/dL (31-37) Red Cell Distribution Width 14.1 % (11.5-14.5) Platelet Count 322 x10^3/uL (140-400) Neutrophils (%) (Auto) 63 % (31-73) Lymphocytes (%) (Auto) 22 % (24-48) L Monocytes (%) (Auto) 8 % (0-9) Eosinophils (%) (Auto) 6 % (0-3) H Basophils (%) (Auto) 1 % (0-3) Neutrophils # (Auto) 6.4 x10^3uL (1.8-7.7) Lymphocytes # (Auto) 2.2 x10^3/uL (1.0-4.8) Monocytes # (Auto) 0.8 x10^3/uL (0.0-1.1) Eosinophils # (Auto) 0.6 x10^3/uL (0.0-0.7) Basophils # (Auto) 0.1 x10^3/uL (0.0-0.2) Prothrombin Time 12.7 SEC (11.7-14.0) Prothrombin Time INR 1.0 (0.8-1.1) PTT 33 SEC (24-38) Sodium Level 142 mmol/L (136-145) Potassium Level 4.0 mmol/L (3.5-5.1) Chloride Level 99 mmol/L (98-107) Carbon Dioxide Level 34 mmol/L (21-32) H Anion Gap 9 (6-14) Blood Urea Nitrogen 32 mg/dL (7-20) H Creatinine 1.3 mg/dL (0.6-1.0) H Estimated GFR (Cockcroft-Gault) 40.0 BUN/Creatinine Ratio 25 (6-20) H Glucose Level 134 mg/dL (70-99) H Calcium Level 9.3 mg/dL (8.5-10.1) Total Bilirubin 0.3 mg/dL (0.2-1.0) Aspartate Amino Transferase (AST) 18 U/L (15-37) Alanine Aminotransferase (ALT) 24 U/L (14-59) Alkaline Phosphatase 194 U/L (46-116) H Troponin I Quantitative < 0.017 ng/mL (0.000-0.055) ZY-Dnd-X-Type Natriuretic Peptide 152 pg/mL (0-124) H Total Protein 7.7 g/dL (6.4-8.2) Albumin 4.2 g/dL (3.4-5.0) Albumin/Globulin Ratio 1.2 (1.0-1.7) Laboratory Tests 02/12/17 22:50 Laboratory Tests 02/12/17 22:50 EKG EKG interpreted by me: NSR rate 77, no acute ST/T wave changes, Q waves in 3 & aVF , normal intervals, no ectopy.[] Radiology/Procedures Radiology/Procedures PROCEDURE: CT HEAD WO CONTRAST CT HEAD WO CONTRAST History: Dizziness, hypertension, headache today Comparison: December 25, 2015 Technique: Noncontrast [address] images were acquired from the skull base to the vertex. Exposure: One or more of the following individualized dose reduction techniques were utilized for this examination: 1. Automated exposure control 2. Adjustment of the mA and/or kV according to patient size 3. Use of iterative reconstruction technique. Findings: No acute extra-axial or parenchymal hemorrhage is identified. There is no significant intra-axial mass effect, midline shift, or extra-axial fluid collection. The liriano-white differentiation of the major vascular territories is preserved. Ventricular size is stable, within normal limits. There is mild supratentorial involutional change as seen previously. The mastoid air cells and the visualized paranasal sinuses are mostly aerated, mild left maxillary sinus mucosal thickening and also mucosal thickening of small left sphenoid sinus. No acute calvarial abnormality is identified. There is atherosclerotic calcification carotid siphons bilaterally. Impression: 1. No acute intracranial abnormality is identified. If there is concern for evolving or acute ischemia, followup CT or MRI could be beneficial. Electronically signed by: Rain Wells MD (02/12/2017 10:36 PM) [facility] DICTATED and SIGNED BY: RAIN WELLS MD DATE: 02/12/172233 [] Course & Med Decision Making Course & Med Decision Making Pertinent Labs and Imaging studies reviewed. (See chart for details) The patient presents with headache & hypertension. Normal neuro exam, well appearing, ambulates with steady gait. Gave fentanyl for pain & hydralazine for elevated blood pressure. BP improved to 160s systolic. Labs as above, CT shows no acute abnormality. UA consistent with UTI. She felt better after treatment & requested discharge home. Recommend continue home meds as prescribed, drink fluids to stay hydrated. Prescription for macrobid for UTI. Follow up with primary care in 2-3 days. Come back for sudden onset severe headache, worst headache of her life, focal neuro deficit, severe chest pain or shortness of breath, any otherwise worsening condition. Discharged home in stable condition. [] Dragon Disclaimer Dragon Disclaimer This electronic medical record was generated, in whole or in part, using a voice recognition dictation system. Departure Departure Impression: Primary Impression: Urinary tract infection Additional Impression: Hypertension Disposition: 01 HOME, SELF-CARE Condition: IMPROVED Referrals: LXEIS ASIF MD (PCP) Patient Instructions: Hypertension, [id number], Urinary Tract Infection, Easy -to-Read Additional Instructions: You were seen in the emergency department today for hypertension and headache. Your symptoms improved and your blood pressure came down. You had unremarkable tests here except you have a urinary tract infection. Please take the prescribed antibiotic. Follow-up with primary care physician in 2-3 days. Return to the emergency department for high fever, uncontrolled vomiting, severe pain, any otherwise worsening condition. Scripts Nitrofurantoin Monohyd/M-Cryst (MACROBID 100 MG CAPSULE) 100 Mg Capsule 1 CAP PO BID, #14 CAP Prov: SHARAD POZO MD 02/12/17 Problem Qualifiers Primary Impression: Urinary tract infection Urinary tract infection type: acute cystitis Hematuria presence: without hematuria Qualified Codes: N30.00 - Acute cystitis without hematuria Additional Impression: Hypertension Hypertension type: unspecified Qualified Codes: I10 - Essential (primary) hypertension SHARAD POZO MD Feb 12, 2017 23:37
[2017-02-13] VITALS: BP 172/75
--- NOTE | 2017-02-13 06:47 | EKG ---
[facility] [address] [place] [address] Test Date: 2017-02-12 Test Time: 21:47:52 Pat Name: JANAK WEINER Department: Room: Gender: F Movie Extra: : 1940 Requested By: SHARAD POZO Order Number: [id number] Reading MD: America Abdi Measurements Intervals [place] Rate: 77 P: 43 NV: 156 QRS: -6 QRSD: 86 T: 49 QT: 388 QTc: 441 Interpretive Statements SINUS RHYTHM LEFTWARD AXIS Electronically Signed On 02-14-2017 19:53:19 CDT by America Abdi
== END 2017-02-13 00:30 | disposition home or self-care (01) ==
LOC: ER 21:21
DX: I50.9 Heart failure, unspecified (principal); I11.0 Hypertensive heart disease with heart failure; N30.00 Acute cystitis without hematuria; E66.9 Obesity, unspecified; F32.9 Major depressive disorder, single episode, unspecified; E11.9 Type 2 diabetes mellitus without complications; E03.9 Hypothyroidism, unspecified; F41.9 Anxiety disorder, unspecified; G47.30 Sleep apnea, unspecified; Z90.49 Acquired absence of other specified parts of digestive tract; Z90.710 Acquired absence of both cervix and uterus; Z88.1 Allergy status to other antibiotic agents; Z91.041 Radiographic dye allergy status; Z91.012 Allergy to eggs; Z68.41 Body mass index [BMI] 40.0-44.9, adult
CPT/HCPCS: 36415; 70450; 80053; 81001; 83880; 84484; 85025; 85610; 85730; 87086; 93005; 96374; 96375; 96376; 99285; J0360; J3010

== ENCOUNTER → 2017-04-15 | Day surgery (SDC) | payer MEDICARE, OTHER ==
[~2017-04-15] MED LIST changes: +HYDROmorphone 2 MG/ML VIAL IV PRN; +IV RINGERS,LACTATED 1000ML 1,000 ML IV SCH; +LIDOCAINE 1% PF 2 ML VIAL. ID PRN; +LIDOCAINE 2% PF Vial for OR 5 ML VIAL. ONE; +MORPHINE SULFATE 2 MG/ML DISP.SYRIN. IV PRN; +NITR100C62 PO; +ONDANSETRON PF 4 MG/2 ML VIAL. IV PRN; +PROCHLORPERAZINE 10 MG/2 ML VIAL. IV PRN; +PROPOFOL 40 ML IV ONE; +fentaNYL PF VIAL 100 MCG/2 ML VIAL IV PRN
[2017-04-15 09:18] VITALS: BP 176/81
--- NOTE | 2017-04-16 11:10 | PATHOLOGY ---
PATHOLOGY REPORT * * * * * * * * FINAL DIAGNOSIS: Colonic mucosa, random colon biopsies: - Mild chronic inflammation with focally increased intraepithelial lymphocytes. See comment. - Incidental tubular adenoma. (JPM:josy; 04/16/2017) COMMENT: Sections of the random colon biopsy reveal multiple segments of colonic mucosa. There is a mildly increased chronic inflammatory cell infiltrate within the lamina propria with focally increased intraepithelial lymphocytes. The subepithelial collagen plate does not appear to be significantly thickened. The crypt architecture is preserved. Although the findings are subtle, they are suggestive, although not diagnostic, of lymphocytic colitis. There is no evidence of active idiopathic chronic inflammatory bowel disease. One of the biopsy segments shows an incidental tubular adenoma. Please correlate clinically. (JPM:josy; 04/16/2017) REPORT ELECTRONICALLY SIGNED BY: Jonn Merchant M.D. DATE/TIME: 04/16/2017 11:09 * * * * * * * * GROSS PATHOLOGY: Received in formalin labeled "Conchita Weiner random:," are multiple (more than 10) segments of amaro soft tissue measuring 2.3 x 0.5 x 0.3 cm in aggregate dimensions and ranging from 0.2 to 0.5 cm in maximum dimension. The specimen is submitted entirely in cassette A1. (TSD; 04/15/2017) INITIAL CPT CODE(S): A; 76983 Professional services performed by [facility] at [address] [address] Technical services performed by [facility] at [address] [place] [address], [facility] [address], [place] [address]. SPECIMEN(S) RECEIVED: A.Random colon CLINICAL HISTORY: History of colitis, polyps, diarrhea PATIENT: CONCHITA WEINER /AGE: 6 1940 (Age: 76) PATIENT #: [id number] ALT CASE #: SPECIMEN COLLECTION DATE: 04/15/2017 SPECIMEN RECEIVED DATE: 04/15/2017 [facility] [place] [address] - PHONE: [phone] * * * END OF REPORT * * *
== END | disposition home or self-care (01) ==
LOC: ENDOS 07:35
PROVIDERS: ATTEND Internal Medicine Gastroenterology
DX: K52.9 Noninfective gastroenteritis and colitis, unspecified (principal); K64.0 First degree hemorrhoids; K57.30 Diverticulosis of large intestine without perforation or abscess without bleeding; D12.6 Benign neoplasm of colon, unspecified; K21.9 Gastro-esophageal reflux disease without esophagitis; I10 Essential (primary) hypertension; G47.30 Sleep apnea, unspecified; E03.9 Hypothyroidism, unspecified; M19.90 Unspecified osteoarthritis, unspecified site; E11.9 Type 2 diabetes mellitus without complications; I50.9 Heart failure, unspecified; D64.9 Anemia, unspecified; Z83.3 Family history of diabetes mellitus; Z88.1 Allergy status to other antibiotic agents; Z91.012 Allergy to eggs; Z86.010 Personal history of colon polyps; Z79.899 Other long term (current) drug therapy
CPT/HCPCS: 45380; 82962; 88305; J2704; J2001

== ENCOUNTER 2017-12-07 16:56 | Emergency (ER) | payer MEDICARE, OTHER ==
[2017-12-07 17:35] LABS: ADD MAN DIFF? NO
[2017-12-07 17:37] LABS: BASO % 1 % (0-3); EOS # 0.2 x10^3/uL (0.0-0.7); EOS % 4 % (0-3); HEMATOCRIT 35.1 % (36.0-47.0); HEMOGLOBIN 11.7 g/dL (12.0-15.5); LYMPH # 1.3 x10^3/uL (1.0-4.8); LYMPH % 20 % (24-48); MEAN CORPUSCULAR HEMOGLOBIN 30 pg (25-35); MEAN CORPUSCULAR HGB CONC 33 g/dL (31-37); MEAN CORPUSCULAR VOLUME 89 fL (79-100); MONO # 0.6 x10^3/uL (0.0-1.1); MONO % 10 % (0-9); NEUT # 4.3 x10^3uL (1.8-7.7); NEUT % 66 % (31-73); PLATELET COUNT 232 x10^3/uL (140-400); RED BLOOD COUNT 3.93 x10^6/uL (3.50-5.40); RED CELL DISTRIBUTION WIDTH 14.3 % (11.5-14.5); WHITE BLOOD COUNT 6.6 x10^3/uL (4.0-11.0)
[2017-12-07 17:43] LABS: BILIRUBIN,URINE NEGATIVE (NEG); CLARITY,URINE CLEAR; COLOR,URINE YELLOW; GLUCOSE,URINE NEGATIVE (NEG); NITRITE,URINE NEGATIVE (NEG); PROTEIN,URINE NEGATIVE (NEG-TRACE); UROBILINOGEN,URINE 0.2 mg/dL (0.2 mg/dL)
[2017-12-07] MEDS: IV NORMAL SALINE 1000ML BAG 1,000 ML IV (17:45)
[2017-12-07 17:57] LABS: BACTERIA,URINE 0 /HPF (0-FEW); HYALINE CASTS, URINE OCCASIONAL /HPF; RBC,URINE 0 /HPF (0-2); WBC,URINE OCC /HPF (0-4)
[2017-12-07 18:00] LABS: ANION GAP 12 (6-14); BLOOD UREA NITROGEN 15 mg/dL (7-20); BUN/CREATININE RATIO 13 (6-20); CARBON DIOXIDE 25 mmol/L (21-32); CHLORIDE 102 mmol/L (98-107); CREATININE 1.2 mg/dL (0.6-1.0); GFR 43.9; GLUCOSE 99 mg/dL (70-99); POTASSIUM 4.5 mmol/L (3.5-5.1); SODIUM 139 mmol/L (136-145)
[2017-12-07 18:05] LABS: ALBUMIN 3.3 g/dL (3.4-5.0); ALBUMIN/GLOBULIN RATIO 0.9 (1.0-1.7); ALK PHOS 199 U/L (46-116); ALT (SGPT) 20 U/L (14-59); AST (SGOT) 33 U/L (15-37); MAGNESIUM 1.5 mg/dL (1.8-2.4); TOTAL BILIRUBIN 0.4 mg/dL (0.2-1.0); TOTAL PROTEIN 6.8 g/dL (6.4-8.2)
[2017-12-07 18:09] LABS: TROPONINI < 0.017 ng/mL (0.000-0.055)
== END 2017-12-07 19:30 | disposition home or self-care (01) ==
LOC: ER 16:56
DX: R53.83 Other fatigue (principal); I11.0 Hypertensive heart disease with heart failure; I50.9 Heart failure, unspecified; E11.9 Type 2 diabetes mellitus without complications; E03.9 Hypothyroidism, unspecified; K21.9 Gastro-esophageal reflux disease without esophagitis; Z90.710 Acquired absence of both cervix and uterus; Z90.49 Acquired absence of other specified parts of digestive tract; Z88.1 Allergy status to other antibiotic agents; Z91.012 Allergy to eggs; Z91.041 Radiographic dye allergy status
CPT/HCPCS: 36415; 71045; 80053; 81001; 83735; 84484; 85025; 93005; 96360; 99285-25; J7030

== ENCOUNTER 2018-01-05 15:29 | Inpatient (IN) | payer MEDICARE, OTHER ==
[2018-01-05 16:23] LABS: ADD MAN DIFF? NO
[2018-01-05 16:27] LABS: BASO % 0 % (0-3); EOS # 0.1 x10^3/uL (0.0-0.7); EOS % 1 % (0-3); HEMATOCRIT 36.3 % (36.0-47.0); HEMOGLOBIN 11.9 g/dL (12.0-15.5); LYMPH # 1.2 x10^3/uL (1.0-4.8); LYMPH % 15 % (24-48); MEAN CORPUSCULAR HEMOGLOBIN 29 pg (25-35); MEAN CORPUSCULAR HGB CONC 33 g/dL (31-37); MEAN CORPUSCULAR VOLUME 89 fL (79-100); MONO # 0.6 x10^3/uL (0.0-1.1); MONO % 7 % (0-9); NEUT # 6.3 x10^3uL (1.8-7.7); NEUT % 77 % (31-73); PLATELET COUNT 385 x10^3/uL (140-400); RED BLOOD COUNT 4.09 x10^6/uL (3.50-5.40); RED CELL DISTRIBUTION WIDTH 14.2 % (11.5-14.5); WHITE BLOOD COUNT 8.2 x10^3/uL (4.0-11.0)
[2018-01-05 17:04] LABS: TROPONINI < 0.017 ng/mL (0.000-0.055)
[2018-01-05 17:05] LABS: ALBUMIN 3.2 g/dL (3.4-5.0); TOTAL PROTEIN 7.5 g/dL (6.4-8.2)
[2018-01-05 17:06] LABS: ALBUMIN/GLOBULIN RATIO 0.7 (1.0-1.7); ALK PHOS 193 U/L (46-116); ALT (SGPT) 16 U/L (14-59); ANION GAP 9 (6-14); AST (SGOT) 20 U/L (15-37); BLOOD UREA NITROGEN 30 mg/dL (7-20); BUN/CREATININE RATIO 23 (6-20); CALCIUM 9.1 mg/dL (8.5-10.1); CARBON DIOXIDE 34 mmol/L (21-32); CHLORIDE 98 mmol/L (98-107); CREATININE 1.3 mg/dL (0.6-1.0); GFR 39.9; GLUCOSE 95 mg/dL (70-99); POTASSIUM 3.6 mmol/L (3.5-5.1); SODIUM 141 mmol/L (136-145); TOTAL BILIRUBIN 0.4 mg/dL (0.2-1.0)
[2018-01-05 17:09] LABS: NT-PRO BNP 235 pg/mL (0-449)
[2018-01-05 17:49] LABS: D-DIMER 1.14 ug/mlFEU (0.00-0.50)
[2018-01-05] MEDS ORDERED: TEMAZEPAM 7.5 MG CAPSULE PO (19:00)
[2018-01-05] MEDS ORDERED: HYDROcodone/APAP 7.5/325MG 1 TAB TABLET PO (19:00)
[2018-01-05] MEDS ORDERED: ALBUTEROL SULFATE 2.5 MG/3 ML NEBU. NEB (19:00)
[2018-01-05] MEDS ORDERED: DEXTROSE 50% 25 GM / 50ML DISP.SYRIN. IV (19:00)
[2018-01-05] MEDS ORDERED: ACETAMINOPHEN 500 MG TABLET PO (19:00)
[2018-01-05] MEDS ORDERED: ONDANSETRON ODT 4 MG TAB.RAPDIS. PO (19:00)
[2018-01-05] MEDS ORDERED: ONDANSETRON PF 4 MG/2 ML VIAL. IV (19:00)
[2018-01-05] MEDS ORDERED: ACETAMINOPHEN/CODEINE 300/30MG TABLET. PO (19:00)
[2018-01-05] MEDS: INSULIN LISPRO 300 UNITS/3 ML INSULN.PEN. SQ (20:00)
[2018-01-05 20:46] LABS: POC GLUCOSE 179 mg/dL (70-99)
[2018-01-05] MEDS ORDERED: NON FORMULARY ITEM (Melatonin 5 MG) PO (21:00)
[2018-01-05] MEDS: FLUTICASONE 50MCG/NASAL SPRAY 16GM BOTTLE. NS (21:46)
[2018-01-05] MEDS: MIRTAZAPINE 15 MG TABLET PO (21:47)
[2018-01-05] MEDS: GEMFIBROZIL 600 MG TABLET. PO (21:47)
[2018-01-05] MEDS: DULoxetine HCL 30 MG CAPSULE.DR PO (21:47)
[2018-01-05] MEDS: busPIRone 5 MG TABLET. PO (21:47)
[2018-01-05] MEDS: MONTELUKAST SODIUM 10 MG TABLET. PO (21:48)
[2018-01-05] MEDS: CARVEDILOL 12.5 MG TABLET. PO (21:48)
[2018-01-05] MEDS: PREGABALIN 75 MG CAPSULE PO (21:48)
[2018-01-06] MEDS: LEVOTHYROXINE 50 MCG TABLET PO (06:00)
[2018-01-06 07:24] LABS: POC GLUCOSE 112 mg/dL (70-99)
[2018-01-06] MEDS: INSULIN LISPRO 300 UNITS/3 ML INSULN.PEN. SQ ×3 (08:00→17:00)
[2018-01-06] MEDS: FLUTICASONE 50MCG/NASAL SPRAY 16GM BOTTLE. NS ×2 (08:46→21:31)
[2018-01-06] MEDS: busPIRone 5 MG TABLET. PO ×2 (08:47→21:32)
[2018-01-06] MEDS: PANTOPRAZOLE 40 MG TABLET.DR. PO (08:47)
[2018-01-06] MEDS: GEMFIBROZIL 600 MG TABLET. PO ×2 (08:47→21:31)
[2018-01-06] MEDS: CALCIUM CARBONATE 500 MG TABLET PO (08:47)
[2018-01-06] MEDS: DULoxetine HCL 30 MG CAPSULE.DR PO ×2 (08:48→21:31)
[2018-01-06] MEDS: ASPIRIN ENTERIC COATED 81 MG TABLET.DR. PO (08:48)
[2018-01-06] MEDS: MULTIVITAMIN I-VITE TABLET. PO (08:48)
[2018-01-06] MEDS: FUROSEMIDE 20 MG TABLET PO ×2 (08:48→18:17)
[2018-01-06] MEDS: CHOLECALCIFEROL (VITAMIN D3) 5,000 UNIT CAPSULE PO (08:48)
[2018-01-06] MEDS: amLODIPine BESYLATE 10 MG TABLET PO (08:48)
[2018-01-06] MEDS: CARVEDILOL 12.5 MG TABLET. PO ×2 (08:49→18:17)
[2018-01-06] MEDS: PREGABALIN 75 MG CAPSULE PO ×2 (08:49→21:31)
[2018-01-06] MEDS ORDERED: BIOTIN 10000 MG PO (09:00)
[2018-01-06] MEDS ORDERED: NON FORMULARY ITEM (Mirabegron (Myrbetriq) 25 MG) PO (09:00)
[2018-01-06 11:33] LABS: POC GLUCOSE 78 mg/dL (70-99)
[2018-01-06] MEDS: ALLOPURINOL 100 MG TABLET. PO (12:56)
[2018-01-06 13:35] LABS: MRSA BY PCR Negative (Negative)
[2018-01-06 17:02] LABS: POC GLUCOSE 118 mg/dL (70-99)
[2018-01-06 21:02] LABS: POC GLUCOSE 156 mg/dL (70-99)
[2018-01-06] MEDS: MONTELUKAST SODIUM 10 MG TABLET. PO (21:31)
[2018-01-06] MEDS: MIRTAZAPINE 15 MG TABLET PO (21:31)
[2018-01-07] MEDS: POLYETHYLENE GLYCOL 3350 17 GM PACKET. PO (05:58)
[2018-01-07] MEDS: PANTOPRAZOLE 40 MG TABLET.DR. PO (05:59)
[2018-01-07] MEDS: LEVOTHYROXINE 50 MCG TABLET PO (05:59)
[2018-01-07 07:58] LABS: POC GLUCOSE 114 mg/dL (70-99)
[2018-01-07] MEDS: INSULIN LISPRO 300 UNITS/3 ML INSULN.PEN. SQ ×2 (09:07→12:11)
[2018-01-07] MEDS: CARVEDILOL 12.5 MG TABLET. PO (09:07)
[2018-01-07] MEDS: FLUTICASONE 50MCG/NASAL SPRAY 16GM BOTTLE. NS (09:08)
[2018-01-07] MEDS: BUDESONIDE 3 MG CAP.ER.24H. PO (09:09)
[2018-01-07] MEDS: DULoxetine HCL 30 MG CAPSULE.DR PO (09:11)
[2018-01-07] MEDS: MULTIVITAMIN I-VITE TABLET. PO (09:12)
[2018-01-07] MEDS: ASPIRIN ENTERIC COATED 81 MG TABLET.DR. PO (09:12)
[2018-01-07] MEDS: FUROSEMIDE 20 MG TABLET PO ×2 (09:12→13:29)
[2018-01-07] MEDS: GEMFIBROZIL 600 MG TABLET. PO (09:13)
[2018-01-07] MEDS: PREGABALIN 75 MG CAPSULE PO (09:13)
[2018-01-07] MEDS: CALCIUM CARBONATE 500 MG TABLET PO (09:14)
[2018-01-07] MEDS: amLODIPine BESYLATE 10 MG TABLET PO (09:14)
[2018-01-07] MEDS: CHOLECALCIFEROL (VITAMIN D3) 5,000 UNIT CAPSULE PO (09:14)
[2018-01-07] MEDS: ALLOPURINOL 100 MG TABLET. PO (09:15)
[2018-01-07] MEDS: busPIRone 5 MG TABLET. PO (09:26)
[2018-01-07 12:09] LABS: POC GLUCOSE 97 mg/dL (70-99)
== END 2018-01-07 14:43 | DRG 189 ==
LOC: ER 15:29 → 5 SOUTH 18:15
PROVIDERS: Internal Medicine
PROC: 5A09357 Assistance with Respiratory Ventilation, Less than 24 Consecutive Hours, Continuous Positive Airway Pressure (ICD-10-PCS; principal; 2018-01-06)
DX: J96.20 Acute and chronic respiratory failure, unspecified whether with hypoxia or hypercapnia (principal); Z68.41 Body mass index [BMI] 40.0-44.9, adult; G47.33 Obstructive sleep apnea (adult) (pediatric); E03.9 Hypothyroidism, unspecified; E11.9 Type 2 diabetes mellitus without complications; E66.9 Obesity, unspecified; E78.5 Hyperlipidemia, unspecified; I11.0 Hypertensive heart disease with heart failure; I50.9 Heart failure, unspecified; K21.9 Gastro-esophageal reflux disease without esophagitis; F32.9 Major depressive disorder, single episode, unspecified; F41.9 Anxiety disorder, unspecified; M19.90 Unspecified osteoarthritis, unspecified site; E21.3 Hyperparathyroidism, unspecified; Z79.82 Long term (current) use of aspirin; Z79.84 Long term (current) use of oral hypoglycemic drugs; Z79.899 Other long term (current) drug therapy; Z85.41 Personal history of malignant neoplasm of cervix uteri; Z90.710 Acquired absence of both cervix and uterus; Z90.49 Acquired absence of other specified parts of digestive tract; Z98.84 Bariatric surgery status; Z88.8 Allergy status to other drugs, medicaments and biological substances; Z91.012 Allergy to eggs; Z98.49 Cataract extraction status, unspecified eye; Z80.9 Family history of malignant neoplasm, unspecified
CPT/HCPCS: 36415; 71046; 78582; 80053; 82962; 83880; 84484; 85025; 85379; 87641; 93005; 94660; 96374; 97162-GP; 97165-GO; 99285; 99285-25; A9540; A9558; J1815

== ENCOUNTER → 2018-04-08 | Outpatient (CLI) | payer MEDICARE, OTHER ==
[2018-04-02 15:40] VITALS: BP 149/77
[~2018-04-08] MED LIST changes: +ACET325T9 PO; -AMLO10TA2 PO; +AMLO10TA6 PO; +BENZ-8 PO; -BENZ0.5T PO; +BENZ0.5T32 PO; -BENZ100C15 PO; +CALC500T13 PO; +CALC625T PO; +CHOL5000 PO; +DICL100G18 TP; +DILT180C29 PO; +DULO60CA44 PO; -FERR-26 PO; +FERR325T14 PO; +FURO40TA4 PO; -GEMF600T3 PO; +GEMF600T4 PO; -HYDROmorphone 2 MG/ML VIAL IV PRN; +IOHEXOL 240 MG/ML 50ML VIAL. PO ONE; +IOHEXOL 300 MG/ML 100ML VIAL. IV ONE; -IV RINGERS,LACTATED 1000ML 1,000 ML IV SCH; +LIDO700A39 TD; -LIDOCAINE 1% PF 2 ML VIAL. ID PRN; -LIDOCAINE 2% PF Vial for OR 5 ML VIAL. ONE; -METF-620 PO; +METF10007 PO; +MIRA25TA PO; +MONT10TA9 PO; -MORPHINE SULFATE 2 MG/ML DISP.SYRIN. IV PRN; +NITR100C6 PO; +NYST15PO9 TP; +OMEP20CA9 PO; -ONDANSETRON PF 4 MG/2 ML VIAL. IV PRN; +POLY2500 PO; +POTA10TA12 PO; +POTA20TA82 PO; -POTASSIUM CHLO10 MEQ PO; -PROCHLORPERAZINE 10 MG/2 ML VIAL. IV PRN; -PROPOFOL 40 ML IV ONE; +TRAZ-85 PO; -fentaNYL PF VIAL 100 MCG/2 ML VIAL IV PRN
--- NOTE | 2018-04-08 14:37 | RAD ---
CT ABDOMEN W/CONTRAST Indication: UPPER ABD PAIN, OMNI 300 60ML REDUCED DOSE PER LABS, OMNI 240 50ML ORAL
NO PRIORS Exposure: One or more of the following individualized dose reduction techniques were utilized for this examination: 1. Automated exposure control 2. Adjustment of the mA and/or kV according to patient size 3. Use of iterative reconstruction technique. Comparison: April 23, 2016 axial images are available, the coronal and sagittal reconstructions are not available. Contrast: Intravenous contrast was given. Oral contrast was given. FINDINGS: Lower thorax: Small nodule in the left lung base, image #3, measures 6 mm. Node the previous scan did not extend to this level. There are several additional smaller nodules which are noncalcified as well. Liver: Unremarkable Spleen: Unremarkable Pancreas: Unremarkable Adrenals: No evidence of mass. Kidneys: Symmetric enhancement. Mild cortical atrophy. No dominant lesion. Urinary tracts: No hydronephrosis. Gallbladder: Not visualized Lymph nodes: No significant enlargement Vessels: * Aorta: Calcified, no aneurysm * Major aortic branches: Calcified, patent * Portal venous: Patent The abdominal bowel loops demonstrate no abnormal distention. Small hiatal hernia. Mild retained stool in the visualized colon. No ascites. Degenerative spondylosis, severe. IMPRESSION: 1. Small noncalcified pulmonary nodules, measuring up to 6 mm. As per Fleischner Society guidelines, recommend CT chest in 3 months. 2. Retained stool in the colon. 3. No acute findings in the abdomen. Electronically signed by: Wesley Mcclain MD (04/08/2018 2:34 PM) [id number]
== END | disposition home or self-care (01) ==
LOC: CT 11:22
PROVIDERS: ATTEND Internal Medicine Gastroenterology
DX: K44.9 Diaphragmatic hernia without obstruction or gangrene (principal); R91.8 Other nonspecific abnormal finding of lung field; I70.0 Atherosclerosis of aorta; M47.896 Other spondylosis, lumbar region
CPT/HCPCS: 74160; Q9966; Q9967

== ENCOUNTER → 2018-12-23 | Outpatient (CLI) | payer MEDICARE, OTHER ==
[2018-04-02 15:40] VITALS: BP 149/77
[~2018-12-23] MED LIST changes: -AMLO10TA6 PO; +AMLO10TA8 PO; -BIOT300T PO; +BIOT300T4 PO; +CARV12.511 PO; -CARV12.52 PO; -GABA600T2 PO; +GABA600T7 PO; -GEMF600T4 PO; +GEMF600T8 PO; -HYDR-2762 PO; +HYDR-2765 PO; -IOHEXOL 240 MG/ML 50ML VIAL. PO ONE; -IOHEXOL 300 MG/ML 100ML VIAL. IV ONE; +LIDO700A21 TD; -LIDO700A39 TD; +MONT10TA49 PO; -MONT10TA9 PO; +OMEP20CA10 PO; -OMEP20CA9 PO; +TRAZ-118 PO; -TRAZ-85 PO
--- NOTE | 2018-12-23 12:20 | KCIC ---
MRI of the lumbar spine without contrast 12/23/2018 CLINICAL HISTORY: Low back pain which radiates down both legs. History of previous lumbar spine surgeries. TECHNIQUE: Unenhanced T1-weighted and T2-weighted sagittal and axial and inversion recovery sagittal images of the lumbar spine were obtained. FINDINGS:Comparison study is dated 12/15/2017. The patient appears to have transitional vertebral anatomy. For the purposes of this dictation 5 lumbar vertebrae have been assumed. Fusion across L5-S1 disc space is noted. A hypoplastic disc is seen at S1-2. Very mild S-shaped curvature of the thoracolumbar spine is seen. Degenerative signal changes and varying degrees of loss of height are seen involving the lower thoracic and throughout the lumbar disc spaces. Degenerative signal changes are seen within the marrow surrounding these discs. The conus medullaris is within normal limits in morphology, position, and signal characteristics. Mild anterolisthesis of L4 in relation to L5 is seen. At the T10-T11 disc space there is a mild to moderate generalized disc bulge. This is eccentric to the left. Degenerative changes are seen involving the facet joints bilaterally. These findings when combined result in mild to moderate left greater than right central spinal canal stenosis. Mild to moderate left greater than right neural foraminal stenosis is seen. At the T11-12 disc space there is a mild generalized disc bulge. Degenerative changes are seen involving the facet joints bilaterally. These findings when combined do not result in significant central spinal canal or neural foraminal stenosis. At the T12-L1, L1-2 and L2-3 disc spaces there are minimal to mild generalized disc bulges. Degenerative changes are seen involving the facet joints bilaterally. These findings do not result in significant central spinal canal or neural foraminal stenosis. At the L3-4 disc space there is a moderate generalized disc bulge. Degenerative changes are seen involving the facet joints bilaterally. There is moderate ligamentum flavum hypertrophy bilaterally. These findings when combined result in mild to moderate central spinal canal stenosis. No neural foraminal stenosis is seen. At the L4-5 disc space the patient appears to be post right hemilaminotomy. There is a moderate generalized disc bulge. Degenerative changes are seen involving the facet joints bilaterally. There is moderate ligamentum flavum hypertrophy bilaterally. These findings when combined result in moderate to severe left greater than right central spinal canal stenosis. Mild bilateral neural foraminal stenosis is seen. At the L5-S1 level patient is post left hemilaminotomy. Degenerative changes are seen involving the facet joints bilaterally. These findings do not result in significant central spinal canal or neural foraminal stenosis. The degenerative changes at L3-4 have increased slightly since the previous examination. IMPRESSION: 1. Post right hemilaminotomy at L4-5 and left hemilaminotomy at L5-S1. 2. The changes of degenerative disc disease are seen involving the lower thoracic and throughout the lumbar spine. These findings result in mild to moderate left greater than right central spinal canal stenosis at T10-11, mild to moderate central spinal canal stenosis at L3-4 and moderate to severe left greater than right central spinal canal stenosis at L4-5. Mild to moderate left greater than right neural foraminal stenosis is seen at T10-11. Mild bilateral neural foraminal stenosis is seen at L4-5. Electronically signed by: Rich Chinchilla MD (12/23/2018 12:17 PM) [facility]
== END | disposition home or self-care (01) ==
LOC: KCIC MRI 09:14
PROVIDERS: ATTEND Physical Medicine & Rehabilitation
DX: M51.15 Intervertebral disc disorders with radiculopathy, thoracolumbar region (principal); M47.25 Other spondylosis with radiculopathy, thoracolumbar region; M48.05 Spinal stenosis, thoracolumbar region; M47.818 Spondylosis without myelopathy or radiculopathy, sacral and sacrococcygeal region
CPT/HCPCS: 72148

== ENCOUNTER → 2019-09-08 | Outpatient (CLI) | payer MEDICARE, MEDICAID ==
[2018-04-02 15:40] VITALS: BP 149/77
[~2019-09-08] MED LIST changes: -DULO60CA44 PO; +DULO60CA45 PO; -OMEP20CA10 PO; +OMEP20CA16 PO; -OXYB10TA PO; +OXYB10TA26 PO; -POTA20TA82 PO; -TIZA4TAB PO; +TIZA4TAB2 PO
--- NOTE | 2019-09-08 15:17 | KCIC ---
EXAM: Dual energy x-ray absorptiometry (DEXA). HISTORY: Postmenopausal female presents for osteoporosis screening. COMPARISON: None. TECHNIQUE: Dual energy x-ray absorptiometry of the lumbar spine and left hip was performed. Calculation of bone mineral density based on standard deviations above or below the expected young adult normal value (T-score) was completed. FINDINGS: The average bone mineral density in the 1st through 4th lumbar vertebrae is 1.049 g/cmxcm, corresponding with a T-score of 0.0. The average total bone mineral density in the left hip is 0.744 g/cmxcm, corresponding with a T-score of -1.6. IMPRESSION: 1. Osteopenia measured at the left hip. 2. Normal bone mineral density of the lumbar spine. Note: Definitions established by the World Health Organization: 1. Normal: T-score is -1.0 or above. 2. Osteopenia: T-score is between -1.0 and -2.5 . 3. Osteoporosis: T-score is -2.5 or below. Electronically signed by: Sarah Post MD (09/08/2019 3:14 PM) [id number]
--- NOTE | 2019-09-08 16:40 | KCIC ---
EXAM: Left foot, 3 views; left ankle, 3 views. HISTORY: Pain. COMPARISON: None. FINDINGS: 3 views of the left foot and ankle are obtained. There is no acute fracture, dislocation or subluxation. There is a corticated ossicle inferior to the medial malleolus, likely due to sequela of remote injury. The ankle mortise is intact. No osteochondral lesion is seen. There is a small plantar spur. There are vascular calcifications. There is first metatarsal phalangeal joint space narrowing with subchondral sclerosis and spurring. There is accessory navicular. IMPRESSION: 1. No acute osseous finding. 2. Mild first metatarsal phalangeal osteoarthritis. 3. Small plantar spur. Electronically signed by: Sarah Post MD (09/08/2019 4:37 PM) [id number]
== END | disposition home or self-care (01) ==
LOC: KCIC DEXA 13:20
PROVIDERS: ATTEND Podiatrist
DX: M19.072 Primary osteoarthritis, left ankle and foot (principal); M85.88 Other specified disorders of bone density and structure, other site
CPT/HCPCS: 73610; 73630; 77080